=== PATIENT | male | born 1935 | race Caucasian/White ===

== ENCOUNTER → 2016-08-05 | Outpatient (CLI) | payer OTHER, MEDICARE ==
[2016-06-02 12:58] VITALS: BP 146/86
[~2016-08-05] MED LIST: NS 100 ML IV 100 ML IV ONE
[2016-08-05 14:43] LABS: CREATININE 1.37 mg/dL (0.70-1.30)
--- NOTE | 2016-08-05 16:37 | CT ---
History: Shortness of breath and history of DVT Study: CTA chest with contrast. Sagittal and coronal and axial MIPS of the pulmonary arteries were d isplayed. Comparison: None Findings: There is a spiculated mass posteriorly in the right upper lobe measuring approximately 2.2 5 centimeters in diameter. There are a few air bronchograms through this mass and some bubbles of ga s in this mass. There is no hilar adenopathy. There are prominent middle mediastinal lymph node william uring up to 1.5 centimeters in diameter. There is a large hiatal hernia. There are a few small blebs in the apex of the right lung. The lungs are overall hyperinflated with mild centrilobular emphysem a. No pulmonary embolus is demonstrated. There is a 2 centimeter round nodule arising from the left adrenal gland with peripheral calcification. There is osteopenia. There is an old fracture of the up per sternum. Impression: 1. No evidence for pulmonary embolus 2. Spiculated right upper lobe posterior lateral lung mass suspicious for carcinoma. 3. Centrilobular emphysema 4. Large hiatal hernia 5. 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
== END | disposition home or self-care (01) | DRG 192 ==
LOC: RAD 14:14
PROVIDERS: ATTEND Internal Medicine
DX: J44.9 Chronic obstructive pulmonary disease, unspecified (principal); Z86.718 Personal history of other venous thrombosis and embolism; Z86.711 Personal history of pulmonary embolism; R06.02 Shortness of breath
CPT/HCPCS: 36415; 71275; 82565; 84520; A4222

== ENCOUNTER 2016-08-29 21:37 | Inpatient (IN) | payer OTHER, MEDICARE ==
[2016-08-29 21:45] VITALS: BMI 23.1
--- NOTE | 2016-08-29 23:38 | DR.GENAD ---
HPI - PCP Primary Care Physician: Kenneth - Complaint/Symptoms Chief Complaint Doctors Comments: Patient complains of being weak, SOB with xiphoid chest pain for the past 24 hours. States he has COPD and has been unable to walk ten feet without giving out. states he normally can walk over 100 yards. He is having dull xiphoid chest pain. states he is a patient of Dr. Cooper. He has had a nebulizer treatment around 4 pm today. states he has a history of CHF, COPD; atrial fibrillation. He states nebulizers four times daily and is on two liters oxygen daily. States he has had a little swelling in his legs. He denies cold or cough. He denies tobacco usage. Chief Complaint:: "For about 2 or 3 weeks now my breathing has been getting worse. It has been very hard to breath and I have been getting weak lately. My stomach has been sour as well. I have lost about 10 pounds in the last 2 weeks. " - Nurses notes reviewed Nurses Notes Review: Yes - Source History Provided: Patient - Mode of Arrival Mode of Arrival: Wheelchair - Timing Onset of Chief Complaint: 08/13/16 Came on: Suddenly - Duration Duration: Intermittent How lon Duration: Days - Location Location: xiphoid chest pain - Severity Severity: Moderate - Modifying Factors Worsens:: nothing Improves:: nothing PMH - PMH Past Medical History: Yes Past Medical History: Angina, Anxiety, Arthritis, CHF, COPD, Coronary Artery Disease, Dyslipidemia, GERD, Hypertension Past Surgical History: Yes Surgical History: TURP - Family History History of Family Medical Conditions: Yes Family Medical History: Hypertension - Social History Does patient currently use any type of tobacco product: No Have you used tobacco products in the last 12 months: No Type of Tobacco Use: None Does any household member use tobacco: No Do you use any recreational Drugs:: No Lives With: Family Lives Where: Home - infectious screening In the last 2 months have you had wt loss of >10#?: YES Have you had fever, night sweats or hemotysis?: No Have you traveled outside the country in the last 6 months?: No Isolation: Standard ROS - Review of Systems Constitutional: No Symptoms Reported, Weakness, Fatigue, Loss of Appetite Eyes: No Symptoms Reported. negative: See HPI, Eye Pain, Blurred Vision, Tearing, Discharge, Photophobia, Diplopia, Other ENTM: No Symptoms Reported Respiratoy: No Symptoms Reported, Short of Breath, Wheezing. negative: See HPI , Productive Cough, Non-Productive Cough, Moist Cough, Dry Cough, Hacking Cough , Barking Cough, Brassy Cough, Orthopnea, Stridor, Hemoptysis, Other Cardiovascular: No Symptoms Reported, Chest Pain, Edema, Palpitations. negative : See HPI, Syncope, Cyanosis, Skin Mottling, Other Gastrointestinal/Abdominal: No Symptoms Reported. negative: See HPI, Abdominal Pain, Constipation, Diarrhea, Nausea, Vomiting, Food Intolerance, Other Genitourinary: No Symptoms Reported Neurological: No Symptoms Reported, Weakness, Problems Walking. negative: See HPI, Anxiety, Depressed, Emotional Problems, Headache, Numbness, Paresthesia, Pre-existing Deficit, Seizure, Tingling, Tremors, Dizziness, Speech Problem, Other Musculoskeletal: No Symptoms Reported Integumentary: No Symptoms Reported. negative: See HPI, Change in Color, Change in Hair/Nails, Dryness, Lesions, Lumps, Rash, Itching, Wound, Bruises, Juandice, Other Hematologic/Lymphatic: No Symptoms Reported Endocrine: No Symptoms Reported. negative: See HPI, Excessive Sweating, Flushing, Intolerance to Cold, Intolerance to Heat, Increased Hunger, Increased Thirst, Increased Urine, Unexplained Weight Gain, Unexplained Weight Loss, Failure to Thrive, Decreased Appetite, Other Psychiatric: No Symptoms Reported PE - Vital Signs Vitals: Temperature 98.2 F Pulse Rate 94 Respiratory Rate 23 Blood Pressure [Right Arm] 126/62 Blood Pressure [Left Arm] 146/86 Blood Pressure 106/69 O2 Sat by Pulse Oximetry 97 - General Limitations: No Limitations General Appearance: Alert, In Distress (moderate) - Head Head Exam: Normal Inspection, Atraumatic, Normocephalic - Eyes Eye exam: Normal Appearance, PERRL, EOMI. negative: Scleral Icterus, Conjunctival Injection, Nystagmus, Miosis, Mydrasis, Periorbital Swelling, Periorbital Tenderness, Other - ENT ENT Exam: Normal Exam, Normal Oropharynx, Normal External Ear Exam, Mucous Membranes Moist, TM's Normal Bilaterally External Ear Exam: Normal External Inspection TM/Canal Exam: Bilateral Normal Nose Exam: Normal Nose Exam Mouth Exam: Normal Inspection Throat Exam: Normal Inspection - Neck Neck Exam: Normal Inspection, Full ROM, Trachea Midline - Chest Chest Inspection: Normal Inspection, Symmetric Chest Wall Rise - Respiratory Respiratory Exam: Normal Lung Sounds Bilat, Prolonged Expiratory Phase Respiratory Exam: Bilateral Wheezing, Bilateral Decreased Breath Sounds - Cardiovascular Cardiovascular Exam: Regular Rate, Normal Rhythm, Tachycardia, Irregular Rhythm - Abdominal Exam Abdominal Exam: Normal Inspection, Normal Bowel Sounds, Soft. negative: Distention, Tenderness, Guarding, Rebound, Rigidity, Dimnished Bowel Sounds, Hyperactive Bowel Sounds, Hypoactive Bowel Sounds, Organomegaly, Trauma, Incision, Ascites, Mass, Bruit, Pulsatile Mass, Hernia, Other Abdominal Tenderness: negative: RUQ, RLQ, LUQ, LLQ, Epigastrium, Suprapubic, Diffuse, Mild, Moderate, Severe, Other - Extremities Extremities Exam: Normal Inspection, Full ROM, Normal Capillary Refill. negative: Tenderness, Edema, Joint Swelling, Calf Tenderness, Other - Back Back Exam: Normal Inspection, Full ROM. negative: Tenderness, (R) CVA Tenderness, (L) CVA Tenderness, Muscle Spasm, Paraspinal Tenderness, Vertebral Tenderness, Rashes, (R) Sciatic Notch Tenderness, (L) Sciatic Notch Tendern, (R ) Straight Leg Raise, (L) Straight Leg Raise, Other - Neurologic Neurological Exam: Alert, Oriented X3, CN II-XII Intact, Reflexes Normal. negative: Normal Gait (gait not tested) - Psychiatric Psychiatric Exam: Normal Affect, Normal Mood. negative: Depressed, Agitated, Anxious, Flat Affect, Manic, Homicidal Ideation, Suicidal Ideation, Other - Skin Skin Exam: Warm, Dry, Intact, Normal Color. negative: Rash, Cyanosis, Diaphoresis, Erythema, Pallor, Mottled, Other Course - Reevaluation 1st: Improved - Consultation Called: 02:08 Call Returned: 02:08 (Dr. Zavaleta to admit) - Education/Counseling Education/Counseling: Patient Educated On: Treatment, Diagnosis, Needs for Follow Up ROR - Labs Reviewed Laboratory Results Reviewed?: Yes (all labs and x-ray result reviewed and discussed with patient) Result Diagrams: 08/29/16 00:00 08/30/16 00:00 Laboratory: WBC 8.3 X10^3/uL (3.6-10.0) 08/29/16 00:00 RBC 3.94 X10^6/uL (4.7-6.0) L 08/29/16 00:00 Hgb 12.5 g/dL (13.5-18.0) L 08/29/16 00:00 Hct 36.7 % (42.0-54.0) L 08/29/16 00:00 MCV 93.4 fL (80.0-100.0) 08/29/16 00:00 MCH 31.8 pg (27.0-34.0) 08/29/16 00:00 MCHC 34.1 g/dL (33.0-35.0) 08/29/16 00:00 RDW 13.7 % (11.6-16.5) 08/29/16 00:00 Plt Count 380 X10^3/uL (150.0-450.0) 08/29/16 00:00 MPV 8.6 fL (7.4-11.0) 08/29/16 00:00 Neut % 74.9 % (42.0-75.0) 08/29/16 00:00 Lymph % 8.8 % (21.0-51.0) L 08/29/16 00:00 [place] % 13.0 % (0.0-13.0) 08/29/16 00:00 Eos % 3.3 % (0.9-2.9) H 08/29/16 00:00 Baso % 0 % (0.2-1.0) L 08/29/16 00:00 Neut # 6.2 x10^3/uL (2.2-4.8) H 08/29/16 00:00 Lymph # 0.7 X10^3/uL (1.3-2.9) L 08/29/16 00:00 [place] # 1.1 x10^3/uL (0.3-0.8) H 08/29/16 00:00 Eos # 0.3 x10^3/uL (0.0-0.2) H 08/29/16 00:00 Baso # 0.0 X10^3/uL (0.0-0.1) 08/29/16 00:00 Absolute Nucleated RBC 0.1 /100WBC 08/29/16 00:00 INR Target Range - 08/29/16 00:00 INR 1.39 (0.8-1.3) H 08/29/16 00:00 PTT 30.6 SECONDS (22.9-36.5) 08/29/16 00:00 PTT Comment - 08/29/16 00:00 Sodium 141 mmol/L (136-145) 08/30/16 00:00 Corrected Sodium TNP 08/30/16 00:00 Potassium 3.1 mmol/L (3.5-5.1) L 08/30/16 00:00 Chloride 103 mmol/L (98-107) 08/30/16 00:00 Carbon Dioxide 27.6 mmol/L (21-32) 08/30/16 00:00 BUN 24 mg/dL (7-18) H 08/30/16 00:00 Creatinine 1.64 mg/dL (0.70-1.30) H 08/30/16 00:00 Est GFR (MDRD) Af Amer 52 (>60) L 08/30/16 00:00 Est GFR (MDRD) Non-Af 43 (>60) L 08/30/16 00:00 Glucose 101 mg/dL (65-99) H 08/30/16 00:00 Calcium 9.0 mg/dL (8.5-10.1) 08/30/16 00:00 Corrected Calcium 9.7 mg/dL (8.5-10.1) 08/30/16 00:00 Magnesium 1.5 mg/dL (1.7-2.9) L 08/30/16 00:00 Total Bilirubin 1.00 mg/dL (0.2-1.0) 08/30/16 00:00 AST 26 Units/L (15-37) 08/30/16 00:00 ALT 24 Units/L (12-78) 08/30/16 00:00 Alkaline Phosphatase 118 Units/L (46-116) H 08/30/16 00:00 Creatine Kinase 82 Units/L (39-308) 08/30/16 00:00 CK-MB (CK-2) 1.4 ng/mL (0-4.0) 08/30/16 00:00 CK/CKMB % Calc 1.7 % (<4) 08/30/16 00:00 Troponin I < 0.02 ng/mL (0-1.5) 08/30/16 00:00 Total Protein 6.6 g/dL (6.4-8.2) 08/30/16 00:00 Albumin 3.1 g/dL (3.4-5.0) L 08/30/16 00:00 Globulin 3.5 g/dL (2.5-4.5) 08/30/16 00:00 Albumin/Globulin Ratio 0.9 Ratio (1.1-2.1) L 08/30/16 00:00 Amylase 38 Units/L (25-115) 08/30/16 00:00 Lipase 75 Units/L (73-393) 08/30/16 00:00 - EKG Rate: 102 Rhythm: Afib ST: Nonsp - Diagnosis Discharge Problem: Chest pain, rule out acute myocardial infarction, COPD exacerbation, Hypokalemia Atrial fibrillation Qualifiers: Atrial fibrillation type: chronic Qualified Code(s): I48.2 - Chronic atrial fibrillation - Discharge Plan Disposition: ADMITTED INPATIENT Condition: Stable - Follow ups/Referrals Follow ups/Referrals: Saurabh Cooper [Primary Care Provider] - 3 days - Instructions
--- NOTE | 2016-08-29 23:57 | RAD ---
Chest, one view Indication: Chest pain, shortness of breath. Comparison: CTA from 08/05/2016 Findings: Mild cardiac silhouette enlargement is unchanged. The lungs are mildly hypoinflated with m ild bibasilar atelectasis. There is no overt edema. There is re-demonstration of a right nodular opa city, not significantly changed. No large effusion or pneumothorax. Impression: Grossly stable right upper lobe nodule versus consolidation compared with the recent CTA. Cardiomegaly with low lung volumes and mild bibasilar atelectasis. Reported By:
[2016-08-30 00:12] LABS: BASOPHILS % (AUTO) 0 % (0.2-1.0); EOSINOPHILS # (AUTO) 0.3 x10^3/uL (0.0-0.2); EOSINOPHILS % (AUTO) 3.3 % (0.9-2.9); HEMATOCRIT 36.7 % (42.0-54.0); HEMOGLOBIN 12.5 g/dL (13.5-18.0); LYMPHOCYTES # (AUTO) 0.7 X10^3/uL (1.3-2.9); LYMPHOCYTES % (AUTO) 8.8 % (21.0-51.0); MEAN CORPUSCULAR HEMOGLOBIN 31.8 pg (27.0-34.0); MEAN CORPUSCULAR HGB CONC 34.1 g/dL (33.0-35.0); MEAN CORPUSCULAR VOLUME 93.4 fL (80.0-100.0); MEAN PLATELET VOLUME 8.6 fL (7.4-11.0); MONOCYTES # (AUTO) 1.1 x10^3/uL (0.3-0.8); NEUTROPHILS # (AUTO) 6.2 x10^3/uL (2.2-4.8); NEUTROPHILS % (AUTO) 74.9 % (42.0-75.0); PLATELET COUNT 380 X10^3/uL (150.0-450.0); RED BLOOD COUNT 3.94 X10^6/uL (4.7-6.0); RED CELL DISTRIBUTION WIDTH 13.7 % (11.6-16.5); WHITE BLOOD COUNT 8.3 X10^3/uL (3.6-10.0)
[2016-08-30 00:39] LABS: ALANINE AMINOTRANSFERASE 24 Units/L (12-78); ALBUMIN 3.1 g/dL (3.4-5.0); ALKALINE PHOSPHATASE 118 Units/L (46-116); AMYLASE 38 Units/L (25-115); ASPARTATE AMINO TRANSFERASE 26 Units/L (15-37); BLOOD UREA NITROGEN 24 mg/dL (7-18); CARBON DIOXIDE 27.6 mmol/L (21-32); CHLORIDE 103 mmol/L (98-107); CKMB % 1.7 % (<4); COR CA(FOR HYPOALB) 9.7 mg/dL (8.5-10.1); CREATINE KINASE 82 Units/L (39-308); CREATINE KINASE MB 1.4 ng/mL (0-4.0); CREATININE 1.64 mg/dL (0.70-1.30); GLUCOSE 101 mg/dL (65-99); LIPASE 75 Units/L (73-393); MAGNESIUM 1.5 mg/dL (1.7-2.9); SODIUM 141 mmol/L (136-145); TOTAL PROTEIN 6.6 g/dL (6.4-8.2); TROPONIN I < 0.02 ng/mL (0-1.5); eGFR BLACK RACES 52 (>60); eGFR NON BLACK RACES 43 (>60)
[2016-08-30] MEDS ORDERED: SOLU-Medrol 125 MG VIAL IVP ONE (00:50)
[2016-08-30] MEDS ORDERED: SOLU-Medrol 125 MG VIAL ONE (00:52)
[2016-08-30] MEDS: NS 1000 ML 1,000 ML IV SCH ×4 (00:55→15:42)
[2016-08-30] MEDS ORDERED: K-LYTE EFFERVESCENT PO STA (01:06)
[2016-08-30] MEDS: DUONEB 0.5 MG/3 MG NEB SCH ×3 (05:05→12:27)
[2016-08-30] MEDS ORDERED: LEVAQUIN PREMIX IV 500 MG 500 MG/100 ML BAG IV ONE (06:00)
[2016-08-30 06:57] LABS: CHOL/HDL RATIO 2.2 (0.0-5.0); CHOLESTEROL 99 mg/dL (0-200); CKMB % 2.2 % (<4); CREATINE KINASE 67 Units/L (39-308); CREATINE KINASE MB 1.5 ng/mL (0-4.0); HDL CHOLESTEROL 46 mg/dL (40-60); TRIGLYCERIDES 52 mg/dL (0-150); TROPONIN I < 0.02 ng/mL (0-1.5)
[2016-08-30] MEDS: SOLU-Medrol 40 MG VIAL IVP SCH ×2 (07:45→16:51)
[2016-08-30] MEDS ORDERED: LOPRESSOR TAB 25 MG PO SCH (09:00)
[2016-08-30 09:06] LABS: ALANINE AMINOTRANSFERASE 25 Units/L (12-78); ALBUMIN 3.1 g/dL (3.4-5.0); ALKALINE PHOSPHATASE 119 Units/L (46-116); ASPARTATE AMINO TRANSFERASE 28 Units/L (15-37); BLOOD UREA NITROGEN 24 mg/dL (7-18); CALCIUM 9.2 mg/dL (8.5-10.1); CARBON DIOXIDE 25.5 mmol/L (21-32); CHLORIDE 102 mmol/L (98-107); COR CA(FOR HYPOALB) 9.9 mg/dL (8.5-10.1); CREATININE 1.62 mg/dL (0.70-1.30); GLUCOSE 86 mg/dL (65-99); SODIUM 140 mmol/L (136-145); TOTAL PROTEIN 6.7 g/dL (6.4-8.2); eGFR BLACK RACES 53 (>60); eGFR NON BLACK RACES 44 (>60)
[2016-08-30] MEDS: MAGNESIUM SULFATE 1 GM/100 mL PREMIX 1 GM/100 ML BAG IV SCH ×2 (09:16→10:20)
[2016-08-30] MEDS: CARDIZEM CD 180 MG PO SCH (09:16)
[2016-08-30] MEDS ORDERED: K-RIDER 10 MEQ/NS 100 ML 10 MEQ/100 ML BAG IV PRN (09:27)
[2016-08-30] MEDS ORDERED: K-DUR TAB 20 MEQ PO PRN (09:27)
[2016-08-30] MEDS ORDERED: K-LYTE EFFERVESCENT PO PRN (09:27)
[2016-08-30] MEDS ORDERED: POTASSIUM CHLORIDE LIQ 20 MEQ UDC PO PRN (09:27)
[2016-08-30] MEDS ORDERED: PROVENTIL NEB TX 0.083% 2.5MG/ 3ML NEB PRN (11:58)
[2016-08-30] MEDS ORDERED: COLACE CAP 100 MG PO PRN (11:58)
[2016-08-30] MEDS ORDERED: PATIENT'S HOME MEDICATION (Budesonide-Formoterol 2 PUFF) PO SCH (12:00)
[2016-08-30] MEDS ORDERED: PATIENT'S HOME MEDICATION (Omeprazole [Prilosec 40 Mg] 40 MG) PO SCH (12:00)
[2016-08-30] MEDS ORDERED: OMEGA PO SCH (12:00)
[2016-08-30] MEDS ORDERED: FATTY ACIDS PO SCH (12:00)
[2016-08-30] MEDS ORDERED: CARDIZEM CD 180 MG PO SCH (12:00)
[2016-08-30] MEDS ORDERED: TIOTROPIUM BROMIDE MONOHYDRATE INH SCH (12:00)
[2016-08-30] MEDS ORDERED: PATIENT'S HOME MEDICATION (Apixaban [Eliquis] 2.5 MG) PO SCH (12:00)
[2016-08-30] MEDS ORDERED: CHOLECALCIFEROL 5000 UNIT PO SCH (12:00)
[2016-08-30] MEDS ORDERED: AFRIN NASAL SPRAY ENOSTRIL PRN (12:10)
[2016-08-30] MEDS ORDERED: ELIQUIS PO ONE (12:31)
[2016-08-30] MEDS ORDERED: PriLOSEC PO ONE (12:31)
[2016-08-30] MEDS ORDERED: LOVAZA PO ONE (12:32)
[2016-08-30] MEDS ORDERED: VITAMIN D3 PO ONE (12:37)
[2016-08-30] MEDS: FLONASE NASAL SPRAY ENOSTRIL SCH (12:58)
[2016-08-30] MEDS ORDERED: LOVAZA PO SCH (13:00)
[2016-08-30] MEDS ORDERED: ATROVENT NEB TX 0.02% NEB SCH ×2 (13:00→18:00)
[2016-08-30] MEDS ORDERED: XOPENEX 1.25 MG/3 ML NEBULE NEB PRN (14:47)
[2016-08-30 16:19] LABS: CALCIUM 8.8 mg/dL (8.5-10.1); CARBON DIOXIDE 27.7 mmol/L (21-32); CREATININE 1.49 mg/dL (0.70-1.30)
[2016-08-30] MEDS: ATROVENT NEB TX 0.02% NEB SCH (17:09)
[2016-08-30] MEDS: XOPENEX 1.25 MG/3 ML NEBULE NEB SCH (17:09)
[2016-08-30] MEDS ORDERED: XOPENEX 1.25 MG/3 ML NEBULE NEB SCH (18:00)
[2016-08-30] MEDS ORDERED: ZOLOFT PO ONE (20:20)
[2016-08-30] MEDS: ZOLOFT PO SCH (20:30)
[2016-08-30] MEDS: VITAMIN D3 PO SCH (20:31)
[2016-08-30] MEDS: LASIX PO SCH (20:31)
[2016-08-30] MEDS: ALFUZOSIN HCL 10 MG PO SCH (20:31)
[2016-08-30] MEDS: ELIQUIS PO SCH (20:31)
[2016-08-30] MEDS: PULMICORT NEB TX 0.5 MG NEB SCH (20:49)
[2016-08-30] MEDS ORDERED: SERTRALINE HCL 100 MG PO SCH (21:00)
[2016-08-30] MEDS: TOPROL XL PO SCH (21:00)
[2016-08-31] MEDS: XOPENEX 1.25 MG/3 ML NEBULE NEB SCH ×5 (00:26→17:06)
[2016-08-31] MEDS: ATROVENT NEB TX 0.02% NEB SCH ×5 (00:26→17:06)
[2016-08-31] MEDS: SOLU-Medrol 40 MG VIAL IVP SCH ×3 (01:14→16:30)
[2016-08-31 06:51] LABS: BASOPHILS % (AUTO) 0.1 % (0.2-1.0); EOSINOPHILS % (AUTO) 0.1 % (0.9-2.9); HEMATOCRIT 32.4 % (42.0-54.0); LYMPHOCYTES # (AUTO) 0.2 X10^3/uL (1.3-2.9); LYMPHOCYTES % (AUTO) 1.9 % (21.0-51.0); MEAN CORPUSCULAR HEMOGLOBIN 31.4 pg (27.0-34.0); MEAN CORPUSCULAR VOLUME 92.3 fL (80.0-100.0); MEAN PLATELET VOLUME 9.1 fL (7.4-11.0); MONOCYTES # (AUTO) 0.3 x10^3/uL (0.3-0.8); MONOCYTES % (AUTO) 2.8 % (0.0-13.0); NEUTROPHILS # (AUTO) 9.6 x10^3/uL (2.2-4.8); NEUTROPHILS % (AUTO) 95.1 % (42.0-75.0); PLATELET COUNT 386 X10^3/uL (150.0-450.0); RED BLOOD COUNT 3.51 X10^6/uL (4.7-6.0); RED CELL DISTRIBUTION WIDTH 13.5 % (11.6-16.5); WHITE BLOOD COUNT 10.1 X10^3/uL (3.6-10.0)
[2016-08-31 07:02] LABS: ALANINE AMINOTRANSFERASE 21 Units/L (12-78); ALBUMIN 2.7 g/dL (3.4-5.0); ALKALINE PHOSPHATASE 95 Units/L (46-116); ASPARTATE AMINO TRANSFERASE 28 Units/L (15-37); BLOOD UREA NITROGEN 23 mg/dL (7-18); CARBON DIOXIDE 25.6 mmol/L (21-32); CHLORIDE 104 mmol/L (98-107); COR NA(FOR HYPERGLY) 139 mmol/L (136-145); CREATININE 1.35 mg/dL (0.70-1.30); GLUCOSE 134 mg/dL (65-99); SODIUM 138 mmol/L (136-145); TOTAL PROTEIN 5.7 g/dL (6.4-8.2); eGFR BLACK RACES > 60 (>60); eGFR NON BLACK RACES 54 (>60)
[2016-08-31 07:20] LABS: PLATELET MORPHOLOGY COMMENT NORMAL (NORMAL)
--- NOTE | 2016-08-31 07:35 | RAD ---
HISTORY: Chest pain Study: Chest one view Comparison: August 29, 2016, CTA chest August 05, 2016 Findings: The patient is rotated to the right. The heart remains enlarged. The lungs are mildly hypoinflated b ut free of acute alveolar infiltrates. The areaof nodular consolidation visible on the most recent C TA chest is not well demonstrated on this examination. Follow up should be with CT. No acute infiltr ates or pleural effusions are identified. IMPRESSION: Cardiomegaly without congestive heart failure Reported By:
[2016-08-31] MEDS: FERROUS SULFATE PO SCH (08:10)
[2016-08-31] MEDS: LEVAQUIN PREMIX IV 250 MG 250 MG/50 ML BAG IV SCH (08:11)
[2016-08-31] MEDS: NS 1000 ML 1,000 ML IV SCH ×2 (08:11→16:29)
[2016-08-31] MEDS: CARDIZEM CD 180 MG PO SCH (08:11)
[2016-08-31] MEDS: TOPROL XL PO SCH ×2 (08:11→21:00)
[2016-08-31] MEDS: MICRO K EXTEN CAP 10 MEQ PO SCH (08:11)
[2016-08-31] MEDS: ASPIRIN 81 MG CHEWTAB PO SCH (08:12)
[2016-08-31] MEDS: VITAMIN D3 PO SCH ×2 (08:12→21:00)
[2016-08-31] MEDS: LASIX PO SCH ×2 (08:13→21:04)
[2016-08-31] MEDS: FLONASE NASAL SPRAY ENOSTRIL SCH (08:13)
[2016-08-31] MEDS: ELIQUIS PO SCH ×2 (08:13→21:03)
[2016-08-31] MEDS: PriLOSEC PO SCH (08:14)
[2016-08-31] MEDS: PULMICORT NEB TX 0.5 MG NEB SCH ×2 (08:40→21:00)
[2016-08-31] MEDS ORDERED: PATIENT'S HOME MEDICATION (Ferrous Sulfate [Ferrous Sulfate] 325 MG) PO SCH (09:00)
[2016-08-31] MEDS ORDERED: POTASSIUM CHLORIDE 10 MEQ PO SCH (09:00)
[2016-08-31] MEDS: TYLENOL 325 MG TAB PO PRN (18:43)
[2016-08-31] MEDS ORDERED: ZOLOFT PO ONE (20:30)
[2016-08-31] MEDS: ZOLOFT PO SCH (21:04)
[2016-08-31] MEDS: ALFUZOSIN HCL 10 MG PO SCH (21:04)
[2016-09-01] MEDS: XOPENEX 1.25 MG/3 ML NEBULE NEB SCH ×4 (00:26→17:11)
[2016-09-01] MEDS: ATROVENT NEB TX 0.02% NEB SCH ×4 (00:26→17:11)
[2016-09-01] MEDS: SOLU-Medrol 40 MG VIAL IVP SCH ×3 (01:07→17:47)
[2016-09-01] MEDS: NS 1000 ML 1,000 ML IV SCH ×2 (01:08→17:46)
[2016-09-01 05:44] LABS: ALBUMIN 2.7 g/dL (3.4-5.0); CARBON DIOXIDE 23.8 mmol/L (21-32); CREATININE 1.45 mg/dL (0.70-1.30); TOTAL PROTEIN 5.8 g/dL (6.4-8.2)
[2016-09-01 06:20] LABS: BASOPHILS % (AUTO) 0.3 % (0.2-1.0); EOSINOPHILS % (AUTO) 0.1 % (0.9-2.9); HEMATOCRIT 34.3 % (42.0-54.0); HEMOGLOBIN 11.5 g/dL (13.5-18.0); LYMPHOCYTES # (AUTO) 0.2 X10^3/uL (1.3-2.9); LYMPHOCYTES % (AUTO) 1.5 % (21.0-51.0); MEAN CORPUSCULAR HEMOGLOBIN 31.4 pg (27.0-34.0); MEAN CORPUSCULAR HGB CONC 33.7 g/dL (33.0-35.0); MEAN CORPUSCULAR VOLUME 93.2 fL (80.0-100.0); MEAN PLATELET VOLUME 9.3 fL (7.4-11.0); MONOCYTES # (AUTO) 0.5 x10^3/uL (0.3-0.8); MONOCYTES % (AUTO) 4.2 % (0.0-13.0); NEUTROPHILS # (AUTO) 10.1 x10^3/uL (2.2-4.8); NEUTROPHILS % (AUTO) 93.9 % (42.0-75.0); PLATELET COUNT 439 X10^3/uL (150.0-450.0); RED BLOOD COUNT 3.68 X10^6/uL (4.7-6.0); RED CELL DISTRIBUTION WIDTH 13.2 % (11.6-16.5); WHITE BLOOD COUNT 10.8 X10^3/uL (3.6-10.0)
[2016-09-01 06:46] LABS: BAND NEUTROPHILS % 1 % (0-10); PLATELET MORPHOLOGY COMMENT NORMAL (NORMAL)
--- NOTE | 2016-09-01 07:45 | RAD ---
HISTORY: 80-year-old male with shortness of breath. Study: Single frontal view of the chest. Comparison: Chest radiograph August 31, 2016. Findings: The trachea is midline. The cardiac silhouette is stable. Low lung volumes with basilar atelectasi s hand unchanged prominent perihilar lung markings, central pulmonary vascular congestion and promin ent interstitium. Evolving right lung base patchy airspace opacity. The bony thorax is unremarkable . IMPRESSION: 1. Involving right lung base patchy airspace opacity, atelectasis versus infectious process, correl ate clinically. 2. No other significant interval change. Reported By:
[2016-09-01] MEDS: PULMICORT NEB TX 0.5 MG NEB SCH ×2 (08:46→21:00)
[2016-09-01] MEDS: FERROUS SULFATE PO SCH (10:56)
[2016-09-01] MEDS: VITAMIN D3 PO SCH ×2 (10:57→21:24)
[2016-09-01] MEDS: PriLOSEC PO SCH (10:57)
[2016-09-01] MEDS: MICRO K EXTEN CAP 10 MEQ PO SCH (10:58)
[2016-09-01] MEDS: LEVAQUIN PREMIX IV 250 MG 250 MG/50 ML BAG IV SCH (10:58)
[2016-09-01] MEDS: TOPROL XL PO SCH ×2 (10:58→20:34)
[2016-09-01] MEDS: CARDIZEM CD 180 MG PO SCH (10:58)
[2016-09-01] MEDS: ELIQUIS PO SCH ×2 (10:59→20:32)
[2016-09-01] MEDS: FLONASE NASAL SPRAY ENOSTRIL SCH (11:00)
[2016-09-01] MEDS: LASIX IVP SCH ×2 (11:01→21:24)
--- NOTE | 2016-09-01 15:49 | PCM.PROG ---
Progress Note - Progress Note for Day of Date: 09/01/16 - Subjective Subjective: Patient is an 80 yo male who presented to the hospital through the emergency room with complaints of chest pain, shortness of rbeath and increased weakness that has been going on for the last 24 hrs. This am the patient states that he is feeling better however, he is still have shortness of breath when he is not resting. Patient is noted to have increased heart rate and decreased oxygen saturation up activity such as sitting up or walking. Most recent EKG show atrial fibrillation with a rate of 103, patient has history of atrial fibrillation as well and is currently on cardizem. Labs are normal with the exception of WBC 10.8, RBC 3.68, Hgb 11.5, Hct 34.3, BUN 28, Creatinine 1.45, AST 50, Total Protein 5.8, Albumin 2.7 - Past Medical Family Social History Allergies: Allergies No Known Drug Allergy Allergy (Verified 03/03/13 08:46) - Vital Signs and I&O's Vital Signs: Temperature 98 F Pulse Rate [Left] 105 Pulse Rate 95 Respiratory Rate 18 Blood Pressure [Right Arm] 113/66 O2 Sat by Pulse Oximetry 92 Intake and Output: Intake & Output 08/30/16 08/31/16 09/01/16 09/02/16 11:59 11:59 11:59 11:59 Intake Total 375 3625 2470 Output Total 300 1150 1750 Balance 75 2475 720 - Physical Exam Oriented: Normal Eyes: Normal Ear: Normal Nose: Normal Throat: Normal Respiratory: Wheezes (scattered) Cardiovascular: Irregular : Normal Auscultation: Bowel Sounds: Normal Palpation: Normal Tenderness: Normal Skin: Decreased [place] Musculoskeletal: Instability Psychiatric: Normal Mood Description: Calm Affect: Normal Speech Pattern: Clear - Laboratory and Diagnostics Result Diagrams: 09/01/16 04:45 09/01/16 04:45 Labs: Laboratory WBC 10.8 X10^3/uL (3.6-10.0) H 09/01/16 04:45 RBC 3.68 X10^6/uL (4.7-6.0) L 09/01/16 04:45 Hgb 11.5 g/dL (13.5-18.0) L 09/01/16 04:45 Hct 34.3 % (42.0-54.0) L 09/01/16 04:45 MCV 93.2 fL (80.0-100.0) 09/01/16 04:45 MCH 31.4 pg (27.0-34.0) 09/01/16 04:45 MCHC 33.7 g/dL (33.0-35.0) 09/01/16 04:45 RDW 13.2 % (11.6-16.5) 09/01/16 04:45 Plt Count 439 X10^3/uL (150.0-450.0) 09/01/16 04:45 Plt Count Comment Adequate (ADEQUATE) 09/01/16 04:45 MPV 9.3 fL (7.4-11.0) 09/01/16 04:45 Neut % 93.9 % (42.0-75.0) H 09/01/16 04:45 Lymph % 1.5 % (21.0-51.0) L 09/01/16 04:45 [place] % 4.2 % (0.0-13.0) 09/01/16 04:45 Eos % 0.1 % (0.9-2.9) L 09/01/16 04:45 Baso % 0.3 % (0.2-1.0) 09/01/16 04:45 Neut # 10.1 x10^3/uL (2.2-4.8) H 09/01/16 04:45 Lymph # 0.2 X10^3/uL (1.3-2.9) L 09/01/16 04:45 [place] # 0.5 x10^3/uL (0.3-0.8) 09/01/16 04:45 Eos # 0.0 x10^3/uL (0.0-0.2) 09/01/16 04:45 Baso # 0.0 X10^3/uL (0.0-0.1) 09/01/16 04:45 Absolute Nucleated RBC 0.3 /100WBC 09/01/16 04:45 Total Counted 100 09/01/16 04:45 Neutrophils % (Manual) 90 % (39-76) H 09/01/16 04:45 Band Neutrophils % 1 % (0-10) 09/01/16 04:45 Lymphocytes % (Manual) 7 % (13-43) L 09/01/16 04:45 Monocytes % (Manual) 2 % (4-9) L 09/01/16 04:45 Plt Morphology Comment Normal (NORMAL) 09/01/16 04:45 RBC Morphology Normal (NORMAL) 09/01/16 04:45 INR Target Range - 08/29/16 00:00 INR 1.39 (0.8-1.3) H 08/29/16 00:00 PTT 30.6 SECONDS (22.9-36.5) 08/29/16 00:00 PTT Comment - 08/29/16 00:00 Sodium 139 mmol/L (136-145) 09/01/16 04:45 Corrected Sodium 139 mmol/L (136-145) 09/01/16 04:45 Potassium 4.3 mmol/L (3.5-5.1) 09/01/16 04:45 Chloride 105 mmol/L (98-107) 09/01/16 04:45 Carbon Dioxide 23.8 mmol/L (21-32) 09/01/16 04:45 BUN 28 mg/dL (7-18) H 09/01/16 04:45 Creatinine 1.45 mg/dL (0.70-1.30) H 09/01/16 04:45 Est GFR (MDRD) Af Amer 60 (>60) 09/01/16 04:45 Est GFR (MDRD) Non-Af 50 (>60) L 09/01/16 04:45 Glucose 118 mg/dL (65-99) H 09/01/16 04:45 Calcium 9.0 mg/dL (8.5-10.1) 09/01/16 04:45 Corrected Calcium 10.0 mg/dL (8.5-10.1) 09/01/16 04:45 Magnesium 1.6 mg/dL (1.7-2.9) L 08/30/16 05:30 Total Bilirubin 0.50 mg/dL (0.2-1.0) 09/01/16 04:45 AST 50 Units/L (15-37) H 09/01/16 04:45 ALT 41 Units/L (12-78) 09/01/16 04:45 Alkaline Phosphatase 88 Units/L (46-116) 09/01/16 04:45 Creatine Kinase 67 Units/L (39-308) 08/30/16 05:30 CK-MB (CK-2) 1.5 ng/mL (0-4.0) 08/30/16 05:30 CK/CKMB % Calc 2.2 % (<4) 08/30/16 05:30 Troponin I < 0.02 ng/mL (0-1.5) 08/30/16 05:30 Total Protein 5.8 g/dL (6.4-8.2) L 09/01/16 04:45 Albumin 2.7 g/dL (3.4-5.0) L 09/01/16 04:45 Globulin 3.1 g/dL (2.5-4.5) 09/01/16 04:45 Albumin/Globulin Ratio 0.9 Ratio (1.1-2.1) L 09/01/16 04:45 Triglycerides 52 mg/dL (0-150) 08/30/16 05:30 Cholesterol 99 mg/dL (0-200) 08/30/16 05:30 LDL Cholesterol, Calc 43 mg/dL (0-100) 08/30/16 05:30 HDL Cholesterol 46 mg/dL (40-60) 08/30/16 05:30 Cholesterol/HDL Ratio 2.2 (0.0-5.0) 08/30/16 05:30 Amylase 38 Units/L (25-115) 08/30/16 00:00 Lipase 75 Units/L (73-393) 08/30/16 00:00 Rhythm: Afib - Plan (1) Atrial fibrillation Status: Acute Qualifiers: Atrial fibrillation type: chronic Qualified Code(s): I48.2 - Chronic atrial fibrillation Plan: continue with cardizem and eliquis, continue to monitor (2) COPD exacerbation Status: Acute Plan: Lasix 40mg IV q12hr x 2 doses, Continue solmedrol 80mg IV Q6hr (3) Chest pain, rule out acute myocardial infarction Status: Acute Plan: continuous cardiac monitoring
[2016-09-01] MEDS ORDERED: ZOLOFT PO ONE (20:06)
[2016-09-01] MEDS: ALFUZOSIN HCL 10 MG PO SCH (20:34)
[2016-09-01] MEDS: ZOLOFT PO SCH (20:35)
[2016-09-02] MEDS: SOLU-Medrol 40 MG VIAL IVP SCH ×2 (00:35→08:46)
[2016-09-02] MEDS: RESTORIL CAP 15 MG PO PRN ×2 (00:35→21:28)
[2016-09-02] MEDS: TYLENOL 325 MG TAB PO PRN (00:42)
[2016-09-02] MEDS: ATROVENT NEB TX 0.02% NEB SCH ×4 (01:10→16:52)
[2016-09-02] MEDS: XOPENEX 1.25 MG/3 ML NEBULE NEB SCH ×4 (01:10→16:51)
[2016-09-02 05:45] LABS: BASOPHILS % (AUTO) 0.1 % (0.2-1.0); HEMATOCRIT 33.5 % (42.0-54.0); HEMOGLOBIN 11.5 g/dL (13.5-18.0); LYMPHOCYTES # (AUTO) 0.1 X10^3/uL (1.3-2.9); LYMPHOCYTES % (AUTO) 1.3 % (21.0-51.0); MEAN CORPUSCULAR HEMOGLOBIN 31.4 pg (27.0-34.0); MEAN CORPUSCULAR HGB CONC 34.3 g/dL (33.0-35.0); MEAN CORPUSCULAR VOLUME 91.6 fL (80.0-100.0); MONOCYTES # (AUTO) 0.3 x10^3/uL (0.3-0.8); NEUTROPHILS # (AUTO) 7.2 x10^3/uL (2.2-4.8); NEUTROPHILS % (AUTO) 94.6 % (42.0-75.0); PLATELET COUNT 420 X10^3/uL (150.0-450.0); RED BLOOD COUNT 3.66 X10^6/uL (4.7-6.0); RED CELL DISTRIBUTION WIDTH 13.8 % (11.6-16.5); WHITE BLOOD COUNT 7.6 X10^3/uL (3.6-10.0)
[2016-09-02 05:49] LABS: ALBUMIN 2.6 g/dL (3.4-5.0); CALCIUM 8.7 mg/dL (8.5-10.1); COR CA(FOR HYPOALB) 9.8 mg/dL (8.5-10.1); CREATININE 1.54 mg/dL (0.70-1.30); TOTAL PROTEIN 5.6 g/dL (6.4-8.2)
[2016-09-02 06:13] LABS: BAND NEUTROPHILS % 1 % (0-10)
[2016-09-02 06:14] LABS: PLATELET MORPHOLOGY COMMENT NORMAL (NORMAL)
--- NOTE | 2016-09-02 06:25 | RAD ---
HISTORY: Chest pain, shortness of breath Study: Chest one view Comparison: September 01, 2016 Findings: The patient is rotated to the right. Positioning is less than adequate with the patient's chin obscu ring the right lung apex. The heart remains enlarged. No definite congestive heart failure is identi fied. No definite acute alveolar infiltrates are identified. There is some residual subsegmental ate lectasis in the medial right lung base. No pleural effusions are identified. The bony thorax is unre markable. IMPRESSION: Cardiomegaly without congestive heart failure Subsegmental atelectasis medial right lung base Reported By:
[2016-09-02] MEDS: NS 1000 ML 1,000 ML IV SCH ×2 (06:48→14:22)
[2016-09-02] MEDS: PriLOSEC PO SCH (08:45)
[2016-09-02] MEDS: ELIQUIS PO SCH ×2 (08:45→21:29)
[2016-09-02] MEDS: FERROUS SULFATE PO SCH (08:45)
[2016-09-02] MEDS: TOPROL XL PO SCH ×2 (08:45→21:28)
[2016-09-02] MEDS: CARDIZEM CD 180 MG PO SCH (08:45)
[2016-09-02] MEDS: FLONASE NASAL SPRAY ENOSTRIL SCH (08:46)
[2016-09-02] MEDS: LASIX IVP SCH ×3 (08:46→21:32)
[2016-09-02] MEDS: VITAMIN D3 PO SCH ×2 (08:46→21:32)
[2016-09-02] MEDS: MICRO K EXTEN CAP 10 MEQ PO SCH (08:46)
[2016-09-02] MEDS: LEVAQUIN PREMIX IV 250 MG 250 MG/50 ML BAG IV SCH (08:46)
[2016-09-02] MEDS: PULMICORT NEB TX 0.5 MG NEB SCH (09:07)
[2016-09-02] MEDS: SOLU-Medrol 125 MG VIAL IVP SCH ×3 (09:58→21:32)
[2016-09-02] MEDS: DECADRON JET NEB NEB SCH ×3 (11:22→16:51)
[2016-09-02] MEDS ORDERED: ZOLOFT PO ONE (21:20)
[2016-09-02] MEDS: ZOLOFT PO SCH (21:28)
[2016-09-02] MEDS: ALFUZOSIN HCL 10 MG PO SCH (21:31)
[2016-09-03] MEDS: XOPENEX 1.25 MG/3 ML NEBULE NEB SCH ×2 (01:01→06:16)
[2016-09-03] MEDS: ATROVENT NEB TX 0.02% NEB SCH ×2 (01:02→06:15)
--- NOTE | 2016-09-03 05:23 | RAD ---
Chest, one view Indication: Shortness of breath, COPD Comparison: 09/02/2016 Findings: There is stable right upper lobe nodular opacity. Medial right lung base subsegmental atel ectasis unchanged. No focal left lung infiltrates. There is stable cardiomegaly without overt edema or large pleural effusion. No pneumothorax identified. Impression: No significant change from prior. Reported By:
[2016-09-03 05:45] LABS: BASOPHILS % (AUTO) 0.1 % (0.2-1.0); HEMATOCRIT 33.9 % (42.0-54.0); HEMOGLOBIN 11.7 g/dL (13.5-18.0); LYMPHOCYTES # (AUTO) 0.1 X10^3/uL (1.3-2.9); LYMPHOCYTES % (AUTO) 1.6 % (21.0-51.0); MEAN CORPUSCULAR HEMOGLOBIN 31.8 pg (27.0-34.0); MEAN CORPUSCULAR HGB CONC 34.5 g/dL (33.0-35.0); MEAN CORPUSCULAR VOLUME 92.2 fL (80.0-100.0); MONOCYTES # (AUTO) 0.2 x10^3/uL (0.3-0.8); MONOCYTES % (AUTO) 3.8 % (0.0-13.0); NEUTROPHILS # (AUTO) 6.1 x10^3/uL (2.2-4.8); NEUTROPHILS % (AUTO) 94.5 % (42.0-75.0); PLATELET COUNT 437 X10^3/uL (150.0-450.0); RED BLOOD COUNT 3.67 X10^6/uL (4.7-6.0); RED CELL DISTRIBUTION WIDTH 13.8 % (11.6-16.5); WHITE BLOOD COUNT 6.5 X10^3/uL (3.6-10.0)
[2016-09-03 05:50] LABS: ALANINE AMINOTRANSFERASE 63 Units/L (12-78); ALBUMIN 2.5 g/dL (3.4-5.0); ALKALINE PHOSPHATASE 72 Units/L (46-116); ASPARTATE AMINO TRANSFERASE 38 Units/L (15-37); BLOOD UREA NITROGEN 41 mg/dL (7-18); CALCIUM 8.4 mg/dL (8.5-10.1); CARBON DIOXIDE 27.1 mmol/L (21-32); CHLORIDE 105 mmol/L (98-107); COR CA(FOR HYPOALB) 9.6 mg/dL (8.5-10.1); COR NA(FOR HYPERGLY) 142 mmol/L (136-145); CREATININE 1.43 mg/dL (0.70-1.30); GLUCOSE 134 mg/dL (65-99); SODIUM 141 mmol/L (136-145); TOTAL PROTEIN 5.3 g/dL (6.4-8.2); eGFR BLACK RACES > 60 (>60); eGFR NON BLACK RACES 50 (>60)
[2016-09-03] MEDS: SOLU-Medrol 125 MG VIAL IVP SCH (06:13)
[2016-09-03 06:21] LABS: PLATELET MORPHOLOGY COMMENT NORMAL (NORMAL)
[2016-09-03] MEDS: LEVAQUIN PREMIX IV 250 MG 250 MG/50 ML BAG IV SCH (09:09)
[2016-09-03] MEDS: PriLOSEC PO SCH (09:10)
[2016-09-03] MEDS: MICRO K EXTEN CAP 10 MEQ PO SCH (09:10)
[2016-09-03] MEDS: CARDIZEM CD 180 MG PO SCH (09:10)
[2016-09-03] MEDS: ELIQUIS PO SCH (09:10)
[2016-09-03] MEDS: ASPIRIN 81 MG CHEWTAB PO SCH (09:11)
[2016-09-03] MEDS: DECADRON JET NEB NEB SCH (09:11)
[2016-09-03] MEDS: TOPROL XL PO SCH (09:12)
[2016-09-03] MEDS: FLONASE NASAL SPRAY ENOSTRIL SCH (09:13)
[2016-09-03] MEDS: FERROUS SULFATE PO SCH (09:21)
[2016-09-03] MEDS: VITAMIN D3 PO SCH (09:21)
[2016-09-03 10:08] VITALS: BP 113/62
--- NOTE | 2016-09-03 12:51 | PCM.PROG ---
Progress Note - Progress Note for Day of Date: 09/02/16 - Subjective Subjective: Patient is an 80 yo male who presented to the hospital through the emergency room with complaints of chest pain, shortness of rbeath and increased weakness that has been going on for the last 24 hrs. This am the patient states that he is feeling better however, he is still have shortness of breath when he is not resting. Patient is noted to have increased heart rate and decreased oxygen saturation up activity such as sitting up or walking. Chest Xray shows cardimegaly without CHF, Subsegmental Atelectasis medial right lung base. Labs are within normal limits with the exception of RBC 3.66, Hgb 11.5, Hct 33.5, Neut% 94.6, Lymph% 1.3, Eos% 0.0, Baso% 0.1, Neut# 7.2, Lymph# 0.2, BUN 34, Creatinine 1.54, Est GFR 56, AST 47, Glucose 125, Protein 5.6, Albumin 2.6. We are going to increase his solumedrol to 125mg every 8hrs and give another 2 doses of lasix 40mg IV, start on decadron nebulizers and agressive incentive spirometer. Follow up with Labs and Chest xray in the am - Past Medical Family Social History Past Med/Fam/Surg Hx: No changes since H&P Allergies: Allergies No Known Drug Allergy Allergy (Verified 03/03/13 08:46) - Review of Systems ROS: No change since H&P - Vital Signs and I&O's Vital Signs: Temperature 97.8 F Pulse Rate [Left] 90 Pulse Rate 94 Respiratory Rate 23 Blood Pressure [Right Arm] 113/62 O2 Sat by Pulse Oximetry 94 Intake and Output: Intake & Output 09/01/16 09/02/16 09/03/16 09/04/16 11:59 11:59 11:59 11:59 Intake Total 2470 1504 2300 Output Total 1750 2400 4400 Balance 494 -340 -4368 - Physical Exam Oriented: Normal Eyes: Normal Ear: Normal Nose: Normal Throat: Normal Respiratory: Wheezes (scattered) Cardiovascular: Irregular : Normal Auscultation: Bowel Sounds: Normal Tenderness: Normal Skin: Decreased [place] Musculoskeletal: Instability Psychiatric: Normal Mood Description: Calm Affect: Normal Speech Pattern: Clear - Laboratory and Diagnostics Result Diagrams: 09/03/16 05:00 09/03/16 05:00 Labs: Laboratory WBC 6.5 X10^3/uL (3.6-10.0) 09/03/16 05:00 RBC 3.67 X10^6/uL (4.7-6.0) L 09/03/16 05:00 Hgb 11.7 g/dL (13.5-18.0) L 09/03/16 05:00 Hct 33.9 % (42.0-54.0) L 09/03/16 05:00 MCV 92.2 fL (80.0-100.0) 09/03/16 05:00 MCH 31.8 pg (27.0-34.0) 09/03/16 05:00 MCHC 34.5 g/dL (33.0-35.0) 09/03/16 05:00 RDW 13.8 % (11.6-16.5) 09/03/16 05:00 Plt Count 437 X10^3/uL (150.0-450.0) 09/03/16 05:00 Plt Count Comment Adequate (ADEQUATE) 09/03/16 05:00 MPV 9.0 fL (7.4-11.0) 09/03/16 05:00 Neut % 94.5 % (42.0-75.0) H 09/03/16 05:00 Lymph % 1.6 % (21.0-51.0) L 09/03/16 05:00 [place] % 3.8 % (0.0-13.0) 09/03/16 05:00 Eos % 0.0 % (0.9-2.9) L 09/03/16 05:00 Baso % 0.1 % (0.2-1.0) L 09/03/16 05:00 Neut # 6.1 x10^3/uL (2.2-4.8) H 09/03/16 05:00 Lymph # 0.1 X10^3/uL (1.3-2.9) L 09/03/16 05:00 [place] # 0.2 x10^3/uL (0.3-0.8) L 09/03/16 05:00 Eos # 0.0 x10^3/uL (0.0-0.2) 09/03/16 05:00 Baso # 0.0 X10^3/uL (0.0-0.1) 09/03/16 05:00 Absolute Nucleated RBC 0.0 /100WBC 09/03/16 05:00 Total Counted 100 09/03/16 05:00 Neutrophils % (Manual) 92 % (39-76) H 09/03/16 05:00 Band Neutrophils % 1 % (0-10) 09/02/16 04:55 Lymphocytes % (Manual) 4 % (13-43) L 09/03/16 05:00 Monocytes % (Manual) 4 % (4-9) 09/03/16 05:00 Plt Morphology Comment Normal (NORMAL) 09/03/16 05:00 RBC Morphology Normal (NORMAL) 09/03/16 05:00 INR Target Range - 08/29/16 00:00 INR 1.39 (0.8-1.3) H 08/29/16 00:00 PTT 30.6 SECONDS (22.9-36.5) 08/29/16 00:00 PTT Comment - 08/29/16 00:00 Sodium 141 mmol/L (136-145) 09/03/16 05:00 Corrected Sodium 142 mmol/L (136-145) 09/03/16 05:00 Potassium 3.5 mmol/L (3.5-5.1) 09/03/16 05:00 Chloride 105 mmol/L (98-107) 09/03/16 05:00 Carbon Dioxide 27.1 mmol/L (21-32) 09/03/16 05:00 BUN 41 mg/dL (7-18) H 09/03/16 05:00 Creatinine 1.43 mg/dL (0.70-1.30) H 09/03/16 05:00 Est GFR (MDRD) Af Amer > 60 (>60) 09/03/16 05:00 Est GFR (MDRD) Non-Af 50 (>60) L 09/03/16 05:00 Glucose 134 mg/dL (65-99) H 09/03/16 05:00 Calcium 8.4 mg/dL (8.5-10.1) L 09/03/16 05:00 Corrected Calcium 9.6 mg/dL (8.5-10.1) 09/03/16 05:00 Magnesium 1.6 mg/dL (1.7-2.9) L 08/30/16 05:30 Total Bilirubin 0.50 mg/dL (0.2-1.0) 09/03/16 05:00 AST 38 Units/L (15-37) H 09/03/16 05:00 ALT 63 Units/L (12-78) 09/03/16 05:00 Alkaline Phosphatase 72 Units/L (46-116) 09/03/16 05:00 Creatine Kinase 67 Units/L (39-308) 08/30/16 05:30 CK-MB (CK-2) 1.5 ng/mL (0-4.0) 08/30/16 05:30 CK/CKMB % Calc 2.2 % (<4) 08/30/16 05:30 Troponin I < 0.02 ng/mL (0-1.5) 08/30/16 05:30 Total Protein 5.3 g/dL (6.4-8.2) L 09/03/16 05:00 Albumin 2.5 g/dL (3.4-5.0) L 09/03/16 05:00 Globulin 2.8 g/dL (2.5-4.5) 09/03/16 05:00 Albumin/Globulin Ratio 0.9 Ratio (1.1-2.1) L 09/03/16 05:00 Triglycerides 52 mg/dL (0-150) 08/30/16 05:30 Cholesterol 99 mg/dL (0-200) 08/30/16 05:30 LDL Cholesterol, Calc 43 mg/dL (0-100) 08/30/16 05:30 HDL Cholesterol 46 mg/dL (40-60) 08/30/16 05:30 Cholesterol/HDL Ratio 2.2 (0.0-5.0) 08/30/16 05:30 Amylase 38 Units/L (25-115) 08/30/16 00:00 Lipase 75 Units/L (73-393) 08/30/16 00:00 - Plan (1) Atrial fibrillation Status: Acute Qualifiers: Atrial fibrillation type: chronic Qualified Code(s): I48.2 - Chronic atrial fibrillation Plan: continue with cardizem and eliquis, continue to monitor (2) COPD exacerbation Status: Acute Plan: Lasix 40mg IV q12hr x 2 doses, increase solumedrol to 125mg IV Q8hr, incentive spirometer and decadron nebs (3) Chest pain, rule out acute myocardial infarction Status: Acute Plan: continuous cardiac monitoring
--- NOTE | 2016-09-03 13:01 | DR.CARTERD ---
- Discharge Summary for: Discharge Summary for Date of:: 09/03/16 - Admission Date Date of Admission: 08/30/16 - Admission Diagnoses Admission Diagnosis: Atrial fibrillation. COPD Exacerbation. Chest Pain - Discharge Date Discharge Date: 09/03/16 - Discharge Diagnoses Discharge Diagnosis: Atrial fibrillation COPD Exacerbation Chest Pain - Hospital Course Hospital Course: Patient is an 80 yo male who presented to the hospital through the emergency room with complaints of chest pain, shortness of breath and increased weakness that has been going on for the last 24 hrs. Patient was admitted with a diagnosis of Chest Pain R/O MS, Atrial Fibrillation and COPD Exacerbation. Patient Treated with Leavquin IV, Solumedrol IV, home medication including cardizem and eliquis were resumed. Supplemental oxygen given as well nebulizers. This am the patient states that he is feeling better and is ready to go home, his labs have improved as well as his chest xray. Patient already has oxygen and nebulizer machine at home. We are going to send him home on Levaquin PO Daily for 1 week, Jet nebs TID, Tussionex 5ml BID PRN and to continue all of his home medications Labs: Labs are within normal limits with the exception of RBC 3.67, Hgb 11.7, Hct 33.90, Neut% 94.6, Lymph% 1.6, Eos% 0.0, Baso% 0.1, Neut# 6.1, Lymph# 0.1, BUN 41, Creatinine 1.43, Est GFR 50, AST 38, Glucose 134, Protein 5.3, Albumin 2.5. - Discharge Medications Discharge Medications: Albuterol Neb 2.5MG/ 3Ml [ALBUTEROL NEB 2.5MG/ 3ML *] 1 vial NEB Q4H PRN [History] Cholecalciferol [Vitamin D3] 5,000 unit PO BID 08/30/16 [History] [place]-3 Fatty Acids [Fish Oil 600 mg] 600 mg PO Q48H 08/30/16 [History] Potassium Chloride [K-Tab] 10 meq PO QAM 08/30/16 [History] Hydrocodone Polist/Chlorphenir [Tussionex Pennkinetic Susp] 5 ml PO Q12H PRN # 60 ml 09/03/16 [Rx] Ipratropium/Albuterol Nebule [DUONEB 0.5 MG/3 MG NEBULE *] 1 nebule NEB TID #90 each 09/03/16 [Rx] Levofloxacin [Levaquin Tab 500 mg] 500 mg PO Q24H #7 tab 09/03/16 [Rx] - Discharge Disposition Discharge Disposition: Home with oxygen and nebulizers
== END 2016-09-03 12:35 | disposition home or self-care (01) | DRG 191 ==
LOC: ER 21:49 → ICU 08-30 02:08
PROVIDERS: ADMIT Internal Medicine; ATTEND Internal Medicine
DX: J44.1 Chronic obstructive pulmonary disease with (acute) exacerbation (principal); J20.8 Acute bronchitis due to other specified organisms; I48.2 Chronic atrial fibrillation; A08.39 Other viral enteritis; R07.2 Precordial pain; R06.00 Dyspnea, unspecified; R94.31 Abnormal electrocardiogram [ECG] [EKG]; R06.02 Shortness of breath; R00.0 Tachycardia, unspecified; R19.7 Diarrhea, unspecified; E87.6 Hypokalemia; I10 Essential (primary) hypertension; K21.9 Gastro-esophageal reflux disease without esophagitis; E78.2 Mixed hyperlipidemia; I25.10 Atherosclerotic heart disease of native coronary artery without angina pectoris
CPT/HCPCS: 36415; 71010; 80048; 80053; 80061; 82150; 82550; 82553; 83690; 83735; 84484; 85025; 85610; 85730; 93005; 94640; 96365; 96367; 96374; 96375; 99221; 99231; 99284; 99285; A4216; A4222; J1940; J1956; J2920; J2930; J7620; J7626; J7644

== ENCOUNTER 2016-12-23 12:24 | Inpatient (IN) | payer OTHER, MEDICARE ==
--- NOTE | 2016-12-23 12:41 | DR.SOBA ---
HPI - Time Seen Time seen: 12:35 - HPI Comment HPI Comment: PATIENT TOOK HOME MEDS BUT CONTINUE TO HACE RESPIRATORY DISTRESS, CHEST PAIN AND FATIGUE. HERE VIA EMS. - Complaints Chief Complaint Doctors Comments: INCREASING SOB, CHEST PAIN AND EDEMA UPPER AND LOWER EXTREMITIES TIMES FEW DAYS. WORSE TODAY. - Reviewed Nurses Notes Reviewed: Yes - Source History Provided: Patient, EMS - Mode of Arrival Mode of Arrival: Stretcher - Duration Duration: Days - Context Onset:: At Rest, With Light Exertion PE Risk Factors:: None History of:: COPD, CHF Currently on:: Inhaled Bronchodilators Prehospital Care:: O2, Inhaled B2 - Modifying Factors Worsens:: Exertion, Lying Flat Improves:: Inhaler - Associated Signs and Symptoms Associated Signs and Symptoms: Wheeze, Cough, Nasal Congestion, Chest Pain, Leg Swelling - If Chest Pain Quality: Sharp Location: Substernal - If Cough Cough: Productive, Yellow PMH - PMH Past Medical History: Angina, Anxiety, Arthritis, CHF, COPD, Coronary Artery Disease, Dyslipidemia, GERD, Hypertension Past Surgical History: Yes Surgical History: TURP, Other - Family History Family Medical History: Cancer, ID, Hypertension - Social History Do you use any recreational Drugs:: No ROS - Review of Systems Constitutional: No Symptoms Reported Eyes: No Symptoms Reported ENTM: No Symptoms Reported Respiratoy: No Symptoms Reported Cardiovascular: No Symptoms Reported Gastrointestinal/Abdominal: No Symptoms Reported Genitourinary: No Symptoms Reported Neurological: No Symptoms Reported Musculoskeletal: No Symptoms Reported Integumentary: No Symptoms Reported Hematologic/Lymphatic: No Symptoms Reported Endocrine: No Symptoms Reported All Other Systems: Reviewed and Negative PE - Vital Signs Vitals: Temperature 97.8 F Pulse Rate 109 Respiratory Rate 20 Blood Pressure [Right Arm] 113/62 Blood Pressure [Left Arm] 146/86 Blood Pressure 113/62 O2 Sat by Pulse Oximetry 88 - General Limitations: No Limitations General Appearance: Alert - Head Head Exam: Normal Inspection - Eyes Eye exam: Normal Appearance - ENT ENT Exam: Normal External Ear Exam - Neck Neck Exam: Normal Inspection - Chest Chest Inspection: Symmetric Chest Wall Rise - Respiratory Respiratory Exam: Normal Lung Sounds Bilat Respiratory Exam: Bilateral Clear to Auscultation - Cardiovascular Cardiovascular Exam: Regular Rate, Normal Rhythm, Normal Heart Sounds - Abdominal Exam Abdominal Exam: Normal Bowel Sounds, Soft. negative: Tenderness - Extremities Extremities Exam: Normal Inspection - Back Back Exam: Normal Inspection - Neurologic Neurological Exam: Alert, Oriented X3 - Psychiatric Psychiatric Exam: Normal Affect, Normal Mood - Skin Skin Exam: Erythema MDM - Differential Diagnosis Differential Diagnosis: Bronchitis, CHF, COPD, Dysrhythmia, Hyponatremia, Mycardial Infarction, Pneumonia, Pneumothorax, Respiratory Insufficiency Differential Diagnosis Comment:: rib fracture Course - Treatment Treatment: SEE ORDERS - Consultation Consultation Comments: DISCUSS PATIENT WITH DR. FERRARO. HE WILL ADMIT PATIENT. - Education/Counseling Education/Counseling: Patient, Education Educated On: Diagnosis, Needs for Follow Up ROR - Labs Reviewed Laboratory Results Reviewed?: Yes Result Diagrams: 12/24/16 04:10 12/24/16 04:10 Laboratory: WBC 9.8 X10^3/uL (3.6-10.0) 12/24/16 04:10 RBC 3.81 X10^6/uL (4.7-6.0) L 12/24/16 04:10 Hgb 11.5 g/dL (13.5-18.0) L 12/24/16 04:10 Hct 34.3 % (42.0-54.0) L 12/24/16 04:10 MCV 90.0 fL (80.0-100.0) 12/24/16 04:10 MCH 30.1 pg (27.0-34.0) 12/24/16 04:10 MCHC 33.5 g/dL (33.0-35.0) 12/24/16 04:10 RDW 16.3 % (11.6-16.5) 12/24/16 04:10 Plt Count 346 X10^3/uL (150.0-450.0) 12/24/16 04:10 Plt Count Comment Adequate (ADEQUATE) 12/24/16 04:10 MPV 8.8 fL (7.4-11.0) 12/24/16 04:10 Neut % 96.2 % (42.0-75.0) H 12/24/16 04:10 Lymph % 1.1 % (21.0-51.0) L 12/24/16 04:10 [place] % 2.3 % (0.0-13.0) 12/24/16 04:10 Eos % 0.0 % (0.9-2.9) L 12/24/16 04:10 Baso % 0.4 % (0.2-1.0) 12/24/16 04:10 Neut # 9.5 x10^3/uL (2.2-4.8) H 12/24/16 04:10 Lymph # 0.1 X10^3/uL (1.3-2.9) L 12/24/16 04:10 [place] # 0.2 x10^3/uL (0.3-0.8) L 12/24/16 04:10 Eos # 0.0 x10^3/uL (0.0-0.2) 12/24/16 04:10 Baso # 0.0 X10^3/uL (0.0-0.1) 12/24/16 04:10 Absolute Nucleated RBC 0.0 /100WBC 12/24/16 04:10 Total Counted 100 12/24/16 04:10 Neutrophils % (Manual) 87 % (39-76) H 12/24/16 04:10 Band Neutrophils % 7 % (0-10) 12/24/16 04:10 Lymphocytes % (Manual) 4 % (13-43) L 12/24/16 04:10 Monocytes % (Manual) 2 % (4-9) L 12/24/16 04:10 Plt Morphology Comment Normal (NORMAL) 12/24/16 04:10 RBC Morphology Normal (NORMAL) 12/24/16 04:10 INR Target Range - 12/24/16 04:10 INR 1.21 (0.8-1.3) 12/24/16 04:10 PTT 31.1 SECONDS (22.9-36.5) 12/24/16 04:10 PTT Comment - 12/24/16 04:10 Sodium 145 mmol/L (136-145) 12/24/16 04:10 Corrected Sodium 146 mmol/L (136-145) H 12/24/16 04:10 Potassium 3.2 mmol/L (3.5-5.1) L 12/24/16 04:10 Chloride 105 mmol/L (98-107) 12/24/16 04:10 Carbon Dioxide 31.4 mmol/L (21-32) 12/24/16 04:10 BUN 31 mg/dL (7-18) H 12/24/16 04:10 Creatinine 1.65 mg/dL (0.70-1.30) H 12/24/16 04:10 Est GFR (MDRD) Af Amer 52 (>60) L 12/24/16 04:10 Est GFR (MDRD) Non-Af 43 (>60) L 12/24/16 04:10 Glucose 145 mg/dL (65-99) H 12/24/16 04:10 Calcium 8.8 mg/dL (8.5-10.1) 12/24/16 04:10 Corrected Calcium 9.6 mg/dL (8.5-10.1) 12/24/16 04:10 Magnesium 2.1 mg/dL (1.7-2.9) 12/24/16 04:10 Total Bilirubin 0.60 mg/dL (0.2-1.0) 12/24/16 04:10 AST 19 Units/L (15-37) 12/24/16 04:10 ALT 25 Units/L (12-78) 12/24/16 04:10 Alkaline Phosphatase 47 Units/L (46-116) 12/24/16 04:10 Creatine Kinase 56 Units/L (39-308) 12/24/16 00:59 CK-MB (CK-2) 2.0 ng/mL (0-4.0) 12/24/16 00:59 CK/CKMB % Calc 3.6 % (<4) 12/24/16 00:59 Troponin I 0.06 ng/mL (0-1.5) 12/24/16 00:59 B-Natriuretic Peptide 223 pg/mL (0-79) H 12/23/16 13:08 Total Protein 5.8 g/dL (6.4-8.2) L 12/24/16 04:10 Albumin 3.0 g/dL (3.4-5.0) L 12/24/16 04:10 Globulin 2.8 g/dL (2.5-4.5) 12/24/16 04:10 Albumin/Globulin Ratio 1.1 Ratio (1.1-2.1) 12/24/16 04:10 Triglycerides 38 mg/dL (0-150) 12/24/16 04:10 Cholesterol 157 mg/dL (0-200) 12/24/16 04:10 LDL Cholesterol, Calc 61 mg/dL (0-100) 12/24/16 04:10 HDL Cholesterol 88 mg/dL (40-60) H 12/24/16 04:10 Cholesterol/HDL Ratio 1.8 (0.0-5.0) 12/24/16 04:10 Specimen Type Clean catch urine 12/23/16 21:13 Urine Color Yellow (YELLOW) 12/23/16 21:13 Urine Appearance Clear (CLEAR) 12/23/16 21:13 Urine pH 5.0 (5.0 - 8.0) 12/23/16 21:13 Ur Specific [place] 1.015 (1.000-1.030) 12/23/16 21:13 Urine Protein Negative (NEGATIVE) 12/23/16 21:13 Urine Glucose (UA) Negative (NEGATIVE) 12/23/16 21:13 Urine Ketones Negative (NEGATIVE) 12/23/16 21:13 Urine Occult Blood 1+ (NEGATIVE) 12/23/16 21:13 Urine Nitrite Negative (NEGATIVE) 12/23/16 21:13 Urine Bilirubin Negative (NEGATIVE) 12/23/16 21:13 Urine Urobilinogen Normal (NORMAL) 12/23/16 21:13 Ur Leukocyte Esterase Negative (NEGATIVE) 12/23/16 21:13 Urine RBC None seen /HPF (NEGATIVE) 12/23/16 21:13 Urine WBC 0-3 /HPF (NEGATIVE) 12/23/16 21:13 Ur Squamous Epith Cells Rare /HPF (NEGATIVE) 12/23/16 21:13 Urine Bacteria Trace /HPF (NEGATIVE) 12/23/16 21:13 Ur Culture Indicated? No/not indicated 12/23/16 21:13 - XRAY XRAY Interpreted by: Radiologist XRAY Findings: REPORT DISCUSS WITH PATIENT. - EKG Rhythm: Afib (EKG NOTED) - Diagnosis Discharge Problem: COPD exacerbation Pneumonia Qualifiers: Pneumonia type: due to unspecified organism Laterality: unspecified laterality Lung location: unspecified part of lung Qualified Code(s): J18.9 - Pneumonia, unspecified organism CHF (congestive heart failure) Qualifiers: Congestive heart failure type: combined Congestive heart failure chronicity: acute on chronic Qualified Code(s): I50.43 - Acute on chronic combined systolic (congestive) and diastolic (congestive) heart failure - Discharge Plan Disposition: 09 ADMITTED INPATIENT Condition: Stable - Follow ups/Referrals - Instructions
[2016-12-23] MEDS ORDERED: SOLU-Medrol 125 MG VIAL IVP ONE (12:58)
[2016-12-23] MEDS ORDERED: SOLU-Medrol 125 MG VIAL ONE (13:02)
[2016-12-23 13:18] LABS: BASOPHILS # (AUTO) 0.1 X10^3/uL (0.0-0.1); BASOPHILS % (AUTO) 0.6 % (0.2-1.0); EOSINOPHILS % (AUTO) 0.3 % (0.9-2.9); HEMATOCRIT 33.2 % (42.0-54.0); HEMOGLOBIN 11.3 g/dL (13.5-18.0); LYMPHOCYTES # (AUTO) 0.6 X10^3/uL (1.3-2.9); LYMPHOCYTES % (AUTO) 5.8 % (21.0-51.0); MEAN CORPUSCULAR HEMOGLOBIN 30.3 pg (27.0-34.0); MEAN CORPUSCULAR HGB CONC 33.8 g/dL (33.0-35.0); MEAN CORPUSCULAR VOLUME 89.5 fL (80.0-100.0); MEAN PLATELET VOLUME 8.4 fL (7.4-11.0); MONOCYTES # (AUTO) 0.9 x10^3/uL (0.3-0.8); MONOCYTES % (AUTO) 8.6 % (0.0-13.0); NEUTROPHILS # (AUTO) 8.7 x10^3/uL (2.2-4.8); NEUTROPHILS % (AUTO) 84.7 % (42.0-75.0); PLATELET COUNT 312 X10^3/uL (150.0-450.0); RED BLOOD COUNT 3.71 X10^6/uL (4.7-6.0); RED CELL DISTRIBUTION WIDTH 16.2 % (11.6-16.5); WHITE BLOOD COUNT 10.2 X10^3/uL (3.6-10.0)
[2016-12-23 13:45] LABS: B-TYPE NATRIURETIC PEPTIDE 223 pg/mL (0-79)
[2016-12-23 13:48] LABS: ALANINE AMINOTRANSFERASE 26 Units/L (12-78); ALBUMIN 3.2 g/dL (3.4-5.0); ALKALINE PHOSPHATASE 48 Units/L (46-116); ASPARTATE AMINO TRANSFERASE 22 Units/L (15-37); BLOOD UREA NITROGEN 25 mg/dL (7-18); CALCIUM 8.9 mg/dL (8.5-10.1); CARBON DIOXIDE 33.2 mmol/L (21-32); CHLORIDE 105 mmol/L (98-107); CKMB % 2.7 % (<4); COR CA(FOR HYPOALB) 9.5 mg/dL (8.5-10.1); CREATINE KINASE 70 Units/L (39-308); CREATINE KINASE MB 1.9 ng/mL (0-4.0); CREATININE 1.69 mg/dL (0.70-1.30); SODIUM 144 mmol/L (136-145); TROPONIN I 0.04 ng/mL (0-1.5); eGFR BLACK RACES 50 (>60); eGFR NON BLACK RACES 41 (>60)
--- NOTE | 2016-12-23 14:00 | RAD ---
HISTORY: Chest pain. Study: Portable chest. Comparison: Chest x-ray dated September 03, 2016. You will Findings: The trachea is midline. The cardiac silhouette is is enlarged, but unchanged. Prominent perihilar va sculature with associated cephalization of vessels and diffuse alveolar/interstitial markings. Blunti ng of the bilateral costophrenic angles which may represent small pleural effusions. No obvious pneu mothorax. The bony thorax is unremarkable. IMPRESSION: Constellation of findings likely representing pulmonary edema secondary to congestive hea rt failure. Underlying infiltrate not entirely excluded. Reported By:
[2016-12-23] MEDS ORDERED: FORTAZ or TAZICEF INJ 1 GM in NS 50 ML IV + SPIKE MINIBAG* 50 ML IV ONE (14:34)
[2016-12-23] MEDS ORDERED: LASIX IVP ONE ×2 (14:34→14:38)
[2016-12-23] MEDS ORDERED: NS 1000 ML 1,000 ML ONE (14:37)
[2016-12-23] MEDS ORDERED: FORTAZ or TAZICEF INJ ONE (14:38)
[2016-12-23] MEDS ORDERED: NS 50 ML IV + SPIKE MINIBAG* 50 ML IV ONE (14:39)
[2016-12-23] MEDS ORDERED: DUONEB 0.5 MG/3 MG ONE (15:29)
[2016-12-23] MEDS ORDERED: TUSSIONEX PENNKINETIC SUSP PO PRN (15:29)
[2016-12-23] MEDS ORDERED: DUONEB 0.5 MG/3 MG NEB ONE (15:32)
[2016-12-23] MEDS: DUONEB 0.5 MG/3 MG NEB SCH ×3 (15:35→20:39)
[2016-12-23] MEDS: NS 1/2 1000 ML IV 1,000 ML IV SCH (16:30)
[2016-12-23] MEDS: LEVAQUIN PREMIX IV 750 MG 750 MG/150 ML BAG IV SCH (16:45)
[2016-12-23] MEDS: ROBITUSSIN DM PO SCH ×2 (16:45→21:26)
[2016-12-23 17:26] VITALS: BMI 26.6
[2016-12-23] MEDS ORDERED: NS 1/2 1000 ML IV 1,000 ML IV ONE (19:18)
[2016-12-23 19:29] LABS: CKMB % 2.6 % (<4); CREATINE KINASE MB 1.9 ng/mL (0-4.0); TROPONIN I 0.06 ng/mL (0-1.5)
[2016-12-23 21:23] LABS: BILIRUBIN,URINE NEGATIVE (NEGATIVE); BLOOD/HEMOGLOBIN,URINE 1+ (NEGATIVE); GLUCOSE, URINE NEGATIVE (NEGATIVE); KETONES,URINE NEGATIVE (NEGATIVE); LEUKOCYTE ESTERASE ,URINE NEGATIVE (NEGATIVE); NITRITES,URINE NEGATIVE (NEGATIVE); PROTEIN,URINE NEGATIVE (NEGATIVE); UROBILINOGEN,URINE NORMAL (NORMAL)
[2016-12-23] MEDS: FORTAZ or TAZICEF INJ 1 GM in NS 50 ML IV + SPIKE MINIBAG* 50 ML IV SCH (21:25)
[2016-12-23] MEDS: SOLU-Medrol 40 MG VIAL IVP SCH (21:25)
[2016-12-23] MEDS: RESTORIL CAP 15 MG PO PRN (21:26)
[2016-12-23 21:30] LABS: APPEARANCE,URINE CLEAR (CLEAR); BACTERIA,URINE TRACE /HPF (NEGATIVE); COLOR,URINE YELLOW (YELLOW); RBC,URINE NONE SEEN /HPF (NEGATIVE); SQUAMOUS EPITHELIAL CELL,UR RARE /HPF (NEGATIVE)
[2016-12-24] MEDS: DUONEB 0.5 MG/3 MG NEB SCH ×6 (00:57→20:10)
[2016-12-24 01:47] LABS: CKMB % 3.6 % (<4); TROPONIN I 0.06 ng/mL (0-1.5)
[2016-12-24] MEDS: FORTAZ or TAZICEF INJ 1 GM in NS 50 ML IV + SPIKE MINIBAG* 50 ML IV SCH ×3 (05:18→22:19)
[2016-12-24] MEDS: SOLU-Medrol 40 MG VIAL IVP SCH ×3 (05:18→22:20)
[2016-12-24 05:24] LABS: CALCIUM 8.8 mg/dL (8.5-10.1); CARBON DIOXIDE 31.4 mmol/L (21-32); CHOL/HDL RATIO 1.8 (0.0-5.0); COR CA(FOR HYPOALB) 9.6 mg/dL (8.5-10.1); CREATININE 1.65 mg/dL (0.70-1.30); MAGNESIUM 2.1 mg/dL (1.7-2.9); TOTAL PROTEIN 5.8 g/dL (6.4-8.2)
[2016-12-24 05:31] LABS: BASOPHILS % (AUTO) 0.4 % (0.2-1.0); HEMATOCRIT 34.3 % (42.0-54.0); HEMOGLOBIN 11.5 g/dL (13.5-18.0); LYMPHOCYTES # (AUTO) 0.1 X10^3/uL (1.3-2.9); LYMPHOCYTES % (AUTO) 1.1 % (21.0-51.0); MEAN CORPUSCULAR HEMOGLOBIN 30.1 pg (27.0-34.0); MEAN CORPUSCULAR HGB CONC 33.5 g/dL (33.0-35.0); MEAN PLATELET VOLUME 8.8 fL (7.4-11.0); MONOCYTES # (AUTO) 0.2 x10^3/uL (0.3-0.8); MONOCYTES % (AUTO) 2.3 % (0.0-13.0); NEUTROPHILS # (AUTO) 9.5 x10^3/uL (2.2-4.8); NEUTROPHILS % (AUTO) 96.2 % (42.0-75.0); PLATELET COUNT 346 X10^3/uL (150.0-450.0); RED BLOOD COUNT 3.81 X10^6/uL (4.7-6.0); RED CELL DISTRIBUTION WIDTH 16.3 % (11.6-16.5); WHITE BLOOD COUNT 9.8 X10^3/uL (3.6-10.0)
[2016-12-24 06:01] LABS: BAND NEUTROPHILS % 7 % (0-10); PLATELET MORPHOLOGY COMMENT NORMAL (NORMAL)
[2016-12-24] MEDS ORDERED: K-DUR TAB 20 MEQ PO PRN (07:36)
--- NOTE | 2016-12-24 07:52 | RAD ---
HISTORY: Shortness of breath Study: Chest AP portable Comparison: December 23, 2016 Findings: The heart is enlarged. Mild pulmonary venous congestion is present. No interstitial or alveolar pulmo nary edema is identified. No pleural effusions are present. The bony thorax is unremarkable. IMPRESSION: Cardiomegaly with mild pulmonary venous congestion Reported By:
[2016-12-24] MEDS: ROBITUSSIN DM PO SCH ×3 (08:08→22:18)
[2016-12-24] MEDS: LEVAQUIN PREMIX IV 750 MG 750 MG/150 ML BAG IV SCH (08:08)
[2016-12-24] MEDS ORDERED: PATIENT'S HOME MEDICATION (Potassium Chloride [K-Tab Er] 20 MEQ) PO SCH (09:53)
[2016-12-24] MEDS ORDERED: APIXABAN PO SCH (10:00)
[2016-12-24] MEDS ORDERED: PATIENT'S HOME MEDICATION (Ferrous Sulfate [Ferrous Sulfate] 325 MG) PO SCH (10:00)
[2016-12-24] MEDS ORDERED: PATIENT'S HOME MEDICATION (Omeprazole [Omeprazole] 40 MG) PO SCH (10:00)
[2016-12-24] MEDS ORDERED: ASPIRIN 81 MG CHEWTAB PO SCH (10:00)
[2016-12-24] MEDS ORDERED: CHOLECALCIFEROL 5000 UNIT PO SCH (10:00)
--- NOTE | 2016-12-24 10:48 | DR.H&P ---
H&P - History & Physical for Day of: H&P Date: 12/23/16 - Chief Complaint Chief Complaint: short of breath - Allergies Allergies/Adverse Reactions: Allergies Allergy/AdvReac Type Severity Reaction Status Date / Time No Known Drug Allergies Allergy Verified 12/23/16 12:40 - History of Present Illness History of Present Illness: is a 81 year old patient of ours who presented to the emergency room via EMS with complaints of shortness of breath. EMS reports that upon arrival to the scene oxygen saturation is noted to be in the 80s, despite wearing home oxygen via nasal cannula at 3lpm. EMS administered a breathing treatment and transported patient to the emergency room. He also has complaints of bilateral rib pain. He reports falling yesterday and suspects that he may have cracked some ribs. Patient is noted with wheezing bilaterally on auscultation. Patient is noted with a productive, intermittent cough. On arrival to the er, vitals were 98.0, 115, 20, 93%NC 3LPM , 111/57. Labs and xrays were obtained. Abnormal lab values include the following: WBC 10.2, RBC 3.71, Hgb 11.3, Hct 33.2, INR 1.36, Carbon Dioxide 33.2 , BUN 25, Creatinine 1.69, GFR(AA) 50, GFR(non) 41, BNP 223, Total Protein 6.0, Albumin 3.2. Urinalysis reports Occult Blood 1+, WBC 0-3, Squam Epith Cells Rare , Bacteria Trace. Sputum and blood cultures were obtained and are pending results. EKG reports Atrial Fibrillation. Heart jexn=[id number]. Chest xray reports Constellation of findings likely representing pulmonary edema secondary to congestive heart failure. Underlying infiltrate not entirely excluded. He was given Lasix 40mg ivp x 1, fortaz 1gm iv x 1, and solumedrol 125mg iv x 1 in the ER. We admitted patient for further treatment and evaluation of COPD, CHF, and pneumonia. He was started on Duoneb 1 nebule q4hour, Ceftazidime 1gm IV q8hour, Tussionex 5ml po [id number] PRN cough, Robitussin DM 10ml po QID, Levaquin 750mg IV daily, Solumedrol 40mg IV q8hour, NS at 25mls/hr, Restoril 15mg po at HS PRN insomnia. We will follow up with am labs and continue to monitor patient. - Past Medical History Past Medical History: Angina, Anxiety, Arthritis, CHF, COPD, Coronary Artery Disease, Dyslipidemia, GERD, Hypertension Additional Medical History: Atrial Fibrillation, Jack's Esophagus, Colitis, Diverticulosis, Hiatal Hernia, Gastrointestinal Ulcer, Polycystic Kidney Disease , Prostate Cancer, Hearing Loss, Back Pain, Bronchitis, Pneumonia, In-home oxygen use, Muscle Weakness, Back Pain, Previous Blood Transfusion, Prostate Cancer - Past Surgical History Surgical History: TURP, Other Additional Surgical History: Prostatectomy d/t Prostate Cancer, Cyst Removal - Family History Family Medical History: Cancer, [place], Hypertension - Social History Does patient currently use any type of tobacco product: No Have you used tobacco products in the last 12 months: No Type of Tobacco Use: None Does any household member use tobacco: No Alcohol Use: None Drug Use: None - Medications Home Medications: Alfuzosin HCl [Alfuzosin HCl ER] 1 tab PO DAILY 12/23/16 [History Confirmed ] Apixaban [Eliquis] 1 tab PO BID 12/23/16 [History Confirmed 12/23/16] Cholecalciferol (Vitamin D3) [Vitamin D3] 5,000 units PO DAILY 12/23/16 [ History Confirmed 12/23/16] Diltiazem HCl [Cardizem Cd (24 hr)] 1 tab PO DAILY 12/23/16 [History Confirmed 12/23/16] Dronedarone HCl [MULTAQ TAB 400 MG *] 400 mg PO BID 12/23/16 [History Confirmed 12/23/16] Furosemide [LASIX TAB 40 MG *] 1 tab PO DAILY 12/23/16 [History Confirmed ] Omeprazole 40 mg PO DAILY 12/23/16 [History Confirmed 12/23/16] Prednisone [PREDNISONE TAB 5 MG *] 1 tab PO BID 12/23/16 [History Confirmed ] Roflumilast [DALIRESP 500 MCG *] 1 tab PO DAILY 12/23/16 [History Confirmed ] - Review of Systems Constitutional: Weakness Eyes: No Symptoms Reported ENT: No Symptoms Reported Respiratory: Cough, Shortness of Breath, Sputum, Wheezing Cardiovascular: Chest Pain Gastrointestinal: No Symptoms Reported Genitourinary: No Symptoms Reported Musculoskeletal: No Symptoms Reported Skin: No Symptoms Reported Neurological: No Symptoms Reported - Physical Exam Vital Signs: Temperature 98.2 F Pulse Rate [Right Brachial] 111 Pulse Rate 94 Respiratory Rate 26 Blood Pressure [Right Arm] 135/75 Blood Pressure [Left Arm] 146/86 Blood Pressure 113/62 O2 Sat by Pulse Oximetry 9 Oriented: Normal Eyes: Normal Ear: Normal Nose: Normal Throat: Normal Respiratory: Wheezes Throughout Cardiovascular: Normal : Normal Auscultation: Bowel Sounds: Normal Palpation: Normal Tenderness: Normal Skin: Normal Musculoskeletal: Normal Psychiatric: Normal Mood Description: Calm Affect: Normal Speech Pattern: Clear - Assessment/Plan (1) COPD exacerbation Status: Acute Plan: DUONEB Q4H, SOLU-MEDROL 40MG IV Q8H PRN, SUPPLEMENTAL OXYGEN, CONTINUE TO MONITOR (2) Congestive heart failure Qualifiers: Congestive heart failure type: unspecified congestive heart failure type Congestive heart failure chronicity: acute on chronic Qualified Code(s): I50.9 - Heart failure, unspecified Status: Chronic Plan: DUONEB Q4H, CONTINUE LASIX 40MG PO DAILY, SUPPLEMENTAL OXYGEN, CONTINUE TO MONITOR (3) Pneumonia Qualifiers: Pneumonia type: due to unspecified organism Laterality: unspecified laterality Lung location: unspecified part of lung Qualified Code(s): J18.9 - Pneumonia, unspecified organism Status: Acute Plan: DUONEB Q4H, FORTAZ 1GM IV Q8H, LEVAQUIN 750MG IV DAILY, SUPPLEMENTAL OXYGEN, CONTINUE TO MONITOR
[2016-12-24] MEDS: K-DUR TAB 20 MEQ PO SCH (10:50)
[2016-12-24] MEDS: TOPROL XL PO SCH ×2 (11:03→22:18)
[2016-12-24] MEDS: LASIX PO SCH (11:03)
[2016-12-24] MEDS: DALIRESP PO SCH (11:04)
[2016-12-24] MEDS: CARDIZEM CD 180 MG PO SCH (11:04)
[2016-12-24] MEDS: ALFUZOSIN HCL PO SCH (11:06)
--- NOTE | 2016-12-24 16:39 | RAD ---
HISTORY: Pain after fall Study: Rib series Comparison: 12/23/2016 Findings: Lungs appear stable. No pneumothorax. Stable enlarged cardiac silhouette. No definite displaced rib fracture is identified. There are degenerative changes of the bony thorax. IMPRESSION: 1. No rib fracture identified. Reported By:
[2016-12-24 16:43] LABS: BILIRUBIN,URINE NEGATIVE (NEGATIVE); BLOOD/HEMOGLOBIN,URINE NEGATIVE (NEGATIVE); GLUCOSE, URINE NEGATIVE (NEGATIVE); KETONES,URINE NEGATIVE (NEGATIVE); LEUKOCYTE ESTERASE ,URINE NEGATIVE (NEGATIVE); NITRITES,URINE POSITIVE (NEGATIVE); PROTEIN,URINE 1+ (NEGATIVE); UROBILINOGEN,URINE NORMAL (NORMAL)
[2016-12-24 16:50] LABS: APPEARANCE,URINE HAZY (CLEAR); BACTERIA,URINE TRACE /HPF (NEGATIVE); COLOR,URINE YELLOW (YELLOW); RBC,URINE 0-2 /HPF (NEGATIVE); SQUAMOUS EPITHELIAL CELL,UR NEGATIVE /HPF (NEGATIVE)
[2016-12-24] MEDS ORDERED: DUONEB 0.5 MG/3 MG NEB ONE (18:49)
--- NOTE | 2016-12-24 20:59 | PCM.PROG ---
Progress Note - Progress Note for Day of Date: 12/24/16 - Subjective Subjective: WAS ADMITTED FOR CONGESTIVE HEART VAILURE, COPD, AND PNEUMONIA. TODAY, HE IS ALERT AND ORIENTED, SITTING UP IN BED ON MORNING ROUNDS. HE IS NOTED WITH COMPLAINTS OF SHORTNESS OF BREATH AND PRODUCTIVE COUGH. ON EXAMINATION, LUNGS ARE NOTED WITH WHEEZING BILATERALLY TO AUSCULTATION. ABDOMEN IS SOFT, ROUND, AND NON TENDER WITH NORMAL BOWEL SOUNDS NOTED IN ALL QUADRANTS. HE IS NOTED WEARING NASAL CANNULA WITH OXYGEN AT 2LPM. HE IS NOTED TO BE WEARING A TELEMETRY BOX. HIS VITAL SIGNS THIS MORNING ARE 98.1 -105-20-92%-117/62. A CBC, CMP, AND CHEST XRAY WERE OBTAINED. ABNORMAL LAB RESULTS ARE FOLLOWS: RBC 3.81, HGB 11.5, HCT 34.3, POTASSIUM 3.2, BUN 31, CREATININE 1.65, GLUCOSE 145, TOTAL PROTEIN 5.8, ALBUMIN 3.0. CHEST XRAY REPORTED CARDIOMEGALY WITH MILD PULMONARY VENOUS CONGESTION. MOST RECENT EKG REPORTED ATRIAL FIBRILLATION WITH HEART RATE OF 94. PATIENT ALSO CONTINUES WITH RIB PAIN FOLLOWING A FALL YESTERDAY. WE PLAN TO OBTAIN A RIB SERIES TO ASSESS FOR ACUTE FRACTURES. OTHERWISE, WE WILL CONTINUE WITH CURRENT PLAN OF CARE. WE PLAN TO RECHECK AM LABS AND CONTINUE TO MONITOR PATIENT. - Past Medical Family Social History Past Med/Fam/Surg Hx: No changes since H&P Allergies: Allergies No Known Drug Allergies Allergy (Verified 12/23/16 12:40) - Review of Systems ROS: No change since H&P - Vital Signs and I&O's Vital Signs: Temperature 98.9 F Pulse Rate [Right Brachial] 109 Pulse Rate 104 Respiratory Rate 22 Blood Pressure [Right Arm] 127/59 Blood Pressure [Left Arm] 146/86 Blood Pressure 113/62 O2 Sat by Pulse Oximetry 94 Intake and Output: Intake & Output 12/22/16 12/23/16 12/24/16 12/25/16 11:59 11:59 11:59 11:59 Intake Total 1054 1092 Output Total 1000 150 Balance 54 942 - Physical Exam Oriented: Normal Eyes: Normal Ear: Normal Nose: Normal Throat: Normal Respiratory: Generalized, Wheezes Cardiovascular: Normal : Normal Auscultation: Bowel Sounds: Normal Palpation: Normal Tenderness: Normal Skin: Normal Musculoskeletal: Normal Psychiatric: Normal Mood Description: Calm Affect: Normal Speech Pattern: Clear, Appropriate - Laboratory and Diagnostics Result Diagrams: 12/26/16 03:55 12/26/16 03:55 Labs: 12/23/16 19:18 Sputum - Expectorated Sputum Sputum Culture - Preliminary 12/23/16 19:18 Sputum - Expectorated Sputum - Final Laboratory WBC 9.8 X10^3/uL (3.6-10.0) 12/24/16 04:10 RBC 3.81 X10^6/uL (4.7-6.0) L 12/24/16 04:10 Hgb 11.5 g/dL (13.5-18.0) L 12/24/16 04:10 Hct 34.3 % (42.0-54.0) L 12/24/16 04:10 MCV 90.0 fL (80.0-100.0) 12/24/16 04:10 MCH 30.1 pg (27.0-34.0) 12/24/16 04:10 MCHC 33.5 g/dL (33.0-35.0) 12/24/16 04:10 RDW 16.3 % (11.6-16.5) 12/24/16 04:10 Plt Count 346 X10^3/uL (150.0-450.0) 12/24/16 04:10 Plt Count Comment Adequate (ADEQUATE) 12/24/16 04:10 MPV 8.8 fL (7.4-11.0) 12/24/16 04:10 Neut % 96.2 % (42.0-75.0) H 12/24/16 04:10 Lymph % 1.1 % (21.0-51.0) L 12/24/16 04:10 [place] % 2.3 % (0.0-13.0) 12/24/16 04:10 Eos % 0.0 % (0.9-2.9) L 12/24/16 04:10 Baso % 0.4 % (0.2-1.0) 12/24/16 04:10 Neut # 9.5 x10^3/uL (2.2-4.8) H 12/24/16 04:10 Lymph # 0.1 X10^3/uL (1.3-2.9) L 12/24/16 04:10 [place] # 0.2 x10^3/uL (0.3-0.8) L 12/24/16 04:10 Eos # 0.0 x10^3/uL (0.0-0.2) 12/24/16 04:10 Baso # 0.0 X10^3/uL (0.0-0.1) 12/24/16 04:10 Absolute Nucleated RBC 0.0 /100WBC 12/24/16 04:10 Total Counted 100 12/24/16 04:10 Neutrophils % (Manual) 87 % (39-76) H 12/24/16 04:10 Band Neutrophils % 7 % (0-10) 12/24/16 04:10 Lymphocytes % (Manual) 4 % (13-43) L 12/24/16 04:10 Monocytes % (Manual) 2 % (4-9) L 12/24/16 04:10 Plt Morphology Comment Normal (NORMAL) 12/24/16 04:10 RBC Morphology Normal (NORMAL) 12/24/16 04:10 INR Target Range - 12/24/16 04:10 INR 1.21 (0.8-1.3) 12/24/16 04:10 PTT 31.1 SECONDS (22.9-36.5) 12/24/16 04:10 PTT Comment - 12/24/16 04:10 Sodium 145 mmol/L (136-145) 12/24/16 04:10 Corrected Sodium 146 mmol/L (136-145) H 12/24/16 04:10 Potassium 3.6 mmol/L (3.5-5.1) 12/24/16 11:03 Chloride 105 mmol/L (98-107) 12/24/16 04:10 Carbon Dioxide 31.4 mmol/L (21-32) 12/24/16 04:10 BUN 31 mg/dL (7-18) H 12/24/16 04:10 Creatinine 1.65 mg/dL (0.70-1.30) H 12/24/16 04:10 Est GFR (MDRD) Af Amer 52 (>60) L 12/24/16 04:10 Est GFR (MDRD) Non-Af 43 (>60) L 12/24/16 04:10 Glucose 145 mg/dL (65-99) H 12/24/16 04:10 Calcium 8.8 mg/dL (8.5-10.1) 12/24/16 04:10 Corrected Calcium 9.6 mg/dL (8.5-10.1) 12/24/16 04:10 Magnesium 2.1 mg/dL (1.7-2.9) 12/24/16 04:10 Total Bilirubin 0.60 mg/dL (0.2-1.0) 12/24/16 04:10 AST 19 Units/L (15-37) 12/24/16 04:10 ALT 25 Units/L (12-78) 12/24/16 04:10 Alkaline Phosphatase 47 Units/L (46-116) 12/24/16 04:10 Creatine Kinase 56 Units/L (39-308) 12/24/16 00:59 CK-MB (CK-2) 2.0 ng/mL (0-4.0) 12/24/16 00:59 CK/CKMB % Calc 3.6 % (<4) 12/24/16 00:59 Troponin I 0.06 ng/mL (0-1.5) 12/24/16 00:59 B-Natriuretic Peptide 223 pg/mL (0-79) H 12/23/16 13:08 Total Protein 5.8 g/dL (6.4-8.2) L 12/24/16 04:10 Albumin 3.0 g/dL (3.4-5.0) L 12/24/16 04:10 Globulin 2.8 g/dL (2.5-4.5) 12/24/16 04:10 Albumin/Globulin Ratio 1.1 Ratio (1.1-2.1) 12/24/16 04:10 Triglycerides 38 mg/dL (0-150) 12/24/16 04:10 Cholesterol 157 mg/dL (0-200) 12/24/16 04:10 LDL Cholesterol, Calc 61 mg/dL (0-100) 12/24/16 04:10 HDL Cholesterol 88 mg/dL (40-60) H 12/24/16 04:10 Cholesterol/HDL Ratio 1.8 (0.0-5.0) 12/24/16 04:10 Specimen Type Clean catch urine 12/24/16 16:34 Urine Color Yellow (YELLOW) 12/24/16 16:34 Urine Appearance Hazy (CLEAR) 12/24/16 16:34 Urine pH 5.0 (5.0 - 8.0) 12/24/16 16:34 Ur Specific [place] 1.025 (1.000-1.030) 12/24/16 16:34 Urine Protein 1+ (NEGATIVE) 12/24/16 16:34 Urine Glucose (UA) Negative (NEGATIVE) 12/24/16 16:34 Urine Ketones Negative (NEGATIVE) 12/24/16 16:34 Urine Occult Blood Negative (NEGATIVE) 12/24/16 16:34 Urine Nitrite Positive (NEGATIVE) 12/24/16 16:34 Urine Bilirubin Negative (NEGATIVE) 12/24/16 16:34 Urine Urobilinogen Normal (NORMAL) 12/24/16 16:34 Ur Leukocyte Esterase Negative (NEGATIVE) 12/24/16 16:34 Urine RBC 0-2 /HPF (NEGATIVE) 12/24/16 16:34 Urine WBC 0-2 /HPF (NEGATIVE) 12/24/16 16:34 Ur Squamous Epith Cells Negative /HPF (NEGATIVE) 12/24/16 16:34 Urine Bacteria Trace /HPF (NEGATIVE) 12/24/16 16:34 Ur Culture Indicated? Yes/culture set up 12/24/16 16:34 - Plan (1) COPD exacerbation Status: Acute Plan: DUONEB Q4H, SOLU-MEDROL 40MG IV Q8H PRN, SUPPLEMENTAL OXYGEN, CONTINUE TO MONITOR (2) Congestive heart failure Status: Chronic Qualifiers: Congestive heart failure type: combined Congestive heart failure chronicity : acute on chronic Qualified Code(s): I50.43 - Acute on chronic combined systolic (congestive) and diastolic (congestive) heart failure Plan: DUONEB Q4H, CONTINUE LASIX 40MG PO DAILY, SUPPLEMENTAL OXYGEN, CONTINUE TO MONITOR (3) Pneumonia Status: Acute Qualifiers: Pneumonia type: due to unspecified organism Laterality: unspecified laterality Lung location: unspecified part of lung Qualified Code(s): J18.9 - Pneumonia, unspecified organism Plan: DUONEB Q4H, FORTAZ 1GM IV Q8H, LEVAQUIN 750MG IV DAILY, SUPPLEMENTAL OXYGEN, CONTINUE TO MONITOR
[2016-12-24 22:05] LABS: CKMB % 5.5 % (<4); CREATINE KINASE MB 1.8 ng/mL (0-4.0); TROPONIN I 0.06 ng/mL (0-1.5)
[2016-12-24] MEDS: ELIQUIS PO SCH (22:18)
[2016-12-24] MEDS: RESTORIL CAP 15 MG PO PRN (22:18)
[2016-12-24] MEDS ORDERED: PriLOSEC PO ONE (22:29)
[2016-12-24] MEDS: PriLOSEC PO SCH (22:31)
[2016-12-25] MEDS: DUONEB 0.5 MG/3 MG NEB SCH ×6 (00:59→21:30)
[2016-12-25 04:03] LABS: ALBUMIN 2.9 g/dL (3.4-5.0); CALCIUM 8.9 mg/dL (8.5-10.1); CARBON DIOXIDE 33.2 mmol/L (21-32); COR CA(FOR HYPOALB) 9.8 mg/dL (8.5-10.1); CREATINE KINASE MB 1.9 ng/mL (0-4.0); CREATININE 1.8 mg/dL (0.70-1.30); TOTAL PROTEIN 5.9 g/dL (6.4-8.2); TROPONIN I 0.06 ng/mL (0-1.5)
[2016-12-25 05:34] LABS: BASOPHILS % (AUTO) 0 % (0.2-1.0); HEMATOCRIT 34.5 % (42.0-54.0); HEMOGLOBIN 11.5 g/dL (13.5-18.0); LYMPHOCYTES # (AUTO) 0.1 X10^3/uL (1.3-2.9); LYMPHOCYTES % (AUTO) 0.6 % (21.0-51.0); MEAN CORPUSCULAR HEMOGLOBIN 29.7 pg (27.0-34.0); MEAN CORPUSCULAR HGB CONC 33.3 g/dL (33.0-35.0); MEAN CORPUSCULAR VOLUME 89.1 fL (80.0-100.0); MEAN PLATELET VOLUME 8.6 fL (7.4-11.0); MONOCYTES # (AUTO) 0.6 x10^3/uL (0.3-0.8); MONOCYTES % (AUTO) 3.7 % (0.0-13.0); NEUTROPHILS # (AUTO) 16.5 x10^3/uL (2.2-4.8); NEUTROPHILS % (AUTO) 95.7 % (42.0-75.0); PLATELET COUNT 375 X10^3/uL (150.0-450.0); RED BLOOD COUNT 3.88 X10^6/uL (4.7-6.0); RED CELL DISTRIBUTION WIDTH 16.1 % (11.6-16.5); WHITE BLOOD COUNT 17.3 X10^3/uL (3.6-10.0)
[2016-12-25] MEDS: FORTAZ or TAZICEF INJ 1 GM in NS 50 ML IV + SPIKE MINIBAG* 50 ML IV SCH ×3 (05:52→21:17)
[2016-12-25] MEDS: SOLU-Medrol 40 MG VIAL IVP SCH ×3 (05:52→21:16)
[2016-12-25] MEDS ORDERED: MAALOX or MYLANTA PO PRN (06:06)
--- NOTE | 2016-12-25 06:35 | RAD ---
HISTORY: Shortness of breath Study: Single-view chest, done portably Comparison: December 24, 2016 Findings: Cardiac monitoring electrodes are noted on the chest. The trachea is midline. There is cardiomegaly w ith aortic uncoiling. Increased lung markings are present bilaterally. The left chest is unchanged. I ncreasing density is present in the right lung base representing development of atelectasis or infilt rate. No pleural fluid or pneumothorax is seen. There is a healed right mid clavicle fracture. IMPRESSION: Developing atelectasis or infiltrate in the right lung base. Hypertensive configuration. Reported By:
[2016-12-25 06:44] LABS: BAND NEUTROPHILS % 2 % (0-10); PLATELET MORPHOLOGY COMMENT NORMAL (NORMAL)
[2016-12-25 09:40] LABS: CKMB % 5.4 % (<4); CREATINE KINASE MB 2.1 ng/mL (0-4.0); TROPONIN I 0.06 ng/mL (0-1.5)
[2016-12-25] MEDS: PriLOSEC PO SCH (09:51)
[2016-12-25] MEDS: LEVAQUIN PREMIX IV 750 MG 750 MG/150 ML BAG IV SCH (09:51)
[2016-12-25] MEDS: K-DUR TAB 20 MEQ PO SCH (09:52)
[2016-12-25] MEDS: LASIX PO SCH (09:52)
[2016-12-25] MEDS: FERROUS SULFATE PO SCH (09:52)
[2016-12-25] MEDS: CARDIZEM CD 180 MG PO SCH (09:52)
[2016-12-25] MEDS: DALIRESP PO SCH (09:52)
[2016-12-25] MEDS: ELIQUIS PO SCH ×2 (09:53→21:16)
[2016-12-25] MEDS: ROBITUSSIN DM PO SCH ×6 (09:54→21:17)
[2016-12-25] MEDS: TOPROL XL PO SCH ×2 (09:55→21:16)
[2016-12-25] MEDS: VITAMIN D3 PO SCH (09:56)
[2016-12-25] MEDS: ALFUZOSIN HCL PO SCH (10:03)
[2016-12-25] MEDS ORDERED: NS 1/2 1000 ML IV 1,000 ML IV ONE (14:14)
[2016-12-25] MEDS: NS 1/2 1000 ML IV 1,000 ML IV SCH ×2 (14:22→14:24)
[2016-12-25] MEDS: MILK OF MAGNESIA PO SCH (21:16)
[2016-12-25] MEDS: COLACE CAP 100 MG PO SCH (21:16)
[2016-12-26] MEDS: DUONEB 0.5 MG/3 MG NEB SCH ×6 (00:51→20:55)
[2016-12-26] MEDS: FORTAZ or TAZICEF INJ 1 GM in NS 50 ML IV + SPIKE MINIBAG* 50 ML IV SCH ×3 (05:51→21:13)
[2016-12-26] MEDS: SOLU-Medrol 40 MG VIAL IVP SCH ×3 (05:51→21:12)
[2016-12-26 06:14] LABS: BASOPHILS % (AUTO) 0.1 % (0.2-1.0); HEMATOCRIT 34.7 % (42.0-54.0); HEMOGLOBIN 11.5 g/dL (13.5-18.0); LYMPHOCYTES # (AUTO) 0.1 X10^3/uL (1.3-2.9); LYMPHOCYTES % (AUTO) 0.6 % (21.0-51.0); MEAN CORPUSCULAR HEMOGLOBIN 29.6 pg (27.0-34.0); MEAN CORPUSCULAR HGB CONC 33.2 g/dL (33.0-35.0); MEAN CORPUSCULAR VOLUME 89.2 fL (80.0-100.0); MEAN PLATELET VOLUME 8.6 fL (7.4-11.0); MONOCYTES # (AUTO) 0.3 x10^3/uL (0.3-0.8); MONOCYTES % (AUTO) 2.5 % (0.0-13.0); NEUTROPHILS # (AUTO) 13.2 x10^3/uL (2.2-4.8); NEUTROPHILS % (AUTO) 96.8 % (42.0-75.0); PLATELET COUNT 342 X10^3/uL (150.0-450.0); RED BLOOD COUNT 3.89 X10^6/uL (4.7-6.0); RED CELL DISTRIBUTION WIDTH 15.6 % (11.6-16.5); WHITE BLOOD COUNT 13.7 X10^3/uL (3.6-10.0)
[2016-12-26 06:31] LABS: ALBUMIN 2.9 g/dL (3.4-5.0); CARBON DIOXIDE 30.4 mmol/L (21-32); COR CA(FOR HYPOALB) 9.9 mg/dL (8.5-10.1); CREATININE 1.87 mg/dL (0.70-1.30); TOTAL PROTEIN 5.8 g/dL (6.4-8.2)
--- NOTE | 2016-12-26 06:40 | RAD ---
HISTORY: Shortness of breath Study: Single-view chest, done portably Comparison: December 25, 2016 Findings: Cardiac monitoring electrodes are noted on the chest. The trachea is midline. There is cardiomegaly w ith aortic uncoiling. There is pulmonary vascular congestion. There are bibasilar foci of atelectasis , infiltrate or edema present. Increased interstitial markings are present involving both lungs. Heal ed fracture of the right mid clavicle is seen. IMPRESSION: Cardiomegaly with pulmonary vascular congestion. Increasing bibasilar foci of atelectasis, infiltrate or edema are present. Reported By:
[2016-12-26 06:51] LABS: PLATELET MORPHOLOGY COMMENT NORMAL (NORMAL)
[2016-12-26] MEDS: ALFUZOSIN HCL PO SCH (10:25)
[2016-12-26] MEDS: ROBITUSSIN DM PO SCH (10:26)
[2016-12-26] MEDS: LEVAQUIN PREMIX IV 750 MG 750 MG/150 ML BAG IV SCH (10:26)
[2016-12-26] MEDS: VITAMIN D3 PO SCH (10:26)
[2016-12-26] MEDS: MUCINEX DM PO SCH ×2 (10:27→21:12)
[2016-12-26] MEDS: FERROUS SULFATE PO SCH (10:28)
[2016-12-26] MEDS: PriLOSEC PO SCH (10:28)
[2016-12-26] MEDS: K-DUR TAB 20 MEQ PO SCH (10:28)
[2016-12-26] MEDS: LASIX PO SCH (10:29)
[2016-12-26] MEDS: TOPROL XL PO SCH ×2 (10:29→21:12)
[2016-12-26] MEDS: CARDIZEM CD 180 MG PO SCH (10:30)
[2016-12-26] MEDS: ELIQUIS PO SCH ×2 (10:30→21:12)
[2016-12-26] MEDS: DALIRESP PO SCH (10:31)
--- NOTE | 2016-12-26 11:08 | PCM.PROG ---
Progress Note - Progress Note for Day of Date: 12/25/16 - Subjective Subjective: WAS ADMITTED ON 12/23/16 FOR CONGESTIVE HEART FAILURE, COPD , AND PNEUMONIA. TODAY, HE IS ALERT AND ORIENTED, SITTING UP ON SIDE OF THE BED ON MORNING ROUNDS. PATIENT CONTINUES WITH COMPLAINTS OF SHORTNESS OF BREATH AND A PRODUCTIVE COUGH. SPUTUM IN CONTAINER AT BEDSIDE IS YELLOW AND THICK IN APPEARANCE. ON EXAMINATION, LUNGS ARE NOTED WITH COURSE WHEEZING BILATERALLY TO AUSCULTATION. HIS ABDOMEN IS SOFT, ROUND, AND NON TENDER WITH NORMAL BOWEL SOUNDS NOTED IN ALL QUADRANTS. HE IS NOTED WEARING NASAL CANNULA WITH OXYGEN AT 2LPM AND IS ON TELEMERY. HIS VITAL SIGNS THIS MORNING ARE 98.6-103-21-92%-136/ 76. WE OBTAINED A CBC, CMP, AND CHEST XRAY TODAY. ABNORMAL LAB VALUES INCLUDE THE FOLLOWING: WBC 17.3, TBC 3.88, HGB 11.5, HCT 34.5, BUN 39, CREATININE 1.80, AST 13, ALK PHOS 45, TOTAL PROTEIN 5.9, ALBUMIN 2.9. CHEST XRAY TODAY REPORTED DEVELOPING ATELECTASIS OR INFILTRATE IN THE RIGHT LUNG BASE, HYPERTENSIVE CONFIGURATION. PATIENT BEGAN COMPLAINING IF INCREASING SHORTNESS OF BREATH YESTERDAY AFTER MORNING ROUNDS. A RICK CATHETER WAS INSERTED AND DRAINED 1,000 ML URINE IMMEDIATELY. SERIAL CARDIAC ENZYMES AND EKGS WERE ALSO OBTAINED. MOST RECENT EKG REPORTS ATRIAL FIBRILLATION WITH HR 99. WE WILL CONTINUE WITH CURRENT PLAN OF CARE. WE PLAN TO FOLLOW UP WITH AM LABS AND CONTINUE TO MONITOR PATIENT. - Past Medical Family Social History Past Med/Fam/Surg Hx: No changes since H&P Allergies: Allergies No Known Drug Allergies Allergy (Verified 12/23/16 12:40) - Review of Systems ROS: No change since H&P - Vital Signs and I&O's Vital Signs: Temperature 97.8 F Pulse Rate [Left Brachial] 105 Pulse Rate [Right Brachial] 95 Pulse Rate 82 Respiratory Rate 18 Blood Pressure [Right Arm] 116/66 Blood Pressure [Left Arm] 118/64 Blood Pressure 113/62 O2 Sat by Pulse Oximetry 96 Intake and Output: Intake & Output 12/23/16 12/24/16 12/25/16 12/26/16 11:59 11:59 11:59 11:59 Intake Total 1054 1752 1076 Output Total 1000 1550 625 Balance 54 202 451 - Physical Exam Oriented: Normal Eyes: Normal Ear: Normal Nose: Normal Throat: Normal Respiratory: Generalized, Wheezes Cardiovascular: Normal : Normal Auscultation: Bowel Sounds: Normal Palpation: Normal Tenderness: Normal Skin: Normal Musculoskeletal: Normal Psychiatric: Normal Mood Description: Calm Affect: Normal Speech Pattern: Clear, Appropriate - Laboratory and Diagnostics Result Diagrams: 12/26/16 03:55 12/26/16 03:55 Labs: 12/24/16 16:34 Urine,Clean Catch Urine Culture - Preliminary 12/23/16 19:18 Sputum - Expectorated Sputum Sputum Culture - Final 12/23/16 19:18 Sputum - Expectorated Sputum - Final 12/23/16 15:33 Blood Blood Culture - Preliminary 12/23/16 15:14 Blood Blood Culture - Preliminary Laboratory WBC 13.7 X10^3/uL (3.6-10.0) H 12/26/16 03:55 RBC 3.89 X10^6/uL (4.7-6.0) L 12/26/16 03:55 Hgb 11.5 g/dL (13.5-18.0) L 12/26/16 03:55 Hct 34.7 % (42.0-54.0) L 12/26/16 03:55 MCV 89.2 fL (80.0-100.0) 12/26/16 03:55 MCH 29.6 pg (27.0-34.0) 12/26/16 03:55 MCHC 33.2 g/dL (33.0-35.0) 12/26/16 03:55 RDW 15.6 % (11.6-16.5) 12/26/16 03:55 Plt Count 342 X10^3/uL (150.0-450.0) 12/26/16 03:55 Plt Count Comment Adequate (ADEQUATE) 12/26/16 03:55 MPV 8.6 fL (7.4-11.0) 12/26/16 03:55 Neut % 96.8 % (42.0-75.0) H 12/26/16 03:55 Lymph % 0.6 % (21.0-51.0) L 12/26/16 03:55 [place] % 2.5 % (0.0-13.0) 12/26/16 03:55 Eos % 0.0 % (0.9-2.9) L 12/26/16 03:55 Baso % 0.1 % (0.2-1.0) L 12/26/16 03:55 Neut # 13.2 x10^3/uL (2.2-4.8) H 12/26/16 03:55 Lymph # 0.1 X10^3/uL (1.3-2.9) L 12/26/16 03:55 [place] # 0.3 x10^3/uL (0.3-0.8) 12/26/16 03:55 Eos # 0.0 x10^3/uL (0.0-0.2) 12/26/16 03:55 Baso # 0.0 X10^3/uL (0.0-0.1) 12/26/16 03:55 Absolute Nucleated RBC 0.0 /100WBC 12/26/16 03:55 Total Counted 100 12/26/16 03:55 Neutrophils % (Manual) 97 % (39-76) H 12/26/16 03:55 Band Neutrophils % 2 % (0-10) 12/25/16 03:27 Lymphocytes % (Manual) 3 % (13-43) L 12/26/16 03:55 Monocytes % (Manual) 1 % (4-9) L 12/25/16 03:27 Plt Morphology Comment Normal (NORMAL) 12/26/16 03:55 RBC Morphology Normal (NORMAL) 12/26/16 03:55 INR Target Range - 12/24/16 04:10 INR 1.21 (0.8-1.3) 12/24/16 04:10 PTT 31.1 SECONDS (22.9-36.5) 12/24/16 04:10 PTT Comment - 12/24/16 04:10 Sodium 143 mmol/L (136-145) 12/26/16 03:55 Corrected Sodium 144 mmol/L (136-145) 12/26/16 03:55 Potassium 3.6 mmol/L (3.5-5.1) 12/26/16 03:55 Chloride 105 mmol/L (98-107) 12/26/16 03:55 Carbon Dioxide 30.4 mmol/L (21-32) 12/26/16 03:55 BUN 48 mg/dL (7-18) H 12/26/16 03:55 Creatinine 1.87 mg/dL (0.70-1.30) H 12/26/16 03:55 Est GFR (MDRD) Af Amer 45 (>60) L 12/26/16 03:55 Est GFR (MDRD) Non-Af 37 (>60) L 12/26/16 03:55 Glucose 135 mg/dL (65-99) H 12/26/16 03:55 Calcium 9.0 mg/dL (8.5-10.1) 12/26/16 03:55 Corrected Calcium 9.9 mg/dL (8.5-10.1) 12/26/16 03:55 Magnesium 2.1 mg/dL (1.7-2.9) 12/24/16 04:10 Total Bilirubin 0.40 mg/dL (0.2-1.0) 12/26/16 03:55 AST 15 Units/L (15-37) 12/26/16 03:55 ALT 22 Units/L (12-78) 12/26/16 03:55 Alkaline Phosphatase 40 Units/L (46-116) L 12/26/16 03:55 Creatine Kinase 39 Units/L (39-308) 12/25/16 09:05 CK-MB (CK-2) 2.1 ng/mL (0-4.0) 12/25/16 09:05 CK/CKMB % Calc 5.4 % (<4) 12/25/16 09:05 Troponin I 0.06 ng/mL (0-1.5) 12/25/16 09:05 B-Natriuretic Peptide 223 pg/mL (0-79) H 12/23/16 13:08 Total Protein 5.8 g/dL (6.4-8.2) L 12/26/16 03:55 Albumin 2.9 g/dL (3.4-5.0) L 12/26/16 03:55 Globulin 2.9 g/dL (2.5-4.5) 12/26/16 03:55 Albumin/Globulin Ratio 1.0 Ratio (1.1-2.1) L 12/26/16 03:55 Triglycerides 38 mg/dL (0-150) 12/24/16 04:10 Cholesterol 157 mg/dL (0-200) 12/24/16 04:10 LDL Cholesterol, Calc 61 mg/dL (0-100) 12/24/16 04:10 HDL Cholesterol 88 mg/dL (40-60) H 12/24/16 04:10 Cholesterol/HDL Ratio 1.8 (0.0-5.0) 12/24/16 04:10 Specimen Type Clean catch urine 12/24/16 16:34 Urine Color Yellow (YELLOW) 12/24/16 16:34 Urine Appearance Hazy (CLEAR) 12/24/16 16:34 Urine pH 5.0 (5.0 - 8.0) 12/24/16 16:34 Ur Specific [place] 1.025 (1.000-1.030) 12/24/16 16:34 Urine Protein 1+ (NEGATIVE) 12/24/16 16:34 Urine Glucose (UA) Negative (NEGATIVE) 12/24/16 16:34 Urine Ketones Negative (NEGATIVE) 12/24/16 16:34 Urine Occult Blood Negative (NEGATIVE) 12/24/16 16:34 Urine Nitrite Positive (NEGATIVE) 12/24/16 16:34 Urine Bilirubin Negative (NEGATIVE) 12/24/16 16:34 Urine Urobilinogen Normal (NORMAL) 12/24/16 16:34 Ur Leukocyte Esterase Negative (NEGATIVE) 12/24/16 16:34 Urine RBC 0-2 /HPF (NEGATIVE) 12/24/16 16:34 Urine WBC 0-2 /HPF (NEGATIVE) 12/24/16 16:34 Ur Squamous Epith Cells Negative /HPF (NEGATIVE) 12/24/16 16:34 Urine Bacteria Trace /HPF (NEGATIVE) 12/24/16 16:34 Ur Culture Indicated? Yes/culture set up 12/24/16 16:34 - Plan (1) COPD exacerbation Status: Acute Plan: DUONEB Q4H, SOLU-MEDROL 40MG IV Q8H PRN, SUPPLEMENTAL OXYGEN, CONTINUE TO MONITOR (2) Congestive heart failure Status: Chronic Qualifiers: Congestive heart failure type: combined Congestive heart failure chronicity : acute on chronic Qualified Code(s): I50.43 - Acute on chronic combined systolic (congestive) and diastolic (congestive) heart failure Plan: DUONEB Q4H, CONTINUE LASIX 40MG PO DAILY, SUPPLEMENTAL OXYGEN, CONTINUE TO MONITOR (3) Pneumonia Status: Acute Qualifiers: Pneumonia type: due to unspecified organism Laterality: unspecified laterality Lung location: unspecified part of lung Qualified Code(s): J18.9 - Pneumonia, unspecified organism Plan: DUONEB Q4H, FORTAZ 1GM IV Q8H, LEVAQUIN 750MG IV DAILY, SUPPLEMENTAL OXYGEN, CONTINUE TO MONITOR (4) Hypokalemia Status: Acute Plan: POTASSIUM PROTOCOL, CONTINUE TO MONITOR (5) A-fib Status: Chronic Qualifiers: Atrial fibrillation type: chronic Qualified Code(s): I48.2 - Chronic atrial fibrillation Plan: CONTINUE ELIQUIS 2.5MG PO BID, CONTINUE CARDIZEM CD 180MG DAILY, CONTINUE TO MONITOR (6) CAD (coronary artery disease) Status: Chronic Qualifiers: Coronary Disease-Associated Artery/Lesion type: [place] artery [place] vs. transplanted heart: [place] heart Associated angina: without angina Qualified Code(s): I25.10 - Atherosclerotic heart disease of [place] coronary artery without angina pectoris Plan: CONTINUE ELIQUIS 2.5MG PO BID, CONTINUE ASA 81MG DAILY, CONTINUE TO MONITOR (7) Hypertension Status: Chronic Qualifiers: Hypertension type: essential hypertension Qualified Code(s): I10 - Essential (primary) hypertension Plan: CONTINUE TOPROL XL 25MG PO BID, CONTINUE TO MONITOR (8) GERD (gastroesophageal reflux disease) Status: Chronic Qualifiers: Esophagitis presence: esophagitis presence not specified Qualified Code(s) : K21.9 - Gastro-esophageal reflux disease without esophagitis Plan: CONTINUE PRILOSEC 40MG PO DAILY
--- NOTE | 2016-12-26 11:10 | PCM.PROG ---
Progress Note - Progress Note for Day of Date: 12/26/16 - Subjective Subjective: WAS ADMITTED ON 12/23/16 FOR CONGESTIVE HEART FAILURE, COPD , AND PNEUMONIA. TODAY, HE IS ALERT AND ORIENTED, SITTING UP IN BED ON MORNING ROUNDS. HE CONTINUES WITH COMPLAINTS OF PRODUCTIVE COUGH. HE REPORTS THAT SHORTNESS OF BREATH HAS IMPROVED SOME. ON EXAMINATION, LUNGS CONTINUE WITH WHEEZING BILATERALLY TO AUSCULTATION. ABDOMEN IS SOFT, ROUND, AND NON TENDER WITH NORMAL BOWEL SOUNDS NOTED IN ALL QUADRANTS. HE IS NOTED WEARING NASAL CANNULA WITH OXYGEN AT 2LPM. HIS VITAL SIGNS THIS MORNING ARE 97.8-105-18-95%- 116/66. A CBC, CMP, AND CHEST XRAY WERE OBTAINED TODAY. ABNORMAL LAB RESULTS ARE FOLLOWS: WBC 13.7, RBC 3.88, HGB 11.5, HCT 34.7, BUN 48, CREATININE 1.87 , GLUCOSE 135, ALK PHOS 40, TOTAL PROTEIN 5.8, ALBUMIN 2.9. TODAYS CHEST XRAY REPORTED CARDIOMEGAL YWITH PULMONARY VASCULAR CONGESTION. INCREASING BIBASILAR FOCI OF ATELECTASIS, INFILTRATE, OR EDEMA ARE PRESENT. WE WILL START MUCINEX 600MG PO BID AND MUCOMYST TO [place] TODAY. OTHERWISE, WE WILL CONTINUE WITH CURRENT PLAN OF CARE. WE PLAN TO RECHECK AM LABS AND CONTINUE TO MONITOR PATIENT. - Past Medical Family Social History Past Med/Fam/Surg Hx: No changes since H&P Allergies: Allergies No Known Drug Allergies Allergy (Verified 12/23/16 12:40) - Review of Systems ROS: No change since H&P - Vital Signs and I&O's Vital Signs: Temperature 97.8 F Pulse Rate [Left Brachial] 105 Pulse Rate [Right Brachial] 95 Pulse Rate 82 Respiratory Rate 18 Blood Pressure [Right Arm] 116/66 Blood Pressure [Left Arm] 118/64 Blood Pressure 113/62 O2 Sat by Pulse Oximetry 96 Intake and Output: Intake & Output 12/23/16 12/24/16 12/25/16 12/26/16 11:59 11:59 11:59 11:59 Intake Total 1054 1752 1076 Output Total 1000 1550 625 Balance 54 202 451 - Physical Exam Oriented: Normal Eyes: Normal Ear: Normal Nose: Normal Throat: Normal Respiratory: Generalized, Wheezes Cardiovascular: Normal : Normal Auscultation: Bowel Sounds: Normal Palpation: Normal Tenderness: Normal Skin: Normal Musculoskeletal: Normal Psychiatric: Normal Mood Description: Calm Affect: Normal Speech Pattern: Clear, Appropriate - Laboratory and Diagnostics Result Diagrams: 12/26/16 03:55 12/26/16 03:55 Labs: 12/24/16 16:34 Urine,Clean Catch Urine Culture - Preliminary 12/23/16 19:18 Sputum - Expectorated Sputum Sputum Culture - Final 12/23/16 19:18 Sputum - Expectorated Sputum - Final 12/23/16 15:33 Blood Blood Culture - Preliminary 12/23/16 15:14 Blood Blood Culture - Preliminary Laboratory WBC 13.7 X10^3/uL (3.6-10.0) H 12/26/16 03:55 RBC 3.89 X10^6/uL (4.7-6.0) L 12/26/16 03:55 Hgb 11.5 g/dL (13.5-18.0) L 12/26/16 03:55 Hct 34.7 % (42.0-54.0) L 12/26/16 03:55 MCV 89.2 fL (80.0-100.0) 12/26/16 03:55 MCH 29.6 pg (27.0-34.0) 12/26/16 03:55 MCHC 33.2 g/dL (33.0-35.0) 12/26/16 03:55 RDW 15.6 % (11.6-16.5) 12/26/16 03:55 Plt Count 342 X10^3/uL (150.0-450.0) 12/26/16 03:55 Plt Count Comment Adequate (ADEQUATE) 12/26/16 03:55 MPV 8.6 fL (7.4-11.0) 12/26/16 03:55 Neut % 96.8 % (42.0-75.0) H 12/26/16 03:55 Lymph % 0.6 % (21.0-51.0) L 12/26/16 03:55 [place] % 2.5 % (0.0-13.0) 12/26/16 03:55 Eos % 0.0 % (0.9-2.9) L 12/26/16 03:55 Baso % 0.1 % (0.2-1.0) L 12/26/16 03:55 Neut # 13.2 x10^3/uL (2.2-4.8) H 12/26/16 03:55 Lymph # 0.1 X10^3/uL (1.3-2.9) L 12/26/16 03:55 [place] # 0.3 x10^3/uL (0.3-0.8) 12/26/16 03:55 Eos # 0.0 x10^3/uL (0.0-0.2) 12/26/16 03:55 Baso # 0.0 X10^3/uL (0.0-0.1) 12/26/16 03:55 Absolute Nucleated RBC 0.0 /100WBC 12/26/16 03:55 Total Counted 100 12/26/16 03:55 Neutrophils % (Manual) 97 % (39-76) H 12/26/16 03:55 Band Neutrophils % 2 % (0-10) 12/25/16 03:27 Lymphocytes % (Manual) 3 % (13-43) L 12/26/16 03:55 Monocytes % (Manual) 1 % (4-9) L 12/25/16 03:27 Plt Morphology Comment Normal (NORMAL) 12/26/16 03:55 RBC Morphology Normal (NORMAL) 12/26/16 03:55 INR Target Range - 12/24/16 04:10 INR 1.21 (0.8-1.3) 12/24/16 04:10 PTT 31.1 SECONDS (22.9-36.5) 12/24/16 04:10 PTT Comment - 12/24/16 04:10 Sodium 143 mmol/L (136-145) 12/26/16 03:55 Corrected Sodium 144 mmol/L (136-145) 12/26/16 03:55 Potassium 3.6 mmol/L (3.5-5.1) 12/26/16 03:55 Chloride 105 mmol/L (98-107) 12/26/16 03:55 Carbon Dioxide 30.4 mmol/L (21-32) 12/26/16 03:55 BUN 48 mg/dL (7-18) H 12/26/16 03:55 Creatinine 1.87 mg/dL (0.70-1.30) H 12/26/16 03:55 Est GFR (MDRD) Af Amer 45 (>60) L 12/26/16 03:55 Est GFR (MDRD) Non-Af 37 (>60) L 12/26/16 03:55 Glucose 135 mg/dL (65-99) H 12/26/16 03:55 Calcium 9.0 mg/dL (8.5-10.1) 12/26/16 03:55 Corrected Calcium 9.9 mg/dL (8.5-10.1) 12/26/16 03:55 Magnesium 2.1 mg/dL (1.7-2.9) 12/24/16 04:10 Total Bilirubin 0.40 mg/dL (0.2-1.0) 12/26/16 03:55 AST 15 Units/L (15-37) 12/26/16 03:55 ALT 22 Units/L (12-78) 12/26/16 03:55 Alkaline Phosphatase 40 Units/L (46-116) L 12/26/16 03:55 Creatine Kinase 39 Units/L (39-308) 12/25/16 09:05 CK-MB (CK-2) 2.1 ng/mL (0-4.0) 12/25/16 09:05 CK/CKMB % Calc 5.4 % (<4) 12/25/16 09:05 Troponin I 0.06 ng/mL (0-1.5) 12/25/16 09:05 B-Natriuretic Peptide 223 pg/mL (0-79) H 12/23/16 13:08 Total Protein 5.8 g/dL (6.4-8.2) L 12/26/16 03:55 Albumin 2.9 g/dL (3.4-5.0) L 12/26/16 03:55 Globulin 2.9 g/dL (2.5-4.5) 12/26/16 03:55 Albumin/Globulin Ratio 1.0 Ratio (1.1-2.1) L 12/26/16 03:55 Triglycerides 38 mg/dL (0-150) 12/24/16 04:10 Cholesterol 157 mg/dL (0-200) 12/24/16 04:10 LDL Cholesterol, Calc 61 mg/dL (0-100) 12/24/16 04:10 HDL Cholesterol 88 mg/dL (40-60) H 12/24/16 04:10 Cholesterol/HDL Ratio 1.8 (0.0-5.0) 12/24/16 04:10 Specimen Type Clean catch urine 12/24/16 16:34 Urine Color Yellow (YELLOW) 12/24/16 16:34 Urine Appearance Hazy (CLEAR) 12/24/16 16:34 Urine pH 5.0 (5.0 - 8.0) 12/24/16 16:34 Ur Specific [place] 1.025 (1.000-1.030) 12/24/16 16:34 Urine Protein 1+ (NEGATIVE) 12/24/16 16:34 Urine Glucose (UA) Negative (NEGATIVE) 12/24/16 16:34 Urine Ketones Negative (NEGATIVE) 12/24/16 16:34 Urine Occult Blood Negative (NEGATIVE) 12/24/16 16:34 Urine Nitrite Positive (NEGATIVE) 12/24/16 16:34 Urine Bilirubin Negative (NEGATIVE) 12/24/16 16:34 Urine Urobilinogen Normal (NORMAL) 12/24/16 16:34 Ur Leukocyte Esterase Negative (NEGATIVE) 12/24/16 16:34 Urine RBC 0-2 /HPF (NEGATIVE) 12/24/16 16:34 Urine WBC 0-2 /HPF (NEGATIVE) 12/24/16 16:34 Ur Squamous Epith Cells Negative /HPF (NEGATIVE) 12/24/16 16:34 Urine Bacteria Trace /HPF (NEGATIVE) 12/24/16 16:34 Ur Culture Indicated? Yes/culture set up 12/24/16 16:34 - Plan (1) COPD exacerbation Status: Acute Plan: DUONEB Q4H, SOLU-MEDROL 40MG IV Q8H PRN, SUPPLEMENTAL OXYGEN, CONTINUE TO MONITOR (2) Congestive heart failure Status: Chronic Qualifiers: Congestive heart failure type: combined Congestive heart failure chronicity : acute on chronic Qualified Code(s): I50.43 - Acute on chronic combined systolic (congestive) and diastolic (congestive) heart failure Plan: DUONEB Q4H, CONTINUE LASIX 40MG PO DAILY, SUPPLEMENTAL OXYGEN, CONTINUE TO MONITOR (3) Pneumonia Status: Acute Qualifiers: Pneumonia type: due to unspecified organism Laterality: unspecified laterality Lung location: unspecified part of lung Qualified Code(s): J18.9 - Pneumonia, unspecified organism Plan: START MUCINEX 600MG PO BID, START MUCOMYST QID IN [facility] [place], DUONEB Q4H, FORTAZ 1GM IV Q8H, LEVAQUIN 750MG IV DAILY, SUPPLEMENTAL OXYGEN, CONTINUE TO MONITOR (4) Hypokalemia Status: Acute Plan: POTASSIUM PROTOCOL, CONTINUE TO MONITOR (5) A-fib Status: Chronic Qualifiers: Atrial fibrillation type: chronic Qualified Code(s): I48.2 - Chronic atrial fibrillation Plan: CONTINUE ELIQUIS 2.5MG PO BID, CONTINUE CARDIZEM CD 180MG DAILY, CONTINUE TO MONITOR (6) CAD (coronary artery disease) Status: Chronic Qualifiers: Coronary Disease-Associated Artery/Lesion type: [place] artery [place] vs. transplanted heart: [place] heart Associated angina: without angina Qualified Code(s): I25.10 - Atherosclerotic heart disease of [place] coronary artery without angina pectoris Plan: CONTINUE ELIQUIS 2.5MG PO BID, CONTINUE ASA 81MG DAILY, CONTINUE TO MONITOR (7) Hypertension Status: Chronic Qualifiers: Hypertension type: essential hypertension Qualified Code(s): I10 - Essential (primary) hypertension Plan: CONTINUE TOPROL XL 25MG PO BID, CONTINUE TO MONITOR (8) GERD (gastroesophageal reflux disease) Status: Chronic Qualifiers: Esophagitis presence: esophagitis presence not specified Qualified Code(s) : K21.9 - Gastro-esophageal reflux disease without esophagitis Plan: CONTINUE PRILOSEC 40MG PO DAILY
[2016-12-26] MEDS: MUCOMYST 20% 200 MG/ML NEB SCH ×3 (11:59→20:55)
[2016-12-26] MEDS ORDERED: NS 1/2 1000 ML IV 1,000 ML IV ONE (14:44)
[2016-12-26] MEDS: NS 1/2 1000 ML IV 1,000 ML IV SCH (14:50)
[2016-12-26] MEDS: TYLENOL 325 MG TAB PO PRN (19:59)
[2016-12-26] MEDS: MILK OF MAGNESIA PO SCH ×2 (21:12→21:20)
[2016-12-26] MEDS: COLACE CAP 100 MG PO SCH (21:12)
[2016-12-27] MEDS: DUONEB 0.5 MG/3 MG NEB SCH ×6 (01:46→21:45)
[2016-12-27] MEDS: FORTAZ or TAZICEF INJ 1 GM in NS 50 ML IV + SPIKE MINIBAG* 50 ML IV SCH ×2 (05:37→21:37)
[2016-12-27 06:24] LABS: BASOPHILS % (AUTO) 0.2 % (0.2-1.0); HEMOGLOBIN 11.2 g/dL (13.5-18.0); LYMPHOCYTES # (AUTO) 0.1 X10^3/uL (1.3-2.9); LYMPHOCYTES % (AUTO) 0.7 % (21.0-51.0); MEAN CORPUSCULAR HEMOGLOBIN 29.6 pg (27.0-34.0); MEAN CORPUSCULAR HGB CONC 33.1 g/dL (33.0-35.0); MEAN CORPUSCULAR VOLUME 89.4 fL (80.0-100.0); MEAN PLATELET VOLUME 8.4 fL (7.4-11.0); MONOCYTES # (AUTO) 0.4 x10^3/uL (0.3-0.8); MONOCYTES % (AUTO) 3.1 % (0.0-13.0); NEUTROPHILS # (AUTO) 12.2 x10^3/uL (2.2-4.8); PLATELET COUNT 323 X10^3/uL (150.0-450.0); RED CELL DISTRIBUTION WIDTH 16.1 % (11.6-16.5); WHITE BLOOD COUNT 12.7 X10^3/uL (3.6-10.0)
[2016-12-27 06:55] LABS: ALBUMIN 2.7 g/dL (3.4-5.0); CALCIUM 8.7 mg/dL (8.5-10.1); COR CA(FOR HYPOALB) 9.7 mg/dL (8.5-10.1); CREATININE 1.9 mg/dL (0.70-1.30); TOTAL PROTEIN 5.5 g/dL (6.4-8.2)
--- NOTE | 2016-12-27 07:32 | RAD ---
HISTORY: Shortness of breath Study: Chest AP portable Comparison: December 26, 2016 Findings: The heart is enlarged. Mild pulmonary venous congestion is present. No interstitial or alveolar edema is identified. Increased density in the medial right lung base may represent infiltrate or subsegmen [place] atelectasis. The left lung is clear. A minimal left pleural effusion is suspected. The bony thora x is unremarkable. IMPRESSION: cardiomegaly with mild pulmonary venous congestion Abnormal density medial right lung base representing infiltrate or subsegmental atelectasis Suspect small left pleural effusion Reported By:
[2016-12-27 07:45] LABS: ANISOCYTOSIS SLIGHT; PLATELET MORPHOLOGY COMMENT NORMAL (NORMAL)
[2016-12-27] MEDS: MUCOMYST 20% 200 MG/ML NEB SCH ×4 (08:45→21:45)
[2016-12-27] MEDS: MUCINEX DM PO SCH ×2 (08:51→21:38)
[2016-12-27] MEDS: FERROUS SULFATE PO SCH (08:51)
[2016-12-27] MEDS: TYLENOL 325 MG TAB PO PRN (08:51)
[2016-12-27] MEDS: VITAMIN D3 PO SCH (08:51)
[2016-12-27] MEDS: K-DUR TAB 20 MEQ PO SCH (08:52)
[2016-12-27] MEDS: ELIQUIS PO SCH ×2 (08:52→21:37)
[2016-12-27] MEDS: CARDIZEM CD 180 MG PO SCH (08:52)
[2016-12-27] MEDS: TOPROL XL PO SCH ×2 (08:52→21:38)
[2016-12-27] MEDS: PriLOSEC PO SCH (08:52)
[2016-12-27] MEDS: DALIRESP PO SCH (08:53)
[2016-12-27] MEDS: LEVAQUIN PREMIX IV 750 MG 750 MG/150 ML BAG IV SCH (08:53)
[2016-12-27] MEDS: ALFUZOSIN HCL PO SCH (09:25)
[2016-12-27] MEDS ORDERED: LEVAQUIN PREMIX IV 750 MG 750 MG/150 ML BAG IV SCH (10:00)
--- NOTE | 2016-12-27 15:45 | PCM.PROG ---
Progress Note - Progress Note for Day of Date: 12/27/16 - Subjective Subjective: WAS ADMITTED ON 12/23/16 FOR CONGESTIVE HEART FAILURE, COPD , AND PNEUMONIA. TODAY, HE IS ALERT AND ORIENTED, SITTING UP IN BED ON MORNING ROUNDS. HE CONTINUES WITH COMPLAINTS OF SHORTNESS OF BREATH AND COUGH. HE REPORTS THAT COUGH IS MORE PRODUCTIVE TODAY THAN IT HAS BEEN. ON EXAMINATION, LUNGS CONTINUE WITH WHEEZING BILATERALLY TO AUSCULTATION. ABDOMEN IS SOFT, ROUND , AND NON-TENDER WITH NORMAL BOWEL SOUNDS NOTED IN ALL QUADRANTS. HE IS NOTED WEARING NASAL CANNULA WITH OXYGEN AT 2LPM. HIS VITAL SIGNS THIS MORNING ARE 97.8 -97-18-95%-113/57. A CBC, CMP, AND CHEST XRAY WERE OBTAINED TODAY. ABNORMAL LAB RESULTS ARE FOLLOWS: WBC 12.7, RBC 3.80, HGB 11.2, HCT 34, BUN 60, CREATININE 1.90, GLUCOSE 141, ALK PHOS 39, TOTAL PROTEIN 5.5, ALBUMIN 2.7. TODAY S CHEST XRAY REPORTED CARDIOMEGALY WITH MILD PULMONARY VENOUS CONGESTION, ABNORMAL DENSITY MEDIAL RIGHT LUNG BASE REPRESENTING INFILTRATE OR SUBSEGMENTAL ATELECTASIS, SUSPECT SMALL LEFT PLEURAL EFFUSION. WE PLAN TO INCREASE IVF TO 75ML/HR. OTHERWISE, WE WILL CONTINUE WITH CURRENT PLAN OF CARE. WE PLAN TO RECHECK AM LABS AND CONTINUE TO MONITOR PATIENT. - Past Medical Family Social History Past Med/Fam/Surg Hx: No changes since H&P Allergies: Allergies No Known Drug Allergies Allergy (Verified 12/23/16 12:40) - Review of Systems ROS: No change since H&P - Vital Signs and I&O's Vital Signs: Temperature 97.2 F Pulse Rate [Left Brachial] 99 Pulse Rate [Right Brachial] 86 Pulse Rate 87 Respiratory Rate 18 Blood Pressure [Right Arm] 117/66 Blood Pressure [Left Arm] 121/62 Blood Pressure 113/62 O2 Sat by Pulse Oximetry 96 Intake and Output: Intake & Output 12/25/16 12/26/16 12/27/16 12/28/16 11:59 11:59 11:59 11:59 Intake Total 1752 1076 1092 210 Output Total 1550 625 550 Balance 202 451 542 210 - Physical Exam Oriented: Normal Eyes: Normal Ear: Normal Nose: Normal Throat: Normal Respiratory: Generalized, Wheezes Cardiovascular: Normal : Normal Auscultation: Bowel Sounds: Normal Palpation: Normal Tenderness: Normal Skin: Normal Musculoskeletal: Normal Psychiatric: Normal Mood Description: Calm Affect: Normal Speech Pattern: Clear, Appropriate - Laboratory and Diagnostics Result Diagrams: 12/27/16 04:45 12/27/16 04:45 Labs: 12/24/16 16:34 Urine,Clean Catch Urine Culture - Final 12/23/16 19:18 Sputum - Expectorated Sputum Sputum Culture - Final 12/23/16 19:18 Sputum - Expectorated Sputum - Final 12/23/16 15:33 Blood Blood Culture - Preliminary 12/23/16 15:14 Blood Blood Culture - Preliminary Laboratory WBC 12.7 X10^3/uL (3.6-10.0) H 12/27/16 04:45 RBC 3.80 X10^6/uL (4.7-6.0) L 12/27/16 04:45 Hgb 11.2 g/dL (13.5-18.0) L 12/27/16 04:45 Hct 34.0 % (42.0-54.0) L 12/27/16 04:45 MCV 89.4 fL (80.0-100.0) 12/27/16 04:45 MCH 29.6 pg (27.0-34.0) 12/27/16 04:45 MCHC 33.1 g/dL (33.0-35.0) 12/27/16 04:45 RDW 16.1 % (11.6-16.5) 12/27/16 04:45 Plt Count 323 X10^3/uL (150.0-450.0) 12/27/16 04:45 Plt Count Comment Adequate (ADEQUATE) 12/27/16 04:45 MPV 8.4 fL (7.4-11.0) 12/27/16 04:45 Neut % 96.0 % (42.0-75.0) H 12/27/16 04:45 Lymph % 0.7 % (21.0-51.0) L 12/27/16 04:45 [place] % 3.1 % (0.0-13.0) 12/27/16 04:45 Eos % 0.0 % (0.9-2.9) L 12/27/16 04:45 Baso % 0.2 % (0.2-1.0) 12/27/16 04:45 Neut # 12.2 x10^3/uL (2.2-4.8) H 12/27/16 04:45 Lymph # 0.1 X10^3/uL (1.3-2.9) L 12/27/16 04:45 [place] # 0.4 x10^3/uL (0.3-0.8) 12/27/16 04:45 Eos # 0.0 x10^3/uL (0.0-0.2) 12/27/16 04:45 Baso # 0.0 X10^3/uL (0.0-0.1) 12/27/16 04:45 Absolute Nucleated RBC 0.1 /100WBC 12/27/16 04:45 Total Counted 100 12/27/16 04:45 Neutrophils % (Manual) 96 % (39-76) H 12/27/16 04:45 Band Neutrophils % 2 % (0-10) 12/25/16 03:27 Lymphocytes % (Manual) 1 % (13-43) L 12/27/16 04:45 Monocytes % (Manual) 3 % (4-9) L 12/27/16 04:45 Plt Morphology Comment Normal (NORMAL) 12/27/16 04:45 RBC Morphology Abnormal (NORMAL) 12/27/16 04:45 Anisocytosis Slight A 12/27/16 04:45 INR Target Range - 12/24/16 04:10 INR 1.21 (0.8-1.3) 12/24/16 04:10 PTT 31.1 SECONDS (22.9-36.5) 12/24/16 04:10 PTT Comment - 12/24/16 04:10 Sodium 140 mmol/L (136-145) 12/27/16 04:45 Corrected Sodium 141 mmol/L (136-145) 12/27/16 04:45 Potassium 4.0 mmol/L (3.5-5.1) 12/27/16 04:45 Chloride 104 mmol/L (98-107) 12/27/16 04:45 Carbon Dioxide 29.0 mmol/L (21-32) 12/27/16 04:45 BUN 60 mg/dL (7-18) H 12/27/16 04:45 Creatinine 1.90 mg/dL (0.70-1.30) H 12/27/16 04:45 Est GFR (MDRD) Af Amer 44 (>60) L 12/27/16 04:45 Est GFR (MDRD) Non-Af 36 (>60) L 12/27/16 04:45 Glucose 141 mg/dL (65-99) H 12/27/16 04:45 Calcium 8.7 mg/dL (8.5-10.1) 12/27/16 04:45 Corrected Calcium 9.7 mg/dL (8.5-10.1) 12/27/16 04:45 Magnesium 2.1 mg/dL (1.7-2.9) 12/24/16 04:10 Total Bilirubin 0.30 mg/dL (0.2-1.0) 12/27/16 04:45 AST 17 Units/L (15-37) 12/27/16 04:45 ALT 25 Units/L (12-78) 12/27/16 04:45 Alkaline Phosphatase 39 Units/L (46-116) L 12/27/16 04:45 Creatine Kinase 39 Units/L (39-308) 12/25/16 09:05 CK-MB (CK-2) 2.1 ng/mL (0-4.0) 12/25/16 09:05 CK/CKMB % Calc 5.4 % (<4) 12/25/16 09:05 Troponin I 0.06 ng/mL (0-1.5) 12/25/16 09:05 B-Natriuretic Peptide 223 pg/mL (0-79) H 12/23/16 13:08 Total Protein 5.5 g/dL (6.4-8.2) L 12/27/16 04:45 Albumin 2.7 g/dL (3.4-5.0) L 12/27/16 04:45 Globulin 2.8 g/dL (2.5-4.5) 12/27/16 04:45 Albumin/Globulin Ratio 1.0 Ratio (1.1-2.1) L 12/27/16 04:45 Triglycerides 38 mg/dL (0-150) 12/24/16 04:10 Cholesterol 157 mg/dL (0-200) 12/24/16 04:10 LDL Cholesterol, Calc 61 mg/dL (0-100) 12/24/16 04:10 HDL Cholesterol 88 mg/dL (40-60) H 12/24/16 04:10 Cholesterol/HDL Ratio 1.8 (0.0-5.0) 12/24/16 04:10 Specimen Type Clean catch urine 12/24/16 16:34 Urine Color Yellow (YELLOW) 12/24/16 16:34 Urine Appearance Hazy (CLEAR) 12/24/16 16:34 Urine pH 5.0 (5.0 - 8.0) 12/24/16 16:34 Ur Specific [place] 1.025 (1.000-1.030) 12/24/16 16:34 Urine Protein 1+ (NEGATIVE) 12/24/16 16:34 Urine Glucose (UA) Negative (NEGATIVE) 12/24/16 16:34 Urine Ketones Negative (NEGATIVE) 12/24/16 16:34 Urine Occult Blood Negative (NEGATIVE) 12/24/16 16:34 Urine Nitrite Positive (NEGATIVE) 12/24/16 16:34 Urine Bilirubin Negative (NEGATIVE) 12/24/16 16:34 Urine Urobilinogen Normal (NORMAL) 12/24/16 16:34 Ur Leukocyte Esterase Negative (NEGATIVE) 12/24/16 16:34 Urine RBC 0-2 /HPF (NEGATIVE) 12/24/16 16:34 Urine WBC 0-2 /HPF (NEGATIVE) 12/24/16 16:34 Ur Squamous Epith Cells Negative /HPF (NEGATIVE) 12/24/16 16:34 Urine Bacteria Trace /HPF (NEGATIVE) 12/24/16 16:34 Ur Culture Indicated? Yes/culture set up 12/24/16 16:34 - Plan (1) COPD exacerbation Status: Acute Plan: DUONEB Q4H, SOLU-MEDROL 40MG IV Q8H PRN, SUPPLEMENTAL OXYGEN, CONTINUE TO MONITOR (2) Congestive heart failure Status: Chronic Qualifiers: Congestive heart failure type: combined Congestive heart failure chronicity : acute on chronic Qualified Code(s): I50.43 - Acute on chronic combined systolic (congestive) and diastolic (congestive) heart failure Plan: DUONEB Q4H, CONTINUE LASIX 40MG PO DAILY, SUPPLEMENTAL OXYGEN, CONTINUE TO MONITOR (3) Pneumonia Status: Acute Qualifiers: Pneumonia type: due to unspecified organism Laterality: unspecified laterality Lung location: unspecified part of lung Qualified Code(s): J18.9 - Pneumonia, unspecified organism Plan: MUCINEX 600MG PO BID, MUCOMYST QID IN [facility] [place], DUONEB Q4H, FORTAZ 1GM IV Q8H, LEVAQUIN 750MG IV DAILY, SUPPLEMENTAL OXYGEN, CONTINUE TO MONITOR (4) A-fib Status: Chronic Qualifiers: Atrial fibrillation type: chronic Qualified Code(s): I48.2 - Chronic atrial fibrillation Plan: CONTINUE ELIQUIS 2.5MG PO BID, CONTINUE CARDIZEM CD 180MG DAILY, CONTINUE TO MONITOR (5) CAD (coronary artery disease) Status: Chronic Qualifiers: Coronary Disease-Associated Artery/Lesion type: [place] artery [place] vs. transplanted heart: [place] heart Associated angina: without angina Qualified Code(s): I25.10 - Atherosclerotic heart disease of [place] coronary artery without angina pectoris Plan: CONTINUE ELIQUIS 2.5MG PO BID, CONTINUE ASA 81MG DAILY, CONTINUE TO MONITOR (6) Hypertension Status: Chronic Qualifiers: Hypertension type: essential hypertension Qualified Code(s): I10 - Essential (primary) hypertension Plan: CONTINUE TOPROL XL 25MG PO BID, CONTINUE TO MONITOR (7) GERD (gastroesophageal reflux disease) Status: Chronic Qualifiers: Esophagitis presence: esophagitis presence not specified Qualified Code(s) : K21.9 - Gastro-esophageal reflux disease without esophagitis Plan: CONTINUE PRILOSEC 40MG PO DAILY
[2016-12-27] MEDS ORDERED: NS 1/2 1000 ML IV 1,000 ML IV ONE (20:36)
[2016-12-27] MEDS: NS 1/2 1000 ML IV 1,000 ML IV SCH (21:36)
[2016-12-27] MEDS: COLACE CAP 100 MG PO SCH (21:38)
[2016-12-27] MEDS: MILK OF MAGNESIA PO SCH ×2 (21:39→21:40)
[2016-12-28] MEDS: DUONEB 0.5 MG/3 MG NEB SCH ×4 (01:49→12:37)
[2016-12-28 05:29] LABS: BASOPHILS % (AUTO) 0.2 % (0.2-1.0); EOSINOPHILS % (AUTO) 0.4 % (0.9-2.9); HEMATOCRIT 34.4 % (42.0-54.0); HEMOGLOBIN 11.7 g/dL (13.5-18.0); LYMPHOCYTES # (AUTO) 0.5 X10^3/uL (1.3-2.9); LYMPHOCYTES % (AUTO) 4.4 % (21.0-51.0); MEAN CORPUSCULAR HEMOGLOBIN 30.3 pg (27.0-34.0); MEAN CORPUSCULAR HGB CONC 33.9 g/dL (33.0-35.0); MEAN CORPUSCULAR VOLUME 89.4 fL (80.0-100.0); MEAN PLATELET VOLUME 8.3 fL (7.4-11.0); MONOCYTES # (AUTO) 1.1 x10^3/uL (0.3-0.8); PLATELET COUNT 287 X10^3/uL (150.0-450.0); RED BLOOD COUNT 3.85 X10^6/uL (4.7-6.0); RED CELL DISTRIBUTION WIDTH 15.8 % (11.6-16.5); WHITE BLOOD COUNT 10.5 X10^3/uL (3.6-10.0)
[2016-12-28 06:35] LABS: BLOOD UREA NITROGEN 60 mg/dL (7-18); CALCIUM 8.7 mg/dL (8.5-10.1); CHLORIDE 104 mmol/L (98-107); SODIUM 139 mmol/L (136-145); eGFR BLACK RACES 47 (>60); eGFR NON BLACK RACES 39 (>60)
[2016-12-28] MEDS: MUCOMYST 20% 200 MG/ML NEB SCH ×2 (08:22→12:38)
[2016-12-28] MEDS: CARDIZEM CD 180 MG PO SCH (09:40)
[2016-12-28] MEDS: ELIQUIS PO SCH (09:40)
[2016-12-28] MEDS: ALFUZOSIN HCL PO SCH (09:40)
[2016-12-28] MEDS: DALIRESP PO SCH (09:40)
[2016-12-28] MEDS: FORTAZ or TAZICEF INJ 1 GM in NS 50 ML IV + SPIKE MINIBAG* 50 ML IV SCH (09:41)
[2016-12-28] MEDS: PriLOSEC PO SCH (09:41)
[2016-12-28] MEDS: K-DUR TAB 20 MEQ PO SCH (09:41)
[2016-12-28] MEDS: VITAMIN D3 PO SCH (09:41)
[2016-12-28] MEDS: FERROUS SULFATE PO SCH (09:41)
[2016-12-28] MEDS: TOPROL XL PO SCH (09:41)
[2016-12-28] MEDS: MUCINEX DM PO SCH (09:41)
[2016-12-28 12:03] VITALS: BP 132/78
[2016-12-28] MEDS ORDERED: ZOFRAN INJ 4 MG VIAL IVP PRN (12:33)
[2016-12-28 14:03] LABS: ALANINE AMINOTRANSFERASE 26 Units/L (12-78); ALBUMIN 2.6 g/dL (3.4-5.0); ALKALINE PHOSPHATASE 39 Units/L (46-116); ASPARTATE AMINO TRANSFERASE 19 Units/L (15-37); COR CA(FOR HYPOALB) 9.8 mg/dL (8.5-10.1); TOTAL PROTEIN 5.3 g/dL (6.4-8.2)
== END 2016-12-28 14:30 | disposition home or self-care (01) | DRG 190 ==
LOC: ER 12:34 → MED/SURG 15:07
PROVIDERS: ADMIT Internal Medicine; ATTEND Internal Medicine
DX: J44.1 Chronic obstructive pulmonary disease with (acute) exacerbation (principal); I50.43 Acute on chronic combined systolic (congestive) and diastolic (congestive) heart failure; J18.8 Other pneumonia, unspecified organism; R06.03 Acute respiratory distress; R07.89 Other chest pain; R53.83 Other fatigue; R06.02 Shortness of breath; R60.0 Localized edema; I25.10 Atherosclerotic heart disease of native coronary artery without angina pectoris; E78.2 Mixed hyperlipidemia; I51.7 Cardiomegaly; Z91.81 History of falling; R94.31 Abnormal electrocardiogram [ECG] [EKG]; R07.1 Chest pain on breathing; E87.6 Hypokalemia; I48.2 Chronic atrial fibrillation; I10 Essential (primary) hypertension; K21.9 Gastro-esophageal reflux disease without esophagitis; R26.89 Other abnormalities of gait and mobility; R79.1 Abnormal coagulation profile
CPT/HCPCS: 36415; 71010; 71111; 80053; 80061; 81001; 82550; 82553; 83735; 83880; 84132; 84484; 85025; 85610; 85730; 87040; 87070; 87086; 87205; 93005; 94640; 94760; 96365; 96374; 97535; 99284; A4222; J0713; J1940; J1956; J2405; J2920; J2930; J7608; J7620

== ENCOUNTER 2017-02-21 20:03 | Emergency (ER) | payer OTHER, MEDICARE ==
[2017-02-21 20:23] VITALS: BMI 23.7
--- NOTE | 2017-02-21 20:23 | DR.GENAD ---
HPI - PCP Primary Care Physician: 2016 - Complaint/Symptoms Chief Complaint Doctors Comments: Patient presents to the ED with complaint of dyspnea. Onset of dyspnea today. Admits to fever this PM. He has a history of COPD on 3L oxygen. Prior to this PM was in his usual state of health. He denies cardiovascular disease. Denies getting influenza shot this year. - Nurses notes reviewed Nurses Notes Review: Yes - Source History Provided: Patient - Mode of Arrival Mode of Arrival: EMS - Timing Came on: Suddenly - Duration Duration: Since Onset PMH - PMH Past Medical History: Angina, Anxiety, Arthritis, CHF, COPD, Coronary Artery Disease, Dyslipidemia, GERD, Hypertension Past Surgical History: Yes Surgical History: TURP, Other - Family History Family Medical History: Cancer, [place], Hypertension - Social History Do you use any recreational Drugs:: No ROS - Review of Systems Eyes: No Symptoms Reported ENTM: No Symptoms Reported Respiratoy: Non-Productive Cough, Short of Breath, Wheezing Cardiovascular: No Symptoms Reported Gastrointestinal/Abdominal: No Symptoms Reported Genitourinary: No Symptoms Reported Neurological: No Symptoms Reported Musculoskeletal: No Symptoms Reported Integumentary: No Symptoms Reported Hematologic/Lymphatic: No Symptoms Reported Endocrine: No Symptoms Reported Psychiatric: No Symptoms Reported All Other Systems: Reviewed and Negative PE - Vital Signs Vitals: Temperature 100.0 F Pulse Rate [Apical] 94 Pulse Rate 99 Respiratory Rate 24 Blood Pressure [Right Arm] 117/66 Blood Pressure [Left Arm] 117/55 Blood Pressure 110/56 O2 Sat by Pulse Oximetry 99 - General General Appearance: Alert, In No Apparent Distress - Head Head Exam: Normal Inspection, Atraumatic - Eyes Eye exam: Normal Appearance, PERRL, EOMI - ENT ENT Exam: Normal Exam External Ear Exam: Normal External Inspection TM/Canal Exam: Bilateral Normal Nose Exam: Normal Nose Exam Mouth Exam: Normal Inspection Throat Exam: Normal Inspection - Neck Neck Exam: Normal Inspection, Full ROM - Chest Chest Inspection: Normal Inspection - Respiratory Respiratory Exam: Normal Lung Sounds Bilat Respiratory Exam: Bilateral Clear to Auscultation - Cardiovascular Cardiovascular Exam: Regular Rate, Normal Rhythm - Abdominal Exam Abdominal Exam: Normal Inspection, Normal Bowel Sounds Abdominal Tenderness: negative: RUQ, RLQ, LUQ, LLQ, Epigastrium, Suprapubic, Diffuse, Mild, Moderate, Severe, Other - Extremities Extremities Exam: Normal Inspection - Back Back Exam: Normal Inspection, Full ROM - Neurologic Neurological Exam: Alert, Oriented X3, CN II-XII Intact - Psychiatric Psychiatric Exam: Normal Affect, Normal Mood - Skin Skin Exam: Warm, Dry, Intact Course - Education/Counseling Educated On: Treatment, Diagnosis, Prognosis, Needs for Follow Up ROR - Labs Reviewed Result Diagrams: 02/21/17 20:15 02/21/17 20:15 Laboratory: WBC 13.4 X10^3/uL (3.6-10.0) H 02/21/17 20:15 RBC 4.12 X10^6/uL (4.7-6.0) L 02/21/17 20:15 Hgb 11.6 g/dL (13.5-18.0) L 02/21/17 20:15 Hct 35.6 % (42.0-54.0) L 02/21/17 20:15 MCV 86.6 fL (80.0-100.0) 02/21/17 20:15 MCH 28.2 pg (27.0-34.0) 02/21/17 20:15 MCHC 32.6 g/dL (33.0-35.0) L 02/21/17 20:15 RDW 16.8 % (11.6-16.5) H 02/21/17 20:15 Plt Count 332 X10^3/uL (150.0-450.0) 02/21/17 20:15 MPV 8.2 fL (7.4-11.0) 02/21/17 20:15 Neut % 85.3 % (42.0-75.0) H 02/21/17 20:15 Lymph % 4.5 % (21.0-51.0) L 02/21/17 20:15 [place] % 8.4 % (0.0-13.0) 02/21/17 20:15 Eos % 1.1 % (0.9-2.9) 02/21/17 20:15 Baso % 0.7 % (0.2-1.0) 02/21/17 20:15 Neut # 11.5 x10^3/uL (2.2-4.8) H 02/21/17 20:15 Lymph # 0.6 X10^3/uL (1.3-2.9) L 02/21/17 20:15 [place] # 1.1 x10^3/uL (0.3-0.8) H 02/21/17 20:15 Eos # 0.2 x10^3/uL (0.0-0.2) 02/21/17 20:15 Baso # 0.1 X10^3/uL (0.0-0.1) 02/21/17 20:15 Absolute Nucleated RBC 0.1 /100WBC 02/21/17 20:15 Sample Site Lr 02/21/17 20:40 ABG pH 7.490 (7.35-7.45) H 02/21/17 20:40 ABG pCO2 49.0 mmHg (35.0-45.0) H 02/21/17 20:40 ABG pO2 51.0 mmHg (80.0-100.0) L 02/21/17 20:40 ABG HCO3 37.3 mmol/L (22-26) H* 02/21/17 20:40 ABG O2 Saturation 89.0 % (90-100) L 02/21/17 20:40 ABG Base Excess 12.2 mmol/L (-2.0-2.0) H 02/21/17 20:40 Fabio Test Pos 02/21/17 20:40 A-a Gradient 116.0 mmHg 02/21/17 20:40 FiO2 32 02/21/17 20:40 Blood Gas Comments Kati well ae 02/21/17 20:40 Sodium 148 mmol/L (136-145) H 02/21/17 20:15 Corrected Sodium TNP 02/21/17 20:15 Potassium 4.5 mmol/L (3.5-5.1) 02/21/17 20:15 Chloride 107 mmol/L (98-107) 02/21/17 20:15 Carbon Dioxide 34.5 mmol/L (21-32) H 02/21/17 20:15 BUN 30 mg/dL (7-18) H 02/21/17 20:15 Creatinine 1.72 mg/dL (0.70-1.30) H 02/21/17 20:15 Est GFR (MDRD) Af Amer 49 (>60) L 02/21/17 20:15 Est GFR (MDRD) Non-Af 41 (>60) L 02/21/17 20:15 Glucose 103 mg/dL (65-99) H 02/21/17 20:15 Calcium 8.9 mg/dL (8.5-10.1) 02/21/17 20:15 Corrected Calcium 9.5 mg/dL (8.5-10.1) 02/21/17 20:15 Total Bilirubin 1.30 mg/dL (0.2-1.0) H 02/21/17 20:15 AST 18 Units/L (15-37) 02/21/17 20:15 ALT 21 Units/L (12-78) 02/21/17 20:15 Alkaline Phosphatase 82 Units/L (46-116) 02/21/17 20:15 C-Reactive Protein 37.80 mg/L (0-3.0) H 02/21/17 20:15 Total Protein 6.1 g/dL (6.4-8.2) L 02/21/17 20:15 Albumin 3.3 g/dL (3.4-5.0) L 02/21/17 20:15 Globulin 2.8 g/dL (2.5-4.5) 02/21/17 20:15 Albumin/Globulin Ratio 1.2 Ratio (1.1-2.1) 02/21/17 20:15 Influenza Type A (PCR) Negative (NEGATIVE) 02/21/17 20:29 Influenza Type B (PCR) Negative (NEGATIVE) 02/21/17 20:29 - XRAY XRAY Interpreted by: Radiologist (Chest: no acute cardiopulmonary abnormality) - Diagnosis Discharge Problem: COPD (chronic obstructive pulmonary disease) Qualifiers: COPD type: unspecified COPD Qualified Code(s): J44.9 - Chronic obstructive pulmonary disease, unspecified - Discharge Plan Condition: Stable - Follow ups/Referrals Follow ups/Referrals: Saurabh Cooper [Primary Care Provider] - 3 days - Instructions
[2017-02-21] MEDS ORDERED: SOLU-Medrol 125 MG VIAL IVP ONE (20:25)
[2017-02-21] MEDS ORDERED: DECADRON JET NEB (RESP USE) NEB ONE ×2 (20:26→20:29)
[2017-02-21] MEDS ORDERED: SALINE 0.9% 3 ML NEB TX ONE (20:30)
[2017-02-21 20:32] LABS: BASOPHILS # (AUTO) 0.1 X10^3/uL (0.0-0.1); BASOPHILS % (AUTO) 0.7 % (0.2-1.0); EOSINOPHILS # (AUTO) 0.2 x10^3/uL (0.0-0.2); EOSINOPHILS % (AUTO) 1.1 % (0.9-2.9); HEMATOCRIT 35.6 % (42.0-54.0); HEMOGLOBIN 11.6 g/dL (13.5-18.0); LYMPHOCYTES # (AUTO) 0.6 X10^3/uL (1.3-2.9); LYMPHOCYTES % (AUTO) 4.5 % (21.0-51.0); MEAN CORPUSCULAR HEMOGLOBIN 28.2 pg (27.0-34.0); MEAN CORPUSCULAR HGB CONC 32.6 g/dL (33.0-35.0); MEAN CORPUSCULAR VOLUME 86.6 fL (80.0-100.0); MEAN PLATELET VOLUME 8.2 fL (7.4-11.0); MONOCYTES # (AUTO) 1.1 x10^3/uL (0.3-0.8); MONOCYTES % (AUTO) 8.4 % (0.0-13.0); NEUTROPHILS # (AUTO) 11.5 x10^3/uL (2.2-4.8); NEUTROPHILS % (AUTO) 85.3 % (42.0-75.0); PLATELET COUNT 332 X10^3/uL (150.0-450.0); RED BLOOD COUNT 4.12 X10^6/uL (4.7-6.0); RED CELL DISTRIBUTION WIDTH 16.8 % (11.6-16.5); WHITE BLOOD COUNT 13.4 X10^3/uL (3.6-10.0)
[2017-02-21] MEDS ORDERED: NS 1000 ML 1,000 ML ONE (20:32)
[2017-02-21] MEDS ORDERED: SALINE 3% 15 ML NEB TX ONE (20:32)
[2017-02-21] MEDS ORDERED: SOLU-Medrol 125 MG VIAL ONE (20:33)
[2017-02-21 20:35] LABS: BLOOD UREA NITROGEN 30 mg/dL (7-18); CALCIUM 8.9 mg/dL (8.5-10.1); CARBON DIOXIDE 34.5 mmol/L (21-32); CHLORIDE 107 mmol/L (98-107); CREATININE 1.72 mg/dL (0.70-1.30); SODIUM 148 mmol/L (136-145); eGFR BLACK RACES 49 (>60); eGFR NON BLACK RACES 41 (>60)
[2017-02-21] MEDS ORDERED: SALINE 3% 15 ML NEB TX NEB ONE (20:40)
[2017-02-21 20:46] LABS: ABG ALLEN TEST POS; ABG BASE EXCESS 12.2 mmol/L (-2.0-2.0); ABG HCO3 37.3 mmol/L (22-26); FRACTIONATED INSPIRED OXYGEN 32
[2017-02-21 20:52] LABS: ALANINE AMINOTRANSFERASE 21 Units/L (12-78); ALBUMIN 3.3 g/dL (3.4-5.0); ALKALINE PHOSPHATASE 82 Units/L (46-116); ASPARTATE AMINO TRANSFERASE 18 Units/L (15-37); COR CA(FOR HYPOALB) 9.5 mg/dL (8.5-10.1); TOTAL PROTEIN 6.1 g/dL (6.4-8.2)
[2017-02-21] MEDS ORDERED: NS 1000 ML 1,000 ML IV SCH (21:00)
--- NOTE | 2017-02-21 21:55 | RAD ---
AP Chest Indication: Shortness of breath with fever Comparison: 12/28/2016 Findings: The examination is limited by chin tuck positioning limiting evaluation and visualization of the uppe r thorax. The trachea is midline. Heart size remains enlarged. There is increased interstitial opacit ies suspicious for either vascular crowding or mild interstitial edema. Blunting of both costophrenic sulci consistent with small pleural effusions. Opacity within the left lung base likely represent leal bsegmental atelectasis however developing infiltrate is not excluded and clinical correlation is need ed. Chronic fracture deformity of the mid right clavicle. Impression: See above. 1. No acute cardiopulmonary abnormality. Reported By:
[2017-02-21] MEDS ORDERED: DILAUDID INJ IVP ONE (22:05)
[2017-02-21] MEDS ORDERED: DILAUDID INJ ONE (22:13)
[2017-02-21 23:04] VITALS: BP 113/56
== END 2017-02-21 23:05 | disposition home or self-care (01) ==
LOC: ER 20:03
DX: J44.9 Chronic obstructive pulmonary disease, unspecified (principal)
CPT/HCPCS: 36415; 36600; 71010; 80053; 82803; 85025; 86140; 87070; 87205; 87502; 94640; 96365; 96367; 96374; 96375; 99282; 99283; A4222; J2930

== ENCOUNTER 2017-02-23 15:57 | Emergency (ER) | payer OTHER, MEDICARE ==
[2017-02-23 16:13] VITALS: BMI 23.7
[2017-02-23] MEDS ORDERED: DILAUDID INJ IVP ONE (16:54)
--- NOTE | 2017-02-23 16:55 | DR.GENAD ---
HPI - PCP Primary Care Physician: RONAN - Complaint/Symptoms Chief Complaint Doctors Comments: Patient presents with complaint of dyspnea. He has a history of COPD/emphysema. He is on 3.5L oxygen and various bronchodilators. He slipped off the bed today, oxygen supply disconnected; saturations dropped to 65%. He is alert in no acute distress. He complains of back pain. He takes oxycodone 5mg for pain. Chief Complaint:: TROUBLE BREATHING IN MODERATED RESP DISTRESS UPON EMS ARRIVAL. IMPROVED WITH O2 AND WITH DUO NEB DOSE IN AMBULANCE Self Treatment fo Chief Complaint: USED O2 AT HOME - Source History Provided: Patient, EMS - Mode of Arrival Mode of Arrival: EMS - Timing Onset of Chief Complaint: 02/23/17 PMH - PMH Past Medical History: Yes Past Medical History: Angina, Anxiety, Arthritis, CHF, COPD, Coronary Artery Disease, Dyslipidemia, GERD, Hypertension Past Surgical History: Yes Surgical History: TURP, Other - Family History History of Family Medical Conditions: Yes Family Medical History: Cancer, [place], Hypertension - Social History Type of Tobacco Use: Cigarettes Alcohol Use: None Do you use any recreational Drugs:: No Lives With: Family Lives Where: Home - infectious screening In the last 2 months have you had wt loss of >10#?: NO Have you had fever, night sweats or hemotysis?: No Have you traveled outside the country in the last 6 months?: No Isolation: Standard ROS - Review of Systems Eyes: No Symptoms Reported ENTM: No Symptoms Reported Respiratoy: No Symptoms Reported Cardiovascular: No Symptoms Reported Gastrointestinal/Abdominal: No Symptoms Reported Genitourinary: No Symptoms Reported Neurological: No Symptoms Reported Musculoskeletal: No Symptoms Reported Integumentary: No Symptoms Reported Hematologic/Lymphatic: No Symptoms Reported Endocrine: No Symptoms Reported Psychiatric: No Symptoms Reported All Other Systems: Reviewed and Negative PE - Vital Signs Vitals: Temperature 98.2 F Pulse Rate 88 Respiratory Rate 26 Blood Pressure [Right Arm] 113/56 Blood Pressure [Left Arm] 117/55 Blood Pressure 120/74 O2 Sat by Pulse Oximetry 94 - General General Appearance: Alert, In No Apparent Distress - Head Head Exam: Normal Inspection, Atraumatic - Eyes Eye exam: Normal Appearance, PERRL, EOMI - ENT ENT Exam: Normal Exam External Ear Exam: Normal External Inspection TM/Canal Exam: Bilateral Normal Nose Exam: Normal Nose Exam Mouth Exam: Normal Inspection Throat Exam: Normal Inspection - Neck Neck Exam: Normal Inspection, Full ROM - Chest Chest Inspection: Normal Inspection - Respiratory Respiratory Exam: Normal Lung Sounds Bilat Respiratory Exam: Bilateral Clear to Auscultation - Cardiovascular Cardiovascular Exam: Regular Rate, Normal Rhythm - Abdominal Exam Abdominal Exam: Normal Inspection, Normal Bowel Sounds Abdominal Tenderness: negative: RUQ, RLQ, LUQ, LLQ, Epigastrium, Suprapubic, Diffuse, Mild, Moderate, Severe, Other - Extremities Extremities Exam: Normal Inspection - Back Back Exam: Normal Inspection, Full ROM - Neurologic Neurological Exam: Alert, Oriented X3, CN II-XII Intact - Psychiatric Psychiatric Exam: Normal Affect, Normal Mood - Skin Skin Exam: Warm, Dry, Intact Course - Reevaluation 1st: Improved - Diagnosis Discharge Problem: COPD (chronic obstructive pulmonary disease) Qualifiers: COPD type: unspecified COPD Qualified Code(s): J44.9 - Chronic obstructive pulmonary disease, unspecified Chronic back pain Qualifiers: Back pain location: low back pain Back pain laterality: midline Sciatica presence: without sciatica Qualified Code(s): M54.5 - Low back pain; G89.29 - Other chronic pain; G89.29 - Other chronic pain - Discharge Plan Condition: Stable - Follow ups/Referrals Follow ups/Referrals: Saurabh Cooper [Primary Care Provider] - 3 days - Instructions
[2017-02-23] MEDS ORDERED: DILAUDID INJ ONE (17:00)
[2017-02-23 17:53] VITALS: BP 121/70
== END 2017-02-23 17:46 | disposition home or self-care (01) ==
LOC: ER 15:57
DX: J44.9 Chronic obstructive pulmonary disease, unspecified (principal); M54.5 Low back pain; G89.29 Other chronic pain
CPT/HCPCS: 96365; 96374; 99282; 99283; A4222

== ENCOUNTER 2017-02-24 15:56 | Inpatient (IN) | payer OTHER, MEDICARE ==
[2017-02-24 16:41] LABS: ABG BASE EXCESS 9.2 mmol/L (-2.0-2.0)
[2017-02-24 16:42] LABS: ABG ALLEN TEST POS; ABG HCO3 35.2 mmol/L (22-26)
[2017-02-24 17:03] LABS: BASOPHILS # (AUTO) 0.1 X10^3/uL (0.0-0.1); BASOPHILS % (AUTO) 0.8 % (0.2-1.0); EOSINOPHILS # (AUTO) 0.1 x10^3/uL (0.0-0.2); EOSINOPHILS % (AUTO) 0.7 % (0.9-2.9); HEMATOCRIT 34.7 % (42.0-54.0); HEMOGLOBIN 11.4 g/dL (13.5-18.0); LYMPHOCYTES # (AUTO) 0.4 X10^3/uL (1.3-2.9); LYMPHOCYTES % (AUTO) 4.3 % (21.0-51.0); MEAN CORPUSCULAR HEMOGLOBIN 28.5 pg (27.0-34.0); MEAN CORPUSCULAR VOLUME 86.5 fL (80.0-100.0); MEAN PLATELET VOLUME 8.3 fL (7.4-11.0); MONOCYTES # (AUTO) 0.9 x10^3/uL (0.3-0.8); MONOCYTES % (AUTO) 8.6 % (0.0-13.0); NEUTROPHILS # (AUTO) 8.8 x10^3/uL (2.2-4.8); NEUTROPHILS % (AUTO) 85.6 % (42.0-75.0); PLATELET COUNT 312 X10^3/uL (150.0-450.0); RED BLOOD COUNT 4.01 X10^6/uL (4.7-6.0); RED CELL DISTRIBUTION WIDTH 16.5 % (11.6-16.5); WHITE BLOOD COUNT 10.3 X10^3/uL (3.6-10.0)
[2017-02-24 17:16] LABS: ALANINE AMINOTRANSFERASE 19 Units/L (12-78); ALBUMIN 3.2 g/dL (3.4-5.0); ALKALINE PHOSPHATASE 73 Units/L (46-116); ASPARTATE AMINO TRANSFERASE 20 Units/L (15-37); BLOOD UREA NITROGEN 51 mg/dL (7-18); CALCIUM 8.7 mg/dL (8.5-10.1); CARBON DIOXIDE 29.9 mmol/L (21-32); CHLORIDE 108 mmol/L (98-107); COR CA(FOR HYPOALB) 9.3 mg/dL (8.5-10.1); SODIUM 148 mmol/L (136-145); eGFR BLACK RACES 41 (>60); eGFR NON BLACK RACES 34 (>60)
--- NOTE | 2017-02-24 17:19 | RAD ---
Examination: Portable AP chest History: SOB Comparison reference: 02/21/2017 Findings: Continued cardiomegaly with central vascular congestion. Retrocardiac opacity obscuring the diaphragm and costophrenic angle. No pneumothorax seen. Impression: Stable cardiomegaly and pulmonary vascular congestion. Findings at the left base consiste nt with airspace disease and probable pleural fluid. Reported By:
--- NOTE | 2017-02-24 17:35 | DR.GENAD ---
HPI - PCP Primary Care Physician: RONAN - Complaint/Symptoms Chief Complaint Doctors Comments: SOB for few days. He uses oxygen at home via a concentrator at 3.5 L/min. Oxygen sat was noted in the 70s per EMS upon arrival. They place him on Oxygen and his sat. ivonne up to 90s. There is no chest pain but he has back pain. The dyspnea was at rest or barely doing anything. Chief Complaint:: PT C/O DIFFICULTY BREATHING. PT STATES HE HAS BEEN HAVING SOB FOR A FEW DAYS NOW WITH BACK PAIN. - Nurses notes reviewed Nurses Notes Review: Yes - Source History Provided: Patient - Mode of Arrival Mode of Arrival: EMS - Timing Onset of Chief Complaint: 02/22/17 Came on: Gradually - Modifying Factors Worsens:: nothing Improves:: nothing PMH - PMH Past Medical History: Yes Past Medical History: Angina, Anxiety, Arthritis, CHF, COPD, Coronary Artery Disease, Dyslipidemia, GERD, Hypertension Past Surgical History: Yes Surgical History: TURP, Other - Family History History of Family Medical Conditions: Yes Family Medical History: Cancer, [place], Hypertension - Social History Does any household member use tobacco: No Alcohol Use: None Do you use any recreational Drugs:: No Lives With: Family Lives Where: Home - infectious screening In the last 2 months have you had wt loss of >10#?: NO Have you had fever, night sweats or hemotysis?: No Have you traveled outside the country in the last 6 months?: No Isolation: Standard ROS - Review of Systems Constitutional: No Symptoms Reported Eyes: No Symptoms Reported ENTM: No Symptoms Reported Respiratoy: Short of Breath Cardiovascular: No Symptoms Reported Gastrointestinal/Abdominal: No Symptoms Reported Genitourinary: No Symptoms Reported Neurological: No Symptoms Reported Musculoskeletal: No Symptoms Reported Integumentary: Bruises Hematologic/Lymphatic: No Symptoms Reported Endocrine: No Symptoms Reported Psychiatric: No Symptoms Reported All Other Systems: Reviewed and Negative PE - Vital Signs Vitals: Temperature 97.1 F Pulse Rate [Apical] 108 Pulse Rate 116 Respiratory Rate 30 Blood Pressure [Right Arm] 122/67 Blood Pressure [Left Arm] 117/55 Blood Pressure 133/79 O2 Sat by Pulse Oximetry 93 - General Limitations: No Limitations General Appearance: Alert, In No Apparent Distress - Head Head Exam: Normal Inspection - Eyes Eye exam: Normal Appearance - ENT ENT Exam: Normal Exam - Neck Neck Exam: Normal Inspection - Chest Chest Inspection: Normal Inspection - Respiratory Respiratory Exam: Normal Lung Sounds Bilat - Cardiovascular Cardiovascular Exam: Irregular Rhythm - Abdominal Exam Abdominal Exam: Normal Inspection, Normal Bowel Sounds, Soft - Extremities Extremities Exam: Normal Inspection - Back Back Exam: Normal Inspection - Neurologic Neurological Exam: Alert, Oriented X3, CN II-XII Intact - Psychiatric Psychiatric Exam: Normal Affect, Normal Mood - Skin Skin Exam: Other (ecchymoses on arms) ROR - Labs Reviewed Result Diagrams: 02/25/17 05:11 02/25/17 05:11 Laboratory: WBC 10.3 X10^3/uL (3.6-10.0) H 02/24/17 16:55 RBC 4.01 X10^6/uL (4.7-6.0) L 02/24/17 16:55 Hgb 11.4 g/dL (13.5-18.0) L 02/24/17 16:55 Hct 34.7 % (42.0-54.0) L 02/24/17 16:55 MCV 86.5 fL (80.0-100.0) 02/24/17 16:55 MCH 28.5 pg (27.0-34.0) 02/24/17 16:55 MCHC 33.0 g/dL (33.0-35.0) 02/24/17 16:55 RDW 16.5 % (11.6-16.5) 02/24/17 16:55 Plt Count 312 X10^3/uL (150.0-450.0) 02/24/17 16:55 MPV 8.3 fL (7.4-11.0) 02/24/17 16:55 Neut % 85.6 % (42.0-75.0) H 02/24/17 16:55 Lymph % 4.3 % (21.0-51.0) L 02/24/17 16:55 [place] % 8.6 % (0.0-13.0) 02/24/17 16:55 Eos % 0.7 % (0.9-2.9) L 02/24/17 16:55 Baso % 0.8 % (0.2-1.0) 02/24/17 16:55 Neut # 8.8 x10^3/uL (2.2-4.8) H 02/24/17 16:55 Lymph # 0.4 X10^3/uL (1.3-2.9) L 02/24/17 16:55 [place] # 0.9 x10^3/uL (0.3-0.8) H 02/24/17 16:55 Eos # 0.1 x10^3/uL (0.0-0.2) 02/24/17 16:55 Baso # 0.1 X10^3/uL (0.0-0.1) 02/24/17 16:55 Absolute Nucleated RBC 0.0 /100WBC 02/24/17 16:55 D-Dimer 251 ng/mL (0-400) 02/24/17 16:48 Sample Site Rra 02/24/17 16:35 ABG pH 7.430 (7.35-7.45) 02/24/17 16:35 ABG pCO2 53.0 mmHg (35.0-45.0) H* 02/24/17 16:35 ABG pO2 242.0 mmHg (80.0-100.0) H 02/24/17 16:35 ABG HCO3 35.2 mmol/L (22-26) H* 02/24/17 16:35 ABG O2 Saturation 100.0 % (90-100) 02/24/17 16:35 ABG Base Excess 9.2 mmol/L (-2.0-2.0) H 02/24/17 16:35 Fabio Test Pos 02/24/17 16:35 A-a Gradient 405.0 mmHg 02/24/17 16:35 FiO2 100.000 02/24/17 16:35 Blood Gas Comments Kati well cs 02/24/17 16:35 Sodium 148 mmol/L (136-145) H 02/24/17 16:48 Corrected Sodium TNP 02/24/17 16:48 Potassium 3.7 mmol/L (3.5-5.1) 02/24/17 16:48 Chloride 108 mmol/L (98-107) H 02/24/17 16:48 Carbon Dioxide 29.9 mmol/L (21-32) 02/24/17 16:48 BUN 51 mg/dL (7-18) H 02/24/17 16:48 Creatinine 2.00 mg/dL (0.70-1.30) H 02/24/17 16:48 Est GFR (MDRD) Af Amer 41 (>60) L 02/24/17 16:48 Est GFR (MDRD) Non-Af 34 (>60) L 02/24/17 16:48 Glucose 84 mg/dL (65-99) 02/24/17 16:48 Lactic Acid 0.7 mmol/L (0.4-2.0) 02/24/17 16:30 Calcium 8.7 mg/dL (8.5-10.1) 02/24/17 16:48 Corrected Calcium 9.3 mg/dL (8.5-10.1) 02/24/17 16:48 Total Bilirubin 0.80 mg/dL (0.2-1.0) 02/24/17 16:48 AST 20 Units/L (15-37) 02/24/17 16:48 ALT 19 Units/L (12-78) 02/24/17 16:48 Alkaline Phosphatase 73 Units/L (46-116) 02/24/17 16:48 C-Reactive Protein 30.70 mg/L (0-3.0) H 02/24/17 16:48 Total Protein 6.0 g/dL (6.4-8.2) L 02/24/17 16:48 Albumin 3.2 g/dL (3.4-5.0) L 02/24/17 16:48 Globulin 2.8 g/dL (2.5-4.5) 02/24/17 16:48 Albumin/Globulin Ratio 1.1 Ratio (1.1-2.1) 02/24/17 16:48 - XRAY XRAY Interpreted by: Radiologist (CXR: stable cardiomegaly and pulmonary vascular congestion. Findings at Lt. base consistent with aispace diasease or probaly pleural fluid.) - Diagnosis Discharge Problem: COPD with exacerbation - Discharge Plan Disposition: ADMITTED INPATIENT Condition: Stable - Follow ups/Referrals - Instructions
[2017-02-24] MEDS ORDERED: COLACE CAP 100 MG PO PRN (21:38)
[2017-02-24] MEDS ORDERED: LASIX IVP ONE (21:46)
[2017-02-24] MEDS ORDERED: LASIX ONE (22:04)
[2017-02-24 22:27] VITALS: BMI 24.4
[2017-02-24] MEDS ORDERED: FLUVIRIN IM ONE (22:27)
[2017-02-24] MEDS: DUONEB 0.5 MG/3 MG NEB SCH (22:57)
[2017-02-25] MEDS: DUONEB 0.5 MG/3 MG NEB SCH ×4 (00:50→16:59)
[2017-02-25] MEDS: PROVENTIL NEB TX 0.083% 2.5MG/ 3ML NEB PRN ×2 (03:11→09:34)
[2017-02-25 06:08] LABS: BASOPHILS % (AUTO) 0.2 % (0.2-1.0); EOSINOPHILS # (AUTO) 0.1 x10^3/uL (0.0-0.2); EOSINOPHILS % (AUTO) 1.1 % (0.9-2.9); HEMATOCRIT 34.4 % (42.0-54.0); HEMOGLOBIN 11.4 g/dL (13.5-18.0); LYMPHOCYTES # (AUTO) 0.5 X10^3/uL (1.3-2.9); LYMPHOCYTES % (AUTO) 3.5 % (21.0-51.0); MEAN CORPUSCULAR HEMOGLOBIN 28.7 pg (27.0-34.0); MEAN CORPUSCULAR HGB CONC 33.2 g/dL (33.0-35.0); MEAN CORPUSCULAR VOLUME 86.6 fL (80.0-100.0); MEAN PLATELET VOLUME 8.7 fL (7.4-11.0); MONOCYTES # (AUTO) 1.1 x10^3/uL (0.3-0.8); MONOCYTES % (AUTO) 8.2 % (0.0-13.0); NEUTROPHILS # (AUTO) 11.1 x10^3/uL (2.2-4.8); PLATELET COUNT 341 X10^3/uL (150.0-450.0); RED BLOOD COUNT 3.97 X10^6/uL (4.7-6.0); RED CELL DISTRIBUTION WIDTH 16.7 % (11.6-16.5); WHITE BLOOD COUNT 12.8 X10^3/uL (3.6-10.0)
[2017-02-25 06:31] LABS: ALANINE AMINOTRANSFERASE 21 Units/L (12-78); ALBUMIN 3.3 g/dL (3.4-5.0); ALKALINE PHOSPHATASE 79 Units/L (46-116); ASPARTATE AMINO TRANSFERASE 24 Units/L (15-37); BLOOD UREA NITROGEN 47 mg/dL (7-18); CALCIUM 8.9 mg/dL (8.5-10.1); CARBON DIOXIDE 29.5 mmol/L (21-32); CHLORIDE 106 mmol/L (98-107); COR CA(FOR HYPOALB) 9.5 mg/dL (8.5-10.1); CREATININE 1.97 mg/dL (0.70-1.30); SODIUM 149 mmol/L (136-145); TOTAL PROTEIN 6.2 g/dL (6.4-8.2); eGFR BLACK RACES 42 (>60); eGFR NON BLACK RACES 35 (>60)
--- NOTE | 2017-02-25 07:08 | RAD ---
HISTORY: Shortness of breath, respiratory difficulty Study: Chest AP portable Comparison: 02/24/2017 Findings: The heart remains enlarged. Pulmonary venous congestion is present. No definite interstitial or alveo lar edema is identified. A small left pleural effusion may be present. The bony thorax is unremarkabl e. IMPRESSION: Cardiomegaly with pulmonary venous congestion unchanged from the prior examination Reported By:
[2017-02-25] MEDS ORDERED: PATIENT'S HOME MEDICATION (Tiotropium Bromide Monohydrate 1 CAP) INH SCH (09:00)
[2017-02-25] MEDS ORDERED: PATIENT'S HOME MEDICATION (Cholecalciferol (Vitamin D3) [Vitamin D3] 1 TAB) PO SCH (09:00)
[2017-02-25] MEDS ORDERED: PATIENT'S HOME MEDICATION (Omeprazole [Omeprazole] 40 MG) PO SCH (09:00)
[2017-02-25] MEDS ORDERED: FERROUS GLUCONATE PO SCH (09:00)
[2017-02-25] MEDS ORDERED: SPIRIVA HANDIHALER (30 DOSE) IN SCH (09:00)
[2017-02-25] MEDS ORDERED: APIXABAN PO SCH (09:00)
[2017-02-25] MEDS ORDERED: PATIENT'S HOME MEDICATION (Budesonide-Formoterol 2 INH) INH SCH (09:00)
[2017-02-25] MEDS ORDERED: SYMBICORT INH 160/4.5 mcg IN SCH (09:00)
[2017-02-25] MEDS: VITAMIN D3 PO SCH ×2 (09:51→21:00)
[2017-02-25] MEDS: FLONASE NASAL SPRAY ENOSTRIL SCH (09:52)
[2017-02-25] MEDS: ELIQUIS PO SCH ×2 (09:53→21:00)
[2017-02-25] MEDS: TOPROL XL PO SCH ×2 (09:54→21:01)
[2017-02-25] MEDS: PriLOSEC PO SCH (09:54)
[2017-02-25] MEDS: MULTAQ PO SCH ×2 (09:55→20:59)
[2017-02-25] MEDS: CARDIZEM CD 180 MG PO SCH (09:55)
[2017-02-25] MEDS: LASIX IVP SCH ×3 (09:56→21:04)
[2017-02-25] MEDS: PATIENT'S HOME MEDICATION (Ferrous Sulfate [Ferrous Sulfate] 325 MG) PO SCH (10:08)
[2017-02-25 12:08] LABS: BILIRUBIN,URINE NEGATIVE (NEGATIVE); BLOOD/HEMOGLOBIN,URINE NEGATIVE (NEGATIVE); GLUCOSE, URINE NEGATIVE (NEGATIVE); KETONES,URINE NEGATIVE (NEGATIVE); LEUKOCYTE ESTERASE ,URINE NEGATIVE (NEGATIVE); NITRITES,URINE NEGATIVE (NEGATIVE); PROTEIN,URINE NEGATIVE (NEGATIVE); UROBILINOGEN,URINE NORMAL (NORMAL)
[2017-02-25 12:17] LABS: APPEARANCE,URINE CLEAR (CLEAR); COLOR,URINE YELLOW (YELLOW)
[2017-02-25 12:22] LABS: BACTERIA,URINE NEGATIVE /HPF (NEGATIVE); COARSE GRANULAR CASTS,URINE FEW /HPF (NEGATIVE); RBC,URINE NONE SEEN /HPF (NEGATIVE); SQUAMOUS EPITHELIAL CELL,UR RARE /HPF (NEGATIVE)
[2017-02-25] MEDS ORDERED: ROCEPHIN VIAL 1 GM 1 GM in NS 50 ML IV + SPIKE MINIBAG* 50 ML IV SCH (14:30)
[2017-02-25] MEDS ORDERED: ROCEPHIN 1 GM IV PREMIX 1 GM/50 ML IV.SOLN. IV SCH (15:00)
[2017-02-25] MEDS ORDERED: NS 250 ML IV 250 ML IV ONE (15:56)
[2017-02-25] MEDS: SOLU-Medrol 40 MG VIAL IVP SCH ×2 (16:58→21:03)
[2017-02-25] MEDS: ZITHROMAX INJ 500 MG VIAL 500 MG in NS 250 ML IV 250 ML IV SCH (16:58)
[2017-02-25] MEDS: NORCO 5/325 MG TAB PO PRN (18:45)
[2017-02-25] MEDS ORDERED: ZOLOFT PO ONE (20:32)
[2017-02-25] MEDS: RESTORIL CAP 15 MG PO SCH (21:01)
[2017-02-25] MEDS: ZOLOFT PO SCH (21:04)
[2017-02-25] MEDS ORDERED: SOLU-Medrol 40 MG VIAL IVP ONE (21:46)
[2017-02-26] MEDS: DUONEB 0.5 MG/3 MG NEB SCH ×4 (01:10→16:18)
[2017-02-26] MEDS: SOLU-Medrol 40 MG VIAL IVP SCH ×3 (05:44→21:04)
[2017-02-26] MEDS: FLONASE NASAL SPRAY ENOSTRIL SCH (08:14)
[2017-02-26] MEDS: MULTAQ PO SCH ×2 (08:15→21:06)
[2017-02-26] MEDS: CARDIZEM CD 180 MG PO SCH (08:16)
[2017-02-26] MEDS: PriLOSEC PO SCH (08:16)
[2017-02-26] MEDS: ZITHROMAX INJ 500 MG VIAL 500 MG in NS 250 ML IV 250 ML IV SCH ×2 (08:16→11:30)
[2017-02-26] MEDS: TOPROL XL PO SCH ×2 (08:17→21:08)
[2017-02-26] MEDS: ELIQUIS PO SCH ×2 (08:19→21:05)
[2017-02-26] MEDS: VITAMIN D3 PO SCH ×2 (08:21→21:08)
[2017-02-26] MEDS: PATIENT'S HOME MEDICATION (Ferrous Sulfate [Ferrous Sulfate] 325 MG) PO SCH (09:51)
--- NOTE | 2017-02-26 10:44 | RAD ---
Examination: Chest, PA and lateral views History: Hypertension, emphysema, SOB and fever Comparison reference: 02/25/2017 Findings: Stable cardiomegaly with dilated aorta and pulmonary vascular congestion. Diffuse interstit ial pulmonary changes are present. No pneumothorax identified. Impression: Stable cardiac enlargement, aortic arteriosclerosis and pulmonary vascular congestion. Th ere may be a small focus of atelectasis or other airspace process in the retrocardiac left lower lung . Reported By:
[2017-02-26] MEDS: LASIX IVP SCH ×2 (11:25→21:05)
[2017-02-26] MEDS ORDERED: LASIX PO SCH (12:00)
[2017-02-26] MEDS: MUCINEX DM PO SCH (13:53)
[2017-02-26] MEDS: ROCEPHIN VIAL 1 GM 1 GM in D5W 50 ML IV 50 ML IV SCH (13:54)
[2017-02-26] MEDS: AYR NASAL DROPS ENOSTRIL SCH ×3 (14:10→21:08)
[2017-02-26] MEDS: XOPENEX 1.25 MG/3 ML NEBULE NEB SCH ×4 (16:20→21:40)
[2017-02-26] MEDS: NORCO 5/325 MG TAB PO PRN (17:12)
[2017-02-26] MEDS ORDERED: MILK OF MAGNESIA PO PRN (20:42)
[2017-02-26] MEDS ORDERED: ZOLOFT PO ONE (20:54)
[2017-02-26] MEDS ORDERED: ALFUZOSIN HCL PO SCH (21:00)
[2017-02-26] MEDS: RESTORIL CAP 15 MG PO SCH (21:05)
[2017-02-26] MEDS: ZOLOFT PO SCH (21:05)
[2017-02-26] MEDS: BROVANA IN SCH (21:40)
[2017-02-26] MEDS: PULMICORT NEB TX 0.5 MG NEB SCH (21:40)
[2017-02-27] MEDS: MUCINEX DM PO SCH (00:46)
[2017-02-27 05:31] LABS: BASOPHILS # (AUTO) 0.1 X10^3/uL (0.0-0.1); BASOPHILS % (AUTO) 0.3 % (0.2-1.0); HEMATOCRIT 32.2 % (42.0-54.0); HEMOGLOBIN 10.7 g/dL (13.5-18.0); LYMPHOCYTES # (AUTO) 0.2 X10^3/uL (1.3-2.9); LYMPHOCYTES % (AUTO) 1.3 % (21.0-51.0); MEAN CORPUSCULAR HEMOGLOBIN 28.6 pg (27.0-34.0); MEAN CORPUSCULAR HGB CONC 33.3 g/dL (33.0-35.0); MEAN CORPUSCULAR VOLUME 86.1 fL (80.0-100.0); MEAN PLATELET VOLUME 8.7 fL (7.4-11.0); MONOCYTES # (AUTO) 0.3 x10^3/uL (0.3-0.8); NEUTROPHILS # (AUTO) 14.6 x10^3/uL (2.2-4.8); NEUTROPHILS % (AUTO) 96.4 % (42.0-75.0); PLATELET COUNT 322 X10^3/uL (150.0-450.0); RED BLOOD COUNT 3.74 X10^6/uL (4.7-6.0); RED CELL DISTRIBUTION WIDTH 16.3 % (11.6-16.5); WHITE BLOOD COUNT 15.1 X10^3/uL (3.6-10.0)
[2017-02-27 05:33] LABS: ALBUMIN 2.9 g/dL (3.4-5.0); CALCIUM 8.3 mg/dL (8.5-10.1); CARBON DIOXIDE 32.7 mmol/L (21-32); COR CA(FOR HYPOALB) 9.2 mg/dL (8.5-10.1); CREATININE 2.3 mg/dL (0.70-1.30); TOTAL PROTEIN 5.6 g/dL (6.4-8.2)
[2017-02-27] MEDS: SOLU-Medrol 40 MG VIAL IVP SCH (05:42)
[2017-02-27] MEDS ORDERED: K-LYTE EFFERVESCENT PO PRN (06:10)
[2017-02-27] MEDS ORDERED: MAG-OX TAB PO PRN (06:10)
[2017-02-27] MEDS ORDERED: K-RIDER 10 MEQ/NS 100 ML 10 MEQ/100 ML BAG IV PRN (06:10)
[2017-02-27] MEDS ORDERED: MAGNESIUM SULFATE 1 GM/100 mL PREMIX 1 GM/100 ML BAG IV PRN (06:10)
[2017-02-27] MEDS ORDERED: POTASSIUM CHL 60 MEQ/NS 0.45% 500 ML IV PRN (06:10)
[2017-02-27] MEDS ORDERED: POTASSIUM CHL 40 MEQ/NS 0.45% 500 ML IV PRN (06:10)
[2017-02-27] MEDS ORDERED: POTASSIUM CHLORIDE LIQ 20 MEQ UDC PO PRN (06:10)
[2017-02-27 07:02] LABS: BAND NEUTROPHILS % 4 % (0-10)
[2017-02-27 07:03] LABS: PLATELET MORPHOLOGY COMMENT NORMAL (NORMAL)
[2017-02-27] MEDS: BROVANA IN SCH (08:45)
[2017-02-27] MEDS: PULMICORT NEB TX 0.5 MG NEB SCH (08:45)
[2017-02-27] MEDS: XOPENEX 1.25 MG/3 ML NEBULE NEB SCH ×2 (08:45→12:09)
[2017-02-27] MEDS ORDERED: K-DUR TAB 20 MEQ PO SCH (09:00)
[2017-02-27] MEDS: ROCEPHIN VIAL 1 GM 1 GM in D5W 50 ML IV 50 ML IV SCH (09:46)
[2017-02-27] MEDS: ELIQUIS PO SCH (09:50)
[2017-02-27] MEDS: LASIX IVP SCH (09:50)
[2017-02-27] MEDS: CARDIZEM CD 180 MG PO SCH (09:51)
[2017-02-27] MEDS: TOPROL XL PO SCH (09:51)
[2017-02-27] MEDS: PriLOSEC PO SCH (09:51)
[2017-02-27] MEDS: VITAMIN D3 PO SCH (09:54)
[2017-02-27] MEDS: MULTAQ PO SCH (09:54)
[2017-02-27] MEDS: FLONASE NASAL SPRAY ENOSTRIL SCH (09:55)
[2017-02-27] MEDS: AFRIN NASAL SPRAY ENOSTRIL PRN ×2 (09:55→10:02)
[2017-02-27] MEDS: AYR NASAL DROPS ENOSTRIL SCH (10:02)
[2017-02-27] MEDS: ZITHROMAX INJ 500 MG VIAL 500 MG in NS 250 ML IV 250 ML IV SCH ×2 (10:03→11:09)
[2017-02-27 10:55] VITALS: BP 112/63
== END 2017-02-27 12:10 | disposition home health service (06) | DRG 192 ==
LOC: ER 16:05 → OBS 21:26
PROVIDERS: ADMIT Internal Medicine; ATTEND Internal Medicine
PROC: 3E0234Z Introduction of Serum, Toxoid and Vaccine into Muscle, Percutaneous Approach (ICD-10-PCS; principal; 2017-02-24)
DX: J44.1 Chronic obstructive pulmonary disease with (acute) exacerbation (principal); R06.02 Shortness of breath; Z99.81 Dependence on supplemental oxygen; I25.10 Atherosclerotic heart disease of native coronary artery without angina pectoris; E78.2 Mixed hyperlipidemia; K21.9 Gastro-esophageal reflux disease without esophagitis; I10 Essential (primary) hypertension; R94.31 Abnormal electrocardiogram [ECG] [EKG]; Z23 Encounter for immunization
CPT/HCPCS: 36415; 36600; 71010; 71020; 80053; 81001; 82803; 83605; 83735; 85025; 85378; 86140; 87040; 90686; 93005; 94640; 94760; 96365; 99284; A4216; A4218; A4222; J0456; J0696; J1940; J2920; J7613; J7620; J7626

== ENCOUNTER 2017-04-06 04:32 | Emergency (ER) | payer OTHER, MEDICARE ==
[2017-04-06 04:39] VITALS: BMI 29.0
[2017-04-06] MEDS ORDERED: SOLU-Medrol 40 MG VIAL ONE (05:01)
[2017-04-06] MEDS ORDERED: SOLU-Medrol 40 MG VIAL IVP ONE (05:02)
[2017-04-06] MEDS ORDERED: DUONEB 0.5 MG/3 MG NEB ONE (05:02)
[2017-04-06] MEDS ORDERED: DUONEB 0.5 MG/3 MG ONE (05:02)
[2017-04-06 05:03] LABS: BASOPHILS % (AUTO) 0.3 % (0.2-1.0); EOSINOPHILS % (AUTO) 0.1 % (0.9-2.9); HEMATOCRIT 29.5 % (42.0-54.0); HEMOGLOBIN 9.8 g/dL (13.5-18.0); LYMPHOCYTES # (AUTO) 0.2 X10^3/uL (1.3-2.9); LYMPHOCYTES % (AUTO) 1.5 % (21.0-51.0); MEAN CORPUSCULAR HEMOGLOBIN 29.5 pg (27.0-34.0); MEAN CORPUSCULAR HGB CONC 33.3 g/dL (33.0-35.0); MEAN CORPUSCULAR VOLUME 88.6 fL (80.0-100.0); MEAN PLATELET VOLUME 7.9 fL (7.4-11.0); MONOCYTES # (AUTO) 0.6 x10^3/uL (0.3-0.8); MONOCYTES % (AUTO) 4.8 % (0.0-13.0); NEUTROPHILS # (AUTO) 11.4 x10^3/uL (2.2-4.8); NEUTROPHILS % (AUTO) 93.3 % (42.0-75.0); PLATELET COUNT 313 X10^3/uL (150.0-450.0); RED BLOOD COUNT 3.33 X10^6/uL (4.7-6.0); RED CELL DISTRIBUTION WIDTH 18.7 % (11.6-16.5); WHITE BLOOD COUNT 12.2 X10^3/uL (3.6-10.0)
--- NOTE | 2017-04-06 05:07 | RAD ---
Chest, one view Indication: Shortness of breath Comparison: 02/26/2017 Findings: The patient's head obscures the bilateral lung apices. Heart size is stable. There are patc hy left basilar opacities with small suspected effusion. The remainder of the visualized lungs are cl ear. No acute osseous abnormality is seen. Impression: Suboptimal exam, as above. Left basilar opacities, possibly representing atelectasis or pneumonia with trace suspected effusion. Reported By:
[2017-04-06 05:17] LABS: CALCIUM 8.5 mg/dL (8.5-10.1); CARBON DIOXIDE 34.9 mmol/L (21-32); CREATININE 1.99 mg/dL (0.70-1.30); TROPONIN I 0.09 ng/mL (0-1.5)
--- NOTE | 2017-04-06 05:21 | DR.GENAD ---
HPI - PCP Primary Care Physician: miesha - Complaint/Symptoms Chief Complaint Doctors Comments: SOB for several weeks. It got worse in last couple of days. No chest pain or palpitations. He denies coughing spells. Chief Complaint:: pt to ed with c/o SOB for the last few days pt has edema noted to lower ext diminshed on the rt - Nurses notes reviewed Nurses Notes Review: Yes - Source History Provided: Patient - Mode of Arrival Mode of Arrival: EMS - Timing Onset of Chief Complaint: 04/04/17 Came on: Gradually - Modifying Factors Worsens:: none Improves:: none PMH - PMH Past Medical History: Yes Past Medical History: Angina, Anxiety, Arthritis, CHF, COPD, Coronary Artery Disease, Dyslipidemia, GERD, Hypertension Past Surgical History: Yes Surgical History: TURP, Other - Family History History of Family Medical Conditions: Yes Family Medical History: Cancer, [place], Hypertension - Social History Type of Tobacco Use: None Does any household member use tobacco: No Alcohol Use: None Do you use any recreational Drugs:: No Lives With: Family Lives Where: Home - infectious screening In the last 2 months have you had wt loss of >10#?: NO Have you had fever, night sweats or hemotysis?: No Have you traveled outside the country in the last 6 months?: No Isolation: Standard ROS - Review of Systems Constitutional: No Symptoms Reported Eyes: No Symptoms Reported ENTM: No Symptoms Reported Respiratoy: Short of Breath Cardiovascular: No Symptoms Reported Gastrointestinal/Abdominal: No Symptoms Reported Genitourinary: No Symptoms Reported Neurological: No Symptoms Reported Musculoskeletal: No Symptoms Reported Integumentary: No Symptoms Reported Hematologic/Lymphatic: No Symptoms Reported Endocrine: No Symptoms Reported Psychiatric: No Symptoms Reported All Other Systems: Reviewed and Negative PE - Vital Signs Vitals: Temperature 97.9 F Pulse Rate [Apical] 78 Pulse Rate 83 Respiratory Rate 22 Blood Pressure [Right Arm] 115/58 Blood Pressure [Left Arm] 101/57 Blood Pressure 105/67 O2 Sat by Pulse Oximetry 99 - General Limitations: No Limitations General Appearance: Alert, In No Apparent Distress - Head Head Exam: Normal Inspection Course - Reevaluation 1st: Improved 2nd: Improved - Education/Counseling Education/Counseling: Patient (He was offered admission for treatment of the lobar pneumonia, but he states that he would rather go home if that is okay, as he feels better now. ), Education Educated On: Treatment, Diagnosis, Prognosis, Needs for Follow Up ROR - Labs Reviewed Result Diagrams: 04/06/17 04:45 04/06/17 04:45 Laboratory: WBC 12.2 X10^3/uL (3.6-10.0) H 04/06/17 04:45 RBC 3.33 X10^6/uL (4.7-6.0) L 04/06/17 04:45 Hgb 9.8 g/dL (13.5-18.0) L 04/06/17 04:45 Hct 29.5 % (42.0-54.0) L 04/06/17 04:45 MCV 88.6 fL (80.0-100.0) 04/06/17 04:45 MCH 29.5 pg (27.0-34.0) 04/06/17 04:45 MCHC 33.3 g/dL (33.0-35.0) 04/06/17 04:45 RDW 18.7 % (11.6-16.5) H 04/06/17 04:45 Plt Count 313 X10^3/uL (150.0-450.0) 04/06/17 04:45 Plt Count Comment Adequate (ADEQUATE) 04/06/17 04:45 MPV 7.9 fL (7.4-11.0) 04/06/17 04:45 Neut % 93.3 % (42.0-75.0) H 04/06/17 04:45 Lymph % 1.5 % (21.0-51.0) L 04/06/17 04:45 [place] % 4.8 % (0.0-13.0) 04/06/17 04:45 Eos % 0.1 % (0.9-2.9) L 04/06/17 04:45 Baso % 0.3 % (0.2-1.0) 04/06/17 04:45 Neut # 11.4 x10^3/uL (2.2-4.8) H 04/06/17 04:45 Lymph # 0.2 X10^3/uL (1.3-2.9) L 04/06/17 04:45 [place] # 0.6 x10^3/uL (0.3-0.8) 04/06/17 04:45 Eos # 0.0 x10^3/uL (0.0-0.2) 04/06/17 04:45 Baso # 0.0 X10^3/uL (0.0-0.1) 04/06/17 04:45 Absolute Nucleated RBC 0.0 /100WBC 04/06/17 04:45 Total Counted 100 04/06/17 04:45 Neutrophils % (Manual) 91 % (39-76) H 04/06/17 04:45 Band Neutrophils % 1 % (0-10) 04/06/17 04:45 Lymphocytes % (Manual) 2 % (13-43) L 04/06/17 04:45 Monocytes % (Manual) 6 % (4-9) 04/06/17 04:45 Plt Morphology Comment Normal (NORMAL) 04/06/17 04:45 RBC Morphology Normal (NORMAL) 04/06/17 04:45 INR Target Range - 04/06/17 04:45 INR 1.21 (0.8-1.3) 04/06/17 04:45 PTT 29.2 SECONDS (22.9-36.5) 04/06/17 04:45 PTT Comment - 04/06/17 04:45 D-Dimer 399 ng/mL (0-400) 04/06/17 04:45 Sodium 144 mmol/L (136-145) 04/06/17 04:45 Corrected Sodium 145 mmol/L (136-145) 04/06/17 04:45 Potassium 4.3 mmol/L (3.5-5.1) 04/06/17 04:45 Chloride 104 mmol/L (98-107) 04/06/17 04:45 Carbon Dioxide 34.9 mmol/L (21-32) H 04/06/17 04:45 BUN 43 mg/dL (7-18) H 04/06/17 04:45 Creatinine 1.99 mg/dL (0.70-1.30) H 04/06/17 04:45 Est GFR (MDRD) Af Amer 42 (>60) L 04/06/17 04:45 Est GFR (MDRD) Non-Af 34 (>60) L 04/06/17 04:45 Glucose 122 mg/dL (65-99) H 04/06/17 04:45 Calcium 8.5 mg/dL (8.5-10.1) 04/06/17 04:45 Corrected Calcium 9.3 mg/dL (8.5-10.1) 04/06/17 04:45 Magnesium 2.2 mg/dL (1.7-2.9) 04/06/17 04:45 Total Bilirubin 0.80 mg/dL (0.2-1.0) 04/06/17 04:45 AST 16 Units/L (15-37) 04/06/17 04:45 ALT 27 Units/L (12-78) 04/06/17 04:45 Alkaline Phosphatase 87 Units/L (46-116) 04/06/17 04:45 Creatine Kinase 32 Units/L (39-308) L 04/06/17 04:45 CK-MB (CK-2) 1.6 ng/mL (0-4.0) 04/06/17 04:45 CK/CKMB % Calc 5.0 % (<4) 04/06/17 04:45 Troponin I 0.09 ng/mL (0-1.5) 04/06/17 04:45 B-Natriuretic Peptide 217 pg/mL (0-79) H 04/06/17 04:45 Total Protein 5.8 g/dL (6.4-8.2) L 04/06/17 04:45 Albumin 3.0 g/dL (3.4-5.0) L 04/06/17 04:45 Globulin 2.8 g/dL (2.5-4.5) 04/06/17 04:45 Albumin/Globulin Ratio 1.1 Ratio (1.1-2.1) 04/06/17 04:45 - XRAY XRAY Interpreted by: Radiologist (Left basilar opacities, poosibly atelectasis or pneumonia with trace suspected effusion.) - EKG Rate: 82 [place]: Normal Rhythm: Afib - Diagnosis Discharge Problem: Pneumonia - Discharge Plan Disposition: HOME, SELF-CARE Condition: Stable - Follow ups/Referrals Follow ups/Referrals: Saurabh Cooper [Primary Care Provider] - 3 days - Instructions
[2017-04-06 05:22] LABS: BAND NEUTROPHILS % 1 % (0-10); CREATINE KINASE MB 1.6 ng/mL (0-4.0); PLATELET MORPHOLOGY COMMENT NORMAL (NORMAL); TOTAL PROTEIN 5.8 g/dL (6.4-8.2)
[2017-04-06 05:31] LABS: COR CA(FOR HYPOALB) 9.3 mg/dL (8.5-10.1); MAGNESIUM 2.2 mg/dL (1.7-2.9)
[2017-04-06] MEDS ORDERED: ROCEPHIN VIAL 1 GM 1 GM in NS 100 ML IV + SPIKE MINIBAG* 100 ML IV ONE (05:33)
[2017-04-06] MEDS ORDERED: ROCEPHIN VIAL 1 GM ONE (05:35)
[2017-04-06] MEDS ORDERED: NS 100 ML IV 100 ML IV ONE (05:35)
[2017-04-06 06:50] VITALS: BP 116/59
== END 2017-04-06 06:49 | disposition home or self-care (01) ==
LOC: ER 04:32
DX: J18.9 Pneumonia, unspecified organism (principal)
CPT/HCPCS: 36415; 71045; 80053; 82550; 82553; 83735; 83880; 84484; 85025; 85378; 85610; 85730; 93005; 94640; 96365; 96374; 96375; 99283; A4222; J0696; J2920; J7620

== ENCOUNTER 2017-04-08 16:43 | Inpatient (IN) | payer OTHER, MEDICARE ==
--- NOTE | 2017-04-08 17:01 | DR.GENAD ---
HPI - PCP Primary Care Physician: RONAN - HPI Comment HPI Comment: WORSE TODAY. NO FEVER. LOWER EXTREMITY EDEMA. HISTORY COPD AND CHF. NO FEVER. - Complaint/Symptoms Chief Complaint Doctors Comments: INCREASING SOB TIMES 3 DAYS. Chief Complaint:: PATIENT STATED HE HAS BEEN SHORT OF BREATH FOR 3 DAYS BUT GOT WORSE TODAY. STATED HE TAKES BREATHING [place] AND HAS HAS HAD THEM TODAY. - Nurses notes reviewed Nurses Notes Review: Yes - Source History Provided: Patient - Mode of Arrival Mode of Arrival: EMS - Timing Onset of Chief Complaint: 04/05/17 Came on: Gradually - Duration Duration: Constant Duration: Days - Severity Severity: Severe PMH - PMH Past Medical History: Yes Past Medical History: Angina, Anxiety, Arthritis, CHF, COPD, Coronary Artery Disease, Dyslipidemia, GERD, Hypertension Past Surgical History: Yes Surgical History: TURP, Other - Family History History of Family Medical Conditions: Yes Family Medical History: Cancer, [place], Hypertension - Social History Does patient currently use any type of tobacco product: No Have you used tobacco products in the last 12 months: No Type of Tobacco Use: None Does any household member use tobacco: No Alcohol Use: None Do you use any recreational Drugs:: No Lives With: Family Lives Where: Home - infectious screening In the last 2 months have you had wt loss of >10#?: NO Have you had fever, night sweats or hemotysis?: No Have you traveled outside the country in the last 6 months?: No Isolation: Standard ROS - Review of Systems Constitutional: Weakness, Fatigue. negative: Chills, Fever Eyes: negative: Eye Pain, Discharge ENTM: Nose Congestion. negative: Ear Pain, Nose Discharge, Throat Pain Respiratoy: Productive Cough, Short of Breath, Wheezing. negative: Hemoptysis Cardiovascular: Chest Pain, Edema Gastrointestinal/Abdominal: No Symptoms Reported. negative: Abdominal Pain, Diarrhea, Nausea, Vomiting Genitourinary: negative: Dysuria, Frequency, Hematuria Neurological: Headache, Weakness, Dizziness Musculoskeletal: Back Pain, Muscle Pain Integumentary: Dryness. negative: Change in Color, Bruises, [place]and[place] Hematologic/Lymphatic: Easy Bleeding, Easy Bruising Endocrine: No Symptoms Reported All Other Systems: Reviewed and Negative PE - Vital Signs Vitals: Temperature 99.1 F Pulse Rate 105 Respiratory Rate 20 Blood Pressure [Right Arm] 116/59 Blood Pressure [Left Arm] 101/57 Blood Pressure 117/74 O2 Sat by Pulse Oximetry 98 - General Limitations: Altered Mental Status (PATIENT SLEEPY.) General Appearance: Alert, In Distress (SHALLOW BREATHING.) - Head Head Exam: Normal Inspection - Eyes Eye exam: Normal Appearance - ENT ENT Exam: Normal External Ear Exam External Ear Exam: Normal External Inspection TM/Canal Exam: Bilateral Normal Nose Exam: Normal Nose Exam Mouth Exam: Normal Inspection Throat Exam: Normal Inspection - Neck Neck Exam: Trachea Midline - Chest Chest Inspection: Symmetric Chest Wall Rise - Respiratory Respiratory Exam: Respiratory Distress Respiratory Exam: Bilateral Wheezing, Bilateral Rhonchi, Upper Wheezing, Upper Rhonchi, Lower Wheezing, Lower Rhonchi - Cardiovascular Cardiovascular Exam: Regular Rate, Normal Rhythm, Normal Heart Sounds - Abdominal Exam Abdominal Exam: Normal Bowel Sounds, Soft. negative: Tenderness - Extremities Extremities Exam: Edema - Back Back Exam: Paraspinal Tenderness - Neurologic Neurological Exam: Alert, Other (SLEEPY) - Psychiatric Psychiatric Exam: Normal Affect, Normal Mood - Skin Skin Exam: Dry MDM - Differential Diagnosis Differential Diagnosis: RESP FAILURE CHF, COPD EXACERBATION, BRONCHITIS, CAD Course - Treatment Treatment: SEE ORDERS. - Consultation Consultation Comments: DISCUSS PATIENT WITH DR. WILKINS. HE WILL ADMIT PATIENT. - Education/Counseling Education/Counseling: Patient, Education Educated On: Treatment, Diagnosis ROR - Labs Reviewed Laboratory Results Reviewed?: Yes Result Diagrams: 04/08/17 17:18 04/08/17 17:18 - XRAY XRAY Interpreted by: Radiologist XRAY Findings: REPORT NOTED - Diagnosis Discharge Problem: Bronchitis, COPD exacerbation, Renal insufficiency Respiratory failure Qualifiers: Chronicity: acute on chronic Respiratory failure complication: unspecified whether with hypoxia or hypercapnia Qualified Code(s): J96.20 - Acute and chronic respiratory failure, unspecified whether with hypoxia or hypercapnia CHF (congestive heart failure) Qualifiers: Congestive heart failure type: combined Congestive heart failure chronicity: acute on chronic Qualified Code(s): I50.43 - Acute on chronic combined systolic (congestive) and diastolic (congestive) heart failure - Discharge Plan Disposition: ADMITTED INPATIENT Condition: Stable - Follow ups/Referrals - Instructions
[2017-04-08] MEDS ORDERED: LASIX IVP ONE ×2 (17:03→17:33)
[2017-04-08] MEDS ORDERED: SOLU-Medrol 125 MG VIAL IVP ONE (17:03)
[2017-04-08] MEDS ORDERED: DUONEB 0.5 MG/3 MG NEB ONE (17:03)
[2017-04-08] MEDS ORDERED: SOLU-Medrol 125 MG VIAL ONE (17:33)
[2017-04-08 17:40] LABS: BASOPHILS % (AUTO) 0.1 % (0.2-1.0); HEMATOCRIT 30.4 % (42.0-54.0); LYMPHOCYTES # (AUTO) 0.3 X10^3/uL (1.3-2.9); LYMPHOCYTES % (AUTO) 2.1 % (21.0-51.0); MEAN CORPUSCULAR HEMOGLOBIN 29.6 pg (27.0-34.0); MEAN CORPUSCULAR HGB CONC 32.8 g/dL (33.0-35.0); MEAN CORPUSCULAR VOLUME 90.3 fL (80.0-100.0); MEAN PLATELET VOLUME 8.1 fL (7.4-11.0); NEUTROPHILS # (AUTO) 11.7 x10^3/uL (2.2-4.8); NEUTROPHILS % (AUTO) 89.8 % (42.0-75.0); PLATELET COUNT 283 X10^3/uL (150.0-450.0); RED BLOOD COUNT 3.36 X10^6/uL (4.7-6.0); RED CELL DISTRIBUTION WIDTH 18.9 % (11.6-16.5)
--- NOTE | 2017-04-08 17:52 | RAD ---
Examination: Portable AP chest History: SOB Comparison 04/06/2017 Findings: Continued normal heart size with grossly clear lungs. Evaluation of pulmonary detail is goyal ited by portable technique and pulmonary hypo inflation. The cervicothoracic junction is obscured by overlying anatomy. Impression: No acute process identified; see above description. Reported By:
[2017-04-08 17:54] LABS: LACTIC ACID 0.8 mmol/L (0.4-2.0)
[2017-04-08 17:57] LABS: BLOOD UREA NITROGEN 68 mg/dL (7-18); CARBON DIOXIDE 33.6 mmol/L (21-32); CHLORIDE 104 mmol/L (98-107); CREATININE 2.94 mg/dL (0.70-1.30); SODIUM 146 mmol/L (136-145); TROPONIN I 0.13 ng/mL (0-1.5); eGFR BLACK RACES 27 (>60); eGFR NON BLACK RACES 22 (>60)
[2017-04-08 18:01] LABS: ALANINE AMINOTRANSFERASE 25 Units/L (12-78); ALKALINE PHOSPHATASE 73 Units/L (46-116); ASPARTATE AMINO TRANSFERASE 21 Units/L (15-37); B-TYPE NATRIURETIC PEPTIDE 291 pg/mL (0-79); CKMB % 4.3 % (<4); COR CA(FOR HYPOALB) 9.8 mg/dL (8.5-10.1); CREATINE KINASE 60 Units/L (39-308); CREATINE KINASE MB 2.6 ng/mL (0-4.0); TOTAL PROTEIN 5.9 g/dL (6.4-8.2)
[2017-04-08 18:09] LABS: ABG ALLEN TEST POS; ABG HCO3 41.1 mmol/L (22-26)
[2017-04-08 18:34] LABS: BILIRUBIN,URINE NEGATIVE (NEGATIVE); BLOOD/HEMOGLOBIN,URINE NEGATIVE (NEGATIVE); GLUCOSE, URINE NEGATIVE (NEGATIVE); KETONES,URINE NEGATIVE (NEGATIVE); LEUKOCYTE ESTERASE ,URINE NEGATIVE (NEGATIVE); NITRITES,URINE NEGATIVE (NEGATIVE); PROTEIN,URINE NEGATIVE (NEGATIVE); UROBILINOGEN,URINE NORMAL (NORMAL)
[2017-04-08 18:43] LABS: AMORPHOUS SEDIMENT,UR 1+ /HPF (NEGATIVE); APPEARANCE,URINE CLEAR (CLEAR); BACTERIA,URINE NEGATIVE /HPF (NEGATIVE); COLOR,URINE YELLOW (YELLOW); RBC,URINE NONE SEEN /HPF (NEGATIVE); SQUAMOUS EPITHELIAL CELL,UR RARE /HPF (NEGATIVE)
[2017-04-08] MEDS ORDERED: NS 1000 ML 1,000 ML IV SCH (20:00)
[2017-04-08 21:04] VITALS: BMI 22.6
[2017-04-08] MEDS: ZITHROMAX INJ 500 MG VIAL 250 MG in NS 250 ML IV 250 ML IV SCH (21:11)
[2017-04-08] MEDS ORDERED: FORTAZ or TAZICEF INJ ONE (21:38)
[2017-04-08] MEDS ORDERED: NS 100 ML IV 100 ML IV ONE (21:44)
[2017-04-08] MEDS ORDERED: FORTAZ or TAZICEF INJ 1 GM in NS 50 ML IV + SPIKE MINIBAG* 50 ML IV SCH (22:00)
[2017-04-08] MEDS: FORTAZ or TAZICEF INJ 1 GM in NS 50 ML IV + SPIKE MINIBAG* 50 ML IV SCH (22:53)
[2017-04-08 23:57] LABS: CKMB % 4.7 % (<4); CREATINE KINASE MB 2.2 ng/mL (0-4.0); TROPONIN I 0.12 ng/mL (0-1.5)
[2017-04-09] MEDS: DUONEB 0.5 MG/3 MG NEB SCH ×7 (01:56→20:11)
[2017-04-09] MEDS: SOLU-Medrol 40 MG VIAL IVP SCH ×3 (05:28→22:17)
[2017-04-09 06:21] LABS: BASOPHILS % (AUTO) 0.1 % (0.2-1.0); HEMATOCRIT 28.1 % (42.0-54.0); HEMOGLOBIN 9.5 g/dL (13.5-18.0); LYMPHOCYTES # (AUTO) 0.1 X10^3/uL (1.3-2.9); LYMPHOCYTES % (AUTO) 1.3 % (21.0-51.0); MEAN CORPUSCULAR HEMOGLOBIN 30.3 pg (27.0-34.0); MEAN CORPUSCULAR HGB CONC 33.9 g/dL (33.0-35.0); MEAN CORPUSCULAR VOLUME 89.5 fL (80.0-100.0); MEAN PLATELET VOLUME 8.2 fL (7.4-11.0); MONOCYTES # (AUTO) 0.2 x10^3/uL (0.3-0.8); MONOCYTES % (AUTO) 1.9 % (0.0-13.0); NEUTROPHILS # (AUTO) 9.4 x10^3/uL (2.2-4.8); NEUTROPHILS % (AUTO) 96.7 % (42.0-75.0); PLATELET COUNT 251 X10^3/uL (150.0-450.0); RED BLOOD COUNT 3.15 X10^6/uL (4.7-6.0); RED CELL DISTRIBUTION WIDTH 19.1 % (11.6-16.5); WHITE BLOOD COUNT 9.8 X10^3/uL (3.6-10.0)
[2017-04-09 06:38] LABS: ABG BASE EXCESS 13.1 mmol/L (-2.0-2.0)
[2017-04-09 06:40] LABS: ABG HCO3 40.2 mmol/L (22-26)
[2017-04-09 06:53] LABS: ALANINE AMINOTRANSFERASE 27 Units/L (12-78); ALBUMIN 2.7 g/dL (3.4-5.0); ALKALINE PHOSPHATASE 64 Units/L (46-116); ASPARTATE AMINO TRANSFERASE 16 Units/L (15-37); BLOOD UREA NITROGEN 69 mg/dL (7-18); CALCIUM 8.6 mg/dL (8.5-10.1); CARBON DIOXIDE 31.5 mmol/L (21-32); CHLORIDE 107 mmol/L (98-107); COR CA(FOR HYPOALB) 9.6 mg/dL (8.5-10.1); CREATININE 2.75 mg/dL (0.70-1.30); MAGNESIUM 2.5 mg/dL (1.7-2.9); TOTAL PROTEIN 5.5 g/dL (6.4-8.2); eGFR BLACK RACES 29 (>60); eGFR NON BLACK RACES 24 (>60)
[2017-04-09 06:58] LABS: SODIUM 150 mmol/L (136-145)
[2017-04-09 07:15] LABS: PLATELET MORPHOLOGY COMMENT NORMAL (NORMAL)
[2017-04-09 07:16] LABS: CRENATED RBC SLIGHT
[2017-04-09 07:24] LABS: CREATINE KINASE MB 1.9 ng/mL (0-4.0); TROPONIN I 0.11 ng/mL (0-1.5)
[2017-04-09] MEDS: ZITHROMAX INJ 500 MG VIAL 250 MG in NS 250 ML IV 250 ML IV SCH (08:31)
[2017-04-09] MEDS ORDERED: NS 1/2 1000 ML IV 1,000 ML IV ONE (13:52)
[2017-04-09] MEDS: NS 1/2 1000 ML IV 1,000 ML IV SCH (13:58)
[2017-04-09] MEDS ORDERED: K-DUR TAB 20 MEQ PO SCH (14:00)
[2017-04-09] MEDS ORDERED: LASIX PO SCH (14:00)
[2017-04-09] MEDS: ALFUZOSIN HCL PO SCH (16:30)
[2017-04-09] MEDS: MULTAQ PO SCH ×2 (16:30→22:18)
[2017-04-09] MEDS: ELIQUIS PO SCH ×2 (16:30→22:17)
[2017-04-09] MEDS: PriLOSEC PO SCH (16:30)
[2017-04-09] MEDS: LOPRESSOR TAB 25 MG PO SCH ×2 (16:30→22:18)
[2017-04-09] MEDS: HEMOCYTE-PLUS PO SCH (16:30)
[2017-04-09] MEDS: FORTAZ or TAZICEF INJ 1 GM in NS 50 ML IV + SPIKE MINIBAG* 50 ML IV SCH (20:40)
--- NOTE | 2017-04-10 00:18 | DR.H&P ---
H&P - History & Physical for Day of: H&P Date: 04/08/17 - Chief Complaint Chief Complaint: short of breath - Allergies Allergies/Adverse Reactions: Allergies Allergy/AdvReac Type Severity Reaction Status Date / Time No Known Drug Allergies Allergy Verified 04/08/17 16:44 - History of Present Illness History of Present Illness: is a 81 year old patient of ours who presented to the emergency room via EMS with complaints of shortness of breath. Patient reports that symptoms started three days ago and have progressively gotten worse despite taking breathing treatments at home. Associated symptoms include weakness, fatigue, nasal congestion, productive cough, shortness of breath, chest pain and edema. Medical History includes the following : angina, anxiety, arthritis, CHF, COPD, CAD, dyslipidemia, GERD, hypertension. Patient is noted to be in respiratory distress upon arrival to the emergency room. On examination, heart rate 96, rhythm irregular. Scattered wheezing and rhonchi are noted throughout. Abdomen is round, soft, and non-tender with normal bowel sounds noted in all quadrants. Bilateral lower extremities are noted with 2+ pitting edema. Normal range of motion noted to all extremities. On arrival to the ER, vitals are 99.1, 105, 20, 96% NC, 117/74. Labs, chest xray, and EKG were obtained. Abnormal Lab values include the following: WBC 13.0, RBC 3.36, Hgb 10.0, Hct 30.4, MCHC 32.8, RDW 18.9, Sodium 146, Carbon Dioxide 33.6, BUN 68 , Creatinine 2.94, GFR(AA) 27, GFR(non) 22, CRP 18.00, BNP 291, Total Protein 5.9, Albumin 3.0, A/G ratio 1.0. Blood Culture (x2) Pending. Urinalysis reports : Amorph Sed 1+, Squam Epith Cells Rare. Chest xray reports: No acute process identified. EKG: Atrial fibrillation. Heart rate=96. An ABG was obtained and reported PH 7.330, pc02 78, p02 97.0, hc03 41.1, base excess 12.0. He was placed on the bipap at 14/8, 02 35%, rate 22. He was admitted to the hospital for further evaluation and treatment of respiratory failure, COPD exacerbation, and congestive heart failure. He was started on duonebs q4h, fortaz 1gm iv daily , azithromycin 250mg iv daily, solu-medrol 40mg iv q8h, and normal saline at KVO. We plan to follow up with am labs and chest xray and continue to monitor patient. - Past Medical History Past Medical History: Angina, Anxiety, Arthritis, CHF, COPD, Coronary Artery Disease, Dyslipidemia, GERD, Hypertension Additional Medical History: Atrial Fibrillation, Jack's Esophagus, Colitis, Diverticulosis, Hiatal Hernia, Gastrointestinal Ulcer, Polycystic Kidney Disease , Prostate Cancer, Hearing Loss, Back Pain, Bronchitis, Pneumonia, In-home oxygen use, Muscle Weakness, Back Pain, Previous Blood Transfusion, Prostate Cancer - Past Surgical History Surgical History: TURP, Other Additional Surgical History: Prostatectomy d/t Prostate Cancer, Cyst Removal - Family History Family Medical History: Cancer, [place], Hypertension - Social History Does patient currently use any type of tobacco product: No Have you used tobacco products in the last 12 months: No Type of Tobacco Use: None Does any household member use tobacco: No Alcohol Use: None Drug Use: None - Medications Home Medications: Alfuzosin HCl [Alfuzosin HCl ER] 1 tab PO DAILY 04/08/17 [History Confirmed 02/14] Apixaban [Eliquis] 2.5 mg PO BID 04/08/17 [History Confirmed 04/08/17] Diltiazem HCl [Diltiazem 24Hr ER] 1 cap PO DAILY 04/08/17 [History Confirmed 01/14] Dronedarone HCl [MULTAQ TAB 400 MG *] 1 tab PO BID 04/08/17 [History Confirmed 04/09/17] Ferrous Fumarate [Hemocyte] 1 tab PO DAILY 04/08/17 [History Confirmed 04/08/17] Metoprolol Tartrate 1 tab PO BID 04/08/17 [History Confirmed 04/08/17] Omeprazole 2 cap PO DAILY 04/08/17 [History Confirmed 04/08/17] Potassium Chloride [K-DUR TAB 20 mEq *] 1 tab PO DAILY 04/08/17 [History Confirmed 04/09/17] Prednisone 1 tab PO DAILY 04/08/17 [History Confirmed 04/08/17] Sertraline HCl [ZOLOFT 100 MG *] 1 tab PO DAILY 04/08/17 [History Confirmed 02/14] Furosemide 1 tab PO BID 04/09/17 [History Confirmed 04/09/17] Levofloxacin 1 tab PO .[id number] 04/09/17 [History Confirmed 04/09/17] - Review of Systems Constitutional: Weakness, Malaise ENT: Nose Congestion Respiratory: Cough, Shortness of Breath, Wheezing Cardiovascular: Chest Pain, Edema (bilateral lower extremity pitting edema) Gastrointestinal: No Symptoms Reported Genitourinary: No Symptoms Reported Musculoskeletal: Back Pain Skin: No Symptoms Reported Neurological: Weakness, Other (headache) - Physical Exam Vital Signs: Temperature 98.0 F Pulse Rate [Apical] 79 Pulse Rate 83 Respiratory Rate 22 Blood Pressure [Right Arm] 93/61 Blood Pressure [Left Arm] 101/57 Blood Pressure 117/74 O2 Sat by Pulse Oximetry 98 Oriented: Normal Eyes: Normal Ear: Normal Nose: Other (nasal congestion ) Throat: Normal Respiratory: Rhonchi Throughout, Wheezes Throughout Cardiovascular: Edema (bilateral lower extremity) : Normal Auscultation: Bowel Sounds: Normal Palpation: Normal Tenderness: Normal Skin: Normal Musculoskeletal: Back:Paraspinous Mood Description: Calm Affect: Normal Speech Pattern: Clear - Assessment/Plan (1) Respiratory failure with hypercapnia Qualifiers: Chronicity: acute on chronic Qualified Code(s): J96.22 - Acute and chronic respiratory failure with hypercapnia Status: Acute (2) COPD exacerbation Status: Acute Plan: bipap, respiratory tx, solu-medrol 40mg iv q8h, continue to monitor (3) Pneumonia Qualifiers: Pneumonia type: due to unspecified organism Laterality: right Lung location: lower lobe of lung Qualified Code(s): J18.1 - Lobar pneumonia, unspecified organism Status: Acute Plan: continue azithromycin, continue fortaz, continue supplemental oxygen, respiratory tx, monitor labs and chest xray (4) Congestive heart failure Qualifiers: Congestive heart failure type: combined Congestive heart failure chronicity : acute on chronic Qualified Code(s): I50.43 - Acute on chronic combined systolic (congestive) and diastolic (congestive) heart failure Status: Chronic Plan: continue supplemental oxygen, continue to monitor (5) A-fib Qualifiers: Atrial fibrillation type: chronic Qualified Code(s): I48.2 - Chronic atrial fibrillation Status: Chronic Plan: continue cardizem, continue eliquis, continue to monitor
[2017-04-10] MEDS: DUONEB 0.5 MG/3 MG NEB SCH ×6 (01:04→20:21)
[2017-04-10] MEDS ORDERED: NS 1/2 1000 ML IV 1,000 ML IV ONE ×2 (02:24→14:41)
[2017-04-10] MEDS: NS 1/2 1000 ML IV 1,000 ML IV SCH ×2 (02:52→14:57)
[2017-04-10 06:13] LABS: BASOPHILS % (AUTO) 0.2 % (0.2-1.0); HEMATOCRIT 27.2 % (42.0-54.0); HEMOGLOBIN 9.2 g/dL (13.5-18.0); LYMPHOCYTES # (AUTO) 0.2 X10^3/uL (1.3-2.9); LYMPHOCYTES % (AUTO) 1.4 % (21.0-51.0); MEAN CORPUSCULAR HEMOGLOBIN 30.3 pg (27.0-34.0); MEAN CORPUSCULAR HGB CONC 33.9 g/dL (33.0-35.0); MEAN CORPUSCULAR VOLUME 89.1 fL (80.0-100.0); MEAN PLATELET VOLUME 8.5 fL (7.4-11.0); MONOCYTES # (AUTO) 0.4 x10^3/uL (0.3-0.8); MONOCYTES % (AUTO) 2.7 % (0.0-13.0); NEUTROPHILS # (AUTO) 12.4 x10^3/uL (2.2-4.8); NEUTROPHILS % (AUTO) 95.7 % (42.0-75.0); PLATELET COUNT 257 X10^3/uL (150.0-450.0); RED BLOOD COUNT 3.05 X10^6/uL (4.7-6.0); RED CELL DISTRIBUTION WIDTH 18.5 % (11.6-16.5)
[2017-04-10] MEDS: SOLU-Medrol 40 MG VIAL IVP SCH ×3 (06:13→22:21)
[2017-04-10 06:35] LABS: ALBUMIN 2.6 g/dL (3.4-5.0); CALCIUM 8.5 mg/dL (8.5-10.1); CARBON DIOXIDE 31.5 mmol/L (21-32); COR CA(FOR HYPOALB) 9.6 mg/dL (8.5-10.1); CREATININE 2.89 mg/dL (0.70-1.30); TOTAL PROTEIN 5.3 g/dL (6.4-8.2)
[2017-04-10 06:43] LABS: PLATELET MORPHOLOGY COMMENT NORMAL (NORMAL)
--- NOTE | 2017-04-10 06:56 | RAD ---
Examination: Portable AP chest History: SOB Comparison 04/08/2017 Findings: Stable heart size. Increasing infiltrate right lower lung. Significant portions of the uppe r chest, apices and superior mediastinum are obscured by craniocervical anatomy. No large pleural eff usion or obvious pneumothorax. Impression: Technically limited as noted. Developing right lower lobe infiltrate. Reported By:
[2017-04-10] MEDS: ZITHROMAX INJ 500 MG VIAL 250 MG in NS 250 ML IV 250 ML IV SCH (09:41)
[2017-04-10] MEDS: MULTAQ PO SCH ×2 (09:42→20:55)
[2017-04-10] MEDS: HEMOCYTE-PLUS PO SCH (09:42)
[2017-04-10] MEDS: ELIQUIS PO SCH ×2 (09:42→20:56)
[2017-04-10] MEDS: PriLOSEC PO SCH (09:43)
[2017-04-10] MEDS: CARDIZEM CD 180 MG PO SCH ×2 (09:44→11:06)
[2017-04-10] MEDS: ALFUZOSIN HCL PO SCH (09:45)
[2017-04-10] MEDS: MILK OF MAGNESIA PO SCH ×2 (09:47→20:58)
[2017-04-10] MEDS: COLACE CAP 100 MG PO SCH ×2 (09:47→20:53)
[2017-04-10 09:49] LABS: ABG BASE EXCESS 9.8 mmol/L (-2.0-2.0)
[2017-04-10 09:51] LABS: ABG ALLEN TEST POS; ABG HCO3 35.4 mmol/L (22-26)
[2017-04-10] MEDS: LOPRESSOR TAB 25 MG PO SCH ×2 (11:06→20:54)
[2017-04-10] MEDS ORDERED: ZOLOFT PO ONE (20:45)
[2017-04-10] MEDS: FORTAZ or TAZICEF INJ 1 GM in NS 50 ML IV + SPIKE MINIBAG* 50 ML IV SCH (20:52)
[2017-04-10] MEDS: NORCO 5/325 MG TAB PO PRN (20:55)
[2017-04-10] MEDS: ZOLOFT PO SCH (20:55)
[2017-04-10] MEDS: VISTARIL PO PRN (20:56)
--- NOTE | 2017-04-10 21:02 | PCM.PROG ---
Progress Note - Progress Note for Day of Date: 04/09/17 - Subjective Subjective: WAS ADMITTED FOR RESPIRATORY FAILURE, COPD EXACERBATION, CONGESTIVE HEART FAILURE, AND PNEUMONIA. TODAY, HE IS ALERT AND ORIENTED, LYING IN BED ON MORNING ROUNDS. HE IS CURRENTLY ON THE BIPAP. TODAY, HE CONTINUES WITH COMPLAINTS OF SHORTNESS OF BREATH, COUGH, AND NASAL CONGESTION. ON EXAMINATION, HEART RHYTHM ON MONITOR CONTINUES TO SHOW ATRIAL FIBRILLATION. HEART RATE TODAY IS IN THE 80S-90S. BILATERAL LUNGS CONTINUE WITH SCATTERED WHEEZING AND RHONCHI. ABDOMEN IS ROUND, SOFT, AND NON-TENDER WITH NORMAL BOWEL SOUNDS NOTED IN ALL QUADRANTS. BILATERAL LOWER EXTREMITIES CONTINUE WITH 2+ PITTING EDEMA. PATIENT CONTINUES WITH GENERALIZED WEAKNESS. HIS VITALS THIS MORNING ARE 97.4, 88-24-98% BIPAP, 117/61. LABS WERE OBTAINED. ABNORMAL LAB VALUES INCLUDE THE FOLLOWING: RBC 3.15, HGB 9.5, HCT 28.1, INR 1.58, SODIUM 150 , BUN 69, CREATININE 2.75, TOTAL PROTEIN 5.5, ALBUMIN 2.7. CARDIAC ENZYMES HAVE BEEN WITHIN NORMAL LIMITS. ABG REPORTS PH 7.420, PC02 62, P02 98, HC03 40.2, O2 SATURATION 98, BASE EXCESS 13.1. TODAY, WE WILL START 1/2NS AT 75ML/HR FOR INCREASED RENAL FUNCTION. WE WILL REVIEW HIS HOME MEDICATIONS AND RESUME APPROPRIATE. OTHERWISE, WE WILL CONTINUE WITH CURRENT PLAN OF CARE TODAY. WE PLAN TO FOLLOW UP WITH AM LABS AND CONTINUE TO MONITOR PATIENT. - Past Medical Family Social History Past Med/Fam/Surg Hx: No changes since H&P Allergies: Allergies No Known Drug Allergies Allergy (Verified 04/08/17 16:44) - Review of Systems ROS: No change since H&P - Vital Signs and I&O's Vital Signs: Temperature 98.5 F Pulse Rate [Apical] 94 Pulse Rate 86 Respiratory Rate 24 Blood Pressure [Right Arm] 97/52 Blood Pressure [Left Arm] 101/57 Blood Pressure 117/74 O2 Sat by Pulse Oximetry 94 Intake and Output: Intake & Output 04/08/17 04/09/17 04/10/17 04/11/17 11:59 11:59 11:59 11:59 Intake Total 457 2469 1455 Output Total 1600 1000 400 Balance -1143 1469 1055 - Physical Exam Oriented: Normal Eyes: Normal Ear: Normal Nose: Other (nasal congestion ) Throat: Normal Respiratory: Right, Left, Generalized, Wheezes, Rhonchi Cardiovascular: Edema (bilateral lower extremity) : Normal Auscultation: Bowel Sounds: Normal Palpation: Normal Tenderness: Normal Skin: Normal Musculoskeletal: Back:Paraspinous Mood Description: Calm Affect: Normal Speech Pattern: Clear - Laboratory and Diagnostics Result Diagrams: 04/10/17 05:05 04/10/17 05:05 Labs: 04/08/17 17:18 Blood Blood Culture - Preliminary 04/08/17 17:29 Blood Blood Culture - Preliminary Laboratory WBC 13.0 X10^3/uL (3.6-10.0) H 04/10/17 05:05 RBC 3.05 X10^6/uL (4.7-6.0) L 04/10/17 05:05 Hgb 9.2 g/dL (13.5-18.0) L 04/10/17 05:05 Hct 27.2 % (42.0-54.0) L 04/10/17 05:05 MCV 89.1 fL (80.0-100.0) 04/10/17 05:05 MCH 30.3 pg (27.0-34.0) 04/10/17 05:05 MCHC 33.9 g/dL (33.0-35.0) 04/10/17 05:05 RDW 18.5 % (11.6-16.5) H 04/10/17 05:05 Plt Count 257 X10^3/uL (150.0-450.0) 04/10/17 05:05 Plt Count Comment Adequate (ADEQUATE) 04/10/17 05:05 MPV 8.5 fL (7.4-11.0) 04/10/17 05:05 Neut % 95.7 % (42.0-75.0) H 04/10/17 05:05 Lymph % 1.4 % (21.0-51.0) L 04/10/17 05:05 [place] % 2.7 % (0.0-13.0) 04/10/17 05:05 Eos % 0.0 % (0.9-2.9) L 04/10/17 05:05 Baso % 0.2 % (0.2-1.0) 04/10/17 05:05 Neut # 12.4 x10^3/uL (2.2-4.8) H 04/10/17 05:05 Lymph # 0.2 X10^3/uL (1.3-2.9) L 04/10/17 05:05 [place] # 0.4 x10^3/uL (0.3-0.8) 04/10/17 05:05 Eos # 0.0 x10^3/uL (0.0-0.2) 04/10/17 05:05 Baso # 0.0 X10^3/uL (0.0-0.1) 04/10/17 05:05 Absolute Nucleated RBC 0.4 /100WBC 04/10/17 05:05 Total Counted 100 04/10/17 05:05 Neutrophils % (Manual) 97 % (39-76) H 04/10/17 05:05 Lymphocytes % (Manual) 3 % (13-43) L 04/10/17 05:05 Plt Morphology Comment Normal (NORMAL) 04/10/17 05:05 RBC Morphology Normal (NORMAL) 04/10/17 05:05 Crenated Cell Slight A 04/09/17 05:50 INR Target Range - 04/10/17 08:13 INR 1.38 (0.8-1.3) H 04/10/17 08:13 PTT 29.4 SECONDS (22.9-36.5) 04/09/17 05:50 PTT Comment - 04/09/17 05:50 Sample Site Rr 04/10/17 09:45 ABG pH 7.450 (7.35-7.45) 04/10/17 09:45 ABG pCO2 51.0 mmHg (35.0-45.0) H* 04/10/17 09:45 ABG pO2 108.0 mmHg (80.0-100.0) H 04/10/17 09:45 ABG HCO3 35.4 mmol/L (22-26) H* 04/10/17 09:45 ABG O2 Saturation 98.0 % (90-100) 04/10/17 09:45 ABG Base Excess 9.8 mmol/L (-2.0-2.0) H 04/10/17 09:45 Fabio Test Pos 04/10/17 09:45 A-a Gradient 78.0 mmHg 04/10/17 09:45 FiO2 35.000 04/10/17 09:45 Blood Gas Comments Pt araceli well. cdn 04/10/17 09:45 Sodium 144 mmol/L (136-145) 04/10/17 05:05 Corrected Sodium 144 mmol/L (136-145) 04/10/17 05:05 Potassium 4.0 mmol/L (3.5-5.1) 04/10/17 05:05 Chloride 104 mmol/L (98-107) 04/10/17 05:05 Carbon Dioxide 31.5 mmol/L (21-32) 04/10/17 05:05 BUN 83 mg/dL (7-18) H 04/10/17 05:05 Creatinine 2.89 mg/dL (0.70-1.30) H 04/10/17 05:05 Est GFR (MDRD) Af Amer 27 (>60) L 04/10/17 05:05 Est GFR (MDRD) Non-Af 22 (>60) L 04/10/17 05:05 Glucose 113 mg/dL (65-99) H 04/10/17 05:05 Lactic Acid 0.8 mmol/L (0.4-2.0) 04/08/17 17:18 Calcium 8.5 mg/dL (8.5-10.1) 04/10/17 05:05 Corrected Calcium 9.6 mg/dL (8.5-10.1) 04/10/17 05:05 Magnesium 2.5 mg/dL (1.7-2.9) 04/09/17 05:50 Total Bilirubin 0.60 mg/dL (0.2-1.0) 04/10/17 05:05 AST 19 Units/L (15-37) 04/10/17 05:05 ALT 22 Units/L (12-78) 04/10/17 05:05 Alkaline Phosphatase 61 Units/L (46-116) 04/10/17 05:05 Creatine Kinase 38 Units/L (39-308) L 04/09/17 05:50 CK-MB (CK-2) 1.9 ng/mL (0-4.0) 04/09/17 05:50 CK/CKMB % Calc 5.0 % (<4) 04/09/17 05:50 Troponin I 0.11 ng/mL (0-1.5) 04/09/17 05:50 C-Reactive Protein 18.00 mg/L (0-3.0) H 04/08/17 17:18 B-Natriuretic Peptide 291 pg/mL (0-79) H 04/08/17 17:18 Total Protein 5.3 g/dL (6.4-8.2) L 04/10/17 05:05 Albumin 2.6 g/dL (3.4-5.0) L 04/10/17 05:05 Globulin 2.7 g/dL (2.5-4.5) 04/10/17 05:05 Albumin/Globulin Ratio 1.0 Ratio (1.1-2.1) L 04/10/17 05:05 Specimen Type Catherized urine 04/08/17 18: Urine Color Yellow (YELLOW) 04/08/17 18: Urine Appearance Clear (CLEAR) 04/08/17: Urine pH 5.0 (5.0 - 8.0) 04/08/17: Ur Specific [place] 1.015 (1.000-1.030) 04/08/17 18: Urine Protein Negative (NEGATIVE) 04/08/17: Urine Glucose (UA) Negative (NEGATIVE) 04/08/17 Urine Ketones Negative (NEGATIVE) 04/08/17 18: Urine Occult Blood Negative (NEGATIVE) 04/08/17 18:23 Urine Nitrite Negative (NEGATIVE) 04/08/17: Urine Bilirubin Negative (NEGATIVE) 04/08/17: Urine Urobilinogen Normal (NORMAL) 04/08/17 18:23 Ur Leukocyte Esterase Negative (NEGATIVE) 04/08/17:23 Urine RBC None seen /HPF (NEGATIVE) 04/08/17 18: Urine WBC None seen /HPF (NEGATIVE) 04/08/17 18:23 Ur Squamous Epith Cells Rare /HPF (NEGATIVE) 04/08/17 18: Amorphous Sediment 1+ /HPF (NEGATIVE) 04/08/17 18:23 Urine Bacteria Negative /HPF (NEGATIVE) 04/08/17 18: Ur Culture Indicated? No/not indicated 04/08/17 18 - Plan (1) Respiratory failure with hypercapnia Status: Acute Qualifiers: Chronicity: acute on chronic Qualified Code(s): J96.22 - Acute and chronic respiratory failure with hypercapnia Plan: bipap, respiratory tx, solu-medrol 40mg iv q8h, continue to monitor (2) COPD exacerbation Status: Acute Plan: bipap, respiratory tx, solu-medrol 40mg iv q8h, continue to monitor (3) Pneumonia Status: Acute Qualifiers: Pneumonia type: due to unspecified organism Laterality: right Lung location: lower lobe of lung Qualified Code(s): J18.1 - Lobar pneumonia, unspecified organism Plan: continue azithromycin, continue fortaz, continue supplemental oxygen, respiratory tx, monitor labs and chest xray (4) Congestive heart failure Status: Chronic Qualifiers: Congestive heart failure type: combined Congestive heart failure chronicity : acute on chronic Qualified Code(s): I50.43 - Acute on chronic combined systolic (congestive) and diastolic (congestive) heart failure Plan: continue supplemental oxygen, continue to monitor (5) A-fib Status: Chronic Qualifiers: Atrial fibrillation type: chronic Qualified Code(s): I48.2 - Chronic atrial fibrillation Plan: continue cardizem, continue eliquis, continue to monitor
[2017-04-10] MEDS ORDERED: SALINE 3% 15 ML NEB TX ONE (22:48)
[2017-04-10] MEDS ORDERED: SALINE 3% 15 ML NEB TX NEB ONE (22:56)
[2017-04-11] MEDS: DUONEB 0.5 MG/3 MG NEB SCH ×6 (00:10→21:00)
[2017-04-11] MEDS: NS 1/2 1000 ML IV 1,000 ML IV SCH ×2 (04:00→16:59)
[2017-04-11 06:16] LABS: BASOPHILS % (AUTO) 0.1 % (0.2-1.0); EOSINOPHILS % (AUTO) 0.1 % (0.9-2.9); HEMATOCRIT 26.4 % (42.0-54.0); HEMOGLOBIN 8.8 g/dL (13.5-18.0); LYMPHOCYTES # (AUTO) 0.1 X10^3/uL (1.3-2.9); LYMPHOCYTES % (AUTO) 1.2 % (21.0-51.0); MEAN CORPUSCULAR HEMOGLOBIN 29.7 pg (27.0-34.0); MEAN CORPUSCULAR HGB CONC 33.5 g/dL (33.0-35.0); MEAN CORPUSCULAR VOLUME 88.7 fL (80.0-100.0); MEAN PLATELET VOLUME 8.6 fL (7.4-11.0); MONOCYTES # (AUTO) 0.3 x10^3/uL (0.3-0.8); MONOCYTES % (AUTO) 3.1 % (0.0-13.0); NEUTROPHILS # (AUTO) 10.7 x10^3/uL (2.2-4.8); NEUTROPHILS % (AUTO) 95.5 % (42.0-75.0); PLATELET COUNT 223 X10^3/uL (150.0-450.0); RED BLOOD COUNT 2.98 X10^6/uL (4.7-6.0); RED CELL DISTRIBUTION WIDTH 18.6 % (11.6-16.5); WHITE BLOOD COUNT 11.2 X10^3/uL (3.6-10.0)
[2017-04-11] MEDS: SOLU-Medrol 40 MG VIAL IVP SCH ×3 (06:17→21:54)
[2017-04-11 06:42] LABS: ALBUMIN 2.5 g/dL (3.4-5.0); CALCIUM 8.4 mg/dL (8.5-10.1); CARBON DIOXIDE 31.9 mmol/L (21-32); COR CA(FOR HYPOALB) 9.6 mg/dL (8.5-10.1); CREATININE 2.95 mg/dL (0.70-1.30)
[2017-04-11 07:01] LABS: HYPOCHROMASIA 1+; MICROCYTOSIS 1+; PLATELET MORPHOLOGY COMMENT NORMAL (NORMAL)
--- NOTE | 2017-04-11 07:28 | RAD ---
HISTORY: Shortness of breath Study: Single view of the chest. Comparison: 04/10/2017 Findings: The cardiomediastinal silhouette is normal. Possible trace right pleural effusion which has improved since prior.. Osseous structures demonstrate no acute abnormality. IMPRESSION: 1. No acute cardiopulmonary process. Reported By:
[2017-04-11] MEDS: HEMOCYTE-PLUS PO SCH (08:26)
[2017-04-11] MEDS: LOPRESSOR TAB 25 MG PO SCH ×2 (08:26→21:54)
[2017-04-11] MEDS: MULTAQ PO SCH ×2 (08:26→21:54)
[2017-04-11] MEDS: CARDIZEM CD 180 MG PO SCH (08:26)
[2017-04-11] MEDS: ELIQUIS PO SCH (08:27)
[2017-04-11] MEDS ORDERED: ZOLOFT PO ONE (08:51)
[2017-04-11] MEDS: VISTARIL PO PRN (09:24)
[2017-04-11] MEDS: ZITHROMAX INJ 500 MG VIAL 250 MG in NS 250 ML IV 250 ML IV SCH (09:24)
[2017-04-11] MEDS: PriLOSEC PO SCH (09:24)
[2017-04-11] MEDS: ZOLOFT PO SCH (09:24)
[2017-04-11] MEDS: ALFUZOSIN HCL PO SCH ×2 (11:29→19:01)
--- NOTE | 2017-04-11 13:21 | PCM.PROG ---
Progress Note - Progress Note for Day of Date: 04/10/17 - Subjective Subjective: WAS ADMITTED FOR RESPIRATORY FAILURE, COPD EXACERBATION, CONGESTIVE HEART FAILURE, AND PNEUMONIA. TODAY, HE IS ALERT AND ORIENTED, SITTING UP IN BED ON MORNING ROUNDS. HE CONTINUES ON THE BIPAP. TODAY, HE CONTINUES WITH COMPLAINTS OF SHORTNESS OF BREATH, COUGH, AND NASAL CONGESTION. ON EXAMINATION, HEART RHYTHM ON MONITOR CONTINUES TO SHOW ATRIAL FIBRILLATION. HEART RATE TODAY IS IN THE 80S-90S. BILATERAL LUNGS CONTINUE WITH SCATTERED WHEEZING AND RHONCHI. ABDOMEN IS ROUND, SOFT, AND NON-TENDER WITH NORMAL BOWEL SOUNDS NOTED IN ALL QUADRANTS. BILATERAL LOWER EXTREMITIES CONTINUE WITH 2+ PITTING EDEMA. HIS VITALS THIS MORNING ARE 97.3-85-21-97%-113/62. LABS WERE OBTAINED. ABNORMAL LAB VALUES INCLUDE THE FOLLOWING: WBC 13.0, RBC 3.05, HGB 9.2 , HCT 27.2, BUN 83, CREATININE 2.89, GLUCOSE 113, TOTAL PROTEIN 5.3, ALBUMIN 2.6. THERE WAS SLIGHT IMPROVEMENT IN ABG TODAY. PC02 51, P02 108, HC03 35.4, BASE EXCESS 9.8. HIS CHEST XRAY TODAY REPORTED DEVELOPING RIGHT LOWER LOBE INFILTRATE. WE WILL CONTINUE WITH IV FLUIDS, IV ANTIBIOTICS AND RESPIRATORY TX TODAY. WE PLAN TO FOLLOW UP WITH AM LABS AND CONTINUE TO MONITOR PATIENT. - Past Medical Family Social History Past Med/Fam/Surg Hx: No changes since H&P Allergies: Allergies No Known Drug Allergies Allergy (Verified 04/08/17 16:44) - Review of Systems ROS: No change since H&P - Vital Signs and I&O's Vital Signs: Temperature 97.8 F Pulse Rate [Apical] 83 Pulse Rate 80 Respiratory Rate 34 Blood Pressure [Right Arm] 95/64 Blood Pressure [Left Arm] 101/57 Blood Pressure 117/74 O2 Sat by Pulse Oximetry 95 Intake and Output: Intake & Output 04/09/17 04/10/17 04/11/17 04/12/17 11:59 11:59 11:59 11:59 Intake Total 457 2469 2653 Output Total 1600 1000 1000 Balance -1143 1469 1653 - Physical Exam Oriented: Normal Eyes: Normal Ear: Normal Nose: Other (nasal congestion ) Throat: Normal Respiratory: Right, Left, Generalized, Wheezes, Rhonchi Cardiovascular: Edema (bilateral lower extremity) : Normal Auscultation: Bowel Sounds: Normal Palpation: Normal Tenderness: Normal Skin: Normal Musculoskeletal: Back:Paraspinous Mood Description: Calm Affect: Normal Speech Pattern: Clear - Laboratory and Diagnostics Result Diagrams: 04/11/17 05:20 04/11/17 05:20 Labs: 04/08/17 17:18 Blood Blood Culture - Preliminary 04/08/17 17:29 Blood Blood Culture - Preliminary Laboratory WBC 11.2 X10^3/uL (3.6-10.0) H 04/11/17 05:20 RBC 2.98 X10^6/uL (4.7-6.0) L 04/11/17 05:20 Hgb 8.8 g/dL (13.5-18.0) L 04/11/17 05:20 Hct 26.4 % (42.0-54.0) L 04/11/17 05:20 MCV 88.7 fL (80.0-100.0) 04/11/17 05:20 MCH 29.7 pg (27.0-34.0) 04/11/17 05:20 MCHC 33.5 g/dL (33.0-35.0) 04/11/17 05:20 RDW 18.6 % (11.6-16.5) H 04/11/17 05:20 Plt Count 223 X10^3/uL (150.0-450.0) 04/11/17 05:20 Plt Count Comment Adequate (ADEQUATE) 04/11/17 05:20 MPV 8.6 fL (7.4-11.0) 04/11/17 05:20 Neut % 95.5 % (42.0-75.0) H 04/11/17 05:20 Lymph % 1.2 % (21.0-51.0) L 04/11/17 05:20 [place] % 3.1 % (0.0-13.0) 04/11/17 05:20 Eos % 0.1 % (0.9-2.9) L 04/11/17 05:20 Baso % 0.1 % (0.2-1.0) L 04/11/17 05:20 Neut # 10.7 x10^3/uL (2.2-4.8) H 04/11/17 05:20 Lymph # 0.1 X10^3/uL (1.3-2.9) L 04/11/17 05:20 [place] # 0.3 x10^3/uL (0.3-0.8) 04/11/17 05:20 Eos # 0.0 x10^3/uL (0.0-0.2) 04/11/17 05:20 Baso # 0.0 X10^3/uL (0.0-0.1) 04/11/17 05:20 Absolute Nucleated RBC 0.0 /100WBC 04/11/17 05:20 Total Counted 100 04/11/17 05:20 Neutrophils % (Manual) 95 % (39-76) H 04/11/17 05:20 Lymphocytes % (Manual) 4 % (13-43) L 04/11/17 05:20 Monocytes % (Manual) 1 % (4-9) L 04/11/17 05:20 Plt Morphology Comment Normal (NORMAL) 04/11/17 05:20 RBC Morphology Abnormal (NORMAL) 04/11/17 05:20 Hypochromasia 1+ A 04/11/17 05:20 Microcytosis 1+ A 04/11/17 05:20 Crenated Cell Slight A 04/09/17 05:50 INR Target Range - 04/10/17 08:13 INR 1.38 (0.8-1.3) H 04/10/17 08:13 PTT 29.4 SECONDS (22.9-36.5) 04/09/17 05:50 PTT Comment - 04/09/17 05:50 Sample Site Rr 04/10/17 09:45 ABG pH 7.450 (7.35-7.45) 04/10/17 09:45 ABG pCO2 51.0 mmHg (35.0-45.0) H* 04/10/17 09:45 ABG pO2 108.0 mmHg (80.0-100.0) H 04/10/17 09:45 ABG HCO3 35.4 mmol/L (22-26) H* 04/10/17 09:45 ABG O2 Saturation 98.0 % (90-100) 04/10/17 09:45 ABG Base Excess 9.8 mmol/L (-2.0-2.0) H 04/10/17 09:45 Fabio Test Pos 04/10/17 09:45 A-a Gradient 78.0 mmHg 04/10/17 09:45 FiO2 35.000 04/10/17 09:45 Blood Gas Comments Pt araceli well. cdn 04/10/17 09:45 Sodium 144 mmol/L (136-145) 04/11/17 05:20 Corrected Sodium 145 mmol/L (136-145) 04/11/17 05:20 Potassium 4.0 mmol/L (3.5-5.1) 04/11/17 05:20 Chloride 105 mmol/L (98-107) 04/11/17 05:20 Carbon Dioxide 31.9 mmol/L (21-32) 04/11/17 05:20 BUN 92 mg/dL (7-18) H 04/11/17 05:20 Creatinine 2.95 mg/dL (0.70-1.30) H 04/11/17 05:20 Est GFR (MDRD) Af Amer 26 (>60) L 04/11/17 05:20 Est GFR (MDRD) Non-Af 22 (>60) L 04/11/17 05:20 Glucose 132 mg/dL (65-99) H 04/11/17 05:20 Lactic Acid 0.8 mmol/L (0.4-2.0) 04/08/17 17:18 Calcium 8.4 mg/dL (8.5-10.1) L 04/11/17 05:20 Corrected Calcium 9.6 mg/dL (8.5-10.1) 04/11/17 05:20 Magnesium 2.5 mg/dL (1.7-2.9) 04/09/17 05:50 Total Bilirubin 0.60 mg/dL (0.2-1.0) 04/11/17 05:20 AST 26 Units/L (15-37) 04/11/17 05:20 ALT 28 Units/L (12-78) 04/11/17 05:20 Alkaline Phosphatase 54 Units/L (46-116) 04/11/17 05:20 Creatine Kinase 38 Units/L (39-308) L 04/09/17 05:50 CK-MB (CK-2) 1.9 ng/mL (0-4.0) 04/09/17 05:50 CK/CKMB % Calc 5.0 % (<4) 04/09/17 05:50 Troponin I 0.11 ng/mL (0-1.5) 04/09/17 05:50 C-Reactive Protein 18.00 mg/L (0-3.0) H 04/08/17 17:18 B-Natriuretic Peptide 291 pg/mL (0-79) H 04/08/17 17:18 Total Protein 5.0 g/dL (6.4-8.2) L 04/11/17 05:20 Albumin 2.5 g/dL (3.4-5.0) L 04/11/17 05:20 Globulin 2.5 g/dL (2.5-4.5) 04/11/17 05:20 Albumin/Globulin Ratio 1.0 Ratio (1.1-2.1) L 04/11/17 05:20 Specimen Type Catherized urine 04/08/17 18: Urine Color Yellow (YELLOW) 04/08/17: Urine Appearance Clear (CLEAR) 04/08/17 18: Urine pH 5.0 (5.0 - 8.0) 04/08/17 18: Ur Specific [place] 1.015 (1.000-1.030) 04/08/17: Urine Protein Negative (NEGATIVE) 04/08/17: Urine Glucose (UA) Negative (NEGATIVE) 04/08/17 18: Urine Ketones Negative (NEGATIVE) 04/08/17 18:23 Urine Occult Blood Negative (NEGATIVE) 04/08/17: Urine Nitrite Negative (NEGATIVE) 04/08/17: Urine Bilirubin Negative (NEGATIVE) 04/08/17 18: Urine Urobilinogen Normal (NORMAL) 04/08/17 18:23 Ur Leukocyte Esterase Negative (NEGATIVE) 04/08/17: Urine RBC None seen /HPF (NEGATIVE) 04/08/17 18: Urine WBC None seen /HPF (NEGATIVE) 04/08/17 18: Ur Squamous Epith Cells Rare /HPF (NEGATIVE) 04/08/17 18 Amorphous Sediment 1+ /HPF (NEGATIVE) 04/08/17 18: Urine Bacteria Negative /HPF (NEGATIVE) 04/08/17 18: Ur Culture Indicated? No/not indicated 01/10/18 18:23 - Plan (1) Respiratory failure with hypercapnia Status: Acute Qualifiers: Chronicity: acute on chronic Qualified Code(s): J96.22 - Acute and chronic respiratory failure with hypercapnia Plan: bipap, respiratory tx, solu-medrol 40mg iv q8h, continue to monitor (2) COPD exacerbation Status: Acute Plan: bipap, respiratory tx, solu-medrol 40mg iv q8h, continue to monitor (3) Pneumonia Status: Acute Qualifiers: Pneumonia type: due to unspecified organism Laterality: right Lung location: lower lobe of lung Qualified Code(s): J18.1 - Lobar pneumonia, unspecified organism Plan: continue azithromycin, continue fortaz, continue supplemental oxygen, respiratory tx, monitor labs and chest xray (4) Congestive heart failure Status: Chronic Qualifiers: Congestive heart failure type: combined Congestive heart failure chronicity : acute on chronic Qualified Code(s): I50.43 - Acute on chronic combined systolic (congestive) and diastolic (congestive) heart failure Plan: continue supplemental oxygen, continue to monitor (5) A-fib Status: Chronic Qualifiers: Atrial fibrillation type: chronic Qualified Code(s): I48.2 - Chronic atrial fibrillation Plan: continue cardizem, continue eliquis, continue to monitor
[2017-04-11] MEDS ORDERED: NS 1/2 1000 ML IV 1,000 ML IV ONE (16:57)
[2017-04-11] MEDS ORDERED: FORTAZ or TAZICEF INJ ONE (17:39)
[2017-04-11] MEDS ORDERED: NS 100 ML IV 100 ML IV ONE (17:41)
[2017-04-11] MEDS: FORTAZ or TAZICEF INJ 1 GM in NS 50 ML IV + SPIKE MINIBAG* 50 ML IV SCH ×2 (18:05→22:06)
[2017-04-11] MEDS: COLACE CAP 100 MG PO SCH (21:54)
[2017-04-11] MEDS: MILK OF MAGNESIA PO SCH (21:54)
[2017-04-12] MEDS: DUONEB 0.5 MG/3 MG NEB SCH ×6 (00:32→21:57)
[2017-04-12] MEDS ORDERED: NS 1/2 1000 ML IV 1,000 ML IV ONE (03:23)
[2017-04-12] MEDS: SOLU-Medrol 40 MG VIAL IVP SCH (05:31)
[2017-04-12] MEDS: NS 1/2 1000 ML IV 1,000 ML IV SCH ×2 (06:09→20:13)
[2017-04-12 06:18] LABS: BASOPHILS % (AUTO) 0.1 % (0.2-1.0); HEMOGLOBIN 8.9 g/dL (13.5-18.0); LYMPHOCYTES # (AUTO) 0.1 X10^3/uL (1.3-2.9); LYMPHOCYTES % (AUTO) 1.1 % (21.0-51.0); MEAN CORPUSCULAR HEMOGLOBIN 30.2 pg (27.0-34.0); MEAN CORPUSCULAR HGB CONC 34.1 g/dL (33.0-35.0); MEAN CORPUSCULAR VOLUME 88.8 fL (80.0-100.0); MEAN PLATELET VOLUME 8.5 fL (7.4-11.0); MONOCYTES # (AUTO) 0.3 x10^3/uL (0.3-0.8); MONOCYTES % (AUTO) 3.1 % (0.0-13.0); NEUTROPHILS # (AUTO) 9.5 x10^3/uL (2.2-4.8); NEUTROPHILS % (AUTO) 95.7 % (42.0-75.0); PLATELET COUNT 209 X10^3/uL (150.0-450.0); RED BLOOD COUNT 2.93 X10^6/uL (4.7-6.0); RED CELL DISTRIBUTION WIDTH 18.8 % (11.6-16.5); WHITE BLOOD COUNT 9.9 X10^3/uL (3.6-10.0)
[2017-04-12 06:27] LABS: ALBUMIN 2.4 g/dL (3.4-5.0); CALCIUM 8.1 mg/dL (8.5-10.1); CARBON DIOXIDE 33.4 mmol/L (21-32); COR CA(FOR HYPOALB) 9.4 mg/dL (8.5-10.1); CREATININE 2.78 mg/dL (0.70-1.30); TOTAL PROTEIN 4.8 g/dL (6.4-8.2)
[2017-04-12 06:51] LABS: HYPOCHROMASIA 2+; MICROCYTOSIS 2+; PLATELET MORPHOLOGY COMMENT NORMAL (NORMAL)
[2017-04-12] MEDS ORDERED: ZOLOFT PO ONE (08:50)
[2017-04-12] MEDS: HEMOCYTE-PLUS PO SCH (09:11)
[2017-04-12] MEDS: ALFUZOSIN HCL PO SCH (09:11)
[2017-04-12] MEDS: CARDIZEM CD 180 MG PO SCH (09:11)
[2017-04-12] MEDS: LOPRESSOR TAB 25 MG PO SCH ×2 (09:11→20:29)
[2017-04-12] MEDS: MULTAQ PO SCH ×2 (09:11→20:27)
[2017-04-12] MEDS: PriLOSEC PO SCH (09:12)
[2017-04-12] MEDS: ZOLOFT PO SCH (09:12)
[2017-04-12] MEDS: ZITHROMAX INJ 500 MG VIAL 250 MG in NS 250 ML IV 250 ML IV SCH (09:12)
--- NOTE | 2017-04-12 10:30 | RAD ---
HISTORY: Shortness of breath Study: Single view of the chest. Comparison: 04/11/2017 Findings: Redemonstration of mild cardiomegaly with pulmonary edema and small right pleural effusion. No focal consolidations. Osseous structures demonstrate no acute abnormality. IMPRESSION: 1. Cardiomegaly with edema and trace right pleural effusion. Reported By:
[2017-04-12] MEDS: ALBUMIN HUMAN 25%- 100ML 100 ML IV SCH (14:06)
[2017-04-12] MEDS: FORTAZ or TAZICEF INJ 1 GM in NS 50 ML IV + SPIKE MINIBAG* 50 ML IV SCH (19:58)
[2017-04-12] MEDS: COLACE CAP 100 MG PO SCH (20:27)
[2017-04-12] MEDS: MILK OF MAGNESIA PO SCH (20:28)
[2017-04-12] MEDS: NORCO 5/325 MG TAB PO PRN (20:28)
[2017-04-12] MEDS ORDERED: MAALOX or MYLANTA PO PRN (21:44)
--- NOTE | 2017-04-12 21:49 | PCM.PROG ---
Progress Note - Progress Note for Day of Date: 04/11/17 - Subjective Subjective: WAS ADMITTED FOR RESPIRATORY FAILURE, COPD EXACERBATION, CONGESTIVE HEART FAILURE, AND PNEUMONIA. TODAY, HE IS ALERT AND ORIENTED, SITTING UP IN BED ON MORNING ROUNDS. HE CONTINUES ON THE BIPAP. TODAY, HE CONTINUES WITH COMPLAINTS OF SHORTNESS OF BREATH, COUGH, AND NASAL CONGESTION. HE REPORTS THAT SYMPTOMS HAVE SLIGHTLY IMPROVED SINCE YESTERDAY. ON EXAMINATION , PATIENT CONTINUES IN ATRIAL FIBRILLATION, HOWEVER, HEART RATE IS WELL CONTROLLED. BILATERAL LUNGS CONTINUE WITH SCATTERED WHEEZING AND RHONCHI. ABDOMEN IS ROUND, SOFT, AND NON-TENDER WITH NORMAL BOWEL SOUNDS NOTED IN ALL QUADRANTS. BILATERAL LOWER EXTREMITIES CONTINUE WITH 1+ PITTING EDEMA. HIS VITALS THIS MORNING ARE 98.2-83-32-97%-115/64. LABS WERE OBTAINED. ABNORMAL LAB VALUES INCLUDE THE FOLLOWING: WBC 11.2, RBC 2.98, HGB 8.8, HCT 26.4, BUN 92, CREATININE 2.95, GLUCOSE 132, CALCIUM 8.4, TOTAL PROTEIN 5.0, ALBUMIN 2.5. ELEVATED BUN/CREATININE MAY BE DUE TO A POSSIBLE INTERNAL BLEED. WE WILL HOLD ELIQUIS TODAY AND OBTAIN A FECAL OCCULT BLOOD. A CHEST XRAY WAS OBTAINED THIS MORNING AND REPORTED POSSIBLE TRACE RIGHT PLEURAL EFFUSION WHICH HAS IMPROVED SINCE YESTERDAY. DUE TO POOR PERIPHERAL ACCESS AFTER SEVERAL UNSUCCESSFUL ATTEMPTS, WE WILL CONSULT FOR PLACEMENT OF CENTRAL LINE. WE WILL CONTINUE WITH IV FLUIDS, IV ANTIBIOTICS AND RESPIRATORY TX TODAY. WE PLAN TO FOLLOW UP WITH AM LABS AND CONTINUE TO MONITOR PATIENT. - Past Medical Family Social History Past Med/Fam/Surg Hx: No changes since H&P Allergies: Allergies No Known Drug Allergies Allergy (Verified 04/08/17 16:44) - Review of Systems ROS: No change since H&P - Vital Signs and I&O's Vital Signs: Temperature 98.1 F Pulse Rate [Apical] 75 Pulse Rate 78 Respiratory Rate 24 Blood Pressure [Right Arm] 104/56 Blood Pressure [Left Arm] 101/57 Blood Pressure 117/74 O2 Sat by Pulse Oximetry 99 Intake and Output: Intake & Output 04/10/17 04/11/17 04/12/17 04/13/17 11:59 11:59 11:59 11:59 Intake Total 2469 2653 2407 972 Output Total 1000 1000 1325 500 Balance 1469 1653 1082 472 - Physical Exam Oriented: Normal Eyes: Normal Ear: Normal Nose: Other (nasal congestion ) Throat: Normal Respiratory: Right, Left, Generalized, Wheezes, Rhonchi Cardiovascular: Edema (bilateral lower extremity) : Normal Auscultation: Bowel Sounds: Normal Palpation: Normal Tenderness: Normal Skin: Normal Musculoskeletal: Back:Paraspinous Mood Description: Calm Affect: Normal Speech Pattern: Clear - Laboratory and Diagnostics Result Diagrams: 04/12/17 05:19 04/12/17 05:19 Labs: 04/08/17 17:18 Blood Blood Culture - Preliminary 04/08/17 17:29 Blood Blood Culture - Preliminary Laboratory WBC 9.9 X10^3/uL (3.6-10.0) 04/12/17 05:19 RBC 2.93 X10^6/uL (4.7-6.0) L 04/12/17 05:19 Hgb 8.9 g/dL (13.5-18.0) L 04/12/17 05:19 Hct 26.0 % (42.0-54.0) L 04/12/17 05:19 MCV 88.8 fL (80.0-100.0) 04/12/17 05:19 MCH 30.2 pg (27.0-34.0) 04/12/17 05:19 MCHC 34.1 g/dL (33.0-35.0) 04/12/17 05:19 RDW 18.8 % (11.6-16.5) H 04/12/17 05:19 Plt Count 209 X10^3/uL (150.0-450.0) 04/12/17 05:19 Plt Count Comment Adequate (ADEQUATE) 04/12/17 05:19 MPV 8.5 fL (7.4-11.0) 04/12/17 05:19 Neut % 95.7 % (42.0-75.0) H 04/12/17 05:19 Lymph % 1.1 % (21.0-51.0) L 04/12/17 05:19 [place] % 3.1 % (0.0-13.0) 04/12/17 05:19 Eos % 0.0 % (0.9-2.9) L 04/12/17 05:19 Baso % 0.1 % (0.2-1.0) L 04/12/17 05:19 Neut # 9.5 x10^3/uL (2.2-4.8) H 04/12/17 05:19 Lymph # 0.1 X10^3/uL (1.3-2.9) L 04/12/17 05:19 [place] # 0.3 x10^3/uL (0.3-0.8) 04/12/17 05:19 Eos # 0.0 x10^3/uL (0.0-0.2) 04/12/17 05:19 Baso # 0.0 X10^3/uL (0.0-0.1) 04/12/17 05:19 Absolute Nucleated RBC 0.0 /100WBC 04/12/17 05:19 Total Counted 100 04/12/17 05:19 Neutrophils % (Manual) 97 % (39-76) H 04/12/17 05:19 Lymphocytes % (Manual) 3 % (13-43) L 04/12/17 05:19 Monocytes % (Manual) 1 % (4-9) L 04/11/17 05:20 Plt Morphology Comment Normal (NORMAL) 04/12/17 05:19 RBC Morphology Abnormal (NORMAL) 04/12/17 05:19 Hypochromasia 2+ A 04/12/17 05:19 Microcytosis 2+ A 04/12/17 05:19 Crenated Cell Slight A 04/09/17 05:50 INR Target Range - 04/10/17 08:13 INR 1.38 (0.8-1.3) H 04/10/17 08:13 PTT 29.4 SECONDS (22.9-36.5) 04/09/17 05:50 PTT Comment - 04/09/17 05:50 Sample Site Rr 04/10/17 09:45 ABG pH 7.450 (7.35-7.45) 04/10/17 09:45 ABG pCO2 51.0 mmHg (35.0-45.0) H* 04/10/17 09:45 ABG pO2 108.0 mmHg (80.0-100.0) H 04/10/17 09:45 ABG HCO3 35.4 mmol/L (22-26) H* 04/10/17 09:45 ABG O2 Saturation 98.0 % (90-100) 04/10/17 09:45 ABG Base Excess 9.8 mmol/L (-2.0-2.0) H 04/10/17 09:45 Fabio Test Pos 04/10/17 09:45 A-a Gradient 78.0 mmHg 04/10/17 09:45 FiO2 35.000 04/10/17 09:45 Blood Gas Comments Pt araceli well. cdn 04/10/17 09:45 Sodium 146 mmol/L (136-145) H 04/12/17 05:19 Corrected Sodium 147 mmol/L (136-145) H 04/12/17 05:19 Potassium 3.7 mmol/L (3.5-5.1) 04/12/17 05:19 Chloride 108 mmol/L (98-107) H 04/12/17 05:19 Carbon Dioxide 33.4 mmol/L (21-32) H 04/12/17 05:19 BUN 86 mg/dL (7-18) H 04/12/17 05:19 Creatinine 2.78 mg/dL (0.70-1.30) H 04/12/17 05:19 Est GFR (MDRD) Af Amer 28 (>60) L 04/12/17 05:19 Est GFR (MDRD) Non-Af 23 (>60) L 04/12/17 05:19 Glucose 122 mg/dL (65-99) H 04/12/17 05:19 Lactic Acid 0.8 mmol/L (0.4-2.0) 04/08/17 17:18 Calcium 8.1 mg/dL (8.5-10.1) L 04/12/17 05:19 Corrected Calcium 9.4 mg/dL (8.5-10.1) 04/12/17 05:19 Magnesium 2.5 mg/dL (1.7-2.9) 04/09/17 05:50 Total Bilirubin 0.60 mg/dL (0.2-1.0) 04/12/17 05:19 AST 19 Units/L (15-37) 04/12/17 05:19 ALT 35 Units/L (12-78) 04/12/17 05:19 Alkaline Phosphatase 55 Units/L (46-116) 04/12/17 05:19 Creatine Kinase 38 Units/L (39-308) L 04/09/17 05:50 CK-MB (CK-2) 1.9 ng/mL (0-4.0) 04/09/17 05:50 CK/CKMB % Calc 5.0 % (<4) 04/09/17 05:50 Troponin I 0.11 ng/mL (0-1.5) 04/09/17 05:50 C-Reactive Protein 18.00 mg/L (0-3.0) H 04/08/17 17:18 B-Natriuretic Peptide 291 pg/mL (0-79) H 04/08/17 17:18 Total Protein 4.8 g/dL (6.4-8.2) L 04/12/17 05:19 Albumin 2.4 g/dL (3.4-5.0) L 04/12/17 05:19 Globulin 2.4 g/dL (2.5-4.5) L 04/12/17 05:19 Albumin/Globulin Ratio 1.0 Ratio (1.1-2.1) L 04/12/17 05:19 Specimen Type Catherized urine 04/08/17 18:23 Urine Color Yellow (YELLOW) 04/08/17 18: Urine Appearance Clear (CLEAR) 04/08/17: Urine pH 5.0 (5.0 - 8.0) 04/08/17 18: Ur Specific [place] 1.015 (1.000-1.030) 04/08/17 18: Urine Protein Negative (NEGATIVE) 04/08/17 18: Urine Glucose (UA) Negative (NEGATIVE) 04/08/17 18: Urine Ketones Negative (NEGATIVE) 04/08/17 18: Urine Occult Blood Negative (NEGATIVE) 04/08/17 18: Urine Nitrite Negative (NEGATIVE) 04/08/17 18: Urine Bilirubin Negative (NEGATIVE) 04/08/17: Urine Urobilinogen Normal (NORMAL) 04/08/17 18: Ur Leukocyte Esterase Negative (NEGATIVE) 04/08/17 18: Urine RBC None seen /HPF (NEGATIVE) 04/08/17 18: Urine WBC None seen /HPF (NEGATIVE) 04/08/17 18: Ur Squamous Epith Cells Rare /HPF (NEGATIVE) 04/08/17 18:23 Amorphous Sediment 1+ /HPF (NEGATIVE) 04/08/17 18:23 Urine Bacteria Negative /HPF (NEGATIVE) 04/08/17 18:23 Ur Culture Indicated? No/not indicated 04/08/17 18:23 - Plan (1) Respiratory failure with hypercapnia Status: Acute Qualifiers: Chronicity: acute on chronic Qualified Code(s): J96.22 - Acute and chronic respiratory failure with hypercapnia Plan: bipap, respiratory tx, solu-medrol 40mg iv q8h, continue to monitor (2) COPD exacerbation Status: Acute Plan: bipap, respiratory tx, solu-medrol 40mg iv q8h, continue to monitor (3) Pneumonia Status: Acute Qualifiers: Pneumonia type: due to unspecified organism Laterality: right Lung location: lower lobe of lung Qualified Code(s): J18.1 - Lobar pneumonia, unspecified organism Plan: continue azithromycin, continue fortaz, continue supplemental oxygen, respiratory tx, monitor labs and chest xray (4) Congestive heart failure Status: Chronic Qualifiers: Congestive heart failure type: combined Congestive heart failure chronicity : acute on chronic Qualified Code(s): I50.43 - Acute on chronic combined systolic (congestive) and diastolic (congestive) heart failure Plan: continue supplemental oxygen, continue to monitor (5) A-fib Status: Chronic Qualifiers: Atrial fibrillation type: chronic Qualified Code(s): I48.2 - Chronic atrial fibrillation Plan: continue cardizem, continue eliquis, continue to monitor
[2017-04-13] MEDS: DUONEB 0.5 MG/3 MG NEB SCH ×5 (01:09→21:19)
[2017-04-13 06:25] LABS: BASOPHILS % (AUTO) 0.2 % (0.2-1.0); EOSINOPHILS % (AUTO) 0.3 % (0.9-2.9); HEMATOCRIT 26.7 % (42.0-54.0); LYMPHOCYTES # (AUTO) 0.3 X10^3/uL (1.3-2.9); LYMPHOCYTES % (AUTO) 3.2 % (21.0-51.0); MEAN CORPUSCULAR HEMOGLOBIN 30.4 pg (27.0-34.0); MEAN CORPUSCULAR HGB CONC 33.8 g/dL (33.0-35.0); MEAN CORPUSCULAR VOLUME 89.9 fL (80.0-100.0); MEAN PLATELET VOLUME 8.5 fL (7.4-11.0); MONOCYTES # (AUTO) 0.5 x10^3/uL (0.3-0.8); NEUTROPHILS # (AUTO) 7.6 x10^3/uL (2.2-4.8); NEUTROPHILS % (AUTO) 90.3 % (42.0-75.0); PLATELET COUNT 179 X10^3/uL (150.0-450.0); RED BLOOD COUNT 2.97 X10^6/uL (4.7-6.0); RED CELL DISTRIBUTION WIDTH 18.5 % (11.6-16.5); WHITE BLOOD COUNT 8.5 X10^3/uL (3.6-10.0)
[2017-04-13 06:46] LABS: ALANINE AMINOTRANSFERASE 44 Units/L (12-78); ALBUMIN 2.8 g/dL (3.4-5.0); ALKALINE PHOSPHATASE 53 Units/L (46-116); ASPARTATE AMINO TRANSFERASE 30 Units/L (15-37); BLOOD UREA NITROGEN 83 mg/dL (7-18); CALCIUM 8.7 mg/dL (8.5-10.1); CARBON DIOXIDE 33.8 mmol/L (21-32); CHLORIDE 110 mmol/L (98-107); COR CA(FOR HYPOALB) 9.7 mg/dL (8.5-10.1); CREATININE 2.55 mg/dL (0.70-1.30); TOTAL PROTEIN 5.5 g/dL (6.4-8.2); eGFR BLACK RACES 31 (>60); eGFR NON BLACK RACES 26 (>60)
[2017-04-13 06:48] LABS: SODIUM 150 mmol/L (136-145)
[2017-04-13 07:02] LABS: PLATELET MORPHOLOGY COMMENT NORMAL (NORMAL)
--- NOTE | 2017-04-13 07:21 | RAD ---
Examination: Portable AP chest History: SOB Comparison 04/12/2017 Findings: Continued upper normal heart size. Airspace disease in the right lower lung without discret e mass. No pneumothorax is seen. Mild central vascular congestion is unchanged. Impression: Borderline cardiomegaly and vascular congestion. Right lower lung infiltrate consistent w ith pneumonia/atelectasis. Pulmonary edema is not definitely identified on this follow-up study. Reported By:
[2017-04-13] MEDS ORDERED: XYLOCAINE 1% and EPINEPHRINE 1:100,000 ONE (07:45)
[2017-04-13] MEDS ORDERED: MARCAINE 0.25% INJ ONE (07:45)
[2017-04-13] MEDS ORDERED: NS 1000 ML 0 ML ONE (07:46)
[2017-04-13] MEDS: VISTARIL PO PRN ×2 (09:07→20:33)
[2017-04-13] MEDS: NORCO 5/325 MG TAB PO PRN ×2 (09:07→20:33)
[2017-04-13] MEDS ORDERED: ZOLOFT PO ONE (09:07)
[2017-04-13] MEDS ORDERED: XYLOCAINE 1 % (PLAIN) ONE (10:25)
[2017-04-13] MEDS: ZITHROMAX INJ 500 MG VIAL 250 MG in NS 250 ML IV 250 ML IV SCH (11:08)
[2017-04-13] MEDS: ALBUMIN HUMAN 25%- 100ML 100 ML IV SCH (11:09)
[2017-04-13] MEDS: CARDIZEM CD 180 MG PO SCH (11:11)
[2017-04-13] MEDS: PriLOSEC PO SCH (11:12)
[2017-04-13] MEDS: MULTAQ PO SCH ×2 (11:12→20:34)
[2017-04-13] MEDS: HEMOCYTE-PLUS PO SCH (11:12)
[2017-04-13] MEDS: LOPRESSOR TAB 25 MG PO SCH ×2 (11:12→20:34)
[2017-04-13] MEDS: ZOLOFT PO SCH (11:12)
--- NOTE | 2017-04-13 11:12 | RAD ---
HISTORY: PICC placement Study: Chest AP portable Comparison: 04/13/2017 Findings: There is a new left-sided PICC line with its tip in the superior vena cava. No pneumothorax. The hear t remains enlarged. Mild pulmonary venous congestion is present. No definite congestive heart failure is identified. Right basilar infiltrate again identified. The remainder of the lung varghese are clear . IMPRESSION: Left PICC tip superior vena cava, no pneumothorax Cardiomegaly with mild pulmonary venous congestion No change right basilar lung infiltrate Reported By:
[2017-04-13] MEDS: ALFUZOSIN HCL PO SCH (11:13)
[2017-04-13 11:22] LABS: ABG ALLEN TEST POS; ABG HCO3 37.6 mmol/L (22-26)
--- NOTE | 2017-04-13 11:31 | DR.UPDATE ---
H&P Update History and Physical Update: History and Physical reviewed and patient examined. Changes noted: NO Yes with the following:Agree with H&P. patient too unstable for maddie cath placement so will place PICC line. Procedures (ALL) - Central Line Placement PCM.CLCO: written consent Time out performed: Yes Patient placed pm monitor/pulse ox: Yes MD prep: mask, gown, gloves, other Centrial line prep: chlorhexidine scrub Local anesthsia used: lidocane 1% Ultrasound used for placement: Yes Central line lumen ininserted: double (5Fr power port. trimmed length 47cm with 2cm exposed) Post procedure: good blood return, all ports aspirated, flushed,capped, sterile dressing applied Post procedure xray: tip oc catheter in good position, no pneumothorax seen Patient tolerated procedure: Yes Complications: none
[2017-04-13] MEDS ORDERED: NS IV SCH (14:00)
[2017-04-13] MEDS ORDERED: FORTAZ OR TAZICEF IV SCH (14:00)
[2017-04-13] MEDS: NS 1/2 1000 ML IV 1,000 ML IV SCH ×2 (14:13→22:36)
--- NOTE | 2017-04-13 15:19 | US ---
HISTORY: Renal failure Study: Renal ultrasound Comparison: None Technique: Multiple grayscale and color flow images of bilateral kidneys were obtained. Findings: The right kidney is normal in size and measures 9.2 cm in length by 4.6 cm in height by 6.2 cm in wid th. The right renal cortex is normal in echotexture. Within the mid to inferior pole of the right kid evelin there is a 2.1 cm x 2.1 cm x 2.2 cm renal cyst. No calyceal stones are identified. There is no hy dronephrosis. The left kidney is normal in size and measures 11.5 cm in length by 5.9 cm in height by 5.1 cm in wit h. The left renal cortex is normal in echotexture. No caliceal stones are identified. There is no hyd ronephrosis. IMPRESSION: 1. Right renal cyst. Otherwise, unremarkable renal ultrasound. Reported By:
[2017-04-13] MEDS: MORPHINE SULFATE INJ 2 MG INJ IVP PRN (16:43)
--- NOTE | 2017-04-13 17:34 | CT ---
Abdomen and pelvis CT without contrast: Indication: Renal failure. Comparison: Renal ultrasound dated April 13, 2017. Technique: Noncontrast helical CT imaging of the abdomen and pelvis was performed with continuous tra nsverse reconstructions and multiplanar reformations provided. Findings: Not completely imaged are bilateral pleural effusions with associated atelectasis. The hear t is enlarged. There is a moderate-sized sliding-type hiatal hernia. Moderate severe aortic and iliac vascular calcifications are present. Again noted is the fluid densit y lesion of the right kidney. An additional partially calcified right interpolar renal lesion is pres ent as well. The solid abdominal viscera are otherwise unremarkable, although evaluation is limited b y streak artifact related to the patient's upper extremities. Increased density noted within the gallbladder. There is no biliary dilation or pericholecystic infla mmation. The imaged gastrointestinal tract is unremarkable. The patient is status post prostatectomy. Gas within the urinary bladder is iatrogenic in light of the bladder catheter. No focal lesion or in flammatory change of the urinary bladder is present. No acute skeletal abnormality or worrisome skeletal lesion is seen. Multiple chronic appearing compre ssion fractures are present, and the patient is status post vertebroplasty of L2. Impression: 1. No acute abdominal or pelvic abnormality. No acute kidney or collecting system abnormality to acco unt for the renal failure. 2. Multiple right renal cysts, 1 of which is peripherally calcified. 3. Bilateral pleural effusions and lower lobe atelectasis. Reported By:
[2017-04-13] MEDS: COLACE CAP 100 MG PO SCH (20:33)
[2017-04-13] MEDS: MILK OF MAGNESIA PO SCH (20:33)
--- NOTE | 2017-04-13 20:39 | PCM.PROG ---
Progress Note - Progress Note for Day of Date: 04/12/17 - Subjective Subjective: WAS ADMITTED FOR RESPIRATORY FAILURE, COPD EXACERBATION, CONGESTIVE HEART FAILURE, AND PNEUMONIA. TODAY, HE IS ALERT AND ORIENTED, LYING IN BED ON MORNING ROUNDS. TODAY, HE CONTINUES WITH COMPLAINTS OF SHORTNESS OF BREATH AND COUGH. PATIENT REPORTS THAT SHORTNESS OF BREATH HAS BEEN WORSE TODAY. STAFF ATTEMPTED TO TRANSITION PATIENT TO THE VENTI MASK, HOWEVER, PATIENT DID NOT TOLERATE WELL AND WAS PLACED BACK ON THE BIPAP. ON EXAMINATION, HEART IS REGULAR IN RATE AND RHYTHM. BILATERAL LUNGS CONTINUE WITH SCATTERED WHEEZING AND RHONCHI. ABDOMEN IS ROUND, SOFT, AND NON-TENDER WITH NORMAL BOWEL SOUNDS NOTED IN ALL QUADRANTS. BILATERAL LOWER EXTREMITIES CONTINUE WITH 1+ PITTING EDEMA. HIS VITALS THIS MORNING ARE 98.9-86-28-95%-107/61. LABS WERE OBTAINED. ABNORMAL LAB VALUES INCLUDE THE FOLLOWING: RBC 2.93, HGB 8.9, HCT 26.0 , SODIUM 146, CHLORIDE 108, CARBON DIOXIDE 33.4, BUN 86, CREATININE 2.78, GLUCOSE 122, CALCIUM 8.1, TOTAL PROTEIN 4.8, ALBUMIN 2.4, GLOBULIN 2.4. BLOOD CULTURES REPORT NO GROWTH. CHEST XRAY WAS OBTAINED THIS MORNING AND REPORTED CARDIOMEGALY WITH EDEMA AND TRACE RIGHT PLEURAL EFFUSION. DUE TO ELEVATED BUN/ CREATININE, WE WILL INCREASE IV FLUIDS TO 125ML/HR. OTHERWISE, WE WILL CONTINUE WITH CURRENT PLAN OF CARE TODAY. WE PLAN TO FOLLOW UP WITH AM LABS AND CONTINUE TO MONITOR PATIENT. - Past Medical Family Social History Past Med/Fam/Surg Hx: No changes since H&P Allergies: Allergies No Known Drug Allergies Allergy (Verified 04/08/17 16:44) - Review of Systems ROS: No change since H&P - Vital Signs and I&O's Vital Signs: Temperature 97.7 F Pulse Rate [Apical] 80 Pulse Rate 84 Respiratory Rate 33 Blood Pressure [Right Arm] 103/51 Blood Pressure [Left Arm] 101/57 Blood Pressure 117/74 O2 Sat by Pulse Oximetry 91 Intake and Output: Intake & Output 04/11/17 04/12/17 04/13/17 04/14/17 11:59 11:59 11:59 11:59 Intake Total 2653 2407 1452 840 Output Total 1000 1325 1150 500 Balance 1653 1082 302 340 - Physical Exam Oriented: Normal Eyes: Normal Ear: Normal Nose: Other (nasal congestion ) Throat: Normal Respiratory: Right, Left, Generalized, Wheezes, Rhonchi Cardiovascular: Edema (bilateral lower extremity) : Normal Auscultation: Bowel Sounds: Normal Palpation: Normal Tenderness: Normal Skin: Normal Musculoskeletal: Back:Paraspinous Mood Description: Calm Affect: Normal Speech Pattern: Clear - Laboratory and Diagnostics Result Diagrams: 04/13/17 05:30 04/13/17 05:30 Labs: 04/08/17 17:29 Blood Blood Culture - Final 04/08/17 17:18 Blood Blood Culture - Final Laboratory WBC 8.5 X10^3/uL (3.6-10.0) 04/13/17 05:30 RBC 2.97 X10^6/uL (4.7-6.0) L 04/13/17 05:30 Hgb 9.0 g/dL (13.5-18.0) L 04/13/17 05:30 Hct 26.7 % (42.0-54.0) L 04/13/17 05:30 MCV 89.9 fL (80.0-100.0) 04/13/17 05:30 MCH 30.4 pg (27.0-34.0) 04/13/17 05:30 MCHC 33.8 g/dL (33.0-35.0) 04/13/17 05:30 RDW 18.5 % (11.6-16.5) H 04/13/17 05:30 Plt Count 179 X10^3/uL (150.0-450.0) 04/13/17 05:30 Plt Count Comment Adequate (ADEQUATE) 04/13/17 05:30 MPV 8.5 fL (7.4-11.0) 04/13/17 05:30 Neut % 90.3 % (42.0-75.0) H 04/13/17 05:30 Lymph % 3.2 % (21.0-51.0) L 04/13/17 05:30 [place] % 6.0 % (0.0-13.0) 04/13/17 05:30 Eos % 0.3 % (0.9-2.9) L 04/13/17 05:30 Baso % 0.2 % (0.2-1.0) 04/13/17 05:30 Neut # 7.6 x10^3/uL (2.2-4.8) H 04/13/17 05:30 Lymph # 0.3 X10^3/uL (1.3-2.9) L 04/13/17 05:30 [place] # 0.5 x10^3/uL (0.3-0.8) 04/13/17 05:30 Eos # 0.0 x10^3/uL (0.0-0.2) 04/13/17 05:30 Baso # 0.0 X10^3/uL (0.0-0.1) 04/13/17 05:30 Absolute Nucleated RBC 0.1 /100WBC 04/13/17 05:30 Total Counted 100 04/13/17 05:30 Neutrophils % (Manual) 94 % (39-76) H 04/13/17 05:30 Lymphocytes % (Manual) 3 % (13-43) L 04/13/17 05:30 Monocytes % (Manual) 3 % (4-9) L 04/13/17 05:30 Plt Morphology Comment Normal (NORMAL) 04/13/17 05:30 RBC Morphology Normal (NORMAL) 04/13/17 05:30 Hypochromasia 2+ A 04/12/17 05:19 Microcytosis 2+ A 04/12/17 05:19 Crenated Cell Slight A 04/09/17 05:50 INR Target Range - 04/10/17 08:13 INR 1.38 (0.8-1.3) H 04/10/17 08:13 PTT 29.4 SECONDS (22.9-36.5) 04/09/17 05:50 PTT Comment - 04/09/17 05:50 Sample Site Right radial 04/13/17 10:42 ABG pH 7.420 (7.35-7.45) 04/13/17 10:42 ABG pCO2 58.0 mmHg (35.0-45.0) H* 04/13/17 10:42 ABG pO2 80.0 mmHg (80.0-100.0) 04/13/17 10:42 ABG HCO3 37.6 mmol/L (22-26) H* 04/13/17 10:42 ABG O2 Saturation 96.0 % (90-100) 04/13/17 10:42 ABG Base Excess 11.0 mmol/L (-2.0-2.0) H 04/13/17 10:42 Fabio Test Pos 04/13/17 10:42 A-a Gradient 61.0 mmHg 04/13/17 10:42 FiO2 30.000 04/13/17 10:42 Blood Gas Comments Kati well aw 04/13/17 10:42 Sodium 150 mmol/L (136-145) H* 04/13/17 05:30 Corrected Sodium TNP 04/13/17 05:30 Potassium 3.8 mmol/L (3.5-5.1) 04/13/17 05:30 Chloride 110 mmol/L (98-107) H 04/13/17 05:30 Carbon Dioxide 33.8 mmol/L (21-32) H 04/13/17 05:30 BUN 83 mg/dL (7-18) H 04/13/17 05:30 Creatinine 2.55 mg/dL (0.70-1.30) H 04/13/17 05:30 Est GFR (MDRD) Af Amer 31 (>60) L 04/13/17 05:30 Est GFR (MDRD) Non-Af 26 (>60) L 04/13/17 05:30 Glucose 103 mg/dL (65-99) H 04/13/17 05:30 Lactic Acid 0.8 mmol/L (0.4-2.0) 04/08/17 17:18 Calcium 8.7 mg/dL (8.5-10.1) 04/13/17 05:30 Corrected Calcium 9.7 mg/dL (8.5-10.1) 04/13/17 05:30 Magnesium 2.5 mg/dL (1.7-2.9) 04/09/17 05:50 Total Bilirubin 0.70 mg/dL (0.2-1.0) 04/13/17 05:30 AST 30 Units/L (15-37) 04/13/17 05:30 ALT 44 Units/L (12-78) 04/13/17 05:30 Alkaline Phosphatase 53 Units/L (46-116) 04/13/17 05:30 Creatine Kinase 38 Units/L (39-308) L 04/09/17 05:50 CK-MB (CK-2) 1.9 ng/mL (0-4.0) 04/09/17 05:50 CK/CKMB % Calc 5.0 % (<4) 04/09/17 05:50 Troponin I 0.11 ng/mL (0-1.5) 04/09/17 05:50 C-Reactive Protein 18.00 mg/L (0-3.0) H 04/08/17 17:18 B-Natriuretic Peptide 291 pg/mL (0-79) H 04/08/17 17:18 Total Protein 5.5 g/dL (6.4-8.2) L 04/13/17 05:30 Albumin 2.8 g/dL (3.4-5.0) L 04/13/17 05:30 Globulin 2.7 g/dL (2.5-4.5) 04/13/17 05:30 Albumin/Globulin Ratio 1.0 Ratio (1.1-2.1) L 04/13/17 05:30 Specimen Type Catherized urine 04/08/17 18: Urine Color Yellow (YELLOW) 04/08/17 18: Urine Appearance Clear (CLEAR) 04/08/17 18: Urine pH 5.0 (5.0 - 8.0) 04/08/17 18: Ur Specific [place] 1.015 (1.000-1.030) 04/08/17 18: Urine Protein Negative (NEGATIVE) 04/08/17: Urine Glucose (UA) Negative (NEGATIVE) 04/08/17 18: Urine Ketones Negative (NEGATIVE) 04/08/17: Urine Occult Blood Negative (NEGATIVE) 04/08/17: Urine Nitrite Negative (NEGATIVE) 04/08/17 18: Urine Bilirubin Negative (NEGATIVE) 04/08/17 18: Urine Urobilinogen Normal (NORMAL) 04/08/17 18: Ur Leukocyte Esterase Negative (NEGATIVE) 04/08/17: Urine RBC None seen /HPF (NEGATIVE) 04/08/17 18: Urine WBC None seen /HPF (NEGATIVE) 04/08/17 18:23 Ur Squamous Epith Cells Rare /HPF (NEGATIVE) 04/08/17 18: Amorphous Sediment 1+ /HPF (NEGATIVE) 04/08/17 18: Urine Bacteria Negative /HPF (NEGATIVE) 04/08/17 18:23 Ur Culture Indicated? No/not indicated 04/08/17 18:23 - Plan (1) Respiratory failure with hypercapnia Status: Acute Qualifiers: Chronicity: acute on chronic Qualified Code(s): J96.22 - Acute and chronic respiratory failure with hypercapnia Plan: bipap, respiratory tx, solu-medrol 40mg iv q8h, continue to monitor (2) COPD exacerbation Status: Acute Plan: bipap, respiratory tx, solu-medrol 40mg iv q8h, continue to monitor (3) Pneumonia Status: Acute Qualifiers: Pneumonia type: due to unspecified organism Laterality: right Lung location: lower lobe of lung Qualified Code(s): J18.1 - Lobar pneumonia, unspecified organism Plan: continue azithromycin, continue fortaz, continue supplemental oxygen, respiratory tx, monitor labs and chest xray (4) Congestive heart failure Status: Chronic Qualifiers: Congestive heart failure type: combined Congestive heart failure chronicity : acute on chronic Qualified Code(s): I50.43 - Acute on chronic combined systolic (congestive) and diastolic (congestive) heart failure Plan: continue supplemental oxygen, continue to monitor (5) A-fib Status: Chronic Qualifiers: Atrial fibrillation type: chronic Qualified Code(s): I48.2 - Chronic atrial fibrillation Plan: continue cardizem, continue eliquis, continue to monitor (6) Renal insufficiency Status: Acute Plan: NORMAL SALINE AT 125ML/HR, CONTINUE TO MONITOR
[2017-04-14] MEDS: DUONEB 0.5 MG/3 MG NEB SCH ×6 (01:42→20:59)
[2017-04-14] MEDS: MORPHINE SULFATE INJ 2 MG INJ IVP PRN ×2 (01:55→14:45)
[2017-04-14] MEDS ORDERED: NS 1/2 1000 ML IV 1,000 ML IV ONE (04:22)
[2017-04-14 06:15] LABS: ABG BASE EXCESS 11.4 mmol/L (-2.0-2.0)
[2017-04-14 06:17] LABS: ABG ALLEN TEST POS; ABG HCO3 39.3 mmol/L (22-26)
[2017-04-14 06:28] LABS: BASOPHILS % (AUTO) 0.4 % (0.2-1.0); EOSINOPHILS # (AUTO) 0.1 x10^3/uL (0.0-0.2); EOSINOPHILS % (AUTO) 0.8 % (0.9-2.9); HEMATOCRIT 26.8 % (42.0-54.0); LYMPHOCYTES # (AUTO) 0.3 X10^3/uL (1.3-2.9); LYMPHOCYTES % (AUTO) 3.2 % (21.0-51.0); MEAN CORPUSCULAR HEMOGLOBIN 30.4 pg (27.0-34.0); MEAN CORPUSCULAR HGB CONC 33.6 g/dL (33.0-35.0); MEAN CORPUSCULAR VOLUME 90.4 fL (80.0-100.0); MEAN PLATELET VOLUME 8.9 fL (7.4-11.0); MONOCYTES # (AUTO) 0.5 x10^3/uL (0.3-0.8); MONOCYTES % (AUTO) 5.8 % (0.0-13.0); NEUTROPHILS # (AUTO) 7.7 x10^3/uL (2.2-4.8); NEUTROPHILS % (AUTO) 89.8 % (42.0-75.0); PLATELET COUNT 165 X10^3/uL (150.0-450.0); RED BLOOD COUNT 2.97 X10^6/uL (4.7-6.0); RED CELL DISTRIBUTION WIDTH 18.6 % (11.6-16.5); WHITE BLOOD COUNT 8.5 X10^3/uL (3.6-10.0)
[2017-04-14 07:03] LABS: ALANINE AMINOTRANSFERASE 38 Units/L (12-78); ALBUMIN 2.9 g/dL (3.4-5.0); ALKALINE PHOSPHATASE 49 Units/L (46-116); ASPARTATE AMINO TRANSFERASE 27 Units/L (15-37); BLOOD UREA NITROGEN 71 mg/dL (7-18); CALCIUM 8.3 mg/dL (8.5-10.1); CARBON DIOXIDE 35.4 mmol/L (21-32); CHLORIDE 113 mmol/L (98-107); COR CA(FOR HYPOALB) 9.2 mg/dL (8.5-10.1); CREATININE 2.15 mg/dL (0.70-1.30); TOTAL PROTEIN 5.2 g/dL (6.4-8.2); eGFR BLACK RACES 38 (>60); eGFR NON BLACK RACES 31 (>60)
[2017-04-14 07:09] LABS: SODIUM 153 mmol/L (136-145)
[2017-04-14] MEDS ORDERED: ZOLOFT PO ONE (10:52)
[2017-04-14] MEDS: ALBUMIN HUMAN 25%- 100ML 100 ML IV SCH (10:57)
[2017-04-14] MEDS: ZITHROMAX INJ 500 MG VIAL 250 MG in NS 250 ML IV 250 ML IV SCH (10:57)
[2017-04-14] MEDS: VISTARIL PO PRN (10:58)
[2017-04-14] MEDS: NORCO 5/325 MG TAB PO PRN (10:58)
[2017-04-14] MEDS: HEMOCYTE-PLUS PO SCH (10:58)
[2017-04-14] MEDS: CARDIZEM CD 180 MG PO SCH (10:58)
[2017-04-14] MEDS: ZOLOFT PO SCH (10:59)
[2017-04-14] MEDS: PriLOSEC PO SCH (10:59)
[2017-04-14] MEDS: MULTAQ PO SCH ×2 (11:00→22:53)
[2017-04-14] MEDS: LOPRESSOR TAB 25 MG PO SCH ×2 (11:00→22:52)
[2017-04-14] MEDS: ALFUZOSIN HCL PO SCH (11:02)
[2017-04-14] MEDS: NS 1/2 1000 ML IV 1,000 ML IV SCH (13:35)
[2017-04-14] MEDS ORDERED: DULCOLAX SUPPOSITORY 10 MG RECTAL ONE (14:00)
[2017-04-14] MEDS: FORTAZ or TAZICEF INJ 1 GM in NS 50 ML IV 50 ML IV SCH (14:13)
--- NOTE | 2017-04-14 19:23 | PCM.PROG ---
Progress Note - Progress Note for Day of Date: 04/13/17 - Subjective Subjective: WAS ADMITTED FOR RESPIRATORY FAILURE, COPD EXACERBATION, CONGESTIVE HEART FAILURE, AND PNEUMONIA. TODAY, HE IS LYING IN BED WITH EYES CLOSED. HE AWAKENS AND RESPONDS TO VERBAL STIMULI. TODAY, HE CONTINUES WITH COMPLAINTS OF MODERATE SHORTNESS OF BREATH AND COUGH. HE ALSO REPORTS GENERALIZED WEAKNESS. STAFF ATTEMPTED TO TRANSITION PATIENT TO THE [facility] AGAIN, HOWEVER, PATIENT BECAMED ANXIOUS AND REPORTED THAT HE FELT IF HE COULDNT BREATH. PATIENT WAS PLACED BACK ON THE BIPAP. ON EXAMINATION, HEART IS REGULAR IN RATE AND RHYTHM. BILATERAL LUNGS CONTINUE WITH SCATTERED WHEEZING AND RHONCHI. ABDOMEN IS ROUND, SOFT, AND NON-TENDER WITH NORMAL BOWEL SOUNDS NOTED IN ALL QUADRANTS. BILATERAL LOWER EXTREMITIES CONTINUE WITH 1+ PITTING EDEMA. HIS VITALS THIS MORNING ARE 97.6-84-28-88% [facility] MASK-103/58. LABS WERE OBTAINED. ABNORMAL LAB VALUES INCLUDE THE FOLLOWING: RBRBC 2.97, HCT 9.0, HGB 26.7, SODIUM 150, CHLORIDE 110, CARBON DIOXIDE 33.8, BUN 83, CREATININE 2.55 , GLUCOSE 103, TOTAL PROTEIN 5.5, ALBUMIN 2.8. HIS ABG HAS WORSENED SINCE WE LAST CHECKED IT. TODAY, IT REPORTED PH 7.420, PC02 58, P02 80, HC03 37.6, BASE EXCESS 11.0. TODAYS CHEST XRAY REPORTED CARDIOMEGALY WITH MILD PULMONARY VENOUS CONGESTION. NO CHANGE RIGHT BASILAR LUNG INFILTRATE. WE OBTAINED AN ABD/ PELVIS CT TODAY DUE TO CONTINUED ELEVATED KIDNEY FUNCTION. IT REPORTED MULTIPLE RIGHT RENAL CYST, 1 OF WHICH OS PERIPHERALLY CALCIFIED. BILATERAL PLEURAL EFFUSIONS AND LOWER LOBE ATELECTASIS. RENAL ULTRASOUND, AGAIN, IDENTIFIED A RIGHT RENAL CYST, OTHERWISE UNREMARKABLE. WE WILL CONTINUE WITH CURRENT PLAN OF CARE TODAY. WE PLAN TO FOLLOW UP WITH AM LABS AND CONTINUE TO MONITOR PATIENT. - Past Medical Family Social History Past Med/Fam/Surg Hx: No changes since H&P Allergies: Allergies No Known Drug Allergies Allergy (Verified 04/08/17 16:44) - Review of Systems ROS: No change since H&P - Vital Signs and I&O's Vital Signs: Temperature 98.6 F Pulse Rate [Apical] 98 Pulse Rate 85 Respiratory Rate 24 Blood Pressure [Right Arm] 120/66 Blood Pressure [Left Arm] 101/57 Blood Pressure 117/74 O2 Sat by Pulse Oximetry 93 Intake and Output: Intake & Output 04/12/17 04/13/17 04/14/17 04/15/17 11:59 11:59 11:59 11:59 Intake Total 2407 1452 1895 550 Output Total 1325 1150 1100 700 Balance 1082 302 795 -150 - Physical Exam Oriented: Normal Eyes: Normal Ear: Normal Nose: Other (nasal congestion ) Throat: Normal Respiratory: Right, Left, Generalized, Wheezes, Rhonchi Cardiovascular: Edema (bilateral lower extremity) : Normal Auscultation: Bowel Sounds: Normal Palpation: Normal Tenderness: Normal Skin: Normal Musculoskeletal: Back:Paraspinous Mood Description: Calm Affect: Normal Speech Pattern: Clear - Laboratory and Diagnostics Result Diagrams: 04/14/17 05:39 04/14/17 05:39 Labs: 04/08/17 17:29 Blood Blood Culture - Final 04/08/17 17:18 Blood Blood Culture - Final Laboratory WBC 8.5 X10^3/uL (3.6-10.0) 04/14/17 05:39 RBC 2.97 X10^6/uL (4.7-6.0) L 04/14/17 05:39 Hgb 9.0 g/dL (13.5-18.0) L 04/14/17 05:39 Hct 26.8 % (42.0-54.0) L 04/14/17 05:39 MCV 90.4 fL (80.0-100.0) 04/14/17 05:39 MCH 30.4 pg (27.0-34.0) 04/14/17 05:39 MCHC 33.6 g/dL (33.0-35.0) 04/14/17 05:39 RDW 18.6 % (11.6-16.5) H 04/14/17 05:39 Plt Count 165 X10^3/uL (150.0-450.0) 04/14/17 05:39 Plt Count Comment Adequate (ADEQUATE) 04/13/17 05:30 MPV 8.9 fL (7.4-11.0) 04/14/17 05:39 Neut % 89.8 % (42.0-75.0) H 04/14/17 05:39 Lymph % 3.2 % (21.0-51.0) L 04/14/17 05:39 [place] % 5.8 % (0.0-13.0) 04/14/17 05:39 Eos % 0.8 % (0.9-2.9) L 04/14/17 05:39 Baso % 0.4 % (0.2-1.0) 04/14/17 05:39 Neut # 7.7 x10^3/uL (2.2-4.8) H 04/14/17 05:39 Lymph # 0.3 X10^3/uL (1.3-2.9) L 04/14/17 05:39 [place] # 0.5 x10^3/uL (0.3-0.8) 04/14/17 05:39 Eos # 0.1 x10^3/uL (0.0-0.2) 04/14/17 05:39 Baso # 0.0 X10^3/uL (0.0-0.1) 04/14/17 05:39 Absolute Nucleated RBC 0.1 /100WBC 04/14/17 05:39 Total Counted 100 04/13/17 05:30 Neutrophils % (Manual) 94 % (39-76) H 04/13/17 05:30 Lymphocytes % (Manual) 3 % (13-43) L 04/13/17 05:30 Monocytes % (Manual) 3 % (4-9) L 04/13/17 05:30 Plt Morphology Comment Normal (NORMAL) 04/13/17 05:30 RBC Morphology Normal (NORMAL) 04/13/17 05:30 Hypochromasia 2+ A 04/12/17 05:19 Microcytosis 2+ A 04/12/17 05:19 Crenated Cell Slight A 04/09/17 05:50 INR Target Range - 04/10/17 08:13 INR 1.38 (0.8-1.3) H 04/10/17 08:13 PTT 29.4 SECONDS (22.9-36.5) 04/09/17 05:50 PTT Comment - 04/09/17 05:50 Sample Site Rrad 04/14/17 05:54 ABG pH 7.370 (7.35-7.45) 04/14/17 05:54 ABG pCO2 68.0 mmHg (35.0-45.0) H* 04/14/17 05:54 ABG pO2 74.0 mmHg (80.0-100.0) L 04/14/17 05:54 ABG HCO3 39.3 mmol/L (22-26) H* 04/14/17 05:54 ABG O2 Saturation 94.0 % (90-100) 04/14/17 05:54 ABG Base Excess 11.4 mmol/L (-2.0-2.0) H 04/14/17 05:54 Fabio Test Pos 04/14/17 05:54 A-a Gradient 98.0 mmHg 04/14/17 05:54 FiO2 36.000 04/14/17 05:54 Blood Gas Comments Kati abg well-mtf 04/14/17 05:54 Sodium 153 mmol/L (136-145) H* 04/14/17 05:39 Corrected Sodium TNP 04/14/17 05:39 Potassium 3.7 mmol/L (3.5-5.1) 04/14/17 05:39 Chloride 113 mmol/L (98-107) H 04/14/17 05:39 Carbon Dioxide 35.4 mmol/L (21-32) H 04/14/17 05:39 BUN 71 mg/dL (7-18) H 04/14/17 05:39 Creatinine 2.15 mg/dL (0.70-1.30) H 04/14/17 05:39 Est GFR (MDRD) Af Amer 38 (>60) L 04/14/17 05:39 Est GFR (MDRD) Non-Af 31 (>60) L 04/14/17 05:39 Glucose 89 mg/dL (65-99) 04/14/17 05:39 Lactic Acid 0.8 mmol/L (0.4-2.0) 04/08/17 17:18 Calcium 8.3 mg/dL (8.5-10.1) L 04/14/17 05:39 Corrected Calcium 9.2 mg/dL (8.5-10.1) 04/14/17 05:39 Magnesium 2.5 mg/dL (1.7-2.9) 04/09/17 05:50 Total Bilirubin 0.70 mg/dL (0.2-1.0) 04/14/17 05:39 AST 27 Units/L (15-37) 04/14/17 05:39 ALT 38 Units/L (12-78) 04/14/17 05:39 Alkaline Phosphatase 49 Units/L (46-116) 04/14/17 05:39 Creatine Kinase 38 Units/L (39-308) L 04/09/17 05:50 CK-MB (CK-2) 1.9 ng/mL (0-4.0) 04/09/17 05:50 CK/CKMB % Calc 5.0 % (<4) 04/09/17 05:50 Troponin I 0.11 ng/mL (0-1.5) 04/09/17 05:50 C-Reactive Protein 18.00 mg/L (0-3.0) H 04/08/17 17:18 B-Natriuretic Peptide 291 pg/mL (0-79) H 04/08/17 17:18 Total Protein 5.2 g/dL (6.4-8.2) L 04/14/17 05:39 Albumin 2.9 g/dL (3.4-5.0) L 04/14/17 05:39 Globulin 2.3 g/dL (2.5-4.5) L 04/14/17 05:39 Albumin/Globulin Ratio 1.3 Ratio (1.1-2.1) 04/14/17 05:39 Specimen Type Catherized urine 04/08/17 18:23 Urine Color Yellow (YELLOW) 04/08/17 18:23 Urine Appearance Clear (CLEAR) 04/08/17 18: Urine pH 5.0 (5.0 - 8.0) 04/08/17 18:23 Ur Specific [place] 1.015 (1.000-1.030) 04/08/17 18:23 Urine Protein Negative (NEGATIVE) 04/08/17 18: Urine Glucose (UA) Negative (NEGATIVE) 04/08/17 18: Urine Ketones Negative (NEGATIVE) 04/08/17 18: Urine Occult Blood Negative (NEGATIVE) 04/08/17 18: Urine Nitrite Negative (NEGATIVE) 04/08/17 18: Urine Bilirubin Negative (NEGATIVE) 04/08/17 18: Urine Urobilinogen Normal (NORMAL) 04/08/17 18: Ur Leukocyte Esterase Negative (NEGATIVE) 04/08/17 18:23 Urine RBC None seen /HPF (NEGATIVE) 04/08/17 18:23 Urine WBC None seen /HPF (NEGATIVE) 04/08/17 18:23 Ur Squamous Epith Cells Rare /HPF (NEGATIVE) 04/08/17 18:23 Amorphous Sediment 1+ /HPF (NEGATIVE) 04/08/17 18:23 Urine Bacteria Negative /HPF (NEGATIVE) 04/08/17 18:23 Ur Culture Indicated? No/not indicated 04/08/17 18:23 Stool Description Fob tube 04/14/17 11:55 Stl Occult Blood (IFOB) Positive (NEGATIVE) A 04/14/17 11:55 - Plan (1) Respiratory failure with hypercapnia Status: Acute Qualifiers: Chronicity: acute on chronic Qualified Code(s): J96.22 - Acute and chronic respiratory failure with hypercapnia Plan: bipap, respiratory tx, solu-medrol 40mg iv q8h, continue to monitor (2) COPD exacerbation Status: Acute Plan: bipap, respiratory tx, solu-medrol 40mg iv q8h, continue to monitor (3) Pneumonia Status: Acute Qualifiers: Pneumonia type: due to unspecified organism Laterality: right Lung location: lower lobe of lung Qualified Code(s): J18.1 - Lobar pneumonia, unspecified organism Plan: continue azithromycin, continue fortaz, continue supplemental oxygen, respiratory tx, monitor labs and chest xray (4) Congestive heart failure Status: Chronic Qualifiers: Congestive heart failure type: combined Congestive heart failure chronicity : acute on chronic Qualified Code(s): I50.43 - Acute on chronic combined systolic (congestive) and diastolic (congestive) heart failure Plan: continue supplemental oxygen, continue to monitor (5) A-fib Status: Chronic Qualifiers: Atrial fibrillation type: chronic Qualified Code(s): I48.2 - Chronic atrial fibrillation Plan: continue cardizem, continue eliquis, continue to monitor (6) Renal insufficiency Status: Acute Plan: NORMAL SALINE AT 125ML/HR, CONTINUE TO MONITOR
--- NOTE | 2017-04-14 19:43 | PCM.PROG ---
Progress Note - Progress Note for Day of Date: 04/14/17 - Subjective Subjective: WAS ADMITTED FOR RESPIRATORY FAILURE, COPD EXACERBATION, CONGESTIVE HEART FAILURE, AND PNEUMONIA. HE IS LESS RESPONSIVE TODAY THAN WHAT HE HAS BEEN. STAFF REPORTS THAT HE CONTINUED WITH MODERATE SHORTNESS OF BREATH THROUGHOUT THE NIGHT. WHEN BIPAP IS REMOVED, PATIENTS OXYGEN SATURATIONS ARE DROPPING INTO THE 50S-60S. ON EXAMINATION, HEART IS REGULAR IN RATE AND RHYTHM. BILATERAL LUNGS CONTINUE WITH SCATTERED WHEEZING AND RHONCHI. ABDOMEN IS ROUND, SOFT, AND NON-TENDER WITH NORMAL BOWEL SOUNDS NOTED IN ALL QUADRANTS. BILATERAL LOWER EXTREMITIES CONTINUE WITH 1+ PITTING EDEMA. HIS VITALS THIS MORNING ARE 97.7-80-38-93% BIPAP-124/61. LABS WERE OBTAINED. ABNORMAL LAB VALUES INCLUDE THE FOLLOWING: RBC 2.97, HGB 9.0, HCT 26.8, SODIUM 153, CHLORIDE 113, BUN 71, CREATININE 2.15, CALCIUM 8.3, TOTAL PROTEIN 5.2, ALBUMIN 2.9, GLOBULIN 2.3. HIS ABG TODAY REPORTS PH 7.370, PC02 68, P02 74, HC03 39.3, BASE EXCESS 11.4. STOOL TESTED POSITIVE FOR OCCULT BLOOD. KIDNEY FUNCTION, ALTHOUGH SLIGHTLY DECREASED SINCE YESTERDAY, REMAINS ELEVATED DESPITE IV HYDRATION. WE WILL OBTAIN AN ECHOCARDIOGRAM TODAY. OTHERWISE, WE WILL CONTINUE WITH CURRENT PLAN OF CARE. WE PLAN TO FOLLOW UP WITH AM LABS AND CHEST XRAY AND CONTINUE TO MONITOR PATIENT. - Past Medical Family Social History Past Med/Fam/Surg Hx: No changes since H&P Allergies: Allergies No Known Drug Allergies Allergy (Verified 04/08/17 16:44) - Review of Systems ROS: No change since H&P - Vital Signs and I&O's Vital Signs: Temperature 98.6 F Pulse Rate [Apical] 98 Pulse Rate 85 Respiratory Rate 24 Blood Pressure [Right Arm] 120/66 Blood Pressure [Left Arm] 101/57 Blood Pressure 117/74 O2 Sat by Pulse Oximetry 93 Intake and Output: Intake & Output 04/12/17 04/13/17 04/14/17 04/15/17 11:59 11:59 11:59 11:59 Intake Total 2407 1452 1895 550 Output Total 1325 1150 1100 700 Balance 1082 302 795 -150 - Physical Exam Oriented: Normal Eyes: Normal Ear: Normal Nose: Other (nasal congestion ) Throat: Normal Respiratory: Right, Left, Generalized, Wheezes, Rhonchi Cardiovascular: Edema (bilateral lower extremity) : Normal Auscultation: Bowel Sounds: Normal Palpation: Normal Tenderness: Normal Skin: Normal Musculoskeletal: Back:Paraspinous Mood Description: Calm Affect: Normal Speech Pattern: Clear - Laboratory and Diagnostics Result Diagrams: 04/14/17 05:39 04/14/17 05:39 Labs: 04/08/17 17:29 Blood Blood Culture - Final 04/08/17 17:18 Blood Blood Culture - Final Laboratory WBC 8.5 X10^3/uL (3.6-10.0) 04/14/17 05:39 RBC 2.97 X10^6/uL (4.7-6.0) L 04/14/17 05:39 Hgb 9.0 g/dL (13.5-18.0) L 04/14/17 05:39 Hct 26.8 % (42.0-54.0) L 04/14/17 05:39 MCV 90.4 fL (80.0-100.0) 04/14/17 05:39 MCH 30.4 pg (27.0-34.0) 04/14/17 05:39 MCHC 33.6 g/dL (33.0-35.0) 04/14/17 05:39 RDW 18.6 % (11.6-16.5) H 04/14/17 05:39 Plt Count 165 X10^3/uL (150.0-450.0) 04/14/17 05:39 Plt Count Comment Adequate (ADEQUATE) 04/13/17 05:30 MPV 8.9 fL (7.4-11.0) 04/14/17 05:39 Neut % 89.8 % (42.0-75.0) H 04/14/17 05:39 Lymph % 3.2 % (21.0-51.0) L 04/14/17 05:39 [place] % 5.8 % (0.0-13.0) 04/14/17 05:39 Eos % 0.8 % (0.9-2.9) L 04/14/17 05:39 Baso % 0.4 % (0.2-1.0) 04/14/17 05:39 Neut # 7.7 x10^3/uL (2.2-4.8) H 04/14/17 05:39 Lymph # 0.3 X10^3/uL (1.3-2.9) L 04/14/17 05:39 [place] # 0.5 x10^3/uL (0.3-0.8) 04/14/17 05:39 Eos # 0.1 x10^3/uL (0.0-0.2) 04/14/17 05:39 Baso # 0.0 X10^3/uL (0.0-0.1) 04/14/17 05:39 Absolute Nucleated RBC 0.1 /100WBC 04/14/17 05:39 Total Counted 100 04/13/17 05:30 Neutrophils % (Manual) 94 % (39-76) H 04/13/17 05:30 Lymphocytes % (Manual) 3 % (13-43) L 04/13/17 05:30 Monocytes % (Manual) 3 % (4-9) L 04/13/17 05:30 Plt Morphology Comment Normal (NORMAL) 04/13/17 05:30 RBC Morphology Normal (NORMAL) 04/13/17 05:30 Hypochromasia 2+ A 04/12/17 05:19 Microcytosis 2+ A 04/12/17 05:19 Crenated Cell Slight A 04/09/17 05:50 INR Target Range - 04/10/17 08:13 INR 1.38 (0.8-1.3) H 04/10/17 08:13 PTT 29.4 SECONDS (22.9-36.5) 04/09/17 05:50 PTT Comment - 04/09/17 05:50 Sample Site Rrad 04/14/17 05:54 ABG pH 7.370 (7.35-7.45) 04/14/17 05:54 ABG pCO2 68.0 mmHg (35.0-45.0) H* 04/14/17 05:54 ABG pO2 74.0 mmHg (80.0-100.0) L 04/14/17 05:54 ABG HCO3 39.3 mmol/L (22-26) H* 04/14/17 05:54 ABG O2 Saturation 94.0 % (90-100) 04/14/17 05:54 ABG Base Excess 11.4 mmol/L (-2.0-2.0) H 04/14/17 05:54 Fabio Test Pos 04/14/17 05:54 A-a Gradient 98.0 mmHg 04/14/17 05:54 FiO2 36.000 04/14/17 05:54 Blood Gas Comments Kati abg well-mtf 04/14/17 05:54 Sodium 153 mmol/L (136-145) H* 04/14/17 05:39 Corrected Sodium TNP 04/14/17 05:39 Potassium 3.7 mmol/L (3.5-5.1) 04/14/17 05:39 Chloride 113 mmol/L (98-107) H 04/14/17 05:39 Carbon Dioxide 35.4 mmol/L (21-32) H 04/14/17 05:39 BUN 71 mg/dL (7-18) H 04/14/17 05:39 Creatinine 2.15 mg/dL (0.70-1.30) H 04/14/17 05:39 Est GFR (MDRD) Af Amer 38 (>60) L 04/14/17 05:39 Est GFR (MDRD) Non-Af 31 (>60) L 04/14/17 05:39 Glucose 89 mg/dL (65-99) 04/14/17 05:39 Lactic Acid 0.8 mmol/L (0.4-2.0) 04/08/17 17:18 Calcium 8.3 mg/dL (8.5-10.1) L 04/14/17 05:39 Corrected Calcium 9.2 mg/dL (8.5-10.1) 04/14/17 05:39 Magnesium 2.5 mg/dL (1.7-2.9) 04/09/17 05:50 Total Bilirubin 0.70 mg/dL (0.2-1.0) 04/14/17 05:39 AST 27 Units/L (15-37) 04/14/17 05:39 ALT 38 Units/L (12-78) 04/14/17 05:39 Alkaline Phosphatase 49 Units/L (46-116) 04/14/17 05:39 Creatine Kinase 38 Units/L (39-308) L 04/09/17 05:50 CK-MB (CK-2) 1.9 ng/mL (0-4.0) 04/09/17 05:50 CK/CKMB % Calc 5.0 % (<4) 04/09/17 05:50 Troponin I 0.11 ng/mL (0-1.5) 04/09/17 05:50 C-Reactive Protein 18.00 mg/L (0-3.0) H 04/08/17 17:18 B-Natriuretic Peptide 291 pg/mL (0-79) H 04/08/17 17:18 Total Protein 5.2 g/dL (6.4-8.2) L 04/14/17 05:39 Albumin 2.9 g/dL (3.4-5.0) L 04/14/17 05:39 Globulin 2.3 g/dL (2.5-4.5) L 04/14/17 05:39 Albumin/Globulin Ratio 1.3 Ratio (1.1-2.1) 04/14/17 05:39 Specimen Type Catherized urine 04/08/17 18: Urine Color Yellow (YELLOW) 04/08/17 18: Urine Appearance Clear (CLEAR) 04/08/17 18: Urine pH 5.0 (5.0 - 8.0) 04/08/17 18:23 Ur Specific [place] 1.015 (1.000-1.030) 04/08/17 18: Urine Protein Negative (NEGATIVE) 04/08/17 18: Urine Glucose (UA) Negative (NEGATIVE) 04/08/17 18:23 Urine Ketones Negative (NEGATIVE) 04/08/17 18: Urine Occult Blood Negative (NEGATIVE) 04/08/17 18: Urine Nitrite Negative (NEGATIVE) 04/08/17 18: Urine Bilirubin Negative (NEGATIVE) 04/08/17 18:23 Urine Urobilinogen Normal (NORMAL) 04/08/17 18: Ur Leukocyte Esterase Negative (NEGATIVE) 04/08/17: Urine RBC None seen /HPF (NEGATIVE) 04/08/17 18:23 Urine WBC None seen /HPF (NEGATIVE) 04/08/17 18:23 Ur Squamous Epith Cells Rare /HPF (NEGATIVE) 04/08/17 18: Amorphous Sediment 1+ /HPF (NEGATIVE) 04/08/17 18: Urine Bacteria Negative /HPF (NEGATIVE) 04/08/17 18:23 Ur Culture Indicated? No/not indicated 04/08/17 18:23 Stool Description Fob tube 04/14/17 11:55 Stl Occult Blood (IFOB) Positive (NEGATIVE) A 04/14/17 11:55 - Plan (1) Respiratory failure with hypercapnia Status: Acute Qualifiers: Chronicity: acute on chronic Qualified Code(s): J96.22 - Acute and chronic respiratory failure with hypercapnia Plan: bipap, respiratory tx, solu-medrol 40mg iv q8h, continue to monitor (2) COPD exacerbation Status: Acute Plan: bipap, respiratory tx, solu-medrol 40mg iv q8h, continue to monitor (3) Pneumonia Status: Acute Qualifiers: Pneumonia type: due to unspecified organism Laterality: right Lung location: lower lobe of lung Qualified Code(s): J18.1 - Lobar pneumonia, unspecified organism Plan: continue azithromycin, continue fortaz, continue supplemental oxygen, respiratory tx, monitor labs and chest xray (4) Congestive heart failure Status: Chronic Qualifiers: Congestive heart failure type: combined Congestive heart failure chronicity : acute on chronic Qualified Code(s): I50.43 - Acute on chronic combined systolic (congestive) and diastolic (congestive) heart failure Plan: OBTAIN ECHO, continue supplemental oxygen, continue to monitor (5) A-fib Status: Chronic Qualifiers: Atrial fibrillation type: chronic Qualified Code(s): I48.2 - Chronic atrial fibrillation Plan: continue cardizem, continue eliquis, continue to monitor (6) Renal insufficiency Status: Acute Plan: NORMAL SALINE AT 125ML/HR, CONTINUE TO MONITOR
[2017-04-14] MEDS: COLACE CAP 100 MG PO SCH (22:52)
[2017-04-14] MEDS: MILK OF MAGNESIA PO SCH (22:53)
[2017-04-15] MEDS: DUONEB 0.5 MG/3 MG NEB SCH ×3 (00:59→09:39)
[2017-04-15 06:16] LABS: BASOPHILS # (AUTO) 0.1 X10^3/uL (0.0-0.1); BASOPHILS % (AUTO) 0.5 % (0.2-1.0); EOSINOPHILS % (AUTO) 0.1 % (0.9-2.9); HEMATOCRIT 28.3 % (42.0-54.0); HEMOGLOBIN 9.4 g/dL (13.5-18.0); LYMPHOCYTES # (AUTO) 0.1 X10^3/uL (1.3-2.9); LYMPHOCYTES % (AUTO) 0.9 % (21.0-51.0); MEAN CORPUSCULAR HGB CONC 33.2 g/dL (33.0-35.0); MEAN CORPUSCULAR VOLUME 90.3 fL (80.0-100.0); MEAN PLATELET VOLUME 9.1 fL (7.4-11.0); MONOCYTES % (AUTO) 5.9 % (0.0-13.0); NEUTROPHILS # (AUTO) 15.1 x10^3/uL (2.2-4.8); NEUTROPHILS % (AUTO) 92.6 % (42.0-75.0); PLATELET COUNT 170 X10^3/uL (150.0-450.0); RED BLOOD COUNT 3.13 X10^6/uL (4.7-6.0); RED CELL DISTRIBUTION WIDTH 18.2 % (11.6-16.5); WHITE BLOOD COUNT 16.2 X10^3/uL (3.6-10.0)
--- NOTE | 2017-04-15 06:42 | RAD ---
Examination: AP chest History: SOB Comparison 04/13/2017 Findings: Stable cardiac size and contour. No change in position of PICC. Persistent bibasal infiltra myla or atelectasis with slight interval improvement; diaphragm contours are now partially visualize. No new abnormality is noted. Impression: Persistent bibasal disease with slight improvement in aeration since 2 days earlier. Reported By:
[2017-04-15 06:54] LABS: ALANINE AMINOTRANSFERASE 29 Units/L (12-78); ALBUMIN 2.7 g/dL (3.4-5.0); ALKALINE PHOSPHATASE 109 Units/L (46-116); ASPARTATE AMINO TRANSFERASE 26 Units/L (15-37); BLOOD UREA NITROGEN 64 mg/dL (7-18); CALCIUM 8.1 mg/dL (8.5-10.1); CARBON DIOXIDE 33.6 mmol/L (21-32); COR CA(FOR HYPOALB) 9.1 mg/dL (8.5-10.1); CREATININE 1.98 mg/dL (0.70-1.30); eGFR BLACK RACES 42 (>60); eGFR NON BLACK RACES 35 (>60)
[2017-04-15 07:18] LABS: BAND NEUTROPHILS % 4 % (0-10); PLATELET MORPHOLOGY COMMENT NORMAL (NORMAL)
[2017-04-15 07:19] LABS: CHLORIDE 115 mmol/L (98-107); SODIUM 155 mmol/L (136-145)
[2017-04-15] MEDS ORDERED: ZOLOFT PO ONE (08:38)
[2017-04-15] MEDS: ZITHROMAX INJ 500 MG VIAL 250 MG in NS 250 ML IV 250 ML IV SCH (08:55)
[2017-04-15] MEDS: CARDIZEM CD 180 MG PO SCH ×2 (08:56→12:30)
[2017-04-15] MEDS: MULTAQ PO SCH ×3 (08:56→22:05)
[2017-04-15] MEDS: LOPRESSOR TAB 25 MG PO SCH ×2 (08:56→12:31)
[2017-04-15] MEDS: HEMOCYTE-PLUS PO SCH ×2 (08:56→12:29)
[2017-04-15] MEDS: PriLOSEC PO SCH ×2 (08:56→12:30)
[2017-04-15] MEDS: ZOLOFT PO SCH ×2 (08:57→12:29)
[2017-04-15] MEDS: ALFUZOSIN HCL PO SCH ×2 (08:57→12:30)
[2017-04-15] MEDS: ALBUMIN HUMAN 25%- 100ML 100 ML IV SCH (08:57)
[2017-04-15] MEDS: PROTONIX INJ 40 MG VIAL IVP SCH ×2 (12:28→21:30)
[2017-04-15] MEDS: D5W 1000 ML IV 1,000 ML IV SCH ×2 (12:28→20:58)
[2017-04-15] MEDS: SOLU-Medrol 40 MG VIAL IVP SCH ×3 (12:28→22:06)
[2017-04-15] MEDS: PEPCID 20 MG IV PREMIX* 20 MG/50 ML BAG IV SCH ×2 (12:29→20:58)
[2017-04-15] MEDS: ACCUNEB 1.25 MG NEBULE NEB SCH ×3 (13:16→20:55)
--- NOTE | 2017-04-15 13:44 | PCM.PROG ---
Progress Note - Progress Note for Day of Date: 04/15/17 - Subjective Subjective: WAS ADMITTED FOR RESPIRATORY FAILURE, COPD EXACERBATION, CONGESTIVE HEART FAILURE, AND PNEUMONIA. HE IS LYING IN BED WITH EYES CLOSED ON MORNING ROUNDS. EYES OPEN TO VERBAL STIMULI. PATIENTS DAUGHTERS ARE AT BEDSIDE. HE CONTINUES WITH LABORED BREATHING AND CONTINUES TO UTILIZE THE BIPAP. ON EXAMINATION, HEART IS REGULAR IN RATE AND RHYTHM. BILATERAL LUNGS CONTINUE WITH SCATTERED WHEEZING AND RHONCHI. ABDOMEN IS ROUND, SOFT, AND NON- TENDER WITH NORMAL BOWEL SOUNDS NOTED IN ALL QUADRANTS. BILATERAL LOWER EXTREMITIES CONTINUE WITH 1+ PITTING EDEMA. HIS VITALS THIS MORNING ARE 97.1-87- 24-96% bipap-103/59. LABS WERE OBTAINED. ABNORMAL LAB VALUES INCLUDE THE FOLLOWING: WBC 16.2, RBC 3.13, HGB 9.4, HCT 28.3, SODIUM 155, CHLORIDE 115, CARBON DIOXIDE 33.6, BUN 64, CREATININE 1.98, CALCIUM 8.1, TOTAL BILI 1.30, TOTAL PROTEIN 5.0, ALBUMIN 2.7. TODAYS CHEST XRAY REPORTS PERSISTENT BIBASAL DISEASE WITH SLIGHT IMPROVEMENT IN AERATION SINCE 2 DAYS EARLIER. WE DISCUSSED PATIENTS CONDITION WITH FAMILY AND THEY HAVE DECIDED TO MAKE PATIENT A DNR. TODAY, WE WILL OBTAIN AN ECHOCARDIOGRAM. WE WILL ALSO START SOLUMEDROL 80MG IV Q8H, PEPCID 20MG IV Q12H, PROTONIX 40MG IV BID, AND ALBUTEROL 1.25MG JET NEBS QID. WE WILL ALSO CHANGE IV FLUIDS TO D5W AT 125ML/HR. OTHERWISE, WE WILL CONTINUE WITH CURRENT PLAN OF CARE. WE PLAN TO FOLLOW UP WITH AM LABS AND CHEST XRAY AND CONTINUE TO MONITOR PATIENT. - Past Medical Family Social History Past Med/Fam/Surg Hx: No changes since H&P Allergies: Allergies No Known Drug Allergies Allergy (Verified 04/08/17 16:44) - Review of Systems ROS: No change since H&P - Vital Signs and I&O's Vital Signs: Temperature 97.1 F Pulse Rate [Apical] 90 Pulse Rate 98 Respiratory Rate 28 Blood Pressure [Right Arm] 109/75 Blood Pressure [Left Arm] 101/57 Blood Pressure 117/74 O2 Sat by Pulse Oximetry 98 Intake and Output: Intake & Output 04/13/17 04/14/17 04/15/17 04/16/17 11:59 11:59 11:59 11:59 Intake Total 1182 6125 1610 Output Total 1150 1100 1850 Balance 302 865 -240 - Physical Exam Oriented: Normal Eyes: Normal Ear: Normal Nose: Other (nasal congestion ) Throat: Normal Respiratory: Right, Left, Generalized, Wheezes, Rhonchi Cardiovascular: Edema (bilateral lower extremity) : Normal Auscultation: Bowel Sounds: Normal Palpation: Normal Tenderness: Normal Skin: Normal Musculoskeletal: Back:Paraspinous Mood Description: Calm Affect: Normal Speech Pattern: Clear - Laboratory and Diagnostics Result Diagrams: 04/15/17 05:40 04/15/17 05:40 Labs: 04/08/17 17:29 Blood Blood Culture - Final 04/08/17 17:18 Blood Blood Culture - Final Laboratory WBC 16.2 X10^3/uL (3.6-10.0) H 04/15/17 05:40 RBC 3.13 X10^6/uL (4.7-6.0) L 04/15/17 05:40 Hgb 9.4 g/dL (13.5-18.0) L 04/15/17 05:40 Hct 28.3 % (42.0-54.0) L 04/15/17 05:40 MCV 90.3 fL (80.0-100.0) 04/15/17 05:40 MCH 30.0 pg (27.0-34.0) 04/15/17 05:40 MCHC 33.2 g/dL (33.0-35.0) 04/15/17 05:40 RDW 18.2 % (11.6-16.5) H 04/15/17 05:40 Plt Count 170 X10^3/uL (150.0-450.0) 04/15/17 05:40 Plt Count Comment Adequate (ADEQUATE) 04/15/17 05:40 MPV 9.1 fL (7.4-11.0) 04/15/17 05:40 Neut % 92.6 % (42.0-75.0) H 04/15/17 05:40 Lymph % 0.9 % (21.0-51.0) L 04/15/17 05:40 [place] % 5.9 % (0.0-13.0) 04/15/17 05:40 Eos % 0.1 % (0.9-2.9) L 04/15/17 05:40 Baso % 0.5 % (0.2-1.0) 04/15/17 05:40 Neut # 15.1 x10^3/uL (2.2-4.8) H 04/15/17 05:40 Lymph # 0.1 X10^3/uL (1.3-2.9) L 04/15/17 05:40 [place] # 1.0 x10^3/uL (0.3-0.8) H 04/15/17 05:40 Eos # 0.0 x10^3/uL (0.0-0.2) 04/15/17 05:40 Baso # 0.1 X10^3/uL (0.0-0.1) 04/15/17 05:40 Absolute Nucleated RBC 0.0 /100WBC 04/15/17 05:40 Total Counted 100 04/15/17 05:40 Neutrophils % (Manual) 95 % (39-76) H 04/15/17 05:40 Band Neutrophils % 4 % (0-10) 04/15/17 05:40 Lymphocytes % (Manual) 1 % (13-43) L 04/15/17 05:40 Monocytes % (Manual) 3 % (4-9) L 04/13/17 05:30 Plt Morphology Comment Normal (NORMAL) 04/15/17 05:40 RBC Morphology Normal (NORMAL) 04/15/17 05:40 Hypochromasia 2+ A 04/12/17 05:19 Microcytosis 2+ A 04/12/17 05:19 Crenated Cell Slight A 04/09/17 05:50 INR Target Range - 04/10/17 08:13 INR 1.38 (0.8-1.3) H 04/10/17 08:13 PTT 29.4 SECONDS (22.9-36.5) 04/09/17 05:50 PTT Comment - 04/09/17 05:50 Sample Site Rrad 04/14/17 05:54 ABG pH 7.370 (7.35-7.45) 04/14/17 05:54 ABG pCO2 68.0 mmHg (35.0-45.0) H* 04/14/17 05:54 ABG pO2 74.0 mmHg (80.0-100.0) L 04/14/17 05:54 ABG HCO3 39.3 mmol/L (22-26) H* 04/14/17 05:54 ABG O2 Saturation 94.0 % (90-100) 04/14/17 05:54 ABG Base Excess 11.4 mmol/L (-2.0-2.0) H 04/14/17 05:54 Fabio Test Pos 04/14/17 05:54 A-a Gradient 98.0 mmHg 04/14/17 05:54 FiO2 36.000 04/14/17 05:54 Blood Gas Comments Kati abg well-mtf 04/14/17 05:54 Sodium 155 mmol/L (136-145) H* 04/15/17 05:40 Corrected Sodium TNP 04/15/17 05:40 Potassium 3.6 mmol/L (3.5-5.1) 04/15/17 05:40 Chloride 115 mmol/L (98-107) H* 04/15/17 05:40 Carbon Dioxide 33.6 mmol/L (21-32) H 04/15/17 05:40 BUN 64 mg/dL (7-18) H 04/15/17 05:40 Creatinine 1.98 mg/dL (0.70-1.30) H 04/15/17 05:40 Est GFR (MDRD) Af Amer 42 (>60) L 04/15/17 05:40 Est GFR (MDRD) Non-Af 35 (>60) L 04/15/17 05:40 Glucose 98 mg/dL (65-99) 04/15/17 05:40 Lactic Acid 0.8 mmol/L (0.4-2.0) 04/08/17 17:18 Calcium 8.1 mg/dL (8.5-10.1) L 04/15/17 05:40 Corrected Calcium 9.1 mg/dL (8.5-10.1) 04/15/17 05:40 Magnesium 2.5 mg/dL (1.7-2.9) 04/09/17 05:50 Total Bilirubin 1.30 mg/dL (0.2-1.0) H 04/15/17 05:40 AST 26 Units/L (15-37) 04/15/17 05:40 ALT 29 Units/L (12-78) 04/15/17 05:40 Alkaline Phosphatase 109 Units/L (46-116) 04/15/17 05:40 Creatine Kinase 38 Units/L (39-308) L 04/09/17 05:50 CK-MB (CK-2) 1.9 ng/mL (0-4.0) 04/09/17 05:50 CK/CKMB % Calc 5.0 % (<4) 04/09/17 05:50 Troponin I 0.11 ng/mL (0-1.5) 04/09/17 05:50 C-Reactive Protein 18.00 mg/L (0-3.0) H 04/08/17 17:18 B-Natriuretic Peptide 291 pg/mL (0-79) H 04/08/17 17: Total Protein 5.0 g/dL (6.4-8.2) L 04/15/17 05:40 Albumin 2.7 g/dL (3.4-5.0) L 04/15/17 05:40 Globulin 2.3 g/dL (2.5-4.5) L 04/15/17 05:40 Albumin/Globulin Ratio 1.2 Ratio (1.1-2.1) 04/15/17 05:40 Specimen Type Catherized urine 04/08/17 18: Urine Color Yellow (YELLOW) 04/08/17 18: Urine Appearance Clear (CLEAR) 04/08/17 18: Urine pH 5.0 (5.0 - 8.0) 04/08/17 18:23 Ur Specific [place] 1.015 (1.000-1.030) 04/08/17 18: Urine Protein Negative (NEGATIVE) 04/08/17 18: Urine Glucose (UA) Negative (NEGATIVE) 04/08/17 18: Urine Ketones Negative (NEGATIVE) 04/08/17 18: Urine Occult Blood Negative (NEGATIVE) 04/08/17 Urine Nitrite Negative (NEGATIVE) 04/08/17 18: Urine Bilirubin Negative (NEGATIVE) 04/08/17 18: Urine Urobilinogen Normal (NORMAL) 04/08/17 18: Ur Leukocyte Esterase Negative (NEGATIVE) 04/08/17 18: Urine RBC None seen /HPF (NEGATIVE) 04/08/17 18:23 Urine WBC None seen /HPF (NEGATIVE) 04/08/17 18:23 Ur Squamous Epith Cells Rare /HPF (NEGATIVE) 04/08/17 18:23 Amorphous Sediment 1+ /HPF (NEGATIVE) 04/08/17 18:23 Urine Bacteria Negative /HPF (NEGATIVE) 04/08/17 18:23 Ur Culture Indicated? No/not indicated 04/08/17 18:23 Stool Description Fob tube 04/14/17 11:55 Stl Occult Blood (IFOB) Positive (NEGATIVE) A 04/14/17 11:55 - Plan (1) Respiratory failure with hypercapnia Status: Acute Qualifiers: Chronicity: acute on chronic Qualified Code(s): J96.22 - Acute and chronic respiratory failure with hypercapnia Plan: bipap, albuterol 1.25mg jet nebs qid, solu-medrol 80mg iv q8h, continue to monitor (2) COPD exacerbation Status: Acute Plan: bipap, respiratory tx, solu-medrol 40mg iv q8h, continue to monitor (3) Pneumonia Status: Acute Qualifiers: Pneumonia type: due to unspecified organism Laterality: right Lung location: lower lobe of lung Qualified Code(s): J18.1 - Lobar pneumonia, unspecified organism Plan: continue azithromycin, continue fortaz, continue supplemental oxygen, respiratory tx, monitor labs and chest xray (4) Congestive heart failure Status: Chronic Qualifiers: Congestive heart failure type: combined Congestive heart failure chronicity : acute on chronic Qualified Code(s): I50.43 - Acute on chronic combined systolic (congestive) and diastolic (congestive) heart failure Plan: OBTAIN ECHO, continue supplemental oxygen, continue to monitor (5) A-fib Status: Chronic Qualifiers: Atrial fibrillation type: chronic Qualified Code(s): I48.2 - Chronic atrial fibrillation Plan: continue cardizem, continue eliquis, continue to monitor (6) Renal insufficiency Status: Acute Plan: D5W 125ML/HR, CONTINUE TO MONITOR
[2017-04-15] MEDS: FORTAZ or TAZICEF INJ 1 GM in NS 50 ML IV 50 ML IV SCH (14:56)
[2017-04-15] MEDS: BUTT CREAM (COMPOUND) TOP PRN (21:31)
[2017-04-15] MEDS: COLACE CAP 100 MG PO SCH (22:04)
[2017-04-15] MEDS: MILK OF MAGNESIA PO SCH (22:05)
[2017-04-16] MEDS: BUTT CREAM (COMPOUND) TOP PRN (00:14)
[2017-04-16] MEDS: D5W 1000 ML IV 1,000 ML IV SCH ×2 (04:45→16:09)
[2017-04-16 05:58] LABS: BASOPHILS % (AUTO) 0.4 % (0.2-1.0); EOSINOPHILS % (AUTO) 0.1 % (0.9-2.9); HEMATOCRIT 25.5 % (42.0-54.0); HEMOGLOBIN 8.4 g/dL (13.5-18.0); LYMPHOCYTES # (AUTO) 0.1 X10^3/uL (1.3-2.9); LYMPHOCYTES % (AUTO) 0.5 % (21.0-51.0); MEAN CORPUSCULAR HGB CONC 32.9 g/dL (33.0-35.0); MEAN PLATELET VOLUME 9.6 fL (7.4-11.0); MONOCYTES # (AUTO) 0.2 x10^3/uL (0.3-0.8); MONOCYTES % (AUTO) 1.7 % (0.0-13.0); NEUTROPHILS % (AUTO) 97.3 % (42.0-75.0); PLATELET COUNT 159 X10^3/uL (150.0-450.0); RED CELL DISTRIBUTION WIDTH 18.7 % (11.6-16.5); WHITE BLOOD COUNT 13.4 X10^3/uL (3.6-10.0)
[2017-04-16] MEDS: SOLU-Medrol 40 MG VIAL IVP SCH ×3 (06:20→21:30)
[2017-04-16 06:21] LABS: ALBUMIN 2.7 g/dL (3.4-5.0); CALCIUM 7.6 mg/dL (8.5-10.1); CARBON DIOXIDE 30.7 mmol/L (21-32); COR CA(FOR HYPOALB) 8.6 mg/dL (8.5-10.1); CREATININE 2.14 mg/dL (0.70-1.30); TOTAL PROTEIN 4.9 g/dL (6.4-8.2)
[2017-04-16 06:32] LABS: PLATELET MORPHOLOGY COMMENT NORMAL (NORMAL)
--- NOTE | 2017-04-16 06:53 | RAD ---
Examination: Portable AP chest History: SOB Comparison 04/15/2017 Findings: Stable heart size with vascular congestion. Persistent bilateral lower lobe densities consi stent with pneumonia or atelectasis. No change in position of PICC. Impression: No change since 1 day earlier. Reported By:
[2017-04-16] MEDS: ZITHROMAX INJ 500 MG VIAL 250 MG in NS 250 ML IV 250 ML IV SCH (08:27)
[2017-04-16] MEDS: PROTONIX INJ 40 MG VIAL IVP SCH ×2 (08:27→21:48)
[2017-04-16] MEDS: ACCUNEB 1.25 MG NEBULE NEB SCH ×4 (09:00→21:35)
[2017-04-16] MEDS: ALBUMIN HUMAN 25%- 100ML 100 ML IV SCH (10:57)
[2017-04-16] MEDS: PEPCID 20 MG IV PREMIX* 20 MG/50 ML BAG IV SCH ×2 (10:57→21:48)
[2017-04-16] MEDS: CARDIZEM CD 180 MG PO SCH (14:01)
[2017-04-16] MEDS: MORPHINE SULFATE INJ 2 MG INJ IVP PRN ×3 (14:03→20:39)
[2017-04-16] MEDS: ZOLOFT PO SCH (14:15)
[2017-04-16] MEDS: MULTAQ PO SCH ×2 (14:15→21:47)
[2017-04-16] MEDS: HEMOCYTE-PLUS PO SCH (14:15)
[2017-04-16] MEDS: ALFUZOSIN HCL PO SCH (14:15)
[2017-04-16] MEDS: FORTAZ or TAZICEF INJ 1 GM in NS 50 ML IV 50 ML IV SCH (14:47)
--- NOTE | 2017-04-16 21:34 | PCM.PROG ---
Progress Note - Progress Note for Day of Date: 04/16/17 - Subjective Subjective: WAS ADMITTED FOR RESPIRATORY FAILURE, COPD EXACERBATION, CONGESTIVE HEART FAILURE, AND PNEUMONIA. HE IS LYING IN BED WITH EYES CLOSED ON MORNING ROUNDS. EYES OPEN TO VERBAL STIMULI. HE SEEMS SOMEWHAT MORE RESPONSIVE TODAY THAN HE HAS BEEN. ON EXAMINATION, HEART IS REGULAR IN RATE AND RHYTHM. BILATERAL LUNGS CONTINUE WITH SCATTERED WHEEZING AND RHONCHI. HE CONTINUES TO UTILIZED THE BIPAP THIS MORNING. ABDOMEN IS ROUND, SOFT, AND NON-TENDER WITH NORMAL BOWEL SOUNDS NOTED IN ALL QUADRANTS. BILATERAL LOWER EXTREMITIES CONTINUE WITH 1+ PITTING EDEMA. HIS VITALS THIS MORNING ARE 97.4-93-20-90% BIPAP -145/69. LABS WERE OBTAINED. ABNORMAL LAB VALUES INCLUDE THE FOLLOWING: WBC 13.4 , RBC 2.80, HGB 8.4, HCT 25.5, POTASSIUM 3.1, BUN 61, CREATININE 2.14, GLUCOSE 433, CALCIUM 7.6, TOTAL PROTEIN 4.9, ALBUMIN 2.7, GLOBULIN 2.2. TODAYS CHEST XRAY REPORTS PERSISTENT BILATERAL LOWER LOBE DENSITIES CONSISTENT WITH PNEUMONIA OR ATELECTASIS. WE OBTAINED AN ECHOCARDIOGRAM YESTERDAY. EXAM WAS LIMITED DUE TO POOR ACOUSTIC WINDOWS. EJECTION FRACTION WAS 63%. TODAY, WE WILL AGAIN, ATTEMPT TO WEAN PAITENT OFF OF THE BIPAP AND TRANSITION TO THE VENTIMASK. OTHERWISE, WE WILL CONTINUE WITH CURRENT PLAN OF CARE. WE PLAN TO FOLLOW UP WITH AM LABS AND CHEST XRAY AND CONTINUE TO MONITOR PATIENT. - Past Medical Family Social History Past Med/Fam/Surg Hx: No changes since H&P Allergies: Allergies No Known Drug Allergies Allergy (Verified 04/08/17 16:44) - Review of Systems ROS: No change since H&P - Vital Signs and I&O's Vital Signs: Temperature 98.7 F Pulse Rate [Apical] 90 Pulse Rate 101 Respiratory Rate 24 Blood Pressure [Right Arm] 129/62 Blood Pressure [Left Arm] 101/57 Blood Pressure 117/74 O2 Sat by Pulse Oximetry 99 Intake and Output: Intake & Output 04/14/17 04/15/17 04/16/17 04/17/17 11:59 11:59 11:59 11:59 Intake Total 1895 1610 2586 1139 Output Total 1100 1850 1100 200 Balance 795 -240 1486 939 - Physical Exam Oriented: Normal Eyes: Normal Ear: Normal Nose: Other (nasal congestion ) Throat: Normal Respiratory: Right, Left, Generalized, Wheezes, Rhonchi Cardiovascular: Edema (bilateral lower extremity) : Normal Auscultation: Bowel Sounds: Normal Palpation: Normal Tenderness: Normal Skin: Normal Musculoskeletal: Back:Paraspinous Mood Description: Calm Affect: Normal Speech Pattern: Clear - Laboratory and Diagnostics Result Diagrams: 04/16/17 05:36 04/16/17 05:36 Labs: 04/08/17 17:29 Blood Blood Culture - Final 04/08/17 17:18 Blood Blood Culture - Final Laboratory WBC 13.4 X10^3/uL (3.6-10.0) H 04/16/17 05:36 RBC 2.80 X10^6/uL (4.7-6.0) L 04/16/17 05:36 Hgb 8.4 g/dL (13.5-18.0) L 04/16/17 05:36 Hct 25.5 % (42.0-54.0) L 04/16/17 05:36 MCV 91.0 fL (80.0-100.0) 04/16/17 05:36 MCH 30.0 pg (27.0-34.0) 04/16/17 05:36 MCHC 32.9 g/dL (33.0-35.0) L 04/16/17 05:36 RDW 18.7 % (11.6-16.5) H 04/16/17 05:36 Plt Count 159 X10^3/uL (150.0-450.0) 04/16/17 05:36 Plt Count Comment Adequate (ADEQUATE) 04/16/17 05:36 MPV 9.6 fL (7.4-11.0) 04/16/17 05:36 Neut % 97.3 % (42.0-75.0) H 04/16/17 05:36 Lymph % 0.5 % (21.0-51.0) L 04/16/17 05:36 [place] % 1.7 % (0.0-13.0) 04/16/17 05:36 Eos % 0.1 % (0.9-2.9) L 04/16/17 05:36 Baso % 0.4 % (0.2-1.0) 04/16/17 05:36 Neut # 13.0 x10^3/uL (2.2-4.8) H 04/16/17 05:36 Lymph # 0.1 X10^3/uL (1.3-2.9) L 04/16/17 05:36 [place] # 0.2 x10^3/uL (0.3-0.8) L 04/16/17 05:36 Eos # 0.0 x10^3/uL (0.0-0.2) 04/16/17 05:36 Baso # 0.0 X10^3/uL (0.0-0.1) 04/16/17 05:36 Absolute Nucleated RBC 0.0 /100WBC 04/16/17 05:36 Total Counted 100 04/16/17 05:36 Neutrophils % (Manual) 98 % (39-76) H 04/16/17 05:36 Band Neutrophils % 4 % (0-10) 04/15/17 05:40 Lymphocytes % (Manual) 2 % (13-43) L 04/16/17 05:36 Monocytes % (Manual) 3 % (4-9) L 04/13/17 05:30 Plt Morphology Comment Normal (NORMAL) 04/16/17 05:36 RBC Morphology Normal (NORMAL) 04/16/17 05:36 Hypochromasia 2+ A 04/12/17 05:19 Microcytosis 2+ A 04/12/17 05:19 Crenated Cell Slight A 04/09/17 05:50 INR Target Range - 04/10/17 08:13 INR 1.38 (0.8-1.3) H 04/10/17 08:13 PTT 29.4 SECONDS (22.9-36.5) 04/09/17 05:50 PTT Comment - 04/09/17 05:50 Sample Site Rrad 04/14/17 05:54 ABG pH 7.370 (7.35-7.45) 04/14/17 05:54 ABG pCO2 68.0 mmHg (35.0-45.0) H* 04/14/17 05:54 ABG pO2 74.0 mmHg (80.0-100.0) L 04/14/17 05:54 ABG HCO3 39.3 mmol/L (22-26) H* 04/14/17 05:54 ABG O2 Saturation 94.0 % (90-100) 04/14/17 05:54 ABG Base Excess 11.4 mmol/L (-2.0-2.0) H 04/14/17 05:54 Fabio Test Pos 04/14/17 05:54 A-a Gradient 98.0 mmHg 04/14/17 05:54 FiO2 36.000 04/14/17 05:54 Blood Gas Comments Kati abg well-mtf 04/14/17 05:54 Sodium 141 mmol/L (136-145) 04/16/17 05:36 Corrected Sodium 149 mmol/L (136-145) H 04/16/17 05:36 Potassium 3.1 mmol/L (3.5-5.1) L 04/16/17 05:36 Chloride 104 mmol/L (98-107) 04/16/17 05:36 Carbon Dioxide 30.7 mmol/L (21-32) 04/16/17 05:36 BUN 61 mg/dL (7-18) H 04/16/17 05:36 Creatinine 2.14 mg/dL (0.70-1.30) H 04/16/17 05:36 Est GFR (MDRD) Af Amer 38 (>60) L 04/16/17 05:36 Est GFR (MDRD) Non-Af 32 (>60) L 04/16/17 05:36 Glucose 433 mg/dL (65-99) H 04/16/17 05:36 Lactic Acid 0.8 mmol/L (0.4-2.0) 04/08/17 17:18 Calcium 7.6 mg/dL (8.5-10.1) L 04/16/17 05:36 Corrected Calcium 8.6 mg/dL (8.5-10.1) 04/16/17 05:36 Magnesium 2.5 mg/dL (1.7-2.9) 04/09/17 05:50 Total Bilirubin 0.80 mg/dL (0.2-1.0) 04/16/17 05:36 AST 19 Units/L (15-37) 04/16/17 05:36 ALT 26 Units/L (12-78) 04/16/17 05:36 Alkaline Phosphatase 81 Units/L (46-116) 04/16/17 05:36 Creatine Kinase 38 Units/L (39-308) L 04/09/17 05:50 CK-MB (CK-2) 1.9 ng/mL (0-4.0) 04/09/17 05:50 CK/CKMB % Calc 5.0 % (<4) 04/09/17 05:50 Troponin I 0.11 ng/mL (0-1.5) 04/09/17 05:50 C-Reactive Protein 18.00 mg/L (0-3.0) H 04/08/17 17:18 B-Natriuretic Peptide 291 pg/mL (0-79) H 04/08/17 17:18 Total Protein 4.9 g/dL (6.4-8.2) L 04/16/17 05:36 Albumin 2.7 g/dL (3.4-5.0) L 04/16/17 05:36 Globulin 2.2 g/dL (2.5-4.5) L 04/16/17 05:36 Albumin/Globulin Ratio 1.2 Ratio (1.1-2.1) 04/16/17 05:36 Specimen Type Catherized urine 04/08/17 18:23 Urine Color Yellow (YELLOW) 04/08/17 18: Urine Appearance Clear (CLEAR) 04/08/17: Urine pH 5.0 (5.0 - 8.0) 04/08/17 18:23 Ur Specific [place] 1.015 (1.000-1.030) 04/08/17 18:23 Urine Protein Negative (NEGATIVE) 04/08/17 18: Urine Glucose (UA) Negative (NEGATIVE) 04/08/17 18: Urine Ketones Negative (NEGATIVE) 04/08/17 18: Urine Occult Blood Negative (NEGATIVE) 04/08/17 18: Urine Nitrite Negative (NEGATIVE) 04/08/17 18: Urine Bilirubin Negative (NEGATIVE) 04/08/17 18: Urine Urobilinogen Normal (NORMAL) 04/08/17 18:23 Ur Leukocyte Esterase Negative (NEGATIVE) 04/08/17 18:23 Urine RBC None seen /HPF (NEGATIVE) 04/08/17 18:23 Urine WBC None seen /HPF (NEGATIVE) 04/08/17 18:23 Ur Squamous Epith Cells Rare /HPF (NEGATIVE) 04/08/17 18:23 Amorphous Sediment 1+ /HPF (NEGATIVE) 04/08/17 18:23 Urine Bacteria Negative /HPF (NEGATIVE) 04/08/17 18:23 Ur Culture Indicated? No/not indicated 04/08/17 18:23 Stool Description Fob tube 04/14/17 11:55 Stl Occult Blood (IFOB) Positive (NEGATIVE) A 04/14/17 11:55 - Plan (1) Respiratory failure with hypercapnia Status: Acute Qualifiers: Chronicity: acute on chronic Qualified Code(s): J96.22 - Acute and chronic respiratory failure with hypercapnia Plan: bipap, albuterol 1.25mg jet nebs qid, solu-medrol 80mg iv q8h, continue to monitor (2) COPD exacerbation Status: Acute Plan: bipap, respiratory tx, solu-medrol 80mg iv q8h, continue to monitor (3) Pneumonia Status: Acute Qualifiers: Pneumonia type: due to unspecified organism Laterality: right Lung location: lower lobe of lung Qualified Code(s): J18.1 - Lobar pneumonia, unspecified organism Plan: continue azithromycin, continue fortaz, continue supplemental oxygen, respiratory tx, monitor labs and chest xray (4) Congestive heart failure Status: Chronic Qualifiers: Congestive heart failure type: combined Congestive heart failure chronicity : acute on chronic Qualified Code(s): I50.43 - Acute on chronic combined systolic (congestive) and diastolic (congestive) heart failure Plan: OBTAIN ECHO, continue supplemental oxygen, continue to monitor (5) A-fib Status: Chronic Qualifiers: Atrial fibrillation type: chronic Qualified Code(s): I48.2 - Chronic atrial fibrillation Plan: continue cardizem, continue eliquis, continue to monitor (6) Renal insufficiency Status: Acute Plan: D5W 125ML/HR, CONTINUE TO MONITOR
[2017-04-16] MEDS: COLACE CAP 100 MG PO SCH (21:46)
[2017-04-16] MEDS: MILK OF MAGNESIA PO SCH (21:47)
[2017-04-17] MEDS: D5W 1000 ML IV 1,000 ML IV SCH (05:06)
[2017-04-17] MEDS: SOLU-Medrol 40 MG VIAL IVP SCH ×3 (05:06→21:33)
[2017-04-17 06:26] LABS: ABG BASE EXCESS 9.8 mmol/L (-2.0-2.0)
[2017-04-17 06:27] LABS: ABG ALLEN TEST POS; ABG HCO3 36.9 mmol/L (22-26)
[2017-04-17 06:31] LABS: CALCIUM 8.2 mg/dL (8.5-10.1); CARBON DIOXIDE 33.9 mmol/L (21-32); CREATININE 2.35 mg/dL (0.70-1.30); TOTAL PROTEIN 5.1 g/dL (6.4-8.2)
[2017-04-17 06:38] LABS: BASOPHILS % (AUTO) 0.3 % (0.2-1.0); HEMATOCRIT 24.8 % (42.0-54.0); HEMOGLOBIN 8.3 g/dL (13.5-18.0); LYMPHOCYTES # (AUTO) 0.1 X10^3/uL (1.3-2.9); LYMPHOCYTES % (AUTO) 0.9 % (21.0-51.0); MEAN CORPUSCULAR HEMOGLOBIN 30.1 pg (27.0-34.0); MEAN CORPUSCULAR HGB CONC 33.5 g/dL (33.0-35.0); MEAN CORPUSCULAR VOLUME 89.8 fL (80.0-100.0); MEAN PLATELET VOLUME 9.4 fL (7.4-11.0); MONOCYTES # (AUTO) 0.3 x10^3/uL (0.3-0.8); MONOCYTES % (AUTO) 2.4 % (0.0-13.0); NEUTROPHILS # (AUTO) 12.9 x10^3/uL (2.2-4.8); NEUTROPHILS % (AUTO) 96.4 % (42.0-75.0); PLATELET COUNT 173 X10^3/uL (150.0-450.0); RED BLOOD COUNT 2.77 X10^6/uL (4.7-6.0); RED CELL DISTRIBUTION WIDTH 18.8 % (11.6-16.5); WHITE BLOOD COUNT 13.4 X10^3/uL (3.6-10.0)
[2017-04-17 07:30] LABS: BAND NEUTROPHILS % 3 % (0-10)
[2017-04-17 07:31] LABS: PLATELET MORPHOLOGY COMMENT NORMAL (NORMAL)
--- NOTE | 2017-04-17 07:37 | RAD ---
HISTORY: Shortness of breath, hypertension, COPD, asthma, CHF, prostate cancer. Study: Single-view chest, done portably Comparison: 04/16/2017. Findings: Cardiac monitoring electrodes are noted on the chest. Left-sided PICC line is present with the tip in the lower SVC. Trachea is midline. There is cardiomegaly with aortic uncoiling and pulmonary vascula r congestion. Bibasilar foci of edema, infiltrate and/or pleural effusion appear to have increased co mpared to prior studies. There is a healed fracture of the right mid clavicle. No acute osseous abnor malities are seen. IMPRESSION: Cardiomegaly with pulmonary vascular congestion. Increasing bibasilar foci of edema, infiltrate and/or pleural fluid. Reported By:
[2017-04-17] MEDS: MORPHINE SULFATE INJ 2 MG INJ IVP PRN ×2 (08:56→16:57)
[2017-04-17] MEDS: ALBUMIN HUMAN 25%- 100ML 100 ML IV SCH (09:02)
[2017-04-17] MEDS: PEPCID 20 MG IV PREMIX* 20 MG/50 ML BAG IV SCH ×2 (09:04→21:33)
[2017-04-17] MEDS: ALFUZOSIN HCL PO SCH (09:05)
[2017-04-17] MEDS: MULTAQ PO SCH ×2 (09:06→20:27)
[2017-04-17] MEDS: ZOLOFT PO SCH (09:06)
[2017-04-17] MEDS: HEMOCYTE-PLUS PO SCH (09:06)
[2017-04-17] MEDS: PROTONIX INJ 40 MG VIAL IVP SCH ×2 (09:07→21:33)
[2017-04-17] MEDS: ZITHROMAX INJ 500 MG VIAL 250 MG in NS 250 ML IV 250 ML IV SCH (09:19)
[2017-04-17] MEDS: CARDIZEM CD 180 MG PO SCH (09:20)
[2017-04-17] MEDS: ACCUNEB 1.25 MG NEBULE NEB SCH ×4 (09:31→21:45)
[2017-04-17] MEDS ORDERED: AMINOPHYLLINE INJ 1,000 MG in DEXTROSE 5% 460 ML IV PRN (09:47)
[2017-04-17] MEDS: D5W IV PRN (11:16)
[2017-04-17] MEDS: AMINOPHYLLINE IV PRN (11:16)
[2017-04-17] MEDS: FORTAZ or TAZICEF INJ 1 GM in NS 50 ML IV 50 ML IV SCH (15:10)
[2017-04-17] MEDS: COLACE CAP 100 MG PO SCH ×2 (20:25→20:27)
[2017-04-17] MEDS: MILK OF MAGNESIA PO SCH (20:27)
[2017-04-18] MEDS: D5W 1000 ML IV 1,000 ML IV SCH ×4 (05:09→20:29)
[2017-04-18] MEDS: SOLU-Medrol 40 MG VIAL IVP SCH (05:14)
[2017-04-18] MEDS: MORPHINE SULFATE INJ 2 MG INJ IVP PRN ×3 (05:14→18:21)
[2017-04-18 06:12] LABS: BASOPHILS % (AUTO) 0.2 % (0.2-1.0); HEMATOCRIT 25.8 % (42.0-54.0); HEMOGLOBIN 8.5 g/dL (13.5-18.0); LYMPHOCYTES # (AUTO) 0.1 X10^3/uL (1.3-2.9); LYMPHOCYTES % (AUTO) 0.8 % (21.0-51.0); MEAN CORPUSCULAR HEMOGLOBIN 29.7 pg (27.0-34.0); MEAN CORPUSCULAR HGB CONC 33.1 g/dL (33.0-35.0); MEAN CORPUSCULAR VOLUME 89.6 fL (80.0-100.0); MEAN PLATELET VOLUME 9.4 fL (7.4-11.0); MONOCYTES # (AUTO) 0.3 x10^3/uL (0.3-0.8); MONOCYTES % (AUTO) 2.5 % (0.0-13.0); NEUTROPHILS # (AUTO) 12.9 x10^3/uL (2.2-4.8); NEUTROPHILS % (AUTO) 96.5 % (42.0-75.0); PLATELET COUNT 187 X10^3/uL (150.0-450.0); RED BLOOD COUNT 2.88 X10^6/uL (4.7-6.0); RED CELL DISTRIBUTION WIDTH 17.9 % (11.6-16.5); WHITE BLOOD COUNT 13.4 X10^3/uL (3.6-10.0)
[2017-04-18 06:34] LABS: ALBUMIN 3.3 g/dL (3.4-5.0); CALCIUM 8.8 mg/dL (8.5-10.1); CARBON DIOXIDE 31.9 mmol/L (21-32); COR CA(FOR HYPOALB) 9.4 mg/dL (8.5-10.1); CREATININE 2.32 mg/dL (0.70-1.30); TOTAL PROTEIN 5.4 g/dL (6.4-8.2)
[2017-04-18 06:59] LABS: BAND NEUTROPHILS % 2 % (0-10); PLATELET MORPHOLOGY COMMENT NORMAL (NORMAL); POIKILOCYTOSIS SLIGHT
[2017-04-18 07:00] LABS: ANISOCYTOSIS SLIGHT
--- NOTE | 2017-04-18 07:41 | RAD ---
Examination: Portable AP chest History: SOB, CHF, hypertension and AFib Comparison 04/17/2017 Findings: Persistent cardiac enlargement and central pulmonary vascular distention. Bibasal densities again noted consistent with airspace disease and/or pleural fluid. No complicating pneumothorax. Sta ble position of left upper extremity PICC terminating at the right atrium. Impression: No significant change since 1 day earlier. Reported By:
[2017-04-18] MEDS ORDERED: ZOLOFT PO ONE ×2 (08:54→11:13)
[2017-04-18] MEDS: ACCUNEB 1.25 MG NEBULE NEB SCH ×4 (09:26→21:37)
[2017-04-18] MEDS: ALBUMIN HUMAN 25%- 100ML 100 ML IV SCH (10:01)
[2017-04-18] MEDS: PEPCID 20 MG IV PREMIX* 20 MG/50 ML BAG IV SCH ×2 (10:03→22:00)
[2017-04-18] MEDS: PROTONIX INJ 40 MG VIAL IVP SCH ×2 (10:04→22:00)
[2017-04-18] MEDS: ALFUZOSIN HCL PO SCH (10:20)
[2017-04-18] MEDS: HEMOCYTE-PLUS PO SCH ×2 (10:20→11:38)
[2017-04-18] MEDS: MULTAQ PO SCH ×3 (10:20→20:30)
[2017-04-18] MEDS: CARDIZEM CD 180 MG PO SCH ×2 (10:20→11:11)
[2017-04-18] MEDS: ZOLOFT PO SCH ×2 (10:21→11:36)
[2017-04-18] MEDS: FORTAZ or TAZICEF INJ 1 GM in NS 50 ML IV 50 ML IV SCH (14:59)
[2017-04-18] MEDS: MILK OF MAGNESIA PO SCH (20:30)
[2017-04-18] MEDS: COLACE CAP 100 MG PO SCH (20:30)
[2017-04-19] MEDS: D5W 1000 ML IV 1,000 ML IV SCH ×4 (03:11→20:43)
[2017-04-19 06:14] LABS: BASOPHILS % (AUTO) 0.1 % (0.2-1.0); HEMATOCRIT 25.6 % (42.0-54.0); HEMOGLOBIN 8.3 g/dL (13.5-18.0); LYMPHOCYTES # (AUTO) 0.1 X10^3/uL (1.3-2.9); MEAN CORPUSCULAR HEMOGLOBIN 29.6 pg (27.0-34.0); MEAN CORPUSCULAR HGB CONC 32.6 g/dL (33.0-35.0); MEAN CORPUSCULAR VOLUME 90.7 fL (80.0-100.0); MEAN PLATELET VOLUME 9.3 fL (7.4-11.0); MONOCYTES % (AUTO) 6.8 % (0.0-13.0); NEUTROPHILS # (AUTO) 14.1 x10^3/uL (2.2-4.8); NEUTROPHILS % (AUTO) 92.1 % (42.0-75.0); PLATELET COUNT 213 X10^3/uL (150.0-450.0); RED BLOOD COUNT 2.82 X10^6/uL (4.7-6.0); RED CELL DISTRIBUTION WIDTH 17.7 % (11.6-16.5); WHITE BLOOD COUNT 15.3 X10^3/uL (3.6-10.0)
[2017-04-19 06:31] LABS: ALBUMIN 3.2 g/dL (3.4-5.0); CALCIUM 8.3 mg/dL (8.5-10.1); CARBON DIOXIDE 29.8 mmol/L (21-32); COR CA(FOR HYPOALB) 8.9 mg/dL (8.5-10.1); CREATININE 2.21 mg/dL (0.70-1.30); TOTAL PROTEIN 5.3 g/dL (6.4-8.2)
[2017-04-19 07:31] LABS: BAND NEUTROPHILS % 1 % (0-10)
[2017-04-19 07:32] LABS: PLATELET MORPHOLOGY COMMENT NORMAL (NORMAL)
--- NOTE | 2017-04-19 07:52 | RAD ---
The Examination: Portable AP chest History: SOB Comparison 04/18/2017 Findings: No change in cardiac enlargement or central pulmonary vascular distention. Slight improveme nt in aeration of the lung base these with residual areas of infiltrate and possible pleural fluid. N o change in position of PICC. Impression: Persistent cardiac enlargement with slight improvement in aeration of the lungs since 1 d ay earlier. Reported By:
[2017-04-19] MEDS: ALBUMIN HUMAN 25%- 100ML 100 ML IV SCH (08:39)
[2017-04-19] MEDS: PROTONIX INJ 40 MG VIAL IVP SCH ×2 (09:00→20:44)
[2017-04-19] MEDS: AMINOPHYLLINE IV PRN (09:12)
[2017-04-19] MEDS: D5W IV PRN (09:12)
[2017-04-19] MEDS: PEPCID 20 MG IV PREMIX* 20 MG/50 ML BAG IV SCH ×2 (09:18→20:44)
[2017-04-19] MEDS ORDERED: MAGNESIUM SULFATE 1 GM/100 mL PREMIX 1 GM/100 ML BAG IV PRN ×2 (09:19→09:28)
[2017-04-19] MEDS ORDERED: K-RIDER 10 MEQ/NS 100 ML 10 MEQ/100 ML BAG IV PRN ×2 (09:19→09:28)
[2017-04-19] MEDS ORDERED: POTASSIUM CHL 40 MEQ/NS 0.45% 500 ML IV PRN ×2 (09:19→09:28)
[2017-04-19] MEDS ORDERED: POTASSIUM CHL 60 MEQ/NS 0.45% 500 ML IV PRN ×2 (09:19→09:28)
[2017-04-19] MEDS ORDERED: MAG-OX TAB PO PRN ×2 (09:19→09:28)
[2017-04-19] MEDS ORDERED: K-LYTE EFFERVESCENT PO PRN ×2 (09:19→09:28)
[2017-04-19] MEDS ORDERED: POTASSIUM CHLORIDE LIQ 20 MEQ UDC PO PRN ×2 (09:19→09:28)
[2017-04-19] MEDS: ACCUNEB 1.25 MG NEBULE NEB SCH ×4 (09:44→20:37)
[2017-04-19] MEDS ORDERED: ZOLOFT PO ONE (10:58)
[2017-04-19] MEDS: CARDIZEM CD 180 MG PO SCH (11:20)
[2017-04-19] MEDS: SOLU-Medrol 40 MG VIAL IVP SCH ×3 (11:40→21:34)
[2017-04-19] MEDS: ALFUZOSIN HCL PO SCH ×2 (12:01→13:54)
[2017-04-19] MEDS: MULTAQ PO SCH ×3 (12:02→20:44)
[2017-04-19] MEDS: HEMOCYTE-PLUS PO SCH ×2 (12:02→14:19)
[2017-04-19] MEDS: ZOLOFT PO SCH ×2 (12:03→13:58)
[2017-04-19] MEDS: FORTAZ or TAZICEF INJ 1 GM in NS 50 ML IV 50 ML IV SCH (14:19)
[2017-04-19] MEDS ORDERED: ZOFRAN INJ 4 MG VIAL IVP PRN (16:03)
--- NOTE | 2017-04-19 19:57 | PCM.PROG ---
Progress Note - Progress Note for Day of Date: 04/17/17 - Subjective Subjective: WAS ADMITTED FOR RESPIRATORY FAILURE, COPD EXACERBATION, CONGESTIVE HEART FAILURE, AND PNEUMONIA. HE IS LYING IN BED WITH EYES CLOSED ON MORNING ROUNDS. EYES OPEN TO VERBAL STIMULI. HE CONTINUES WITH LABORED, SHALLOW RESPIRATIONS. STAFF ATTEMPTED TO TRANSITION PATIENT TO VENTIMASK AGAIN YESTERDAY. PATIENT WAS ONLY ABLE TO TOLERATE MASK FOR A TOTAL OF 10-15 MINUTES BEFORE REQUIRING THE BIPAP AGAIN DUE TO DESATURATION. ON EXAMINATION, HEART IS REGULAR IN RATE AND RHYTHM. BILATERAL LUNGS CONTINUE WITH SCATTERED WHEEZING AND RHONCHI. HE CONTINUES TO UTILIZED THE BIPAP THIS MORNING. ABDOMEN IS ROUND, SOFT, AND NON-TENDER WITH NORMAL BOWEL SOUNDS NOTED IN ALL QUADRANTS. BILATERAL LOWER EXTREMITIES CONTINUE WITH 1+ PITTING EDEMA. HIS VITALS THIS MORNING ARE 97.6-87-25-98%-132/85. LABS WERE OBTAINED. ABNORMAL LAB VALUES INCLUDE THE FOLLOWING: WBC 13.4, RBC 2.77, HGB 8.3, HCT 24.8, SODIUM 148, POTASSIUM 3.4, CHLORIDE 109, CARBON DIOXIDE 109, BUN 64, CREATININE 2.35, GFR 28, GLUCOSE 120, CALCIUM 8.2, TOTAL PROTEIN 5.1, ALBUMIN 3.0, GLOBULIN 2.1. HIS BLOOD GAS TODAY REPORTS PH 7.390, PC02 61, P02 54, HC03 36.9, 02 SATURATION 87, BASE EXCESS 9.8. TODAYS CHEST XRAY REPORTS CARDIOMEGALY WITH PULMONARY VASCULAR CONGESTION. INCREASING BIBASILAR FOCI OF EDEMA, INFILTRATE, AND/OR PLEURAL FLUID. TODAY, WE WILL ATTEMPT TO TRANSITION TO VENTI-MASK AGAIN. WE WILL ALSO START AN AMINOPHYLLINE DRIP PER PROTOCOL. OTHERWISE, WE WILL CONTINUE WITH CURRENT PLAN OF CARE. WE PLAN TO FOLLOW UP WITH AM LABS AND CHEST XRAY AND CONTINUE TO MONITOR PATIENT. - Past Medical Family Social History Past Med/Fam/Surg Hx: No changes since H&P Allergies: Allergies No Known Drug Allergies Allergy (Verified 04/08/17 16:44) - Review of Systems ROS: No change since H&P - Vital Signs and I&O's Vital Signs: Temperature 98.6 F Pulse Rate [Apical] 130 Pulse Rate 122 Respiratory Rate 27 Blood Pressure [Left leg] 158/69 Blood Pressure [Right Arm] 153/68 Blood Pressure [Left Arm] 101/57 Blood Pressure 117/74 O2 Sat by Pulse Oximetry 95 Intake and Output: Intake & Output 04/17/17 04/18/17 04/19/17 04/20/17 11:59 11:59 11:59 11:59 Intake Total 2267 2539 2660 1367 Output Total 775 1325 925 500 Balance 1492 1214 1735 867 - Physical Exam Oriented: Normal Eyes: Normal Ear: Normal Nose: Other (nasal congestion ) Throat: Normal Respiratory: Right, Left, Generalized, Wheezes, Rhonchi Cardiovascular: Edema (bilateral lower extremity) : Normal Auscultation: Bowel Sounds: Normal Palpation: Normal Tenderness: Normal Skin: Normal Musculoskeletal: Back:Paraspinous Mood Description: Calm Affect: Normal Speech Pattern: Clear - Laboratory and Diagnostics Result Diagrams: 04/19/17 05:23 04/19/17 19:20 Labs: 04/08/17 17:29 Blood Blood Culture - Final 04/08/17 17:18 Blood Blood Culture - Final Laboratory WBC 15.3 X10^3/uL (3.6-10.0) H 04/19/17 05:23 RBC 2.82 X10^6/uL (4.7-6.0) L 04/19/17 05:23 Hgb 8.3 g/dL (13.5-18.0) L 04/19/17 05:23 Hct 25.6 % (42.0-54.0) L 04/19/17 05:23 MCV 90.7 fL (80.0-100.0) 04/19/17 05:23 MCH 29.6 pg (27.0-34.0) 04/19/17 05:23 MCHC 32.6 g/dL (33.0-35.0) L 04/19/17 05:23 RDW 17.7 % (11.6-16.5) H 04/19/17 05:23 Plt Count 213 X10^3/uL (150.0-450.0) 04/19/17 05:23 Plt Count Comment Adequate (ADEQUATE) 04/19/17 05:23 MPV 9.3 fL (7.4-11.0) 04/19/17 05:23 Neut % 92.1 % (42.0-75.0) H 04/19/17 05:23 Lymph % 1.0 % (21.0-51.0) L 04/19/17 05:23 Dukes % 6.8 % (0.0-13.0) 04/19/17 05:23 Eos % 0.0 % (0.9-2.9) L 04/19/17 05:23 Baso % 0.1 % (0.2-1.0) L 04/19/17 05:23 Neut # 14.1 x10^3/uL (2.2-4.8) H 04/19/17 05:23 Lymph # 0.1 X10^3/uL (1.3-2.9) L 04/19/17 05:23 Dukes # 1.0 x10^3/uL (0.3-0.8) H 04/19/17 05:23 Eos # 0.0 x10^3/uL (0.0-0.2) 04/19/17 05:23 Baso # 0.0 X10^3/uL (0.0-0.1) 04/19/17 05:23 Absolute Nucleated RBC 0.1 /100WBC 04/19/17 05:23 Total Counted 100 04/19/17 05:23 Neutrophils % (Manual) 87 % (39-76) H 04/19/17 05:23 Band Neutrophils % 1 % (0-10) 04/19/17 05:23 Lymphocytes % (Manual) 9 % (13-43) L 04/19/17 05:23 Monocytes % (Manual) 3 % (4-9) L 04/19/17 05:23 Plt Morphology Comment Normal (NORMAL) 04/19/17 05:23 RBC Morphology Normal (NORMAL) 04/19/17 05:23 Hypochromasia 2+ A 04/12/17 05:19 Poikilocytosis Slight A 04/18/17 05:28 Anisocytosis Slight A 04/18/17 05:28 Microcytosis 2+ A 04/12/17 05:19 Crenated Cell Slight A 04/09/17 05:50 INR Target Range - 04/10/17 08:13 INR 1.38 (0.8-1.3) H 04/10/17 08:13 PTT 29.4 SECONDS (22.9-36.5) 04/09/17 05:50 PTT Comment - 04/09/17 05:50 Sample Site Rrad 04/17/17 06:08 ABG pH 7.390 (7.35-7.45) 04/17/17 06:08 ABG pCO2 61.0 mmHg (35.0-45.0) H* 04/17/17 06:08 ABG pO2 54.0 mmHg (80.0-100.0) L 04/17/17 06:08 ABG HCO3 36.9 mmol/L (22-26) H* 04/17/17 06:08 ABG O2 Saturation 87.0 % (90-100) L 04/17/17 06:08 ABG Base Excess 9.8 mmol/L (-2.0-2.0) H 04/17/17 06:08 Fabio Test Pos 04/17/17 06:08 A-a Gradient 155.0 mmHg 04/17/17 06:08 FiO2 40.000 04/17/17 06:08 Blood Gas Comments Kati abg well-mtf 04/17/17 06:08 Sodium 140 mmol/L (136-145) 04/19/17 05:23 Corrected Sodium 144 mmol/L (136-145) 04/19/17 05:23 Potassium 3.5 mmol/L (3.5-5.1) 04/19/17 19:20 Chloride 102 mmol/L (98-107) 04/19/17 05:23 Carbon Dioxide 29.8 mmol/L (21-32) 04/19/17 05:23 BUN 51 mg/dL (7-18) H 04/19/17 05:23 Creatinine 2.21 mg/dL (0.70-1.30) H 04/19/17 05:23 Est GFR (MDRD) Af Amer 37 (>60) L 04/19/17 05:23 Est GFR (MDRD) Non-Af 30 (>60) L 04/19/17 05:23 Glucose 268 mg/dL (65-99) H 04/19/17 05:23 POC Glucose (mg/dL) 118 mg/dL (65-99) H 04/17/17 21:13 Lactic Acid 0.8 mmol/L (0.4-2.0) 04/08/17 17:18 Calcium 8.3 mg/dL (8.5-10.1) L 04/19/17 05:23 Corrected Calcium 8.9 mg/dL (8.5-10.1) 04/19/17 05:23 Magnesium 2.9 mg/dL (1.7-2.9) 04/19/17 05:23 Total Bilirubin 0.90 mg/dL (0.2-1.0) 04/19/17 05:23 AST 19 Units/L (15-37) 04/19/17 05:23 ALT 30 Units/L (12-78) 04/19/17 05:23 Alkaline Phosphatase 54 Units/L (46-116) 04/19/17 05:23 Creatine Kinase 38 Units/L (39-308) L 04/09/17 05:50 CK-MB (CK-2) 1.9 ng/mL (0-4.0) 04/09/17 05:50 CK/CKMB % Calc 5.0 % (<4) 04/09/17 05:50 Troponin I 0.11 ng/mL (0-1.5) 04/09/17 05:50 C-Reactive Protein 18.00 mg/L (0-3.0) H 04/08/17 17:18 B-Natriuretic Peptide 291 pg/mL (0-79) H 04/08/17 17:18 Total Protein 5.3 g/dL (6.4-8.2) L 04/19/17 05:23 Albumin 3.2 g/dL (3.4-5.0) L 04/19/17 05:23 Globulin 2.1 g/dL (2.5-4.5) L 04/19/17 05:23 Albumin/Globulin Ratio 1.5 Ratio (1.1-2.1) 04/19/17 05:23 Specimen Type Catherized urine 04/08/17 18: Urine Color Yellow (YELLOW) 04/08/17 18: Urine Appearance Clear (CLEAR) 04/08/17 18: Urine pH 5.0 (5.0 - 8.0) 04/08/17 18: Ur Specific [place] 1.015 (1.000-1.030) 04/08/17 18: Urine Protein Negative (NEGATIVE) 04/08/17 18: Urine Glucose (UA) Negative (NEGATIVE) 04/08/17 18:23 Urine Ketones Negative (NEGATIVE) 04/08/17 18:23 Urine Occult Blood Negative (NEGATIVE) 04/08/17 18:23 Urine Nitrite Negative (NEGATIVE) 04/08/17 18: Urine Bilirubin Negative (NEGATIVE) 04/08/17 18:23 Urine Urobilinogen Normal (NORMAL) 04/08/17 18:23 Ur Leukocyte Esterase Negative (NEGATIVE) 04/08/17 18:23 Urine RBC None seen /HPF (NEGATIVE) 04/08/17 18: Urine WBC None seen /HPF (NEGATIVE) 04/08/17 18:23 Ur Squamous Epith Cells Rare /HPF (NEGATIVE) 04/08/17 18: Amorphous Sediment 1+ /HPF (NEGATIVE) 04/08/17 18: Urine Bacteria Negative /HPF (NEGATIVE) 04/08/17 18:23 Ur Culture Indicated? No/not indicated 04/08/17 18:23 Stool Description Fob tube 04/14/17 11:55 Stl Occult Blood (IFOB) Positive (NEGATIVE) A 04/14/17 11:55 - Plan (1) Respiratory failure with hypercapnia Status: Acute Qualifiers: Chronicity: acute on chronic Qualified Code(s): J96.22 - Acute and chronic respiratory failure with hypercapnia Plan: bipap, albuterol 1.25mg jet nebs qid, solu-medrol 80mg iv q8h, continue to monitor (2) COPD exacerbation Status: Acute Plan: bipap, respiratory tx, solu-medrol 80mg iv q8h, aminophylline drip per protocol, continue to monitor (3) Pneumonia Status: Acute Qualifiers: Pneumonia type: due to unspecified organism Laterality: right Lung location: lower lobe of lung Qualified Code(s): J18.1 - Lobar pneumonia, unspecified organism Plan: continue azithromycin, continue fortaz, continue supplemental oxygen, respiratory tx, monitor labs and chest xray (4) Congestive heart failure Status: Chronic Qualifiers: Congestive heart failure type: combined Congestive heart failure chronicity : acute on chronic Qualified Code(s): I50.43 - Acute on chronic combined systolic (congestive) and diastolic (congestive) heart failure Plan: OBTAIN ECHO, continue supplemental oxygen, continue to monitor (5) A-fib Status: Chronic Qualifiers: Atrial fibrillation type: chronic Qualified Code(s): I48.2 - Chronic atrial fibrillation Plan: continue cardizem, continue eliquis, continue to monitor (6) Renal insufficiency Status: Acute Plan: D5W 125ML/HR, CONTINUE TO MONITOR
[2017-04-19] MEDS: COLACE CAP 100 MG PO SCH (20:43)
[2017-04-19] MEDS: MILK OF MAGNESIA PO SCH (20:43)
[2017-04-19] MEDS: MORPHINE SULFATE INJ 2 MG INJ IVP PRN (22:42)
[2017-04-20] MEDS: D5W 1000 ML IV 1,000 ML IV SCH ×3 (03:05→20:26)
[2017-04-20 06:18] LABS: BASOPHILS # (AUTO) 0.1 X10^3/uL (0.0-0.1); BASOPHILS % (AUTO) 0.3 % (0.2-1.0); HEMATOCRIT 25.1 % (42.0-54.0); HEMOGLOBIN 8.4 g/dL (13.5-18.0); LYMPHOCYTES # (AUTO) 0.1 X10^3/uL (1.3-2.9); LYMPHOCYTES % (AUTO) 0.5 % (21.0-51.0); MEAN CORPUSCULAR HEMOGLOBIN 30.1 pg (27.0-34.0); MEAN CORPUSCULAR HGB CONC 33.6 g/dL (33.0-35.0); MEAN CORPUSCULAR VOLUME 89.5 fL (80.0-100.0); MEAN PLATELET VOLUME 9.5 fL (7.4-11.0); MONOCYTES # (AUTO) 0.7 x10^3/uL (0.3-0.8); MONOCYTES % (AUTO) 3.2 % (0.0-13.0); NEUTROPHILS # (AUTO) 21.1 x10^3/uL (2.2-4.8); PLATELET COUNT 261 X10^3/uL (150.0-450.0); RED BLOOD COUNT 2.81 X10^6/uL (4.7-6.0); RED CELL DISTRIBUTION WIDTH 17.5 % (11.6-16.5)
[2017-04-20 06:32] LABS: ABG BASE EXCESS 5.7 mmol/L (-2.0-2.0)
[2017-04-20 06:33] LABS: ALANINE AMINOTRANSFERASE 37 Units/L (12-78); ALBUMIN 3.6 g/dL (3.4-5.0); ALKALINE PHOSPHATASE 56 Units/L (46-116); ASPARTATE AMINO TRANSFERASE 22 Units/L (15-37); BLOOD UREA NITROGEN 49 mg/dL (7-18); CALCIUM 8.7 mg/dL (8.5-10.1); CHLORIDE 104 mmol/L (98-107); COR NA(FOR HYPERGLY) 143 mmol/L (136-145); CREATININE 2.34 mg/dL (0.70-1.30); SODIUM 141 mmol/L (136-145); TOTAL PROTEIN 5.7 g/dL (6.4-8.2); eGFR BLACK RACES 34 (>60); eGFR NON BLACK RACES 29 (>60)
[2017-04-20 06:33] LABS: ABG ALLEN TEST POS; ABG HCO3 32.4 mmol/L (22-26)
--- NOTE | 2017-04-20 06:49 | RAD ---
HISTORY: Shortness of breath Study: Chest AP portable Comparison: 04/19/2017, 04/18/2017 Findings: The heart remains enlarged. Pulmonary venous congestion is unchanged. Small bibasilar infiltrates and small pleural effusions are unchanged. There is a left PICC line present with its tip in the superio r vena cava. The bony thorax is unremarkable. IMPRESSION: Cardiomegaly with pulmonary venous congestion, unchanged No change small bibasilar infiltrates and small pleural effusions Reported By:
[2017-04-20 07:22] LABS: PLATELET MORPHOLOGY COMMENT NORMAL (NORMAL)
[2017-04-20] MEDS: SOLU-Medrol 40 MG VIAL IVP SCH ×3 (08:36→21:49)
[2017-04-20] MEDS: MORPHINE SULFATE INJ 2 MG INJ IVP PRN ×3 (08:43→20:00)
[2017-04-20] MEDS: ALBUMIN HUMAN 25%- 100ML 100 ML IV SCH (10:01)
[2017-04-20] MEDS: PROTONIX INJ 40 MG VIAL IVP SCH ×2 (10:02→20:00)
[2017-04-20] MEDS: PEPCID 20 MG IV PREMIX* 20 MG/50 ML BAG IV SCH (10:02)
[2017-04-20] MEDS: ACCUNEB 1.25 MG NEBULE NEB SCH ×4 (10:02→20:39)
[2017-04-20] MEDS: ALFUZOSIN HCL PO SCH (13:28)
[2017-04-20] MEDS: ZOLOFT PO SCH (13:29)
[2017-04-20] MEDS: MULTAQ PO SCH ×2 (13:29→20:27)
[2017-04-20] MEDS: CARDIZEM CD 180 MG PO SCH (13:29)
[2017-04-20] MEDS: HEMOCYTE-PLUS PO SCH (13:29)
--- NOTE | 2017-04-20 13:40 | PCM.PROG ---
Progress Note - Progress Note for Day of Date: 04/18/17 - Subjective Subjective: WAS ADMITTED FOR RESPIRATORY FAILURE, COPD EXACERBATION, CONGESTIVE HEART FAILURE, AND PNEUMONIA. HE IS LYING IN BED WITH EYES CLOSED ON MORNING ROUNDS. HE AWAKENS TO VERBAL STIMULI AND ATTEMPTS TO COMMUNICATE WITH US. HE APPEARS TO BE MORE COHERENT THAN IN THE PREVIOUS DAYS SINCE ADMISSION. HE CONTINUES ON THE BIPAP TODAY. APPEMPTS TO TRANSITION TO VENTI-MASK YESTERDAY WERE UNSUCCESSFUL. ON EXAMINATION, HEART IS REGULAR IN RATE AND RHYTHM. BILATERAL LUNGS CONTINUE WITH SCATTERED WHEEZING AND RHONCHI. ABDOMEN IS ROUND, SOFT, AND NON-TENDER WITH NORMAL BOWEL SOUNDS NOTED IN ALL QUADRANTS. BILATERAL LOWER EXTREMITIES CONTINUE WITH 1+ PITTING EDEMA. HIS VITALS THIS MORNING ARE 97.0-407-97-100%-138/80. LABS WERE OBTAINED. ABNORMAL LAB VALUES INCLUDE THE FOLLOWING: WBC 13.4, RBC 2.88, HGB 8.5, HCT 25.8, SODIUM 148, POTASSIUM 3.2, CHLORIDE 109, BUN 63, CREATININE 2.32, GLUCOSE 130, TOTAL PROTEIN 5.4, ALBUMIN 3.3, GLOBULIN 2.1. TODAYS CHEST XRAY REPORTS PERSISTENT CARDIAC ENLARGEMENT AND CENTRAL PULMONARY VASCULAR DISTENTION. BIBASAL DENSITIES AGAIN NOTED CONSISTENT WITH AIRSPACE DISEASE AND/OR PLEURAL FLUID. TODAY, WE WILL ATTEMPT TO TRANSITION TO VENTI-MASK AGAIN. OTHERWISE, WE WILL CONTINUE WITH CURRENT PLAN OF CARE. WE PLAN TO FOLLOW UP WITH AM LABS AND CHEST XRAY AND CONTINUE TO MONITOR PATIENT. - Past Medical Family Social History Past Med/Fam/Surg Hx: No changes since H&P Allergies: Allergies No Known Drug Allergies Allergy (Verified 04/08/17 16:44) - Review of Systems ROS: No change since H&P - Vital Signs and I&O's Vital Signs: Temperature 98.9 F Pulse Rate [Apical] 152 Pulse Rate 129 Respiratory Rate 36 Blood Pressure [Left leg] 161/65 Blood Pressure [Right Arm] 153/68 Blood Pressure [Left Arm] 101/57 Blood Pressure 117/74 O2 Sat by Pulse Oximetry 87 Intake and Output: Intake & Output 04/18/17 04/19/17 04/20/17 04/21/17 11:59 11:59 11:59 11:59 Intake Total 8992 6950 2167 Output Total 1325 925 875 Balance 1214 1735 1292 - Physical Exam Oriented: Normal Eyes: Normal Ear: Normal Nose: Other (nasal congestion ) Throat: Normal Respiratory: Right, Left, Generalized, Wheezes, Rhonchi Cardiovascular: Edema (bilateral lower extremity) : Normal Auscultation: Bowel Sounds: Normal Palpation: Normal Tenderness: Normal Skin: Normal Musculoskeletal: Back:Paraspinous Mood Description: Calm Affect: Normal Speech Pattern: Unclear - Laboratory and Diagnostics Result Diagrams: 04/20/17 05:40 04/20/17 05:40 Labs: 04/08/17 17:29 Blood Blood Culture - Final 04/08/17 17:18 Blood Blood Culture - Final Laboratory WBC 22.0 X10^3/uL (3.6-10.0) H 04/20/17 05:40 RBC 2.81 X10^6/uL (4.7-6.0) L 04/20/17 05:40 Hgb 8.4 g/dL (13.5-18.0) L 04/20/17 05:40 Hct 25.1 % (42.0-54.0) L 04/20/17 05:40 MCV 89.5 fL (80.0-100.0) 04/20/17 05:40 MCH 30.1 pg (27.0-34.0) 04/20/17 05:40 MCHC 33.6 g/dL (33.0-35.0) 04/20/17 05:40 RDW 17.5 % (11.6-16.5) H 04/20/17 05:40 Plt Count 261 X10^3/uL (150.0-450.0) 04/20/17 05:40 Plt Count Comment Adequate (ADEQUATE) 04/20/17 05:40 MPV 9.5 fL (7.4-11.0) 04/20/17 05:40 Neut % 96.0 % (42.0-75.0) H 04/20/17 05:40 Lymph % 0.5 % (21.0-51.0) L 04/20/17 05:40 Forrest % 3.2 % (0.0-13.0) 04/20/17 05:40 Eos % 0.0 % (0.9-2.9) L 04/20/17 05:40 Baso % 0.3 % (0.2-1.0) 04/20/17 05:40 Neut # 21.1 x10^3/uL (2.2-4.8) H 04/20/17 05:40 Lymph # 0.1 X10^3/uL (1.3-2.9) L 04/20/17 05:40 Forrest # 0.7 x10^3/uL (0.3-0.8) 04/20/17 05:40 Eos # 0.0 x10^3/uL (0.0-0.2) 04/20/17 05:40 Baso # 0.1 X10^3/uL (0.0-0.1) 04/20/17 05:40 Absolute Nucleated RBC 0.0 /100WBC 04/20/17 05:40 Total Counted 100 04/20/17 05:40 Neutrophils % (Manual) 94 % (39-76) H 04/20/17 05:40 Band Neutrophils % 1 % (0-10) 04/19/17 05:23 Lymphocytes % (Manual) 4 % (13-43) L 04/20/17 05:40 Monocytes % (Manual) 2 % (4-9) L 04/20/17 05:40 Plt Morphology Comment Normal (NORMAL) 04/20/17 05:40 RBC Morphology Normal (NORMAL) 04/20/17 05:40 Hypochromasia 2+ A 04/12/17 05:19 Poikilocytosis Slight A 04/18/17 05:28 Anisocytosis Slight A 04/18/17 05:28 Microcytosis 2+ A 04/12/17 05:19 Crenated Cell Slight A 04/09/17 05:50 INR Target Range - 04/10/17 08:13 INR 1.38 (0.8-1.3) H 04/10/17 08:13 PTT 29.4 SECONDS (22.9-36.5) 04/09/17 05:50 PTT Comment - 04/09/17 05:50 Sample Site Rrad 04/20/17 06:14 ABG pH 7.370 (7.35-7.45) 04/20/17 06:14 ABG pCO2 56.0 mmHg (35.0-45.0) H* 04/20/17 06:14 ABG pO2 69.0 mmHg (80.0-100.0) L 04/20/17 06:14 ABG HCO3 32.4 mmol/L (22-26) H* 04/20/17 06:14 ABG O2 Saturation 93.0 % (90-100) 04/20/17 06:14 ABG Base Excess 5.7 mmol/L (-2.0-2.0) H 04/20/17 06:14 Fabio Test Pos 04/20/17 06:14 A-a Gradient 89.0 mmHg 04/20/17 06:14 FiO2 32.000 04/20/17 06:14 Blood Gas Comments Kati abg well-mtf 04/20/17 06:14 Sodium 141 mmol/L (136-145) 04/20/17 05:40 Corrected Sodium 143 mmol/L (136-145) 04/20/17 05:40 Potassium 3.4 mmol/L (3.5-5.1) L 04/20/17 05:40 Chloride 104 mmol/L (98-107) 04/20/17 05:40 Carbon Dioxide 28.0 mmol/L (21-32) 04/20/17 05:40 BUN 49 mg/dL (7-18) H 04/20/17 05:40 Creatinine 2.34 mg/dL (0.70-1.30) H 04/20/17 05:40 Est GFR (MDRD) Af Amer 34 (>60) L 04/20/17 05:40 Est GFR (MDRD) Non-Af 29 (>60) L 04/20/17 05:40 Glucose 168 mg/dL (65-99) H 04/20/17 05:40 POC Glucose (mg/dL) 118 mg/dL (65-99) H 04/17/17 21:13 Lactic Acid 0.8 mmol/L (0.4-2.0) 04/08/17 17:18 Calcium 8.7 mg/dL (8.5-10.1) 04/20/17 05:40 Corrected Calcium TNP 04/20/17 05:40 Magnesium 2.9 mg/dL (1.7-2.9) 04/19/17 05:23 Total Bilirubin 1.10 mg/dL (0.2-1.0) H 04/20/17 05:40 AST 22 Units/L (15-37) 04/20/17 05:40 ALT 37 Units/L (12-78) 04/20/17 05:40 Alkaline Phosphatase 56 Units/L (46-116) 04/20/17 05:40 Creatine Kinase 38 Units/L (39-308) L 04/09/17 05:50 CK-MB (CK-2) 1.9 ng/mL (0-4.0) 04/09/17 05:50 CK/CKMB % Calc 5.0 % (<4) 04/09/17 05:50 Troponin I 0.11 ng/mL (0-1.5) 04/09/17 05:50 C-Reactive Protein 18.00 mg/L (0-3.0) H 04/08/17 17:18 B-Natriuretic Peptide 291 pg/mL (0-79) H 04/08/17 17:18 Total Protein 5.7 g/dL (6.4-8.2) L 04/20/17 05:40 Albumin 3.6 g/dL (3.4-5.0) 04/20/17 05:40 Globulin 2.1 g/dL (2.5-4.5) L 04/20/17 05:40 Albumin/Globulin Ratio 1.7 Ratio (1.1-2.1) 04/20/17 05:40 Specimen Type Catherized urine 04/08/17 18: Urine Color Yellow (YELLOW) 04/08/17 Urine Appearance Clear (CLEAR) 04/08/17: Urine pH 5.0 (5.0 - 8.0) 04/08/17 18: Ur Specific [place] 1.015 (1.000-1.030) 04/08/17 Urine Protein Negative (NEGATIVE) 04/08/17: Urine Glucose (UA) Negative (NEGATIVE) 04/08/17 Urine Ketones Negative (NEGATIVE) 04/08/17 Urine Occult Blood Negative (NEGATIVE) 04/08/17 Urine Nitrite Negative (NEGATIVE) 04/08/17 Urine Bilirubin Negative (NEGATIVE) 04/08/17 Urine Urobilinogen Normal (NORMAL) 04/08/17 Ur Leukocyte Esterase Negative (NEGATIVE) 01/10/18 18:23 Urine RBC None seen /HPF (NEGATIVE) 04/08/17 18:23 Urine WBC None seen /HPF (NEGATIVE) 04/08/17 18:23 Ur Squamous Epith Cells Rare /HPF (NEGATIVE) 04/08/17 18:23 Amorphous Sediment 1+ /HPF (NEGATIVE) 04/08/17 18:23 Urine Bacteria Negative /HPF (NEGATIVE) 04/08/17 18:23 Ur Culture Indicated? No/not indicated 04/08/17 18:23 Stool Description Fob tube 04/14/17 11:55 Stl Occult Blood (IFOB) Positive (NEGATIVE) A 04/14/17 11:55 - Plan (1) Respiratory failure with hypercapnia Status: Acute Qualifiers: Chronicity: acute on chronic Qualified Code(s): J96.22 - Acute and chronic respiratory failure with hypercapnia Plan: bipap, albuterol 1.25mg jet nebs qid, solu-medrol 80mg iv q8h, continue to monitor (2) COPD exacerbation Status: Acute Plan: bipap, respiratory tx, solu-medrol 80mg iv q8h, aminophylline drip per protocol, continue to monitor (3) Pneumonia Status: Acute Qualifiers: Pneumonia type: due to unspecified organism Laterality: right Lung location: lower lobe of lung Qualified Code(s): J18.1 - Lobar pneumonia, unspecified organism Plan: continue azithromycin, continue fortaz, continue supplemental oxygen, respiratory tx, monitor labs and chest xray (4) Congestive heart failure Status: Chronic Qualifiers: Congestive heart failure type: combined Congestive heart failure chronicity : acute on chronic Qualified Code(s): I50.43 - Acute on chronic combined systolic (congestive) and diastolic (congestive) heart failure Plan: OBTAIN ECHO, continue supplemental oxygen, continue to monitor (5) A-fib Status: Chronic Qualifiers: Atrial fibrillation type: chronic Qualified Code(s): I48.2 - Chronic atrial fibrillation Plan: continue cardizem, continue eliquis, continue to monitor (6) Renal insufficiency Status: Acute Plan: D5W 125ML/HR, CONTINUE TO MONITOR
[2017-04-20] MEDS: FORTAZ or TAZICEF INJ 1 GM in NS 50 ML IV 50 ML IV SCH (14:19)
[2017-04-20] MEDS ORDERED: MORPHINE SULFATE PCA 30 MG IVP SCH (20:22)
[2017-04-20] MEDS: COLACE CAP 100 MG PO SCH (20:26)
[2017-04-20] MEDS: MILK OF MAGNESIA PO SCH (20:27)
[2017-04-20] MEDS: VERSED 100 MG in NS 100 ML IV 80 ML IV PRN (21:38)
[2017-04-20] MEDS ORDERED: VERSED ONE (21:57)
[2017-04-21] MEDS: MORPHINE SULFATE PCA 30 MG IVP PRN ×2 (03:30→09:55)
[2017-04-21] MEDS: D5W 1000 ML IV 1,000 ML IV SCH ×2 (03:41→11:07)
[2017-04-21] MEDS: SOLU-Medrol 40 MG VIAL IVP SCH (06:01)
[2017-04-21 06:03] LABS: BASOPHILS # (AUTO) 0.1 X10^3/uL (0.0-0.1); BASOPHILS % (AUTO) 0.3 % (0.2-1.0); HEMATOCRIT 24.4 % (42.0-54.0); HEMOGLOBIN 7.7 g/dL (13.5-18.0); LYMPHOCYTES # (AUTO) 0.2 X10^3/uL (1.3-2.9); LYMPHOCYTES % (AUTO) 0.8 % (21.0-51.0); MEAN CORPUSCULAR HEMOGLOBIN 29.4 pg (27.0-34.0); MEAN CORPUSCULAR HGB CONC 31.7 g/dL (33.0-35.0); MEAN CORPUSCULAR VOLUME 92.7 fL (80.0-100.0); MEAN PLATELET VOLUME 9.5 fL (7.4-11.0); MONOCYTES # (AUTO) 0.4 x10^3/uL (0.3-0.8); NEUTROPHILS # (AUTO) 20.7 x10^3/uL (2.2-4.8); NEUTROPHILS % (AUTO) 96.9 % (42.0-75.0); PLATELET COUNT 221 X10^3/uL (150.0-450.0); RED BLOOD COUNT 2.63 X10^6/uL (4.7-6.0); RED CELL DISTRIBUTION WIDTH 17.3 % (11.6-16.5); WHITE BLOOD COUNT 21.3 X10^3/uL (3.6-10.0)
[2017-04-21 06:31] LABS: ALANINE AMINOTRANSFERASE 49 Units/L (12-78); ALBUMIN 3.5 g/dL (3.4-5.0); ALKALINE PHOSPHATASE 47 Units/L (46-116); ASPARTATE AMINO TRANSFERASE 28 Units/L (15-37); BLOOD UREA NITROGEN 50 mg/dL (7-18); CALCIUM 8.2 mg/dL (8.5-10.1); CARBON DIOXIDE 28.5 mmol/L (21-32); CHLORIDE 98 mmol/L (98-107); COR NA(FOR HYPERGLY) 139 mmol/L (136-145); CREATININE 2.56 mg/dL (0.70-1.30); SODIUM 133 mmol/L (136-145); TOTAL PROTEIN 5.7 g/dL (6.4-8.2); eGFR BLACK RACES 31 (>60); eGFR NON BLACK RACES 26 (>60)
[2017-04-21 06:55] LABS: PLATELET MORPHOLOGY COMMENT NORMAL (NORMAL)
--- NOTE | 2017-04-21 07:42 | RAD ---
HISTORY: Shortness of breath Study: Chest AP portable Comparison: 04/20/2017 Findings: Positioning is suboptimal with the patient's chin obscuring the lung apices. The heart is enlarged. P ulmonary venous congestion is unchanged. No definite interstitial or alveolar edema is identified. Bi basilar infiltrates with small pleural effusions are unchanged. The bony thorax is unremarkable. IMPRESSION: No significant change from the prior examination Reported By:
[2017-04-21] MEDS: CARDIZEM CD 180 MG PO SCH (08:30)
[2017-04-21] MEDS: ALBUMIN HUMAN 25%- 100ML 100 ML IV SCH (08:30)
[2017-04-21] MEDS: ALFUZOSIN HCL PO SCH (08:30)
[2017-04-21] MEDS: ZOLOFT PO SCH (08:31)
[2017-04-21] MEDS: MULTAQ PO SCH (08:31)
[2017-04-21] MEDS: PROTONIX INJ 40 MG VIAL IVP SCH (08:31)
[2017-04-21] MEDS: HEMOCYTE-PLUS PO SCH (08:31)
[2017-04-21] MEDS: PEPCID 20 MG IV PREMIX* 20 MG/50 ML BAG IV SCH (08:31)
[2017-04-21] MEDS ORDERED: MORPHINE SULFATE PCA 30 MG IVP PRN (11:35)
--- NOTE | 2017-04-21 11:43 | PCM.PROG ---
Progress Note - Progress Note for Day of Date: 04/19/17 - Subjective Subjective: WAS ADMITTED FOR RESPIRATORY FAILURE, COPD EXACERBATION, CONGESTIVE HEART FAILURE, AND PNEUMONIA. HE IS LYING IN BED WITH EYES CLOSED ON MORNING ROUNDS. HE IS SLIGHTLY MORE ALERT TODAY THAN HE HAS BEEN. HE CONTINUES ON THE BIPAP TODAY AND CONTINUES WITH LABORED BREATHING WITH SHALLOW RESPIRATIONS. ON EXAMINATION, HEART IS REGULAR IN RATE AND RHYTHM. BILATERAL LUNGS CONTINUE WITH SCATTERED WHEEZING AND RHONCHI. ABDOMEN IS ROUND, SOFT, AND NON-TENDER WITH NORMAL BOWEL SOUNDS NOTED IN ALL QUADRANTS. BILATERAL LOWER EXTREMITIES CONTINUE WITH TRACE EDEMA. HIS VITALS THIS MORNING ARE 98.3-123-20- 96%-177/74. LABS WERE OBTAINED. ABNORMAL LAB VALUES INCLUDE THE FOLLOWING: WBC 15.3, RBC 2.82, HGB 8.3, HCT 25.6, POTASSIUM 2.5, BUN 51, CREATININE 2.21, GLUCOSE 268, CALCIUM 8.3, TOTAL PROTEIN 5.3, ALBUMIN 3.2. TODAYS CHEST XRAY REPORTS PERSISTENT CARDIAC ENLARGEMENT WITH SLIGHT IMPROVEMENT IN AERATION OF THE LUNGS SINCE ONE DAY EARLIER. PATIENTS SATURATIONS CONTINUE TO DROP INTO THE 70S WHEN BIPAP IS REMOVED. SATURATIONS ONLY IN THE 80S WITH THE VENTI-MASK, HOWEVER, PATIENT DOES NOT TOLERATE THE VENT-MASK FOR ANY LONGER THAN 10 MINUTES BEFORE HAVING TO BE PLACED BACK ON THE BIPAP. HE CONTINUES ON AN AMINOPHYLLINE DRIP, RESPIRATORY TX, AND IV ANTIBIOTICS. WE WILL CONTINUE WITH CURRENT PLAN OF CARE TODAY. WE PLAN TO FOLLOW UP WITH AM LABS AND CHEST XRAY AND CONTINUE TO MONITOR PATIENT. - Past Medical Family Social History Past Med/Fam/Surg Hx: No changes since H&P Allergies: Allergies No Known Drug Allergies Allergy (Verified 04/08/17 16:44) - Review of Systems ROS: No change since H&P - Vital Signs and I&O's Vital Signs: Temperature 96.6 F Pulse Rate [Apical] 134 Pulse Rate 134 Respiratory Rate 16 Blood Pressure [Left leg] 108/53 Blood Pressure [Right Arm] 153/68 Blood Pressure [Left Arm] 101/57 Blood Pressure 117/74 O2 Sat by Pulse Oximetry 63 Intake and Output: Intake & Output 04/18/17 04/19/17 04/20/17 04/21/17 11:59 11:59 11:59 11:59 Intake Total 2539 2660 2167 1252 Output Total 1325 925 875 450 Balance 1214 1735 1292 802 - Physical Exam Oriented: Normal Eyes: Normal Ear: Normal Nose: Other (nasal congestion ) Throat: Normal Respiratory: Right, Left, Generalized, Wheezes, Rhonchi Cardiovascular: Edema (bilateral lower extremities ) : Normal Auscultation: Bowel Sounds: Normal Palpation: Normal Tenderness: Normal Skin: Normal Musculoskeletal: Back:Paraspinous Mood Description: Calm Affect: Normal Speech Pattern: Aphasic - Laboratory and Diagnostics Result Diagrams: 04/21/17 04:58 04/21/17 04:58 Labs: 04/08/17 17:29 Blood Blood Culture - Final 04/08/17 17:18 Blood Blood Culture - Final Laboratory WBC 21.3 X10^3/uL (3.6-10.0) H 04/21/17 04:58 RBC 2.63 X10^6/uL (4.7-6.0) L 04/21/17 04:58 Hgb 7.7 g/dL (13.5-18.0) L 04/21/17 04:58 Hct 24.4 % (42.0-54.0) L 04/21/17 04:58 MCV 92.7 fL (80.0-100.0) 04/21/17 04:58 MCH 29.4 pg (27.0-34.0) 04/21/17 04:58 MCHC 31.7 g/dL (33.0-35.0) L 04/21/17 04:58 RDW 17.3 % (11.6-16.5) H 04/21/17 04:58 Plt Count 221 X10^3/uL (150.0-450.0) 04/21/17 04:58 Plt Count Comment Adequate (ADEQUATE) 04/21/17 04:58 MPV 9.5 fL (7.4-11.0) 04/21/17 04:58 Neut % 96.9 % (42.0-75.0) H 04/21/17 04:58 Lymph % 0.8 % (21.0-51.0) L 04/21/17 04:58 [place] % 2.0 % (0.0-13.0) 04/21/17 04:58 Eos % 0.0 % (0.9-2.9) L 04/21/17 04:58 Baso % 0.3 % (0.2-1.0) 04/21/17 04:58 Neut # 20.7 x10^3/uL (2.2-4.8) H 04/21/17 04:58 Lymph # 0.2 X10^3/uL (1.3-2.9) L 04/21/17 04:58 [place] # 0.4 x10^3/uL (0.3-0.8) 04/21/17 04:58 Eos # 0.0 x10^3/uL (0.0-0.2) 04/21/17 04:58 Baso # 0.1 X10^3/uL (0.0-0.1) 04/21/17 04:58 Absolute Nucleated RBC 0.1 /100WBC 04/21/17 04:58 Total Counted 100 04/21/17 04:58 Neutrophils % (Manual) 92 % (39-76) H 04/21/17 04:58 Band Neutrophils % 1 % (0-10) 04/19/17 05:23 Lymphocytes % (Manual) 5 % (13-43) L 04/21/17 04:58 Monocytes % (Manual) 3 % (4-9) L 04/21/17 04:58 Plt Morphology Comment Normal (NORMAL) 04/21/17 04:58 RBC Morphology Normal (NORMAL) 04/21/17 04:58 Hypochromasia 2+ A 04/12/17 05:19 Poikilocytosis Slight A 04/18/17 05:28 Anisocytosis Slight A 04/18/17 05:28 Microcytosis 2+ A 04/12/17 05:19 Crenated Cell Slight A 04/09/17 05:50 INR Target Range - 04/10/17 08:13 INR 1.38 (0.8-1.3) H 04/10/17 08:13 PTT 29.4 SECONDS (22.9-36.5) 04/09/17 05:50 PTT Comment - 04/09/17 05:50 Sample Site Rrad 04/20/17 06:14 ABG pH 7.370 (7.35-7.45) 04/20/17 06:14 ABG pCO2 56.0 mmHg (35.0-45.0) H* 04/20/17 06:14 ABG pO2 69.0 mmHg (80.0-100.0) L 04/20/17 06:14 ABG HCO3 32.4 mmol/L (22-26) H* 04/20/17 06:14 ABG O2 Saturation 93.0 % (90-100) 04/20/17 06:14 ABG Base Excess 5.7 mmol/L (-2.0-2.0) H 04/20/17 06:14 Fabio Test Pos 04/20/17 06:14 A-a Gradient 89.0 mmHg 04/20/17 06:14 FiO2 32.000 04/20/17 06:14 Blood Gas Comments Kati abg well-mtf 04/20/17 06:14 Sodium 133 mmol/L (136-145) L 04/21/17 04:58 Corrected Sodium 139 mmol/L (136-145) 04/21/17 04:58 Potassium 3.6 mmol/L (3.5-5.1) 04/21/17 04:58 Chloride 98 mmol/L (98-107) 04/21/17 04:58 Carbon Dioxide 28.5 mmol/L (21-32) 04/21/17 04:58 BUN 50 mg/dL (7-18) H 04/21/17 04:58 Creatinine 2.56 mg/dL (0.70-1.30) H 04/21/17 04:58 Est GFR (MDRD) Af Amer 31 (>60) L 04/21/17 04:58 Est GFR (MDRD) Non-Af 26 (>60) L 04/21/17 04:58 Glucose 352 mg/dL (65-99) H 04/21/17 04:58 POC Glucose (mg/dL) 118 mg/dL (65-99) H 04/17/17 21:13 Lactic Acid 0.8 mmol/L (0.4-2.0) 04/08/17 17:18 Calcium 8.2 mg/dL (8.5-10.1) L 04/21/17 04:58 Corrected Calcium TNP 04/21/17 04:58 Magnesium 2.9 mg/dL (1.7-2.9) 04/19/17 05:23 Total Bilirubin 1.00 mg/dL (0.2-1.0) 04/21/17 04:58 AST 28 Units/L (15-37) 04/21/17 04:58 ALT 49 Units/L (12-78) 04/21/17 04:58 Alkaline Phosphatase 47 Units/L (46-116) 04/21/17 04:58 Creatine Kinase 38 Units/L (39-308) L 04/09/17 05:50 CK-MB (CK-2) 1.9 ng/mL (0-4.0) 04/09/17 05:50 CK/CKMB % Calc 5.0 % (<4) 04/09/17 05:50 Troponin I 0.11 ng/mL (0-1.5) 04/09/17 05:50 C-Reactive Protein 18.00 mg/L (0-3.0) H 04/08/17 17:18 B-Natriuretic Peptide 291 pg/mL (0-79) H 04/08/17 17:18 Total Protein 5.7 g/dL (6.4-8.2) L 04/21/17 04:58 Albumin 3.5 g/dL (3.4-5.0) 04/21/17 04:58 Globulin 2.2 g/dL (2.5-4.5) L 04/21/17 04:58 Albumin/Globulin Ratio 1.6 Ratio (1.1-2.1) 04/21/17 04:58 Specimen Type Catherized urine 04/08/17 18:23 Urine Color Yellow (YELLOW) 04/08/17 18: Urine Appearance Clear (CLEAR) 04/08/17 18: Urine pH 5.0 (5.0 - 8.0) 04/08/17 18: Ur Specific [place] 1.015 (1.000-1.030) 04/08/17 18: Urine Protein Negative (NEGATIVE) 04/08/17 18: Urine Glucose (UA) Negative (NEGATIVE) 04/08/17 18 Urine Ketones Negative (NEGATIVE) 04/08/17 18 Urine Occult Blood Negative (NEGATIVE) 04/08/17 18: Urine Nitrite Negative (NEGATIVE) 04/08/17 18: Urine Bilirubin Negative (NEGATIVE) 04/08/17 18 Urine Urobilinogen Normal (NORMAL) 04/08/17 18:23 Ur Leukocyte Esterase Negative (NEGATIVE) 04/08/17 18:23 Urine RBC None seen /HPF (NEGATIVE) 04/08/17 18:23 Urine WBC None seen /HPF (NEGATIVE) 04/08/17 18:23 Ur Squamous Epith Cells Rare /HPF (NEGATIVE) 04/08/17 18:23 Amorphous Sediment 1+ /HPF (NEGATIVE) 04/08/17 18:23 Urine Bacteria Negative /HPF (NEGATIVE) 04/08/17 18:23 Ur Culture Indicated? No/not indicated 04/08/17 18:23 Stool Description Fob tube 04/14/17 11:55 Stl Occult Blood (IFOB) Positive (NEGATIVE) A 04/14/17 11:55 - Plan (1) Respiratory failure with hypercapnia Status: Acute Qualifiers: Chronicity: acute on chronic Qualified Code(s): J96.22 - Acute and chronic respiratory failure with hypercapnia Plan: bipap, albuterol 1.25mg jet nebs qid, solu-medrol 80mg iv q8h, continue to monitor (2) COPD exacerbation Status: Acute Plan: bipap, respiratory tx, solu-medrol 80mg iv q8h, aminophylline drip per protocol, continue to monitor (3) Pneumonia Status: Acute Qualifiers: Pneumonia type: due to unspecified organism Laterality: right Lung location: lower lobe of lung Qualified Code(s): J18.1 - Lobar pneumonia, unspecified organism Plan: continue azithromycin, continue fortaz, continue supplemental oxygen, respiratory tx, monitor labs and chest xray (4) Congestive heart failure Status: Chronic Qualifiers: Congestive heart failure type: combined Congestive heart failure chronicity : acute on chronic Qualified Code(s): I50.43 - Acute on chronic combined systolic (congestive) and diastolic (congestive) heart failure Plan: OBTAIN ECHO, continue supplemental oxygen, continue to monitor (5) A-fib Status: Chronic Qualifiers: Atrial fibrillation type: chronic Qualified Code(s): I48.2 - Chronic atrial fibrillation Plan: continue cardizem, continue eliquis, continue to monitor (6) Renal insufficiency Status: Acute Plan: D5W 125ML/HR, CONTINUE TO MONITOR
[2017-04-21] MEDS: VERSED 100 MG in NS 100 ML IV 80 ML IV PRN (15:35)
[2017-04-21 21:38] VITALS: BP 42/16
== END 2017-04-21 22:00 | disposition expired | DRG 189 ==
LOC: ER 16:43 → ICU 19:12
PROVIDERS: ADMIT Internal Medicine; ATTEND Internal Medicine
PROC: 02HV33Z Insertion of Infusion Device into Superior Vena Cava, Percutaneous Approach (ICD-10-PCS; principal; 2017-04-13)
DX: J96.20 Acute and chronic respiratory failure, unspecified whether with hypoxia or hypercapnia (principal); I46.9 Cardiac arrest, cause unspecified; I50.43 Acute on chronic combined systolic (congestive) and diastolic (congestive) heart failure; J18.8 Other pneumonia, unspecified organism; J44.1 Chronic obstructive pulmonary disease with (acute) exacerbation; R60.1 Generalized edema; I25.10 Atherosclerotic heart disease of native coronary artery without angina pectoris; E78.2 Mixed hyperlipidemia; K21.9 Gastro-esophageal reflux disease without esophagitis; I10 Essential (primary) hypertension; R94.31 Abnormal electrocardiogram [ECG] [EKG]; I48.2 Chronic atrial fibrillation; N28.89 Other specified disorders of kidney and ureter; Z66 Do not resuscitate
CPT/HCPCS: 36415; 36600; 51702; 71045; 74176; 76770; 80053; 81001; 82270; 82550; 82553; 82803; 83605; 83735; 83880; 84132; 84484; 85025; 85610; 85730; 86140; 87040; 93005; 93306; 94640; 94660; 96365; 96374; 96375; 99285; A4222; A4618; A7030; C9113; P9047; Q0177; S0020; S0028; J0280; J0456; J0713; J1940; J2001; J2250; J2270; J2271; J2405; J2920; J2930; J7613; J7620